=== PATIENT | male | born 1965 | race Caucasian/White ===

== ENCOUNTER 2018-12-03 06:56 | Inpatient (IN) ==
[2018-12-03] MEDS ORDERED: ASPIRIN ONE (07:02)
[2018-12-03] MEDS ORDERED: ASPIRIN PO ONE (07:07)
[2018-12-03] MEDS ORDERED: CATAPRES PO ONE (07:57)
[2018-12-03] MEDS ORDERED: NITROGLYCERIN TOP ONE ×2 (08:00)
[2018-12-03] MEDS ORDERED: NITROGLYCERIN SL ONE ×2 (08:00)
[2018-12-03 08:08] LABS: BASO# 0.03 X1000 (0.0-0.2); BASO% 0.2 % (0.0-0.8); EOS# 0.18 X1000 (0.0-0.7); EOS% 1.3 % (0.0-10.0); HEMATOCRIT 28.7 % (42.0-52.0); HEMOGLOBIN 9.6 g/dL (14.0-18.0); IMM GRAN# 0.06 X1000 (0.0-0.04); IMM GRAN% 0.4 % (0.0-0.5); LYMPH# 1.53 X1000 (1.2-3.4); LYMPH% 11.1 % (20.5-51.1); MCH 30.5 PG (27-31); MCHC 33.4 g/dL (33-37); MCV 91.1 FL (81-99); MONO# 1.38 X1000 (0.11-0.59); MPV 10.4 FL (7.4-10.4); NEUT# 10.58 X1000 (1.4-6.5); PLT 282 X1000 (130-400); RBC 3.15 XMIL (4.7-6.1); RDW 15.5 % (11.5-14.5); WBC 13.76 X1000 (4.8-10.8)
[2018-12-03 08:15] LABS: AGAP 20; ALKALINE PHOSPHATASE 100 U/L (32-122); BUN 61 mg/dL (8-22); CALCIUM 8.1 mg/dL (8.8-10.2); CHLORIDE 103 mmol/L (98-107); COSMO 294; CREATININE 9.3 mg/dL (0.7-1.2); ESTIMATED GFR 6; GLUCOSE 116 mg/dL (70-104); GOT 10 U/L (10-34); GPT < 5 U/L (10-44); POTASSIUM 5.2 mmol/L (3.5-5.1); SODIUM 138 mmol/L (136-145); TCO2 15 mmol/L (25-35); TOTAL PROTEIN 6.9 g/dL (6.3-8.3)
[2018-12-03] MEDS ORDERED: MORPHINE IV ONE (08:15)
[2018-12-03] MEDS ORDERED: ZOFRAN IV ONE (08:15)
--- NOTE | 2018-12-03 08:22 | PROVIDER DOCUMENTATION ---
HPI-General Adult - General Chief Complaint: Chest Pain Stated Complaint: SOB / CP Time Seen by Provider: 12/03/18 07:58 Source: patient, family Allergies/Adverse Reactions: Patient Allergies Allergy/AdvReac Type Severity Reaction Status Date / Time watermelon Allergy ITCHING Verified 08/13/18 13:40 Home Medications: Home Medication List Medication Instructions Recorded Confirmed Last Taken Type Metformin [Glucophage] 500 mg PO DAILY 06/03/13 12/03/18 11/09/13 History Gabapentin [Neurontin] 600 mg PO TID 09/05/13 12/03/18 11/09/13 History Gemfibrozil [Lopid] 600 mg PO BID 09/05/13 12/03/18 11/09/13 History Insulin Humulin 70/30 [Humulin 35 unit SUBQ BID 09/05/13 12/03/18 11/09/13 History 70/30] Lisinopril/Hydrochlorothiazide 1 each PO BID 09/05/13 12/03/18 11/09/13 History [Lisinopril-Hctz 20-12.5 mg Tab] Multivitamin/Iron/Folic Acid 1 each PO DAILY #30 tablet 09/07/13 12/03/18 11/09/13 Rx [Multi-Day Plus Iron Tablet] Pentoxifylline E.r. [Trental] 400 mg PO TID #60 tablet 09/07/13 12/03/18 11/09/13 Rx Aspirin 325 mg PO DAILY 11/10/13 12/03/18 11/09/13 History Clonidine [Catapres] 0.1 mg PO DAILY #30 tablet 08/10/14 12/03/18 Unknown Rx Metoprolol Tartrate 1 tab PO BID 09/08/18 12/03/18 Unknown History - History of Present Illness -Gen Adult Nature of Presenting Problems: 2ND ER VISIT THIS WEEK FOR 52 YO MALE . C/O CHEST PAINS, SOB, LOWER ABD PAINS, HEMATURIA WITH CLOTS, REUCRRENT VOMITING AND POOR RETENTION PO FLUIDS THIS WEEK.VERY LITTLE FOOD RETAINED. NOEW SCROTAL EDEMA. CHRONIC PEDAL EDEMA. NO KNOWLEDGE OF CHF HSITORY.CHRONICALLY ILL WITH COPD, SMOKING, DM, PERIP NEUROPATHY, HTN AND CHRONIC NARCOTIC TREATMENT WITH DR KUMARI. SEES DR HE, CARDIOLOGY. Review of Systems - Adult - REVIEW OF SYSTEMS - ADULT Constitutional: reports: no symptoms reported, fatique. denies: chills, fever Eyes: reports: no symptoms reported Ears, Nose, Mouth & Throat: reports: no symptoms reported Cardiovascular: reports: no symptoms reported Respiratory: reports: see HPI Gastrointestinal: reports: see HPI, nausea, vomiting. denies: hematemesis Genitourinary: reports: see HPI. denies: flank pain Musculoskeletal: reports: no symptoms reported Integumentary: reports: no symptoms reported Neurological: reports: no symptoms reported, numbness, paresthesia Psychiatric: reports: no symptoms reported Endocrine: reports: no symptoms reported Hematologic/Lymphatic: reports: no symptoms reported Allergic/Immunologic: reports: no symptoms reported All Other Systems: Reviewed and Negative Past History - Adult - PAST MEDICAL HISTORY-ADULT Review of Records: reports: Nursing Assessment Review, Medications Reviewed, Social history reviewed & non-contributory. Major Childhood Illnesses: reports: denies history Cardiovascular: reports: HTN, hyperlipidemia, PVD Respiratory: reports: denies history Gastrointestinal: reports: denies history Obstetrical/Gynecological: reports: denies history Genitourinary: reports: denies history Musculoskeletal: reports: denies history Neurological: reports: CVA, other (neuropathy) Psychiatric: reports: depression Endocrine/Immune: reports: Diabetes Other Conditions: reports: other (ulcers to feet) - PRIOR SURGERIES/PROCEDURES Surgical/Procedure History: reports: orthopedic (extremity), other (fem-bop) - IMMUNIZATION STATUS Childhood Immunizations: See Nurse Assessment Flu Vaccine: See Nurse Assessment - FAMILY HISTORY Family History: reviewed, not pertinent Physical Exam-General - PHYSICAL EXAM-ADULT Initial Vital Signs Reviewed: Yes (HTN) - CONSTITUTIONAL General Appearance: mild distress, other (ACHEY). negative: lethargic - EYES Eyes: PERRL/EOMI, pink conjunctivae - HEAD, EARS, NOSE, MOUTH & THROAT HENMT: normocephalic/atraumatic, moist mucous membranes - NECK Neck: full range of motion, supple - RESPIRATORY Respiratory: chest non-tender, lungs clear, normal breath sounds. negative: respiratory distress - CARDIOVASCULAR Cardiovascular: normal peripheral pulses, regular rate, rhythm, no JVD, no murmur. negative: no edema - GASTROINTESTINAL (ABDOMEN) Abdominal Exam: soft, tenderness (SUPRAPUBIC) - MUSCULOSKELETAL Extremity: swelling, other (FOOT ULCERS, CHRONIC EDEMA , CHRONIC STASIS DERMATITIS). 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 negative: facial droop, focal weakness, motor weakness - PSYCHIATRIC Psych/Mental Status: normal thought content, normal thought process, oriented x 3, disheveled, depressed affect Progress - PLAN OF CARE/RESULTS Progress/Plan/Lab Results: Vital Signs - 8 hr 12/03/18 06:58 Temperature 97.6 F Pulse Rate 82 Respiratory Rate 16 Blood Pressure 243/118 O2 Sat by Pulse Oximetry 99 Laboratory Results - last 24 hr 12/03/18 12/03/18 12/03/18 07:05 07:05 07:05 WBC 13.76 H RBC 3.15 L Hgb 9.6 L Hct 28.7 L MCV 91.1 MCH 30.5 MCHC 33.4 RDW Std Deviation 15.5 H Plt Count 282 MPV 10.4 Immature Gran % (Auto) 0.4 Neut % (Auto) 77.0 H Lymph % (Auto) 11.1 L Heard % (Auto) 10.0 H Eos % (Auto) 1.3 Baso % (Auto) 0.2 Immature Gran # (Auto) 0.06 H Neut # (Auto) 10.58 H Lymph # (Auto) 1.53 Heard # (Auto) 1.38 H Eos # (Auto) 0.18 Baso # (Auto) 0.03 Sodium 138 Potassium 5.2 H Chloride 103 Carbon Dioxide 15 L Anion Gap 20 BUN 61 H Creatinine 9.3 H Estimated GFR/1.73 m2 6 BUN/Creatinine Ratio 7 Glucose 116 H Calculated Osmolality 294 Calcium 8.1 L Total Bilirubin 0.20 AST 10 ALT < 5 L Alkaline Phosphatase 100 Troponin T 0.094 H Total Protein 6.9 Albumin 3.0 L Globulin 4.0 Albumin/Globulin Ratio 1.0 Plasma Lactate 12/03/18 07:05 WBC RBC Hgb Hct MCV MCH MCHC RDW Std Deviation Plt Count MPV Immature Gran % (Auto) Neut % (Auto) Lymph % (Auto) Heard % (Auto) Eos % (Auto) Baso % (Auto) Immature Gran # (Auto) Neut # (Auto) Lymph # (Auto) Heard # (Auto) Eos # (Auto) Baso # (Auto) Sodium Potassium Chloride Carbon Dioxide Anion Gap BUN Creatinine Estimated GFR/1.73 m2 BUN/Creatinine Ratio Glucose Calculated Osmolality Calcium Total Bilirubin AST ALT Alkaline Phosphatase Troponin T Total Protein Albumin Globulin Albumin/Globulin Ratio Plasma Lactate 1.4 Orders Category Date Time Status Hirsch Cath Insertion ORDERED Care 12/03/18 08:14 Active CHEST-PORTABLE [RAD] Stat Exams 12/03/18 07:47 Ordered BLOOD CULTURE [BLDCUL] Stat Lab 12/03/18 07:49 Ordered CBC WITH DIFF [HEME] Stat Lab 12/03/18 07:05 Completed CK PROFILE [SP CHEM] Stat Lab 12/03/18 07:05 Received COMPREHENSIVE METABOLIC PANEL [CHEM] Stat Lab 12/03/18 07:05 Completed D-DIMER [COAG] Stat Lab 12/03/18 07:05 Received LACTATE, PLASMA [CHEM] Stat Lab 12/03/18 07:05 Completed PRO B-NATRIURETIC PEPTIDE Stat Lab 12/03/18 08:13 Uncollected PROTIME WITH INR [COAG] Stat Lab 12/03/18 08:14 Uncollected PTT [COAG] Stat Lab 12/03/18 08:14 Uncollected TROPONIN T Stat Lab 12/03/18 07:[address] W/POSS RFLX CULT [URINALYSIS] Stat Lab 12/03/18 08:14 Uncollected URINE DRUG SCREEN PL Stat Lab 12/03/18 08:14 Uncollected Aspirin Med 12/03/18 07:02 Discontinued 325 mg .ROUTE .STK-MED ONE Aspirin Med 12/03/18 07:07 Discontinued 325 mg PO NOW ONE Clonidine [Catapres] Med 12/03/18 07:57 Discontinued 0.2 mg PO NOW ONE Morphine Med 12/03/18 08:15 Discontinued 4 mg IV NOW ONE Nitroglycerin Med 12/03/18 08:00 Discontinued 1 inch TOP NOW ONE Nitroglycerin Med 12/03/18 08:00 Discontinued 1 inch TOP NOW ONE Nitroglycerin Sl [Nitroglycerin] Med 12/03/18 08:00 Discontinued 0.4 mg SL NOW ONE Nitroglycerin Sl [Nitroglycerin] Med 12/03/18 08:00 Discontinued 0.4 mg SL NOW ONE Ondansetron [Zofran] Med 12/03/18 08:15 Discontinued 4 mg IV NOW ONE EKG [EKG] Stat Ther 12/03/18 07:03 Ordered Result Diagrams: 12/03/18 07:05 12/03/18 07:05 - EKG 1 Time of EKG reading by physician:: 08:55 EKG Read and Signed by:: Hernando Moreno EKG Interpretation (*Must complete 3 of following elements*): Abnormal Rate: 80 Rhythm: NORMAL SINUS QRS: normal ST Wave: non-specific ST changes - CONSULTS/PCP/HOSPITALIST Notification #1 *Consult/PCP/Hospitalist*: dr PRINCE Time Discussed: 10:27 Consult Disposition: Admit (WILL NEED TO GO TO [facility] /DIALYSIS/UROLOGY) Departure - Departure Date of Disposition Decision: 12/03/18 Time of Disposition Decision: 10:27 DIAGNOSIS: Acute renal failure (ARF), Obstructive uropathy, Ureteral calculi, Fluid overload, Elevated troponin Disposition: ADMITTED INPATIENT 09 Certified Medical Emergency: Emergent Condition: Fair - Critical Care Note This patient required my direct & personal management of CC.: Yes Total Time (mins): 35 Critical Care Statement: This patient required my direct personal management to treat or rule out processes, the absence of which, could potentiallly result in sudden, clinically significant life or limb threatening deterioration. Attestation - Physician/ MIRZA Attestation The physician spent face to face time with patient:: Yes Advanced Practice Provider documentation review:: Supervising physician onsite and consulted in the evaluation and care of this patient. The physician did have a face to face encounter with the patient.
[2018-12-03] MEDS ORDERED: LASIX IV ONE (08:24)
--- NOTE | 2018-12-03 08:29 | Diag Imaging Result Doc PS360 ---
EXAM: CHEST-PORTABLE 12/03/2018 HISTORY: chest pain TECHNIQUE: AP portable at 0832 COMMENT: There is no evidence of acute cardiac or pulmonary disease. Compared to 10/26/2017 the inspiration is less optimal but otherwise are has been no significant change considering differences in technique. IMPRESSION: No acute disease. Electronically signed by Waqar Jolly 12/03/2018 8:26 AM
--- NOTE | 2018-12-03 08:30 | EKG Report ---
Test Performed on : 12/03/2018 07:00:49 AM Test Reason : cp Blood Pressure : / mmHG Vent. Rate : 080 BPM Atrial Rate : 080 BPM P-R Int : 148 ms QRS Dur : 086 ms QT Int : 396 ms P-R-T Axes : 048 014 090 degrees QTc Int : 456 ms Normal sinus rhythm. Nonspecific T wave abnormality Abnormal ECG When compared with ECG of 26-OCT-2017 11:02, T wave inversion no longer evident in Inferior leads Unconfirmed Result
[2018-12-03 08:47] LABS: INR 1.08; PROTIME 14.6 Seconds (11.0-16.0)
[2018-12-03 08:52] LABS: PTT 36.2 Seconds (22.3-41.8)
--- NOTE | 2018-12-03 09:56 | Diag Imaging Result Doc PS360 ---
EXAM: CT ABDOMEN/PELVIS W/O CONTRAST 12/03/2018 HISTORY: HEMATURIA,ABD APIN TECHNIQUE: This exam was performed using automated exposure control, adjustment of mA or kV according to patient size, and/or use of iterative reconstruction technique. COMMENT: There is bibasilar atelectasis and bilateral pleural effusions. Compared to the previous study of 02/27/2013 this was not present previously. There is ascites which was not present previously. There is perinephric stranding bilaterally and bilateral hydronephrosis. This was not present previously. There is a large calculus in the upper pole of the left kidney measuring almost 19 mm in greatest dimension. Several tiny calculi are present in the lower pole. There is a stone in the ureteropelvic junction on the left measuring 3 mm in diameter. This was not present previously. There is no evidence of nephrolithiasis on the right. The right ureter is distended and there is a stone at the level of the sciatic notch measuring over 8 mm in diameter. This was not present previously. There is anasarca. There is a Hirsch catheter in the bladder. There is no evidence of bowel obstruction. There are no apparent gallstones. IMPRESSION: Distal right ureteral stone with hydronephrosis, left ureteropelvic junction stone with hydronephrosis and left nephrolithiasis. Anasarca, pleural effusions, and ascites. Electronically signed by Waqar Jolly 12/03/2018 9:54 AM
[2018-12-03] MEDS ORDERED: ZOFRAN IV PRN (11:09)
[2018-12-03] MEDS ORDERED: APRESOLINE IV PRN (11:16)
[2018-12-03] MEDS ORDERED: TAZIDIME 2 GM in NS 100 ML IV ONE (11:17)
[2018-12-03] MEDS ORDERED: SODIUM CHLORIDE 0.9% INJ ONE (11:21)
[2018-12-03] MEDS ORDERED: PROTONIX IV ONE (11:21)
[2018-12-03] MEDS ORDERED: AMIDATE ONE (13:16)
[2018-12-03] MEDS ORDERED: XYLOCAINE-MPF 2% ONE (13:17)
[2018-12-03] MEDS ORDERED: ZOFRAN ONE (15:02)
[2018-12-03] MEDS ORDERED: DECADRON ONE (15:02)
[2018-12-03] MEDS: MORPHINE ONE (15:58)
[2018-12-03 16:40] LABS: URINE SOURCE CATH
[2018-12-03 16:54] LABS: BILIRUBIN URINE NEGATIVE (NEGATIVE); BLOOD URINE LARGE (NEGATIVE); COLOR BROWN; GLUCOSE URINE NEGATIVE (NEGATIVE); KETONE URINE NEGATIVE (NEGATIVE); LEUKOCYTES URINE LARGE (NEGATIVE); NITRITE URINE NEGATIVE (NEGATIVE); PROTEIN URINE 200 mg/dL (NEGATIVE); SP GRAVITY URINE 1.003; TURBIDITY URINE TURBID (CLEAR); UR EPITHELIAL CELLS <10 /HPF (<10); URINE BACTERIA NEGATIVE /HPF; URINE RBC TNTC /HPF (<10); URINE WBC TNTC /HPF (<10); UROBILINOGEN URINE NORMAL (NORMAL)
[2018-12-03 16:55] LABS: URINE CASTS GRANULAR PRESENT; URINE CRYSTALS NONE SEEN; URINE SMALL ROUND CELLS TRANS PRESENT; URINE YEAST NONE SEEN
[2018-12-03] MEDS: HUMALOG SUBQ SCH ×2 (17:44→22:14)
[2018-12-03] MEDS: NS 1,000 ML IV SCH (17:51)
[2018-12-03] MEDS: APRESOLINE IV PRN (18:12)
[2018-12-03] MEDS ORDERED: ZOSYN 2.25 GM in NS 50 ML IV SCH (18:30)
[2018-12-03] MEDS: CATAPRES PO SCH (18:58)
[2018-12-03] MEDS: ZYVOX 600 MG/D5W 600 MG/300 ML IVPB IV SCH (18:59)
--- NOTE | 2018-12-03 21:04 | HISTORY AND PHYSICAL ---
CHIEF COMPLAINT: Chest pain, shortness of breath, abdominal pain. HPI: This is a 52-year-old gentleman with a history of diabetes mellitus, peripheral artery disease, hypertension and chronic bilateral feet ulcers. He presents to the emergency room with his complaining of chest pain, shortness of breath, abdominal pain, as well as hematuria and vomiting. The patient states that he began to have some bilateral flank pain about 10 days ago. It waxed and waned. He did have episodes where he felt like he had stabbing pain but he said this lasted maybe a minute at a time. It seemed to get better until the last 24 hours. During this time he has developed chest pain which he states is his lower ribcage to bilateral upper abdominal quadrants as well as right-sided abdominal pain. He describes the pain as a crampy type pain. He said it seems to be build then will slowly decrease although it never resolves. He has had some vomiting. He did have some hematuria with clots although he states he has not voided since sometime yesterday. CT scan revealed a left 3 mm UPJ stone obstruction with hydro, an 8 mm distal right ureter renal stone obstruction as well as a 19 mm nonobstructing renal stone in the right kidney, bilateral perinephric stranding as well as bilateral hydronephrosis with bilateral renal stones with the largest being 19 mm in the left kidney. He does have bilateral obstructing stones having a left UPJ 3 mm stone and a right 8 mm right ureteral stone. Hirsch catheter was placed for no urine return in the emergency room. PAST MEDICAL HISTORY: Diabetes mellitus, COPD, hyperlipidemia, hypertension, peripheral artery disease, neuropathy, bilateral chronic ulcers to feet followed by Dr. Sylvester at the wound clinic. PAST SURGICAL HISTORY: Arthroscopy femoral-popliteal bypass, right 5th toe amputation. SOCIAL HISTORY: He smokes a pack a day. He denies alcohol or illicit drug use. He is lives with his . REVIEW OF SYSTEMS: Discussed with patient with pertinent positives stated in the HPI. He denied any syncope or dizziness, any shortness of breath, cough, chills, night sweats, any recent weight loss or weight gain, any vomiting, diarrhea, constipation, black or bloody vomitus or stools. PHYSICAL EXAMINATION: GENERAL: This is a 52-year-old gentleman who is lying flat on the stretcher in the emergency room in no distress. VITAL SIGNS: Blood pressure is 227/101 with a heart rate of 70, respirations are 15, temperature is 97.6 oral with room air saturations 96-98%. HEENT: Head is normocephalic, atraumatic. Mucous membranes are dry. NECK: Supple with trachea midline. He has no JVD. CARDIOVASCULAR: Regular rate and rhythm. S1 and S2 appreciated. No murmur. Calves are nontender bilateral to palpation. PULMONARY: Breath sounds are clear. No increased work of breathing noted. Chest rises and fall symmetric respiration. Chest wall is nontender to palpation. GASTROINTESTINAL: Abdomen soft, nontender, nondistended. Bowel sounds in all 4 quadrants. GENITOURINARY: He has suprapubic tenderness. He has no CVAT. EXTREMITIES: He has chronic lower extremity edema. He does have chronic stasis dermatitis, he has bilateral foot ulcers. NEUROLOGIC: He is alert, oriented x3. SKIN: Warm and dry. LABS: WBC is 13.7 with hemoglobin 9.6, hematocrit 28.7, platelets of 282,000. Sodium 138, potassium 5.2, BUN is 61, creatinine 9.3 with a glucose of 116. Troponin is 0.094 with a proBNP of greater than 35,000. CT scan of the abdomen and pelvis reveals bilateral renal stones with the largest being 18 mm in the left. This is nonobstructing, a left 3 mm UPJ stone with an 8 mm right ureteral stone, bilateral hydronephrosis. Chest x-ray reveals no acute disease. ASSESSMENT AND PLAN: 1. Bilateral obstructing ureteral stones with hydronephrosis. We have spoken with Dr. Russell and urology. He has been consulted. 2. Acute renal failure. This is very likely secondary to obstruction as he does have bilateral stones. Hirsch has been placed for no urine output. Treatment as stated above and we have spoken with Dr. Alexandra Hernadez's nurse practitioner and they will follow. 3. Leukocytosis. Give Fortaz 2 g 4. Diabetes mellitus. He will be placed on pattern blood glucose with sliding scale insulin. 5. History of peripheral artery disease. We will identify his home medications and continue. 6. History of peripheral neuropathy. Will continue home medications. 7. Chronic bilateral foot ulcer ulcers. He does see Dr. Mateusz Sylvester through the [facility]. Will place a consult for the [facility]. 8. Bilateral femoral stenosis aware. He is status post bilateral femoral- popliteal. 9. Elevated troponin. This is very likely secondary to his acute kidney injury. Will continue to trend his troponins. 10. The patient will remain NPO until evaluated by Dr. Russell. Repeat a CBC, CMP, mag and phos in the morning. 11. Hypertension. Will hold oral medications at present, will use hydralazine 10 mg IV q.6 hours p.r.n. systolic blood pressure greater than 190. 12. For nausea will use Zofran and will continue with IV hydration. Further treatments pending hospital course. Dictated by KAYLEE Bond for Fermín Graf MD cc: KAYLEE Bond MD MTDD
[2018-12-03] MEDS ORDERED: INSULIN PEN NEEDLES ONE (22:20)
[2018-12-03] MEDS: HUMULIN 70/30 SUBQ SCH (22:33)
[2018-12-03] MEDS: LOPRESSOR PO SCH (22:33)
[2018-12-03] MEDS: PERIDEX MT SCH (22:33)
[2018-12-04] MEDS: NORCO-7.5 PO PRN ×2 (00:58→09:08)
[2018-12-04] MEDS: MORPHINE ONE (01:31)
--- NOTE | 2018-12-04 02:36 | HISTORY AND PHYSICAL ---
ADDENDUM: Patient seen and examined by myself in the ER with nurse practitioner. Unfortunately, Mr. Olsen appears to have a renal stone with obstruction. Therefore, we will transfer him to [facility] for Urology to assist in his care. We will place him on antibiotics, pain control, fluids. Further orders as needed. Please see full dictation. cc: Fermín Graf MD
[2018-12-04] MEDS: ZOSYN 2.25 GM in NS 50 ML IV SCH ×3 (03:50→20:52)
[2018-12-04 05:37] LABS: URINE SOURCE CATH
[2018-12-04 05:48] LABS: BILIRUBIN URINE NEGATIVE (NEGATIVE); BLOOD URINE LARGE (NEGATIVE); COLOR RED; GLUCOSE URINE NEGATIVE (NEGATIVE); KETONE URINE NEGATIVE (NEGATIVE); LEUKOCYTES URINE SMALL (NEGATIVE); NITRITE URINE NEGATIVE (NEGATIVE); PROTEIN URINE 200 mg/dL (NEGATIVE); SP GRAVITY URINE 1.007; TURBIDITY URINE TURBID (CLEAR); UR EPITHELIAL CELLS <10 /HPF (<10); URINE BACTERIA NEGATIVE /HPF; URINE RBC <10 /HPF (<10); URINE WBC <10 /HPF (<10); UROBILINOGEN URINE NORMAL (NORMAL)
[2018-12-04 06:04] LABS: UR AMPHETAMINES QUAL NONE DETECTED (NONE DETECT); UR BARBITUATES QUAL NONE DETECTED (NONE DETECT); UR BENZODIAZEPIN QUAL NONE DETECTED (NONE DETECT); UR CANNABINOIDS QUAL PRESUMPTIVE POSITIVE (NONE DETECT); UR COCAINE QUAL NONE DETECTED (NONE DETECT); UR METHADONE QUAL NONE DETECTED (NONE DETECT); UR OPIATES QUAL PRESUMPTIVE POSITIVE (NONE DETECT); UR OXYCODONE QUAL NONE DETECTED (NONE DETECT); UR PCP QUAL NONE DETECTED (NONE DETECT)
[2018-12-04] MEDS: NS 1,000 ML IV SCH ×3 (06:10→16:04)
[2018-12-04] MEDS: ZYVOX 600 MG/D5W 600 MG/300 ML IVPB IV SCH ×2 (06:10→17:45)
[2018-12-04 06:23] LABS: HEMATOCRIT 27.3 % (42.0-52.0); HEMOGLOBIN 8.7 g/dL (14.0-18.0); IMM GRAN# 0.04 X1000 (0.0-0.04); IMM GRAN% 0.5 % (0.0-0.5); LYMPH# 0.85 X1000 (1.2-3.4); LYMPH% 11.4 % (20.5-51.1); MCH 29.2 PG (27-31); MCHC 31.9 g/dL (33-37); MCV 91.6 FL (81-99); MONO# 0.42 X1000 (0.11-0.59); MONO% 5.7 % (1.7-9.3); MPV 10.5 FL (7.4-10.4); NEUT# 6.12 X1000 (1.4-6.5); NEUT% 82.4 % (42.2-75.2); PLT 282 X1000 (130-400); RBC 2.98 XMIL (4.7-6.1); RDW 15.4 % (11.5-14.5); WBC 7.43 X1000 (4.8-10.8)
[2018-12-04 06:48] LABS: MAGNESIUM 2.3 mg/dL (1.5-2.7); PHOSPHORUS 8.2 mg/dL (2.7-4.5)
[2018-12-04] MEDS: HUMALOG SUBQ SCH ×2 (06:51→13:54)
[2018-12-04 07:03] LABS: AGAP 17; ALB/GLOB RATIO 0.7; ALBUMIN 2.5 g/dL (3.5-5.0); ALKALINE PHOSPHATASE 81 U/L (32-122); BUN 60 mg/dL (8-22); CALCIUM 8.1 mg/dL (8.8-10.2); CHLORIDE 107 mmol/L (98-107); COSMO 295; CREATININE 8.7 mg/dL (0.7-1.2); ESTIMATED GFR 6; GLUCOSE 46 mg/dL (70-104); GOT 6 U/L (10-34); GPT < 5 U/L (10-44); POTASSIUM 5.5 mmol/L (3.5-5.1); SODIUM 141 mmol/L (136-145); TCO2 17 mmol/L (25-35); TOTAL BILIRUBIN 0.16 mg/dL (0.20-1.00); TOTAL PROTEIN 6.3 g/dL (6.3-8.3)
[2018-12-04] MEDS ORDERED: LEVSIN PO PRN (07:41)
--- NOTE | 2018-12-04 08:05 | CONSULTATION ---
DATE OF CONSULTATION: 12/03/2018 SUBJECTIVE: 1. Acute kidney injury. 2. Abdominal pain. 3. Bilateral obstructing ureteral stones. HISTORY OF PRESENT ILLNESS: Mr. Olsen is a 52-year-old with diabetes, peripheral artery disease, coronary artery disease, hypertension, hyperlipidemia, osteoarthritis, peripheral neuropathy, who presents for evaluation regarding left abdominal pain and decreased urinary output. The patient states for the past week he has been having abdominal pain and felt like he has not been able to urinate as efficiently as he used to. The patient states he has low volumes and strains to urinate. He has developed worsening left abdominal pain as well as occasional hematuria. The patient has been sick to the stomach and not been able to tolerate much p.o. intake, and feels like he has become dehydrated. The patient presented to [facility] today and CT scan was performed, which showed bilateral obstructing stones with a 9 mm stone present in the right distal ureter, and a smaller 3 mm stone present near the left ureteropelvic junction as well as a larger stone within the upper pole of the left kidney itself. The patient was referred to [facility] for surgical intervention. Patient states he had a stone in his twenties, but none since then. He states that he has history of anasarca and lower extremity edema. There has been new onset of scrotal swelling, he denies pain. PAST MEDICAL HISTORY: 1. Hypertension. 2. Hyperlipidemia. 3. Peripheral vascular disease. 4. Type 2 diabetes. 5. Depression. 6. History of CVA x2. 7. Peripheral neuropathy. 8. Peripheral arterial disease status post grafting. 9. Foot ulcerations managed by Dr. Sylvester. PAST SURGICAL HISTORY: 1. Removal of right 2nd phalanges. 2. Left femoropopliteal bypass on the left. 3. Arthroscopy of the knee ALLERGIES: Watermelon. MEDICATIONS: 1. Aspirin 325 mg daily. 2. Clonidine 0.1 mg p.o. daily. 3. Gabapentin 600 mg p.o. t.i.d. 4. Gemfibrozil 600 mg b.i.d. 5. Insulin 70/30, 35 units subcu b.i.d. 6. Lisinopril-hydrochlorothiazide 20-12.5 mg. 7. Metformin 500 mg p.o. daily. 8. Metoprolol 1 tablet b.i.d. 9. Multivitamin. 10. Trental 400 mg p.o. t.i.d. FAMILY HISTORY: Denies family history of malignancies. REVIEW OF SYSTEMS: Twelve-point review of systems reviewed. All pertinent positives and negatives in HPI. The patient also complains of chest pain and shortness of breath, as well as lower extremity edema and scrotal edema. PHYSICAL EXAMINATION: Vital Signs: Temperature 97.6 degrees, heart rate 62, blood pressure 197/88, oxygen saturation 98% on room air. General: The patient looks older than stated age. Appears chronically ill, alert and able answer questions. Oriented to person, place, time, and situation, but slightly lethargic. HEENT: Normocephalic, atraumatic. Pupils equal, round, reactive to light. Poor dentition. Respiratory: Good respiratory effort without audible wheezing or rales. Cardiovascular: No evidence of tachycardia or murmur. Abdomen: Soft, nondistended. Tenderness to palpation of the left abdomen. No abdominal distention or rebound tenderness. Genitourinary: No suprapubic tenderness. Urethral catheter in place with minimal drainage. Phallus normal. Evidence of scrotal edema with bilateral palpable testicles that are nontender to palpation. No obvious masses. Rectal: Digital rectal exam deferred until operating room. Extremities: The patient has 2+ edema present to above the thigh on the right side. No evidence of left-sided edema. Multiple ulcerations and poor foot hygiene bilaterally. Neurologic: Lethargic, but alert and oriented. Answers all questions appropriately. Skin: Multiple ulcerations of the feet. No obvious skin lesions or rashes. LABORATORY DATA: White blood cell count 13.8, hemoglobin 9.6, hematocrit 28.7, platelets 282,000. D-dimer 4.99. Sodium 138, potassium 5.2, chloride 103, bicarb 15, BUN 61, creatinine 9.3. Glucose 116. Troponin 0.094. Pro-B natriuretic peptide greater than 35,000. Albumin 3.0. IMAGING: CT of the pelvis, noncontrast, reviewed. Shows evidence of obstructing stones with a 3 mm stone present at the left ureteropelvic junction as well as a larger stone within the left kidney measuring approximately 1.9 cm in size and quite dense. The patient also has obstruction of the right kidney with approximate 8.5 mm stone in the distal right ureter leading to bilateral hydronephrosis. The patient has anasarca as well as bilateral fluid effusions. ASSESSMENT AND PLAN: Mr. Olsen is a 52-year-old with peripheral artery disease, type 2 diabetes, hypertension, hyperlipidemia, peripheral neuropathy, history of prior cerebrovascular accident, and nephrolithiasis, who presents in consultation regarding bilateral obstructing ureteral stones with acute kidney injury, with a creatinine elevated at 9.3. The patient had a Hirsch catheter that was present within the bladder and has not had much drainage. I think the patient is completely obstructed by his bilateral stones, likely related to acute kidney injury from anuria. The patient had an elevated BNP as well as troponin's, likely related to the acute kidney injury and fluid overload status. I recommended cystoscopy, bilateral ureteral stent placements, and likely bilateral retrograde pyelograms. I told him I would not remove the stones today, but would try to optimize his drainage. I told him that he is likely at risk for chronic kidney disease related to the obstructing stones, and may have difficulty coming off the ventilator afterwards due to his chronic obstructive pulmonary disease, as well as his other comorbidities. The patient has bilateral pleural effusions, anasarca, ascites, and multiple bilateral urolithiasis. The patient is chronically sick with his multiple comorbidities. I explained to him that he is at high risk for surgical intervention, but he will not improve without placement of stents and optimization of his kidney function. The patient and his expressed understanding. I will plan to take to the operating room later today. cc: Yosef Russell MD MTDPoppy
--- NOTE | 2018-12-04 09:07 | OPERATIVE NOTE ---
PROCEDURE DATE: 12/03/2018 PREOPERATIVE DIAGNOSES: 1. Acute kidney injury. 2. Anuria. 3. Bilateral obstructing ureteral stones. POSTOPERATIVE DIAGNOSES: 1. Acute kidney injury. 2. Anuria. 3. Bilateral obstructing ureteral stones. PROCEDURES PERFORMED: 1. Cystoscopy. 2. Bilateral retrograde pyelograms. 3. Bilateral ureteral stent placement. SURGEON: Yosef Russell MD. SHORT ORDER COOK: None. COMPLICATIONS: None. BLOOD LOSS: Zero. DRAINS: 1. A left ureteral stent 6 x 26 cm. 2. A right 6 x 24 cm stent. SPECIMENS: Urine for culture. OPERATIVE FINDINGS: The patient had a normal urethra. No evidence of stricture disease or papillary lesions. On entry into the bladder, the patient had a small prostate with no evidence of hypertrophy or obstruction. Once inside the bladder, the entirety of the bladder was inspected. Both ureteral orifices visualized, were quite narrow, with no obvious efflux from either side. Entirety of the bladder was inspected without any mucosal abnormalities, diverticulum, cellules, or papillary lesions, at which point, contrast dye was injected into the left ureteral orifice, which outlined a normal distal ureter with a filling defect in the proximal ureter, likely related to stone. I was able to get the contrast into the kidney itself, which outlined a normal collecting system with evidence of blunted calyx and hydronephrosis. Then the patient underwent uneventful left stent placement. Large amount of sediment returned from the right kidney. Attention was then placed to the right side. Calcification was seen in the distal right ureter. I attempted to inject contrast past this and was able to get contrast around it, which showed the filling defect and then outlined the collecting system itself which was severely hydronephrotic. I was able to place a wire past the stone and had return of a large amount of stagnant urine. The stent was then inserted with good curl in the collecting system, endoscopically visualized in the bladder. The patient's bladder was cycled multiple times to remove all the debris from his urine. The patient's bladder was left full and a 16-Polish Hirsch catheter was inserted. INDICATION FOR PROCEDURE: Mr. Olsen is a 52-year-old with diabetes, peripheral artery disease, coronary artery disease, prior CVA, who presents in consultation regarding azotemia with a BUN of 61 and a creatinine of 9.3. Presented to the ED due to weakness, lethargy, abdominal pain, and nausea/vomiting. CT scan shows bilateral obstructing stones with associated hydronephrosis. Patient is anuric since presenting the ED. In talking with the patient, I recommended cystoscopy and bilateral ureteral stent placement. Risks, benefits, and alternatives to the surgical procedure were discussed with the patient and his . The patient elected to proceed. DESCRIPTION OF PROCEDURE: After informed consent was obtained, the patient was brought to the operating room and placed on the operating table in the supine position. He received preoperative antibiotics and then underwent LMA placement. He was then positioned in the dorsal lithotomy position, was prepped and draped in the usual sterile fashion. A preoperative time-out was performed with all parties in agreement including anesthesia, surgical, and nursing staff. Following this, a 21-Polish cystourethroscope was introduced with no evidence of urethral stricture disease or papillary lesions. Following this, the posterior urethra was encountered. The prostate was small with no evidence of obstruction. Once inside the bladder, the entirety of the bladder was inspected and appeared to be empty of urine. Both ureteral orifices were visualized with no efflux or peristalsis. No papillary lesions, diverticulum, cellules, or bladder stones were seen within the bladder itself. [employer] fluoroscopy, showed calcification seen in the distal right ureter measuring 9 mm and a large stone present in the upper pole of the left kidney. Following this, our attention was placed to the left ureteral orifice. I placed open ended catheter through the scope and the left UO was engaged. Injecting Omnipaque, I outlined the ureter, which showed filling defect in the proximal ureter. The contrast went into the kidney itself and showed hydronephrosis with blunted calyx. A wire was placed thorugh the open ended and seen to go into the collecting system. The open ended catheter was removed and 6x26cm stent was passed with ease into the collecting system with coil present in the upper pole of the kidney on fluoroscopy and endoscopically seen in the bladder. A large amount of sediment returned from the left collecting system after placement of the stent. This was cycled out the bladder. Then attention was placed to the right side. Open-ended catheter was inserted and Omnipaque injected. A filling defect was seen in the distal ureter that was previously seen and contrast was able to get around this area and up into the collecting system itself with outlining of the collecting system. There was significant hydronephrosis and, ultimately, I was able to get a wire past the stone up into the collecting system itself. The open-ended catheter was removed and a 6 x 24 cm stent was then passed through the scope, endoscopically visualized to coil in the bladder and fluoroscopically visualized to coil within the kidney itself. Good drainage was seen through and around the stent. There was a large amount of stagnant urine in the bladder which was irrigated out multiple times. The patient's bladder was then left full and a 16-Polish Hirsch catheter was inserted through the urethra with return of clear irrigant. This was inflated with 10 mL of sterile water and placed to gravity drainage. The patient was awoken and was taken to recovery in stable condition. Will be transferred back to the floor for further monitoring. cc: Yosef Russell MD MTDD
[2018-12-04] MEDS: CENTRUM TABLET PO SCH (09:08)
[2018-12-04] MEDS: FLOMAX PO SCH (09:09)
[2018-12-04] MEDS: LOPRESSOR PO SCH ×2 (09:09→20:51)
[2018-12-04] MEDS: PERIDEX MT SCH ×2 (09:09→20:51)
[2018-12-04] MEDS: HUMULIN 70/30 SUBQ SCH (09:12)
[2018-12-04] MEDS: CATAPRES PO SCH (09:18)
--- NOTE | 2018-12-04 09:58 | PROGRESS NOTE ---
DATE: 12/04/2018 SUBJECTIVE: Postop day 1 from cystoscopy, bilateral retrograde pyelograms, and bilateral ureteral stent placement. The patient tolerated the procedure well and is much more awake and alert today. Answers all questions appropriately and is jovial on appearance. The patient made a good amount of urinary output overnight, approximately 2 L. He states he has minimal flank or abdominal pain. He is having some pain within his lower pelvis and states that he had some spasms in his bladder. Catheter has been draining mostly thin, reddish urinary output. OBJECTIVE: Vitals: Stable. Temperature 98.4 degrees, heart rate 77, blood pressure 141/62, oxygen saturation 97% on room air. General: No acute distress. Resting comfortably in bed, alert, oriented x3. Respiratory: Good respiratory effort without audible wheezing or rales. Abdomen: Soft, nontender, nondistended. No palpable masses or hepatosplenomegaly. : No suprapubic tenderness. No CVA tenderness. Urethral catheter in place draining reddish urinary output. No evidence of any clots. Urine is thin and drains rapidly. Scrotum is less edematous today. Penis is normal with urethral catheter in place. Extremities: Right lower extremity edema, has decreased relatively significantly. Continues to have some drainage from his right phalanges of his foot. LABORATORIES: White blood cell count 7.4, hemoglobin 8.7, hematocrit 27.3, platelets 282,000. Sodium 141, potassium 5.5, chloride 107, bicarb 17, BUN 60, creatinine 8.7, glucose 46, calcium 8.1, phosphorus 8.2, albumin 2.5. ASSESSMENT AND PLAN: Mr. Olsen is a 52-year-old with type 2 diabetes, COPD, hyperlipidemia, hypertension, peripheral artery disease, neuropathy, bilateral ulcerations of the feet, who presents in consultation regarding bilateral ureteral obstruction with anuria. The patient was taken to the operating room yesterday for cystoscopy, bilateral retrograde pyelograms, and bilateral stent placement. The patient tolerated the procedure well and has had approximately 2 L of urinary output since then. Overall, he seems to be clinically improving. We will increase his fluids today to try to promote urinary output and keep him from becoming dehydrated. Creatinine has only mildly improved. His creatinine today is a 8.7 from 9.3 yesterday. The patient is making a large amount of urine with over 2 L of output. His urine does have some blood tinge to it, but is draining well and is thin with no obvious clots. I think this is likely related to his aspirin as well as the significance of his acute kidney injury. We will continue with fluids to try to help with washing this out. We will plan to repeat a BMP at 2 o'clock today. The patient does have an elevated phosphorus level, likely needs a Nephrology consult regarding management. His potassium is slightly elevated at 5.5 as well. The patient denies any pain. I would plan to start bladder spasm medication and Flomax to assist in discomfort from the stents as he does have some complaints of bladder spasms this morning. We will continue to monitor. Please call with questions or concerns. cc: Yosef Russell MD MTDD
[2018-12-04] MEDS: CELEXA PO SCH (11:37)
[2018-12-04] MEDS ORDERED: TYLENOL PO PRN (12:04)
[2018-12-04] MEDS: NEURONTIN PO SCH (13:42)
[2018-12-04] MEDS: DILAUDID IV PRN (13:49)
[2018-12-04] MEDS: ZOFRAN IV PRN (14:56)
[2018-12-04 15:23] LABS: CREATININE 7.8 mg/dL (0.7-1.2); POTASSIUM 5.2 mmol/L (3.5-5.1)
--- NOTE | 2018-12-04 15:35 | PROGRESS NOTE ---
DATE: 12/04/2018 INTERVAL HISTORY: Mr. Olsen underwent cystoscopy, bilateral retrograde pyelogram, bilateral ureteral stent placement on December 03 which he tolerated well. SUBJECTIVE: He is very irritated. Does not answer questions appropriately. He does not want to engage in any conversation, and he is very an in his responses. He was not complying with physical examination completely, though. I explained to him and more so to his about his clinical condition and plan and answered all of her questions. OBJECTIVE: Vital Signs: Temperature is 97.7 degrees, pulse 63, respiratory rate 16, blood pressure 180/75 saturating 100% on room air. General: He is irritated, not in any acute distress. HEENT: Oral cavity is moist. Lungs: Air entry bilaterally equal. No wheeze, rhonchi, crackles. Cardiovascular: S1, S2 normal. No murmur or gallop. Abdomen: Soft. Mildly tender in left lower quadrant. Genitourinary: He has urine catheter in place which is draining bloody urine. Extremities: He has bilateral lower extremity edema and chronic venous stasis dermatitis-related changes. Pulses are difficult to be palpated. However, his extremities are warm to touch. He does have chronic wound in first intertriginous area between the great toe and 2nd toe on the right foot. Left foot has old calluses. LABORATORY DATA: Labs suggestive of resolution of leukocytosis, normocytic anemia, normal platelet count, hyperkalemia, elevated BUN and creatinine, hyperphosphatemia. He has positive urine toxicology for opiates and cannabinoids. MICROBIOLOGY: Wound culture from the right big toe, no growth to date. IMAGING: No new imaging. ASSESSMENT AND PLAN: 1. Bilateral obstructing ureteral stone leading to bilateral hydronephrosis status post bilateral ureteric stent on December 03. Continue to monitor kidney function. Continue Hirsch catheter. Urology on board. 2. Acute renal failure, likely post obstructive kidney failure. Continue intravenous fluid resuscitation. Follow up with daily BMP. Follow up with repeat potassium level. I will consider adding calcium acetate considering his hypocalcemia and hyperphosphatemia if he is eating. 3. Suspected bilateral acute pyelonephritis because of nephrolithiasis. Follow up final blood culture and urine culture results. Continue intravenous Zosyn and linezolid and change antibiotics according to final culture and sensitivity data. 4. Chronic right foot wound related to severe peripheral artery disease. Continue IV linezolid. Follow up final wound culture results. I will have wound nurse evaluate the wound. 5. IDDM with current Hypoglycemia: I will stop long acting insulin until his PO intake improves. Continue sliding scale insulin. 5. Essential hypertension and depression. I will continue home clonidine, metoprolol, and as- needed hydralazine and home citalopram. 6. Chronic pain and peripheral neuropathy. I will start him on as-needed hydromorphone, and we will adjust the dose of gabapentin for his poor kidney function at the moment. 7. Disposition. The patient remains inside the hospital as we monitor his urine output as well as kidney function. He currently has post obstructive renal failure. We will have to wait and see how his renal function improves. Plan of care discussed with the patient's at bedside. All of their questions have been answered satisfactorily. cc: Tony Pike MD MTDD
--- NOTE | 2018-12-04 17:28 | NEPHROLOGY CONSULTATION ---
DATE: 12/04/2018 REASON FOR ADMISSION: Bilateral hydronephrosis secondary to obstructing nephrolithiasis. REASON FOR CONSULTATION: Acute kidney injury. CONSULTING PHYSICIAN: Dr. Pike. HISTORY OF PRESENT ILLNESS: 52-year-old gentleman presented to the emergency room secondary to bilateral flank pain that had waxed and waned. He said that this had been going on for maybe 2 weeks. He had some hematuria but had significantly decreased output over the last 24 hours prior to admission. In the ER CT revealed obstructive ureteral stones bilaterally. He was admitted and transferred over to [facility] where he underwent a cystostomy, bilateral retrograde pyelograms and bilateral ureteral stent placement by Dr. Russell. Patient's urine output has picked up overnight. His initial creatinine prior to surgery was greater than 9, today he is 8.7. PAST MEDICAL HISTORY: Diabetes, COPD, hyperlipidemia, hypertension, peripheral artery disease, neuropathy, chronic ulcers bilateral feet followed by Dr. Sylvester at the wound clinic. SURGICAL HISTORY: Femoral-popliteal bypass, right 5th toe amputation, arthroscopy. ALLERGIES: Watermelon. HOME MEDICATIONS: Metformin, Humulin, lisinopril hydrochlorothiazide, gemfibrozil, gabapentin, multivitamin, Trental, aspirin, Catapres, metoprolol, Celexa. FAMILY HISTORY: Noncontributory. SOCIAL HISTORY: Continues to smoke, denies ETOH or illicit drug use. He is his is at the bedside. REVIEW OF SYSTEMS: Hematuria, abdominal pain. EXAM: Vital Signs: Temperature 97.7 degrees, pulse 63, respiratory 16, blood pressure 185/75, intake 2.5 L, output 1.7 L. General: This is a middle-aged gentleman sitting up in bed he is awake and alert. He is in no acute distress. He is cooperative with exam. HEENT: Normocephalic, atraumatic. Conjunctivae slightly pale, oral mucosa moist. Neck: Supple without JVD. Cardiovascular: Regular rate and rhythm without murmur. Pulmonary: He is clear bilaterally. He has no increased work of breathing. Abdomen: Soft with positive bowel sounds. : He has a Hirsch catheter. There is dark cranberry colored urine noted. The patient does state he feels some fullness to the bladder area. Extremities: Lower extremity edema with chronic stasis dermatitis. Bilateral ulcers noted feet. Is moving extremities. Integument: Skin warm and dry. Neuro: Grossly nonfocal otherwise. LAB DATA: WBC of 7.4, hemoglobin 8.7, sodium 141, potassium 5.5, CO2 17, creatinine 8.7 (9.3), baseline creatinine 1 in 2015. ASSESSMENT AND PLAN: 1. Acute kidney injury secondary to bilateral obstructing ureteral stones with hydronephrosis. The patient has underwent appropriate surgical intervention has had improvement renal function overnight. In discussion with the patient sounds like this has been going on for about 2 weeks. We should see some continued improvement in renal function. Right now he does not have any indications for intervention such as dialysis. Continue to follow. Will need to follow his intake and output closely in case he begins to have significant postobstructive diuresis. He has had almost 2 L out since surgery last night around 9 o'clock. 2. Leukocytosis, antibiotics are appropriately dosed, make no changes currently. 3. Electrolytes, acid-base balance, these are acceptable. He has some slight acidosis and that is actually improved from admission. His potassium is high normal will monitor that. He does have some urologic bleeding. Dictated by KAYLEE Munguia for Zachary Morris MD cc: Zachary Morris MD
[2018-12-04] MEDS: PHOSLO PO SCH (17:45)
[2018-12-04] MEDS: APRESOLINE IV PRN (20:55)
[2018-12-05] MEDS: NS 1,000 ML IV SCH (01:25)
[2018-12-05] MEDS: HUMALOG SUBQ SCH ×5 (01:25→21:28)
[2018-12-05] MEDS: DILAUDID IV PRN (01:52)
[2018-12-05] MEDS: ZOSYN 2.25 GM in NS 50 ML IV SCH ×2 (03:52→11:56)
[2018-12-05] MEDS: ZYVOX 600 MG/D5W 600 MG/300 ML IVPB IV SCH (05:45)
[2018-12-05 06:43] LABS: HEMATOCRIT 29.1 % (42.0-52.0); HEMOGLOBIN 9.2 g/dL (14.0-18.0); MCH 29.9 PG (27-31); MCHC 31.6 g/dL (33-37); MCV 94.5 FL (81-99); MPV 10.3 FL (7.4-10.4); RBC 3.08 XMIL (4.7-6.1); RDW 15.9 % (11.5-14.5); WBC 10.89 X1000 (4.8-10.8)
[2018-12-05 07:05] LABS: CALCIUM 7.8 mg/dL (8.8-10.2); CREATININE 7.3 mg/dL (0.7-1.2); POTASSIUM 4.5 mmol/L (3.5-5.1)
[2018-12-05 07:06] LABS: ALBUMIN 2.4 g/dL (3.5-5.0); PHOSPHORUS 7.9 mg/dL (2.7-4.5)
--- NOTE | 2018-12-05 07:57 | PROGRESS NOTE ---
DATE: 12/05/2018 SUBJECTIVE: Postoperative day 2 from cystoscopy, bilateral retrograde pyelograms, and bilateral ureteral stent placement. The patient did well overnight. He denies significant abdominal pain. States he is hurting slightly in his bladder, but this is stable to slightly improved. He continues to have good urinary output with 1800 mL recorded yesterday. The patient is having clearing of his urine, still pink to light red with no clots present. The patient has been tolerating p.o. intake and had a bowel movement yesterday. OBJECTIVE: Vital Signs: Temperature 98.1 degrees, heart rate 59, blood pressure 145/59, oxygen saturation 96% on room air. General: Resting comfortably. Alert and oriented x3. Respiratory: Good respiratory effort without audible wheezing or rales. Abdomen: Soft, nontender, nondistended. No palpable masses. Genitourinary: No suprapubic tenderness. No CVA tenderness. Urethral catheter in place draining light pink urine. No evidence of any clots. Scrotal edema improving. No palpable testicular masses. Extremities: Improvement in lower extremity edema. LABORATORIES: White blood cell count 10.9, hemoglobin 9.2, hematocrit 29.1, platelets 249,000. Sodium 142, potassium 4.5, chloride 110, bicarbonate 17, BUN 64, creatinine 7.3, glucose 61 ASSESSMENT AND PLAN: Mr. Olsen is a 52-year-old with type 2 diabetes, chronic obstructive pulmonary disease, hyperlipidemia, hypertension, peripheral artery disease, neuropathy, ulcerations of bilateral feet, who presented initially to the emergency room with decreased oral intake and abdominal pain, and was found to have bilateral ureteral obstructions with nephrolithiasis and was anuric. The patient was taken to the operating room on Wednesday for cystoscopy and bilateral ureteral stent placement. The patient has been doing well. He has approximately 1800 mL of urinary output over the past 24 hours. His catheter is draining light pink urine. No evidence of any clot. His renal function continues to improve. Creatinine is 7.3 today from 7.8 yesterday at 2 p.m., down from 9.3 on presentation. The patient seems to be having more oral intake. He is having some suprapubic tenderness, but this seems to have improved with addition of bladder spasm medications yesterday. I appreciate the recommendations of nephrology. We will continue to monitor. From a urologic standpoint, we keep indwelling catheter in now, continue to monitor electrolytes. Please call with questions or concerns. cc: Yosef Russell MD [facility]
[2018-12-05] MEDS: PHOSLO PO SCH ×3 (09:00→17:40)
[2018-12-05] MEDS: CELEXA PO SCH (09:00)
[2018-12-05] MEDS: PERIDEX MT SCH ×2 (09:00→21:46)
[2018-12-05] MEDS: FLOMAX PO SCH (09:00)
[2018-12-05] MEDS: CENTRUM TABLET PO SCH (09:00)
[2018-12-05] MEDS: CATAPRES PO SCH ×3 (09:00→17:44)
[2018-12-05] MEDS: LOPRESSOR PO SCH ×2 (09:00→21:46)
[2018-12-05] MEDS: NEURONTIN PO SCH (09:00)
--- NOTE | 2018-12-05 09:01 | Diag Imaging Result Doc PS360 ---
EXAM: RETROGRADES 2 OR 3 FILMS HISTORY: bilateral retrogrades; bilateral stent placement TECHNIQUE: 19 films submitted COMPARISON: None. FINDINGS: Early films have retrograde filling of the left ureter. No obstruction to retrograde flow although there are multiple filling defects in the proximal left ureter. A wire was placed within the left ureter with a ureteral stent placed. There has been retrograde filling of the right ureter. Large filling defect in the mid to distal right ureter. A wire and catheter were then placed. IMPRESSION: Bilateral ureteral stents placed with a stone in the mid to distal right ureter and multiple filling defects in the proximal left ureter Electronically signed by Chris Allen 12/05/2018 8:59 AM
[2018-12-05] MEDS: LR 1,000 ML IV SCH ×2 (10:34→17:40)
--- NOTE | 2018-12-05 12:28 | PROGRESS NOTE ---
DATE: 12/05/2018 INTERVAL HISTORY: No acute events overnight. SUBJECTIVE: The patient denies any new complaints. He states he has been eating a little better today than he has been before. His is at bedside. The patient does not appear interested in clinical encounter. However, he is not as agitated as he was yesterday. OBJECTIVE: Vitals: Currently, temperature 98.1 degrees, pulse 59, respiratory rate 20, blood pressure 145/59, saturating 96% on room air. General: He does not appear in any acute distress. Mouth: Oral cavity is moist. Lungs: Air entry bilaterally equal. No wheeze, rhonchi, crackles. Cardiac: S1, S2 normal. No murmur, rub or gallop. Abdomen: Soft, tender in left lower quadrant and right lower quadrant. However, it is diminished as compared to yesterday. He has urine catheter with pink looking urine drainage. Extremities: He has bilateral lower extremity edema and chronic venous stasis dermatitis changes. Pulses are difficult to palpate, however, extremities are warm to touch. He does have chronic wound in his intertriginous area between the great toe and 2nd toe on the right foot. Left foot has old calluses. LABORATORIES: Suggestive of normocytic anemia. He does have hyperchloremia and low bicarbonate, elevated BUN and creatinine, and his hypoglycemia appears to be better as compared to yesterday. I encouraged him to eat. No new microbiological data. No new imaging. ASSESSMENT AND PLAN: 1. Bilateral obstructing ureteral stone leading to bilateral hydronephrosis. Status post bilateral ureteric stent on December 03. Continue Hirsch catheterization and close input and output monitoring. Continue him on hyoscyamine and tamsulosin as per urologist's recommendation. 2. Suspected acute bilateral pyelonephritis. His urine culture has not shown any growth to date. However, I would consider changing his antibiotics from Zosyn to ceftriaxone. Blood culture final culture has been negative. 3. Acute renal failure, likely postobstructive postrenal failure with low bicarbonate, elevated BUN and creatinine, hypocalcemia and hyperphosphatemia. Change intravenous fluids to intravenous lactated Ringer's. Continue Hirsch catheter for close input and output monitoring, and calcium acetate. Nephrology on board as well. 4. Chronic right foot wound related to severe peripheral artery disease. Continue wound care, whom I have consulted. The wound culture has not shown any growth to date. Appreciate wound dressing recommendation from Wound Care. I am holding his aspirin considering hematuria which he was taking for peripheral artery disease versus prior history of stroke. 5. History of insulin-dependent diabetes mellitus with current hypoglycemia. Continue to hold long-acting insulin and continue sliding scale insulin. I encouraged him to take p.o. adequately. His poor p.o. intake is contributing to hypoglycemia. 6. Others. Increase clonidine for essential hypertension and continue metoprolol; continue home citalopram for depression; continue hydromorphone and gabapentin for chronic pain and current abdominal pain. 7. Disposition. The patient remains inside the hospital as I monitor his kidney function. Plan of care discussed with him. All of his questions have been answered. is also at bedside. Her questions have also been addressed satisfactorily. cc: Tony Pike MD
[2018-12-05] MEDS: ZOFRAN IV PRN (12:41)
[2018-12-05] MEDS: ROCEPHIN 1 GM in NS 50 ML IV SCH (13:25)
--- NOTE | 2018-12-05 16:34 | NEPHROLOGY PROGRESS NOTE ---
DATE: 12/05/2018 SUBJECTIVE: He states he is feeling better. He states his lower extremity swelling is chronic. No shortness of breath. OBJECTIVE: Vital Signs: Blood pressure 166/61, heart rate 54, respirations 17, afebrile. General: Acute distress. Skin: Warm and dry. Neck: Neck veins are not visible. Heart: Regular. No gallops. Lungs: Equal. No crackles or wheezes. Abdomen: Soft, nontender. Bowel sounds are present. Extremities: Have trace edema. No clubbing or cyanosis. IMPRESSION: Acute kidney injury secondary to urologic obstruction with stones. His urine remains brown to bloody and turbid. Creatinine is improving slowly. It is 7.3 today with initial creatinine 9.3. Good urine output at 1.8 L daily and he is in positive fluid balance. Modest metabolic acidosis is secondary to his acute kidney injury. Continue current care. cc: Zachary Morris MD
[2018-12-06] MEDS: LR 1,000 ML IV SCH ×3 (01:15→18:28)
[2018-12-06 06:04] LABS: HEMATOCRIT 26.7 % (42.0-52.0); HEMOGLOBIN 8.5 g/dL (14.0-18.0); MCH 30.1 PG (27-31); MCHC 31.8 g/dL (33-37); MCV 94.7 FL (81-99); MPV 10.7 FL (7.4-10.4); RBC 2.82 XMIL (4.7-6.1); RDW 15.7 % (11.5-14.5); WBC 9.86 X1000 (4.8-10.8)
[2018-12-06] MEDS: HUMALOG SUBQ SCH ×4 (06:44→21:07)
[2018-12-06 06:55] LABS: CALCIUM 7.3 mg/dL (8.8-10.2); CREATININE 6.1 mg/dL (0.7-1.2); PHOSPHORUS 7.4 mg/dL (2.7-4.5); POTASSIUM 4.7 mmol/L (3.5-5.1)
[2018-12-06] MEDS: CENTRUM TABLET PO SCH (08:51)
[2018-12-06] MEDS: CATAPRES PO SCH ×3 (08:51→17:29)
[2018-12-06] MEDS: NEURONTIN PO SCH (08:51)
[2018-12-06] MEDS: PHOSLO PO SCH ×3 (08:51→17:28)
[2018-12-06] MEDS: LOPRESSOR PO SCH ×2 (08:51→22:30)
[2018-12-06] MEDS: FLOMAX PO SCH (08:51)
[2018-12-06] MEDS: CELEXA PO SCH (08:51)
[2018-12-06] MEDS: PERIDEX MT SCH ×2 (08:52→21:23)
--- NOTE | 2018-12-06 10:17 | PROGRESS NOTE ---
DATE: 12/06/2018 SUBJECTIVE: No acute events overnight. The patient continues to have reddish urinary output without any clots. His catheter is draining well with thin reddish urine. The patient has minimal p.o. intake, as he says that food does not taste good to him. The patient's catheter drained 1400 yesterday. He denies any nausea, vomiting. OBJECTIVE: He remains afebrile. Vital signs: Temperature 97.5 degrees, heart rate 53, oxygen saturation 100% on room air. Blood pressure 140/57. General: No acute distress. Respiratory: Good respiratory effort without audible wheezing or rales. Abdomen: Abdomen soft, nontender, nondistended. : CVA tenderness. Mild left-sided suprapubic tenderness. Urethral catheter in place draining thinnish pink urine. No evidence of any clots in the tubing or bag. Neuro: The patient is alert and oriented. LABORATORY DATA: White blood cell count 9.8, hemoglobin 8.5, hematocrit 26.7, platelets 221,000. Sodium 137, potassium 4.7, chloride 107, bicarb 18, BUN 60, creatinine 6.1, glucose 96, calcium 7.4. ASSESSMENT AND PLAN: Mr. Olsen is a 52-year-old with type 2 diabetes, chronic obstructive pulmonary disease, hyperlipidemia, hypertension, peripheral artery disease, neuropathy with ulceration of bilateral feet, who presented to the emergency room on Wednesday with decreased oral intake, abdominal pain, and he was found to have bilateral ureteral obstructions with urolithiasis and was anuric. The patient has taken the operating room on Wednesday for cystoscopy, bilateral retrograde pyelograms, and bilateral stent placement. The patient has had stable urinary output over the past 24 hours. His creatinine continues to improve at 6.1 today from 7.3 yesterday. The patient continues to have minimal p.o. intake and is having some suprapubic tenderness. The patient states that he has been getting medications for his bladder spasms, which is similar to the symptoms that the patient is describing. We will continue with the Flomax and Levsin at this time to help with his symptoms. I appreciate the recommendations of Nephrology. We will continue to monitor from a urologic standpoint. Continue with indwelling catheter and monitor improvement in renal function. I think that his bleeding is likely coming from the kidneys themselves as his bladder showed no evidence of malignancy. The patient really only has left-sided pain. My concern is the patient likely had long-term obstruction of the right kidney and had acute onset of obstruction of the left kidney. We will continue to monitor please call with questions or concerns. cc: Yosef Russell MD MTDD
[2018-12-06] MEDS: DILAUDID IV PRN ×2 (11:15→21:24)
[2018-12-06] MEDS: ROCEPHIN 1 GM in NS 50 ML IV SCH (12:38)
--- NOTE | 2018-12-06 13:59 | NEPHROLOGY PROGRESS NOTE ---
DATE: 12/06/2018 SUBJECTIVE: He is about the same today. Decreased appetite. No vomiting. No shortness of breath. OBJECTIVE: Vital Signs: Blood pressure 140/57, heart rate 53, respirations 16, afebrile. General: No acute distress. Skin: Warm and dry. Neck: Neck veins are not visible. Heart: Regular. Lungs: Equal. No crackles or wheezes. Abdomen: Soft, nontender. Bowel sounds present. Extremities: With 1+ edema. No clubbing or cyanosis. IMPRESSION: 1. Acute kidney injury. Presumed. Secondary to obstructive nephrolithiasis. Creatinine 6.1 today. Continue IV fluids. 2. Hyperphosphatemia and hypocalcemia. No changes today. 3. Metabolic acidosis. Should improve as his renal function improves. cc: Zachary Morris MD
--- NOTE | 2018-12-06 15:51 | PROGRESS NOTE ---
DATE: 12/06/2018 INTERVAL HISTORY: No acute events overnight. His kidney function continues to trend down. He states that gabapentin makes him feel really bad, and he was not taking gabapentin at home. We discussed about stopping gabapentin. His appetite is getting better. Currently, his urine catheter still has bloody output. VITALS: Temperature 97.6 degrees, pulse 51, respiratory rate 20, blood pressure 145/62, which is better controlled from before, saturating 100% on room air. PHYSICAL EXAMINATION: General: He does not appear in any acute distress. Oral cavity is moist. No pallor, cyanosis, clubbing or icterus. Lungs: Equal. No wheezing, rhonchi or crackles. Heart: S1, S2 normal. No murmur, rub, or gallop. Abdomen: Soft. Tender in left lower quadrant and right lower quadrant which is better from before. He states some suprapubic tenderness as well. He has urine catheter draining bloody urine. It has recently been emptied. Extremities: He has a mild bilateral lower extremity edema and chronic venous stasis dermatitis changes. Pulses are difficult to palpate, but it appears warm to touch and there is no change. He also had a chronic wound in his right 1st and 2nd toe intertriginous area. Left foot had old healed diabetic foot calluses. Input and output suggests his urine output yesterday was 1.4 L. LABORATORY: Labs suggestive of no leukocytosis, normocytic anemia, and normal platelet count. Low bicarbonate. However, it is in acceptable range, improving BUN and creatinine. Microbiology urine culture has not shown any growth for 48 hours now. No new imaging. ASSESSMENT AND PLAN: 1. Bilateral obstructing ureteral stone leading to bilateral hydronephrosis status post bilateral ureteric stent on 12/03. Continue Hirsch catheterization for close input and output monitoring and ongoing hematuria, which is likely related to nephrolithiasis. Continue hyoscyamine and attempted tamsulosin as per urologist's recommendation. Suspected acute bilateral pyelonephritis based on CT imaging. His urine culture has not shown any growth to date, and I would consider discontinuing ceftriaxone after discussing with urologist. Blood culture has no growth to date. 2. Acute renal failure, likely postobstructive post renal failure with low bicarbonate, elevated BUN and creatinine, hyperphosphatemia and hypocalcemia. I will continue intravenous fluid lactated Ringer's, and a calcium acetate. Phosphate has been trending down. 3. Chronic right foot wound related to severe peripheral artery disease. Wound nurse has been consulted. It is stable. I am holding his aspirin considering hematuria, which he was taking for history of CVA. His hypoglycemia is currently resolved, and his blood sugars are acceptable with improving p.o. intake. I will continue sliding scale insulin; continue current dose of clonidine and metoprolol for essential hypertension; citalopram for depression; hydromorphone for chronic pain and current abdominal pain. Gabapentin has been discontinued. DISPOSITION: I will continue to monitor patient in the surgical unit. Plan of care discussed with him and his at bedside. All of their questions have been answered. I am waiting for kidney function to improve to an acceptable level and his hematuria to resolve at which point I will consider discharging him. cc: Tony Pike MD
[2018-12-07] MEDS: LR 1,000 ML IV SCH (01:45)
[2018-12-07] MEDS: DILAUDID IV PRN (06:07)
[2018-12-07 06:11] LABS: HEMATOCRIT 26.6 % (42.0-52.0); HEMOGLOBIN 8.5 g/dL (14.0-18.0); MCH 29.6 PG (27-31); MCV 92.7 FL (81-99); MPV 10.6 FL (7.4-10.4); RBC 2.87 XMIL (4.7-6.1); RDW 15.7 % (11.5-14.5); WBC 8.29 X1000 (4.8-10.8)
[2018-12-07] MEDS: HUMALOG SUBQ SCH ×3 (06:32→16:02)
[2018-12-07 06:48] LABS: ALBUMIN 2.1 g/dL (3.5-5.0); CALCIUM 7.6 mg/dL (8.8-10.2); CREATININE 5.3 mg/dL (0.7-1.2); PHOSPHORUS 6.6 mg/dL (2.7-4.5); POTASSIUM 4.5 mmol/L (3.5-5.1)
--- NOTE | 2018-12-07 08:07 | PROGRESS NOTE ---
DATE: 12/07/2018 SUBJECTIVE: No acute events overnight. The patient's catheter with good urinary output that appears to be clearing light pink to clear this morning. 1400 mL recorded yesterday. The patient had a bowel movement and rested comfortably overnight. Denies significant pain. Remains afebrile with stable vital signs. OBJECTIVE: Vital Signs: Temperature 97.4 degrees, heart rate 57, blood pressure 160/61, and oxygen pressure 98% on room air. General: No acute distress resting comfortably in bed. Alert and oriented x3. Respiratory: Good respiratory effort without audible wheezing or rales. Abdomen: Soft, nontender, nondistended. No palpable hepatosplenomegaly. : No suprapubic tenderness. No CVA tenderness. Hirsch catheter in place draining clear yellow urine. Improvement in scrotal edema. Extremities: The patient has lower extremity edema, which is slightly improved on exam today, but fluctuates day to day. LABORATORY: White blood cell count 8.3, hemoglobin 8.5, hematocrit 26.6, and platelets 209,000. Sodium 138, potassium 4.5, chloride 108, bicarb 19, BUN 57, creatinine 5.3, and glucose 106. ASSESSMENT AND PLAN: Mr. Olsen is a 52-year-old with type 2 diabetes, chronic obstructive pulmonary disease, hyperlipidemia, hypertension, peripheral artery disease, neuropathy with ulceration of bilateral feet, who presented to the emergency room on Wednesday with decreased p.o. intake with anuria. CT scan showed bilateral ureteral obstructions with urolithiasis. The patient was taken to the operating room on Wednesday for cystoscopy and bilateral ureteral stent placement. The patient has had stable urinary output with 1450cc recorded yesterday. His urine is clear yellow this morning. Creatinine continues to improve, but slowly. Creatinine is 5.3 from 6.1. His urine is clear yellow this morning. Some reddish staining in the tube. The patient denies significant pain. Clinically, he seems to be improving. All of his electrolytes are within normal limits. We will continue to monitor. Please call with questions or concerns. cc: Yosef Russell MD [facility]
[2018-12-07] MEDS: CATAPRES PO SCH ×3 (08:10→16:24)
[2018-12-07] MEDS: LOPRESSOR PO SCH ×2 (08:10→21:19)
[2018-12-07] MEDS: PERIDEX MT SCH ×2 (08:10→21:19)
[2018-12-07] MEDS: CELEXA PO SCH (08:10)
[2018-12-07] MEDS: PHOSLO PO SCH ×3 (08:10→16:24)
[2018-12-07] MEDS: FLOMAX PO SCH (08:10)
[2018-12-07] MEDS: CENTRUM TABLET PO SCH (08:10)
--- NOTE | 2018-12-07 11:33 | NEPHROLOGY PROGRESS NOTE ---
DATE: 12/07/2018 SUBJECTIVE: He states he is feeling somewhat better overall. Urine is less bloody. OBJECTIVE: Blood pressure 160/61, heart rate 57, respirations 15, afebrile. General: No acute distress. Skin is warm and dry. Conjunctivae are pink. Neck veins are not distended. Cardiovascular: Heart is regular. Lungs were equal. No crackles. Abdomen: Soft, nontender. Bowel sounds are present. Extremities: There is 1+ edema. No clubbing or cyanosis. IMPRESSION: Acute kidney injury secondary to nephrologic obstruction. Creatinine continues to improve but still markedly abnormal. I will stop his fluids as he is modestly volume overloaded. No intervention otherwise. cc: Zachary Morris MD
[2018-12-07] MEDS: DILAUDID PO PRN (13:34)
--- NOTE | 2018-12-07 18:10 | PROGRESS NOTE ---
DATE: 12/07/2018 INTERVAL HISTORY: No acute event overnight. His urine is clearing up. However, in the bag I could still see pinkish urine. He says he has not had a bowel movement. They are unsure about kidney stone removal plan and I discussed with them that he should address that with the urologist. OBJECTIVE: Vital Signs: Temperature 98.1 degrees, pulse 61, respiratory rate 14, blood pressure 187/88, saturating 100% on room air. General: Does not appear in acute distress. HEENT: Oral cavity is moist. No pallor, cyanosis, clubbing, or icterus. Lungs: Air entry bilaterally equal. No wheeze, rhonchi, or crackles. Cardiovascular: S1, S2 normal. No murmurs, rubs, or gallops. Abdomen: Soft. Generalized tenderness especially in left lower quadrant, suprapubic region and to some extent right lower quadrant. : He has a urine catheter which is draining pinkish urine. It has been recently emptied. Extremities: Mild bilateral lower extremity edema with chronic venous stasis dermatitis changes. Pulses are difficult to palpate, but it appears warm to touch. On my previous examination he had a chronic wound in his right 1st and 2nd toe intertriginous area, which is currently dressed. Left foot had old, healed diabetic foot calluses. Input and output suggest he had 1.4 L of urine yesterday. LABS: Suggestive of no leukocytosis, normocytic anemia, normal platelet count, hyperchloremia, low bicarbonate, improving BUN and creatinine. His calcium is low; however, it is improving. His phosphorus is also decreasing. MICROBIOLOGY: Urine culture did not have any growth to date. IMAGING: No new imaging. ASSESSMENT AND PLAN: 1. Bilateral obstructing ureteral stone leading to bilateral hydronephrosis status post bilateral ureteric stent on December 03. Continue Hirsch catheter for close input and output monitoring and for ongoing hematuria which is improving and it is likely related to his nephrolithiasis. Continue hyoscyamine and tamsulosin as per urologist's recommendation. He did have suspected acute bilateral pyelonephritis based on CT imaging, but his urine culture did not have any growth and so his IV ceftriaxone has been stopped on December 06, 2018. Blood culture did not have any growth to date. I will appreciate Urology's recommendation about future stone removal as it was family's concern. 2. Acute kidney injury, likely postobstructive renal failure with improving BUN and creatinine. His intravenous fluids have been stopped. Nephrology on board. Continue calcium acetate for hyperphosphatemia. 3. Chronic right foot wound related to severe peripheral artery disease. Wound nurse has been consulted. Wound culture did not have any growth to date. 4. Others. I am holding his aspirin that he was taking for secondary prophylaxis of CVA considering ongoing hematuria. I am continuing sliding scale insulin for his insulin- dependent diabetes mellitus. I will continue current dose of clonidine and metoprolol for essential hypertension and might up titrate clonidine dose if his blood pressure remains on the higher side. Continue citalopram for depression. Continue hydromorphone for chronic pain as well as current abdominal pain considering his kidney function. 5. Disposition. If his hematuria resolves and no other urologic interventions are planned and if his creatinine continues to show declining trend with adequate urine output, then the patient would be an appropriate candidate for discharge home in next 24 to 48 hours. I will appreciate Nephrology's and Urology's recommendation. Plan of care was discussed with the patient and his at bedside. All of their questions have been answered. I am giving him MiraLAX for constipation as well. cc: Tony Pike MD
[2018-12-07] MEDS: MIRALAX PO SCH (21:19)
[2018-12-08] MEDS: HUMALOG SUBQ SCH ×5 (01:31→22:25)
[2018-12-08] MEDS: MIRALAX PO SCH ×6 (01:32→22:37)
[2018-12-08] MEDS: DILAUDID IV PRN (02:39)
[2018-12-08 05:42] LABS: HEMOGLOBIN 7.3 g/dL (14.0-18.0); MCH 30.2 PG (27-31); MCHC 31.7 g/dL (33-37); MPV 10.7 FL (7.4-10.4); RBC 2.42 XMIL (4.7-6.1); RDW 15.7 % (11.5-14.5); WBC 7.25 X1000 (4.8-10.8)
[2018-12-08 06:06] LABS: CALCIUM 7.2 mg/dL (8.8-10.2); CREATININE 4.4 mg/dL (0.7-1.2); PHOSPHORUS 5.3 mg/dL (2.7-4.5); POTASSIUM 4.4 mmol/L (3.5-5.1)
--- NOTE | 2018-12-08 08:38 | PROGRESS NOTE ---
DATE: 12/08/2018 SUBJECTIVE: No acute events overnight. The patient's catheter continues to drain well with over 2 L of urinary output that appears to be thin, clear to light pink. The patient continues to complain of a small amount of suprapubic tenderness and the sensation of bladder spasms. He states his scrotum became more swollen yesterday but it is slightly better this morning. OBJECTIVE: Vital Signs: Temperature 98.6, heart rate 68, blood pressure 135/59, oxygen saturation 96% on room air. General: No acute distress. Resting comfortably in bed. Alert and oriented x3. Respiratory: Good respiratory effort without audible wheezing or rales. Abdomen: Soft, nontender, nondistended. No palpable masses or hepatosplenomegaly. : No suprapubic tenderness. No suprapubic distention. Urethral catheter in place with StatLock draining thin yellow to light pink urine. No evidence of any clots. Scrotal edema present which is maybe slightly worse than yesterday. No tenderness to palpation. No palpable masses, erythema, or crepitus. Labs: White blood cell count 7.25, hemoglobin 7.9, hematocrit 23.0, platelets 187,000. Sodium 136, potassium 4.4, chloride 105, bicarb 21, BUN 51, creatinine 4.4, glucose 79, phosphorus 5.3. ASSESSMENT AND PLAN: Mr. Olsen is a 52-year-old with type 2 diabetes, chronic obstructive pulmonary disease, hyperlipidemia, hypertension, peripheral artery disease, neuropathy with ulceration of bilateral feet, who presented to the emergency room on Wednesday with decreased oral intake, anuria, and CT scan evidence of bilateral ureteral obstructions with urolithiasis. The patient was taken to the operating room for cystoscopy and bilateral ureteral stent placement. The patient has had improving renal function. Creatinine today is 4.4 from 5.3 yesterday. Urine output through the catheter is thin and draining well. Creatinine continues to improve; however, slowly. The patient is having some lower pubic pain, likely related to the stent discomfort, and bladder spasms. Currently on anticholinergics and Flomax. The catheter is draining well. The patient had some scrotal and suprapubic edema, likely due to positioning in the bed. The patient has a long history of lower extremity edema on the right side and this appears to be somewhat stable. It is likely that the high amount of intravenously has led to peripheral edema and scrotal edema. I encouraged him to support his scrotum to try to decrease scrotal edema. I also encouraged him to be ambulatory. However, he states that he is not supposed to be ambulatory with his foot ulcerations. I encouraged him to be up to the chair as much as possible to help with mobilization of this fluid. We will continue to monitor. Please call with questions or concerns. cc: Yosef Russell MD [facility]TDD
--- NOTE | 2018-12-08 09:34 | NEPHROLOGY PROGRESS NOTE ---
DATE: 12/08/2018 SUBJECTIVE: Patient resting in bed. Does not appear in any distress. OBJECTIVE: Vital Signs: Temperature 98.6 degrees, pulse 68, respiratory rate 15, blood pressure 135/59. Intake 600 mL, output 2 L. General: This is a middle-aged gentleman, resting in bed with eyes closed. He is in no acute distress. HEENT: Normocephalic, atraumatic. His oral mucosa appears dry. Neck: Supple. There is no JVD. Cardiovascular: Regular rate and rhythm. Pulmonary: He is clear bilaterally with equal excursion. Abdomen: Soft with positive bowel sounds. : He has a Hirsch catheter with continued bloody urine. Extremities: There is 1+ edema. No clubbing, cyanosis. He has a gauze dressing to the right lower extremity. LABORATORY DATA: Hemoglobin 7.3. CO2 of 21, creatinine 4.4 (5.3). ASSESSMENT AND PLAN: Acute kidney injury secondary to nephrologic obstruction. His creatinine continues to improve daily. He is about 1.5 liters negative noted on his documented intakes and outputs overnight. Will continue current treatment plan. Check labs in the morning. Dictated by KAYLEE Munguia for Zachary Morris MD Face to face encounter, data reviewed, discussed with César Castellano on 12/08/18. I agree with the above assessment and plan of care. cc: Zachary Morris MD [facility]
[2018-12-08 10:05] LABS: CALCIUM 7.4 mg/dL (8.8-10.2); PHOSPHORUS 5.9 mg/dL (2.7-4.5)
[2018-12-08 10:06] LABS: IRON SATURATION 23 %; TIBC 122 ug/dL; TOTAL IRON 28 ug/dL (53-167); UNBOUND IRON 94 ug/dL (112-346)
[2018-12-08] MEDS ORDERED: ALBUMIN 25% IV ONE (10:24)
[2018-12-08] MEDS ORDERED: GLYCERIN ADULT PR ONE (10:25)
--- NOTE | 2018-12-08 10:45 | PROGRESS NOTE ---
DATE: 12/08/2018 SUBJECTIVE: This morning, Mr. Olsen refers to be doing fairly okay. Denies any new complaints. He did refer that his abdomen was slightly hurting. OBJECTIVE: Vital Signs: Blood pressure is 197/69, pulse of 59, respirations 14, temperature is 97.9 degrees. General: Mr. Olsen is a 52-year-old male. He is in bed. He is not in any distress. He looks undernourished. HEENT: Mucosa is slightly pale. Anicteric. Acyanotic. Neck: Supple. Chest: Air entry is bilaterally reduced. There are some crepitations in posterior lung lloyd. Cardiovascular: Regular rate and rhythm. No murmurs, no rubs, no gallops. GI: Abdomen is soft, minimally distended. There is some tenderness to palpation on the lower abdomen, especially to the left side. Bowel sounds are present and hypoactive. Extremities: The right lower extremity is in a sterile dressing. Left lower extremity has about 2+ pedal edema. BATTERY BUILDER: The patient is awake, alert. Musculoskeletal: There is edema in both lower extremities, as well as the lateral aspect of the abdominal wall. The patient's scrotum is also remarkably edematous. LABORATORY DATA: WBC 7.25, hemoglobin is 7.3, platelet count of 187,000. Chemistry is also reviewed. Creatinine is down to 4.4. The patient is still acidotic with bicarb of 21. Albumin is 2.0. The patient's albumin was 3.0 yesterday. ASSESSMENT: 1. Bilateral nephrolithiasis with bilateral hydronephrosis. The patient is status post bilateral ureteral stent placement, and Hirsch catheter is in place. 2. Renal failure. This appears to be acute on chronic. I think the acute component was due to obstructive uropathy that has been overcome by the urological intervention. The patient's creatinine continues to improve. Nephrology is on board. I think there is a chronicity to this. Nephrology is on board, and will follow up with further recommendations from them. 3. Fluid overload. The patient is currently about 4225 positive balance. He was on IV fluids, which have been discontinued. He is clinically edematous. He is making adequate urine output, and we are going to continue to follow. 4. Normocytic anemia. We are going to check his iron studies. I think part of it is because of the hematuria. Antiplatelets have been discontinued. 5. Hyperphosphatemia. This also is getting better on PhosLo. We are going to check the PTH as well. I think this is all related to probably the chronicity of the renal disease. 6. Hypoalbuminemia. The patient's albumin is low. I think this is contributing partly to the edematous state. We will give the patient 50 grams of albumin today, and continue to monitor his fluid status. The reason why the patient is hypoalbuminemic is currently unclear. It would appear that this is multifactorial, including nutritional deficiencies. However, a nephrotic syndrome cannot be entirely ruled out because of the patient's longstanding diabetic state. At some point, I think it would be reasonable to do a 24-hour urine to determine if the patient has nephrotic syndrome. 7. Uncontrolled hypertension. Will continue titrating his hypertensive medications. 8. Lower abdominal discomfort, presumably due to constipation. We are going to do a KUB, and address it with bowel regimen. cc: Mike Chou MD
[2018-12-08 11:04] LABS: FERRITIN 301 ng/mL (30-400)
--- NOTE | 2018-12-08 11:25 | Diag Imaging Result Doc PS360 ---
KUB ABDOMEN - 12/08/2018 INDICATION: SBO COMPARISON: CT from 12/03/2018 FINDINGS: There are bilateral nephroureteral stents in good position. No bowel obstruction or free air. IMPRESSION: No definite bowel obstruction. Electronically signed by Tho Tran 12/08/2018 11:23 AM
[2018-12-08] MEDS: PERIDEX MT SCH ×2 (11:46→22:24)
[2018-12-08] MEDS: CENTRUM TABLET PO SCH (11:46)
[2018-12-08] MEDS: LOPRESSOR PO SCH ×2 (11:47→22:24)
[2018-12-08] MEDS: FLOMAX PO SCH (11:47)
[2018-12-08] MEDS: CELEXA PO SCH (11:47)
[2018-12-08] MEDS: CATAPRES PO SCH ×3 (11:47→18:33)
[2018-12-08] MEDS: PHOSLO PO SCH ×3 (11:47→18:33)
[2018-12-08] MEDS: DILAUDID PO PRN ×2 (11:59→22:28)
[2018-12-08] MEDS: ZOFRAN IV PRN (22:30)
[2018-12-08] MEDS: APRESOLINE IV PRN (22:36)
[2018-12-09] MEDS: DILAUDID PO PRN ×4 (05:46→22:33)
[2018-12-09 06:24] LABS: HEMATOCRIT 23.2 % (42.0-52.0); HEMOGLOBIN 7.3 g/dL (14.0-18.0); MCH 29.8 PG (27-31); MCHC 31.5 g/dL (33-37); MCV 94.7 FL (81-99); MPV 10.8 FL (7.4-10.4); RBC 2.45 XMIL (4.7-6.1); RDW 15.7 % (11.5-14.5); WBC 7.17 X1000 (4.8-10.8)
[2018-12-09 06:56] LABS: AGAP 13; ALBUMIN 2.7 g/dL (3.5-5.0); BUN 47 mg/dL (8-22); CALCIUM 8.2 mg/dL (8.8-10.2); CHLORIDE 109 mmol/L (98-107); CHOLESTEROL 97 mg/dL (0-200); COSMO 295; CREATININE 3.7 mg/dL (0.7-1.2); ESTIMATED GFR 17; GLUCOSE 88 mg/dL (70-104); HDL 20 mg/dL (35-55); LDL 47 mg/dL; PHOSPHORUS 4.6 mg/dL (2.7-4.5); POTASSIUM 4.3 mmol/L (3.5-5.1); SODIUM 142 mmol/L (136-145); TCO2 20 mmol/L (25-35); TRIGLYCERIDES 148 mg/dL (39-160); VLDL 30 mg/dL
[2018-12-09] MEDS: HUMALOG SUBQ SCH ×4 (08:00→20:58)
[2018-12-09] MEDS ORDERED: COZAAR PO ONE (08:41)
[2018-12-09] MEDS ORDERED: TRANDATE PO ONE (08:43)
[2018-12-09] MEDS ORDERED: COZAAR PO SCH (09:00)
--- NOTE | 2018-12-09 09:05 | PROGRESS NOTE ---
DATE: 12/09/2018 SUBJECTIVE: Postop from cystoscopy and bilateral ureteral stent placement for obstruction of bilateral ureteral stones. The patient's urinary output continues to remain stable with over 2300 recorded yesterday. The patient remains afebrile. The patient's pain seems to be better controlled. All vital signs are stable and tolerating p.o. intake. OBJECTIVE: Temperature 98.2, heart rate 58, blood pressure 171/69, and oxygen saturation 96% on room air. General: No acute distress. Resting comfortably in bed. Alert and oriented x3. Respiratory: Good respiratory effort without audible wheezing or rales. Abdomen: Soft, nontender, and nondistended. No palpable masses or hepatosplenomegaly. : No suprapubic tenderness. No CVA tenderness. Urethral catheter in place draining clear yellow urine. Slight improvement in scrotal edema. LABORATORY: White blood cell count 7.2, hemoglobin 7.3, hematocrit 23.2, and platelets 174,000. Sodium 142, potassium 4.3, chloride 109, bicarb 20, BUN 47, creatinine 3.7, and calcium 8.2. ASSESSMENT AND PLAN: Mr. Olsen is a 52-year-old with type 2 diabetes, chronic obstructive pulmonary disease, hyperlipidemia, hypertension, peripheral artery disease, neuropathy with ulceration of bilateral feet, who presented to the emergency room with decreased oral intake, anuria, and CT scan findings of bilateral ureteral obstruction with urolithiasis. The patient was taken to the operating room and had cystoscopy with bilateral retrograde pyelograms, and bilateral stent placement. His renal function continues to improve 3.7 today from 4.4 yesterday and 9.3 on presentation. The patient's urine output was 2300 yesterday. The patient had a KUB which showed stents in good position. The patient still has a small amount of stent discomfort, which seems to be responding to anticholinergic and Flomax. We will continue with catheter until his renal function improves. The patient's urine is clear yellow today. No evidence of clots. I would encourage him to be ambulatory. Scrotal edema is improving, encouraged him to have scrotal elevation while in the bed. We will continue to follow. Please call with questions or concerns. cc: MD DONNA Walker
[2018-12-09] MEDS ORDERED: ALBUMIN 25% IV ONE (09:49)
[2018-12-09] MEDS: PERIDEX MT SCH ×2 (09:50→22:00)
[2018-12-09] MEDS: MIRALAX PO SCH ×3 (09:51→22:00)
[2018-12-09] MEDS: PHOSLO PO SCH ×3 (09:53→17:26)
[2018-12-09] MEDS: CENTRUM TABLET PO SCH (09:53)
[2018-12-09] MEDS: CATAPRES PO SCH ×3 (09:53→17:26)
[2018-12-09] MEDS: FLOMAX PO SCH (09:53)
[2018-12-09] MEDS: CELEXA PO SCH (09:53)
[2018-12-09] MEDS: TRANDATE PO SCH ×2 (10:09→22:00)
[2018-12-09] MEDS: FOLIC ACID PO SCH (10:12)
[2018-12-09] MEDS: APRESOLINE PO SCH ×3 (10:12→22:00)
[2018-12-09] MEDS: VITAMIN D PO SCH (10:12)
--- NOTE | 2018-12-09 10:19 | PROGRESS NOTE ---
DATE: 12/09/2018 SUBJECTIVE: This morning Mr. Olsen refers to be doing a lot better. He still has some mild abdominal discomfort. He said he had a massive bowel movement yesterday. OBJECTIVE: Vital Signs: Blood pressure 193/66, pulse of 57, respirations 14, and temperature is 97.7 degrees. Patient was saturating 98% on room air. General: Mr. Olsen is 52-year-old gentleman. He was in bed. He did not seem to be in any distress. HEENT: Mucosa is pink and moist. Anicteric. Acyanotic. Neck: Supple. Respiratory: There is good air entry bilateral. A few crackles in the posterior lung lloyd. Cardiovascular: Regular rate and rhythm. No murmurs, no rubs, no gallops. Abdomen: Soft. Minimal tenderness in the lower abdomen. Bowel sounds were present. Extremities: Right lower extremity is in a sterile dressing. There is about 2+ pedal edema. There are changes in the lower extremities consistent with chronic peripheral vascular. ENVIRONMENTAL COMPLIANCE ENGINEER: Patient is awake and alert. : Hirsch catheter is in place, and there is scrotal swelling. LABORATORY DATA: WBC 7.17, hemoglobin 7.3, and platelet count of 174,000. Chemistry is also reviewed. Creatinine is down to 3.7. BUN is down to 47 from 51 yesterday. CURRENT MEDICATIONS: All have been reviewed. ASSESSMENT: 1. Bilateral nephrolithiasis associated with bilateral hydronephrosis. Patient is status post bilateral ureteral stent placement. Hirsch catheter is in place. Urology is on board. 2. Acute kidney injury. The patient's creatinine continues to be improving. We think this is due to obstructive uropathy. However, underlying CKD cannot be totally ruled out. 3. Fluid overload. The patient is obviously positive in fluid balance. He clinically also has edema in both lower extremities and around the lateral aspect of the abdominal wall as well as scrotal edema. IV fluids have been discontinued. We will give the patient albumin to help with fluid mobilization. 4. Hypoalbuminemia slightly improving with infusion. 5. Uncontrolled hypertension. We have uptitrated the patient's hypertensive medication. We will continue to follow. 6. Lower abdominal pain presumably the combination of constipation and the ureteral stents. KUB yesterday did show stent in good position. The patient also has had a bowel movement. He seems to be feeling a lot better. 7. Peripheral vascular disease noted. In general, I think Mr. Olsen seems to be doing fairly okay. We will continue with the current management. His antihypertensive medication has been uptitrated. We are going to encourage him to start working with physical therapy and get more mobilization. The patient is being seen by Urology and Nephrology. cc: Mike Chou MD MTDD
--- NOTE | 2018-12-09 16:09 | NEPHROLOGY PROGRESS NOTE ---
DATE: 12/09/2018 SUBJECTIVE: Patient complaining of some abdominal pain. He states he was just given some medication for it. OBJECTIVE: Vital Signs: Temperature 97.7 degrees, pulse 67, respiratory rate 14, blood pressure 193/66. Intake 400 mL, output 2.3 L. General: Middle-aged gentleman resting in bed. He appears in no acute distress. HEENT: Normocephalic, atraumatic. JENSEN. Neck: Supple. No JVD. Cardiovascular: Regular rate and rhythm. Pulmonary: Clear bilaterally. Abdomen: Soft, positive bowel sounds. Mild tenderness lower quadrant. : Hirsch catheter. Extremities: No clubbing, cyanosis. He has 2+ pedal edema and vascular changes noted. Integumentary: Skin is warm and dry. LABORATORY DATA: WBC of 7.1, hemoglobin 7.3, creatinine is 3.7 (4.4). ASSESSMENT AND PLAN: 1. Acute kidney injury secondary to urologic obstruction. Renal function continues to improve daily. Continue current treatment plan. Continue to follow labs. 2. Fluid overload. Patient still with edema although urine output indicates negative balance. Dictated by KAYLEE Munguia for Zachary Morris MD Face to face encounter, data reviewed, discussed with César Castellano on 12/09/18. I agree with the above assessment and plan of care. cc: Zachary Morris MD [facility]
[2018-12-10] MEDS: APRESOLINE PO SCH ×3 (05:29→21:52)
[2018-12-10] MEDS: DILAUDID PO PRN ×4 (05:32→21:50)
[2018-12-10 06:16] LABS: ALBUMIN 2.9 g/dL (3.5-5.0); CALCIUM 8.1 mg/dL (8.8-10.2); CREATININE 3.2 mg/dL (0.7-1.2); PHOSPHORUS 4.1 mg/dL (2.7-4.5); POTASSIUM 4.1 mmol/L (3.5-5.1)
[2018-12-10] MEDS: HUMALOG SUBQ SCH ×4 (06:48→21:16)
[2018-12-10] MEDS: MIRALAX PO SCH ×3 (11:07→21:52)
[2018-12-10] MEDS: PERIDEX MT SCH ×2 (11:07→21:51)
[2018-12-10] MEDS: FOLIC ACID PO SCH (11:08)
[2018-12-10] MEDS: TRANDATE PO SCH ×2 (11:08→21:53)
[2018-12-10] MEDS: CENTRUM TABLET PO SCH (11:08)
[2018-12-10] MEDS: CATAPRES PO SCH ×3 (11:08→16:56)
[2018-12-10] MEDS: FLOMAX PO SCH (11:08)
[2018-12-10] MEDS: PHOSLO PO SCH ×3 (11:08→16:56)
[2018-12-10] MEDS: VITAMIN D PO SCH (11:08)
[2018-12-10] MEDS: CELEXA PO SCH (11:08)
[2018-12-10] MEDS: ALBUMIN 25% IV SCH (13:22)
--- NOTE | 2018-12-10 13:34 | PROGRESS NOTE ---
DATE: 12/10/2018 SUBJECTIVE: This morning, Mr. Olsen referred to be feeling fairly okay. Denies any new complaints. OBJECTIVE: Vital signs: Blood pressure is 177/63, pulse of 63, respirations 16, temperature is 98.7. The patient is saturating 100% on room air. General: Mr. Olsen is a 52-year-old gentleman. He is in bed, no distress. Mucosa is pink and moist. Anicteric and acyanotic. Neck is supple. Chest: Good air entry bilaterally. A few crackles posteriorly. Cardiovascular: Regular rate and rhythm. GI: Abdomen is soft, nontender. Bowel sounds present. There is no hepatosplenomegaly. There is a Hirsch catheter in place and scrotal edema. Extremities: About 2+ pedal edema. The right lower extremity has a sterile dressing over the foot. There are chronic changes of peripheral vascular disease. COACH MECHANIC: The patient is awake, alert and oriented. DIAGNOSTIC DATA: The creatinine is down to 3.2. The patient's I's and O's show urine output was 1300. The patient is currently positive balance of 1775. ASSESSMENT: 1. Bilateral nephrolithiasis associated with bilateral hydronephrosis. The patient is status post bilateral ureteral stent placement. Hirsch catheter is in place. Urine continues to be slightly bloody. Urology is onboard. 2. Acute kidney injury. Creatinine continues to be trending down. 3. Obstructive uropathy. This has been overcome by urological intervention and Hirsch catheter placement. 4. Fluid overload. The patient continues to be positive in fluid balance, but he is making adequate urine output. 5. Hypoalbuminemia. We will continue with albumin infusion. 6. Uncontrolled hypertension. We will make changes to his blood pressure medications. 7. Low abdominal pain, presumably a combination of constipation and ureteral stents. Improved. 8. History of peripheral vascular disease, noted. 9. Vitamin D and folate deficiency. We will continue to replace this. PLAN: In general, I think Mr. Olsen seems to be doing a lot better. He continues to make adequate urine output. Creatinine is trending down, and the general edematous state is also improving. We are going to continue with the albumin infusion for a total of 5 days. We are going to continue to follow up with recommendations from both Urology and Nephrology. cc: Mike Chou MD
[2018-12-10] MEDS: ZOFRAN IV PRN (21:50)
[2018-12-10] MEDS: APRESOLINE IV PRN (22:02)
[2018-12-11] MEDS: DILAUDID PO PRN ×4 (04:00→22:29)
[2018-12-11] MEDS: APRESOLINE PO SCH ×3 (05:45→20:28)
[2018-12-11] MEDS: HUMALOG SUBQ SCH ×4 (06:44→22:15)
[2018-12-11 06:46] LABS: BASO# 0.05 X1000 (0.0-0.2); BASO% 0.7 % (0.0-0.8); EOS% 2.8 % (0.0-10.0); HEMATOCRIT 22.4 % (42.0-52.0); HEMOGLOBIN 7.1 g/dL (14.0-18.0); IMM GRAN# 0.02 X1000 (0.0-0.04); IMM GRAN% 0.3 % (0.0-0.5); LYMPH# 1.29 X1000 (1.2-3.4); MCH 29.7 PG (27-31); MCHC 31.7 g/dL (33-37); MCV 93.7 FL (81-99); MONO# 0.72 X1000 (0.11-0.59); MPV 11.1 FL (7.4-10.4); NEUT% 68.2 % (42.2-75.2); PLT 160 X1000 (130-400); RBC 2.39 XMIL (4.7-6.1); RDW 15.4 % (11.5-14.5); WBC 7.18 X1000 (4.8-10.8)
[2018-12-11 07:00] LABS: ALBUMIN 3.1 g/dL (3.5-5.0); CALCIUM 8.5 mg/dL (8.8-10.2); CREATININE 2.8 mg/dL (0.7-1.2); PHOSPHORUS 3.4 mg/dL (2.7-4.5); POTASSIUM 4.4 mmol/L (3.5-5.1)
[2018-12-11] MEDS: CELEXA PO SCH (10:08)
[2018-12-11] MEDS: PHOSLO PO SCH ×3 (10:08→17:18)
[2018-12-11] MEDS: FLOMAX PO SCH (10:08)
[2018-12-11] MEDS: PERIDEX MT SCH ×2 (10:08→20:28)
[2018-12-11] MEDS: CENTRUM TABLET PO SCH (10:08)
[2018-12-11] MEDS: ALBUMIN 25% IV SCH (10:08)
[2018-12-11] MEDS: CATAPRES PO SCH ×3 (10:09→17:18)
[2018-12-11] MEDS: VITAMIN D PO SCH (10:09)
[2018-12-11] MEDS: TRANDATE PO SCH ×2 (10:09→20:28)
[2018-12-11] MEDS: MIRALAX PO SCH ×3 (10:09→20:28)
[2018-12-11] MEDS: FOLIC ACID PO SCH (10:09)
[2018-12-11] MEDS ORDERED: NS 1,000 ML IV SCH (12:00)
--- NOTE | 2018-12-11 12:33 | PROGRESS NOTE ---
DATE: 12/11/2018 SUBJECTIVE: This morning Mr. Olsen refers to be feeling a lot better. He is still stronger. He was evaluated by PT yesterday and was able to participate with physical therapy. OBJECTIVE: Vital signs: Blood pressure is 173/73, pulse of 64, respiration is 14, temperature is 98.4 degrees, the patient is saturating 98% on room air. On general exam, Mr. Olsen is a 52-year- old male. He is in bed. No distress. Mucosa is pink and moist. Anicteric. Acyanotic. Neck is supple. Chest: Good air entry bilaterally. A few crackles posteriorly. Cardiovascular: Regular rate and rhythm. No murmurs, no rubs, no gallops. Gastrointestinal: Abdomen is soft, minimally distended, but no hepatosplenomegaly. There is a Hirsch catheter in place, and scrotum is also minimally swollen. Extremities: About 2+ pedal edema. The right lower extremity has a sterile dressing over the foot. Both lower extremities do have chronic changes of peripheral vascular disease. Central Nervous System: Patient is awake, alert, and oriented. LABORATORY DATA: Has been reviewed. Hemoglobin is down to 7.1. Rest of CBC is normal. Chemistry is also reviewed. BUN is down to 38, creatinine is also down to 2.8. THE PATIENT'S INTAKES AND OUTPUTS: Urine output was 1950. [place] [address] during the hospital course. WEIGHT: Current weight is 189. PATIENT MEDICATIONS: Have all been reviewed. No changes at this point. ASSESSMENT: 1. Bilateral nephrolithiasis associated with hydronephrosis. The patient is status post bilateral ureteral stent placement. Hirsch catheter is still in place. The patient is making adequate urine, which is still slightly bloody. Urology is on board. We will be pending further recommendations from them in terms of the Hirsch catheter management. 2. Acute kidney injury. Creatinine continues to be trending down. 3. Obstructive uropathy. This has been overcome by the urological intervention. 4. Fluid overload. The patient is making adequate urine output. He is getting albumin as well. 5. Hypoalbuminemia, improving with infusion. 6. Uncontrolled hypertension. This also is getting better. 7. Lower abdominal pain, presumed secondary to ureteral stents and constipation, improving. 8. History of peripheral vascular disease. Noted. 9. Vitamin D and folate deficiencies. The patient is on supplements. 10. Normocytic anemia with normal iron studies. Hemoglobin continues to decline. Patient has lost more than 2 g during the hospital course. We are going to give him a unit of PRBC transfusion to help with his hemodynamics and hopefully that also helps with the fluid management. PLAN: In general, I think Mr. Olsen seems to be gradually getting better. Creatinine is trending down. Hirsch catheter is still in place with pending further recommendations from Urology. I suspect that the next for 24 to 48 hours, we will potentially be able to discharge Mr. Olsen. cc: Mike Chou MD
[2018-12-11] MEDS: APRESOLINE IV PRN ×2 (13:26→20:35)
[2018-12-12] MEDS: APRESOLINE IV PRN ×2 (05:19→14:55)
[2018-12-12] MEDS: APRESOLINE PO SCH ×3 (05:19→22:17)
[2018-12-12] MEDS: DILAUDID PO PRN ×4 (05:35→22:15)
[2018-12-12 06:20] LABS: ALBUMIN 3.5 g/dL (3.5-5.0); CALCIUM 8.9 mg/dL (8.8-10.2); CREATININE 2.6 mg/dL (0.7-1.2); PHOSPHORUS 3.3 mg/dL (2.7-4.5); POTASSIUM 4.5 mmol/L (3.5-5.1)
[2018-12-12] MEDS: HUMALOG SUBQ SCH ×4 (06:40→22:14)
[2018-12-12 06:59] LABS: HEMATOCRIT 26.3 % (42.0-52.0); HEMOGLOBIN 8.5 g/dL (14.0-18.0); MCH 29.9 PG (27-31); MCHC 32.3 g/dL (33-37); MCV 92.6 FL (81-99); MPV 11.3 FL (7.4-10.4); RBC 2.84 XMIL (4.7-6.1); RDW 15.7 % (11.5-14.5); WBC 7.92 X1000 (4.8-10.8)
[2018-12-12] MEDS: MIRALAX PO SCH ×3 (08:26→22:15)
[2018-12-12] MEDS: ALBUMIN 25% IV SCH (09:18)
[2018-12-12] MEDS: TRANDATE PO SCH ×2 (09:19→22:16)
[2018-12-12] MEDS: VITAMIN D PO SCH (09:19)
[2018-12-12] MEDS: PHOSLO PO SCH ×3 (09:20→17:24)
[2018-12-12] MEDS: PERIDEX MT SCH ×2 (09:20→22:16)
[2018-12-12] MEDS: CELEXA PO SCH (09:20)
[2018-12-12] MEDS: FOLIC ACID PO SCH (09:20)
[2018-12-12] MEDS: FLOMAX PO SCH (09:20)
[2018-12-12] MEDS: CATAPRES PO SCH ×3 (09:20→17:24)
[2018-12-12] MEDS: CENTRUM TABLET PO SCH (09:20)
--- NOTE | 2018-12-12 14:34 | NEPHROLOGY PROGRESS NOTE ---
DATE: 12/12/2018 SUBJECTIVE: Patient is resting in bed. No complaints this morning. OBJECTIVE: Vital Signs: Temperature 98 degrees, pulse 65, respiratory rate 20, blood pressure 172/69. Intake 2.3 L. Output 2.5 L. Physical Examination: General: Middle-aged gentleman resting in bed. No acute distress. HEENT: Normocephalic and atraumatic. His conjunctivae are pale. His oral mucosa is moist. Neck: Supple without JVD. Cardiovascular: Regular rate and rhythm. Pulmonary: He is clear bilaterally with equal excursion. Abdomen: Soft with positive bowel sounds. : He has a Hirsch catheter. His urine remains slightly dark. Extremities: Trace edema. No clubbing, cyanosis, vascular changes. Integumentary: Skin is warm and dry otherwise. Lab Data: Sodium 144, potassium 4.5, creatinine 2.6 (2.8, 3.2, 3.7). ASSESSMENT AND PLAN: 1. Acute kidney injury secondary to nephrologic obstruction. His renal function has continued to improve modestly every day. We will make no changes to current treatment plan. Follow labs. 2. Fluid volume. He still has a little bit of edema. He has been fairly equal with intake and output over the last several days. Continue the albumin to assist with fluid mobility without increasing diuretic. 3. Normocytic anemia. Normal iron studies. He has had a transfusion. From a renal perspective, once he is cleared for discharge from primary and neurology standpoint, he can be discharged and follow up with us as an outpatient 2 to 3 weeks after discharge with labs in the interim. Dictated by KAYLEE Munguia for Zachary Morris MD Face to face encounter, data reviewed, discussed with César Castellano on 12/12/18. I agree with the above assessment and plan of care. cc: Zachary Morris MD [facility]
[2018-12-12] MEDS ORDERED: NS 1,000 ML IV SCH (14:43)
--- NOTE | 2018-12-12 15:01 | PROGRESS NOTE ---
DATE: 12/12/2018 SUBJECTIVE: Patient has no major complaints. He is very weak, not sure what his underlying mechanism of weakness is here but he says he has he is not eating very well although not throwing up. OBJECTIVE: Blood pressure is 193/75, heart rate 64, respiratory 14, temperature afebrile 97% on room air.Cardiovascular: Regular rate and rhythm. Pulmonary: Bilateral breath sounds clear to auscultation. GI: Soft, nontender, nondistended. Bowel sounds are positive. PROBLEM LIST: 1. Bilateral ureterolithiasis and hydronephrosis. He is status post stent. Urology is following. 2. Acute renal failure that is resolving. He is not quite better. His urine is still quite dark but that may be related to stent placement but we will continue to follow. 3. Hypoalbuminemia. We will continue to monitor. 4. Protein calorie malnutrition. We will continue supportive therapy. 5. Disposition. We need to work on trying to get him up and about. I do not really feel like he ambulating quite as much as I would like him to be at this level. We will check some plain films too as far as his appetite issues. 6. Folate deficiency. Will continue to monitor. DISPOSITION: Home hopefully soon although to get a little bit better sense of giving him some strength improvement, PT is working with him or at least they have been consulted and they saw him a couple days ago, he walked about 6 feet but probably very limited rehab options for him but will continue to follow. Dr. Chou resume care tomorrow. cc: Valerio Esquivel MD [facility]
--- NOTE | 2018-12-12 16:10 | Diag Imaging Result Doc PS360 ---
EXAM: ABDOMEN FLAT/UPRIGHT HISTORY: pain TECHNIQUE: Flat and upright, three views COMPARISON: 12/08/2018 FINDINGS: There are bilateral ureteral stents similar to the prior exam. There are multiple air distended loops of bowel in the left abdomen measuring up to 6 cm. There is air within the colon and rectum. Small air-fluid levels on the upright film. There are multiple pelvic phleboliths. Prominent atherosclerosis. IMPRESSION: There is likely at least a partial bowel obstruction even though there is air within the colon. Electronically signed by Chris Allen 12/12/2018 4:08 PM
[2018-12-13] MEDS: APRESOLINE IV PRN (01:04)
[2018-12-13] MEDS: APRESOLINE PO SCH ×3 (04:39→21:32)
[2018-12-13] MEDS: DILAUDID PO PRN (04:43)
[2018-12-13] MEDS: ZOFRAN IV PRN ×3 (06:02→20:55)
[2018-12-13 06:21] LABS: BASO# 0.03 X1000 (0.0-0.2); BASO% 0.4 % (0.0-0.8); EOS# 0.12 X1000 (0.0-0.7); EOS% 1.5 % (0.0-10.0); HEMATOCRIT 24.3 % (42.0-52.0); HEMOGLOBIN 7.7 g/dL (14.0-18.0); IMM GRAN# 0.02 X1000 (0.0-0.04); IMM GRAN% 0.2 % (0.0-0.5); LYMPH# 1.09 X1000 (1.2-3.4); LYMPH% 13.3 % (20.5-51.1); MCH 29.6 PG (27-31); MCHC 31.7 g/dL (33-37); MCV 93.5 FL (81-99); MONO# 0.91 X1000 (0.11-0.59); MONO% 11.1 % (1.7-9.3); MPV 11.7 FL (7.4-10.4); NEUT# 6.01 X1000 (1.4-6.5); NEUT% 73.5 % (42.2-75.2); PLT 118 X1000 (130-400); RDW 15.8 % (11.5-14.5); WBC 8.18 X1000 (4.8-10.8)
[2018-12-13] MEDS: HUMALOG SUBQ SCH ×2 (06:44→21:32)
[2018-12-13 06:59] LABS: ALBUMIN 3.4 g/dL (3.5-5.0); CREATININE 2.3 mg/dL (0.7-1.2); PHOSPHORUS 3.2 mg/dL (2.7-4.5); POTASSIUM 4.4 mmol/L (3.5-5.1)
[2018-12-13 07:01] LABS: ALB/GLOB RATIO 1.3; ALBUMIN 3.4 g/dL (3.5-5.0); ALKALINE PHOSPHATASE 63 U/L (32-122); AMYLASE 11 U/L (20-200); DIRECT BILIRUBIN < 0.10 mg/dL (0.00-0.20); GOT 8 U/L (10-34); GPT < 5 U/L (10-44); LIPASE 12 U/L (13-60); TOTAL BILIRUBIN 0.38 mg/dL (0.20-1.00); TOTAL PROTEIN 6.1 g/dL (6.3-8.3)
--- NOTE | 2018-12-13 08:12 | PROGRESS NOTE ---
DATE: 12/13/2018 SUBJECTIVE: No acute events overnight. The patient remains afebrile. Has good urinary output through his urethral catheter, is clear yellow, 1320 cc was recorded. He continues to have some pain in the lower quadrant mainly on the left side. He denies any nausea or vomiting. The patient had an x-ray yesterday which showed colonic distention and likely partial small- bowel obstruction. The patient is passing a large amount of gas and states he is having bowel movements per his report. OBJECTIVE: Vital Signs: Temperature 97.6, heart rate 69, blood pressure 180/70, oxygen saturation 95% on room air. General: No acute distress. Resting comfortably in bed. Alert and oriented x3. Abdomen: Soft, nontender. Mild distention, without any palpable hepatosplenomegaly. Small amount of resonance. No point tenderness. : Persistent scrotal edema which is nontender to palpation and feels like fluid. Urethral catheter in place draining clear yellow urine. No CVA tenderness. Lower Extremities: Minimal right lower extremity edema. LABS: White blood count 8.2, hemoglobin 7.7, hematocrit 24.3, platelets 118,000. Sodium 143, potassium 4.4, chloride 109, bicarb 22, BUN 32, creatinine 2.3, glucose 110. ASSESSMENT/PLAN: Mr. Olsen is a 51-year-old with type 2 diabetes, chronic obstructive pulmonary disease, hyperlipidemia, hypertension, peripheral artery disease, neuropathy with ulceration of bilateral feet who presented to the emergency room with decreased p.o. intake and anuria and CT scan findings of bilateral ureteral obstruction due to urolithiasis. The patient underwent cystoscopy and bilateral ureteral stent placements and has had slowly improving creatinine. Creatinine today is 2.3 from 2.6 yesterday. The patient describes having some stent discomfort. The patient's abdomen is slightly more distended today. The patient describes having passage of flatus as well as multiple bowel movements. X-ray yesterday showed concern for possible partial small-bowel obstruction. We will continue to follow from urologic standpoint. Would likely keep his catheter in for a little bit longer. Would tentatively plan to maybe remove it tomorrow. The patient's renal function is approaching his baseline. His normal is somewhere between 1.7 and 1.9. The patient continues to have some scrotal edema. This is likely positional due to him not ambulating and sitting in the bed with his scrotum below his torso and legs. Encouraged support his scrotum and to ambulate as much as possible. We will continue to follow. Please call with questions or concerns. cc: Yosef Russell MD MTDD
[2018-12-13] MEDS: PHOSLO PO SCH ×3 (11:53→21:33)
[2018-12-13] MEDS: CATAPRES PO SCH ×3 (11:54→21:33)
[2018-12-13] MEDS: CELEXA PO SCH ×2 (11:54→21:35)
[2018-12-13] MEDS: FOLIC ACID PO SCH ×2 (11:54→21:36)
[2018-12-13] MEDS: CENTRUM TABLET PO SCH ×2 (11:54→21:35)
[2018-12-13] MEDS: FLOMAX PO SCH ×2 (11:54→21:36)
[2018-12-13] MEDS: TRANDATE PO SCH ×3 (11:54→21:36)
[2018-12-13] MEDS: PERIDEX MT SCH ×2 (11:54→20:57)
[2018-12-13] MEDS: VITAMIN D PO SCH ×2 (11:54→21:36)
[2018-12-13] MEDS: MIRALAX PO SCH ×2 (11:55→20:57)
[2018-12-13] MEDS: LASIX IV SCH ×2 (11:55→20:56)
--- NOTE | 2018-12-13 14:11 | NEPHROLOGY PROGRESS NOTE ---
DATE: 12/13/2018 Date Seen: 12/13/2018 Time Seen: 0710. SUBJECTIVE: Mr. Olsen is resting quietly in bed. Head of the bed is slightly elevated. He has no complaints. OBJECTIVE: His most recent vital signs: His last temperature 97.6, pressure 180/70, heart rate 69 respirations 16. He is on room air. Last recorded saturation 95%. He has had 837 in, 1320 out to Hirsch catheter, phelps colored. LABS: Sodium 143, potassium 4.4,chloride 109, CO2 22, BUN 32, creatinine 2.3, glucose 110. His anion gap is 22, calcium 8,phosphorus 3.2, albumin 3.4. White count 8.18, hemoglobin 7.7, hematocrit 24.3, with a platelet count of 118,000. PHYSICAL EXAMINATION: General: This is a 52-year-old white male currently resting quietly. He appears chronically ill though no acute distress. Skin: Warm and dry. HEENT: Normocephalic, atraumatic. Conjunctiva is pale he has PERRL. Mucous membranes are moist. Neck: Supple. Trachea midline. Positive JVD 68 cm. Cardiovascular: Regular rate and rhythm. He has an S4. Lungs: Clear to auscultation bilaterally. Equal excursion on room air. Abdomen: Soft, nontender, positive bowel sounds. Genitourinary: Not inspected. Hirsch catheter has adequate amounts, blood-tinged, this remains slightly dark. Extremities: 3+ lower extremity edema. No clubbing or cyanosis. Integumentary: Skin is warm and dry. ASSESSMENT AND PLAN: 1. Acute kidney injury secondary to nephrologic obstruction. The patient's renal function continues to improve. Creatinine is down to 2.3. He has adequate urine output documented. No indications for further intervention. 2. Fluid volume overload. Patient has 3+ edema today. We will stop his intravenous fluids. We will give him Lasix 100 mg b.i.d. and continue to monitor his electrolytes. 3. Electrolytes and acid-base balance these are acceptable. 4. Anemia. This is low but stable. Hemoglobin of 7.7. We will defer to the primary care team for need of transfusion. 5. Urinary obstruction. This continues to be followed by Dr. Russell. I would like to thank you for allowing us to follow with this patient. Dictated by KAYLEE Wilkinson for Zachary Morris MD Face to face encounter, data reviewed, discussed with Madeline Mims on 12/13/18. I agree with the above assessment and plan of care. cc: KAYLEE Wilkinson MD [facility]
--- NOTE | 2018-12-13 14:13 | PROGRESS NOTE ---
DATE: 12/13/2018 SUBJECTIVE: This morning Mr. Olsen refers to be having some abdominal discomfort. He also did say that he has not been eating well for a very long time; however, per documentation, it appears that he had 100% of his meals on the , he had 75% on the , he had 25% on the , he also had 75% on the . I have personally been taking care of Mr. Olsen for the past 3 or 4 days except yesterday, and he had not reported to me that he is not eating at all. He said he has been having some bowel movement. Per documentation, there is 1 bowel movement yesterday. He appears to have a regular bowel movement at least 1 documented every single day. He denies any nauseation or vomiting today. OBJECTIVE: His current vitals: Blood pressure is 158/69, pulse is 70, respiration is 14m, temperature 98.1 degrees. In general exam, Mr. Olsen is a 52-year-old gentleman. He is in bed. He does not seem to be in any distress. Mucosa is pink and moist. Anicteric. Acyanotic. Neck is supple. Chest: Good air entry bilaterally. A few crackles in the posterior lung lloyd. Cardiovascular: Regular rate and rhythm. Abdomen: Soft, distended, minimally tender in the lower abdomen. There is a Hirsch catheter in place. Scrotum is also swollen. The patient has about 3+ pedal edema, especially in the upper regions of the lower extremities. There is also edema on the lateral aspect of the abdominal wall. The right lower extremity has a sterile dressing over the foot. Central Nervous System: Patient is awake, alert, and oriented. DIAGNOSTIC STUDIES: WBC is 8.18, hemoglobin is 7.7, platelet count of 118,000. Chemistry is also reviewed. Creatinine is 2.3. ASSESSMENT: 1. Obstructive uropathy with bilateral nephrolithiases associated with hydronephrosis. Patient is status post bilateral ureteral stent placement. Hirsch catheter is also in place. Urology is on board. 2. Acute on chronic renal failure. Creatinine continues to be trending down. 3. Fluid overload. The patient is getting high doses of Lasix today by Nephrology. 4. Hypoalbuminemia, improved. 5. Hypertension, controlled. 6. Vitamin D and folate deficiencies. We will continue with the supplements. 7. History of peripheral vascular disease. 8. Normocytic anemia. Patient is status post 1 PRBC transfusion. Hemoglobin and hematocrit are slightly improved. We are going to continue observing this. 9. Poor appetite, per patient. A KUB yesterday did show at least partial small bowel obstruction. We are going to do a CT scan of the abdomen with oral contrast to rule out any ongoing obstruction or any other explanation for the patient's current GI symptoms. If that is unremarkable, we will get Gastroenterology to evaluate the patient. I reviewed the urology evaluation today. It appears there is a plan for catheter removal tomorrow. We will follow up with further recommendation from them as well as from Nephrology. cc: Mike Chou MD
--- NOTE | 2018-12-13 15:29 | Diag Imaging Result Doc PS360 ---
CT ABD/PELVIS W/ORAL CONT ONLY - 12/13/2018 INDICATION: SBO per KUB/ abdomen pain COMPARISON: 12/03/2018 FINDINGS: There are [id number] bilateral pleural effusions that have increased from prior. Anemia is present. There is bibasilar atelectasis. Otherwise no infiltrates in the lung bases. Stable large stone at the upper pole of the left kidney. There are new bilateral nephroureteral stents in good position. There is a Hirsch catheter in the urinary bladder. The urinary bladder is collapsed with severe wall thickening similar to prior. No significant hydronephrosis. Renal sizes are normal. There is significant constipation throughout the colon. No rectal stool impaction. Prostate is normal. There is some mild nonspecific dilation of small bowel but no obstruction. Stable trace ascites. Stable severe body wall edema. IMPRESSION: 1. Significant constipation. 2. Minimal dilation of small bowel but no features suspicious for obstruction. 3. Worsening body wall edema. Worsening bilateral pleural effusions. 4. Bilateral nephroureteral stents in good position. No hydronephrosis. Stable severe bladder abnormality and left renal stone. This exam was performed using automated exposure control, adjustment of mA or kV according to patient size, and/or use of iterative reconstruction technique Electronically signed by Tho Tran 12/13/2018 3:26 PM
[2018-12-13] MEDS ORDERED: BENTYL IM PRN (18:31)
[2018-12-14] MEDS: HUMALOG SUBQ SCH ×5 (05:40→21:23)
[2018-12-14] MEDS: APRESOLINE PO SCH ×4 (06:03→20:06)
[2018-12-14] MEDS: MOVANTIK PO SCH (06:04)
[2018-12-14 06:59] LABS: ALBUMIN 3.2 g/dL (3.5-5.0); CALCIUM 8.2 mg/dL (8.8-10.2); CREATININE 2.5 mg/dL (0.7-1.2); PHOSPHORUS 3.8 mg/dL (2.7-4.5); POTASSIUM 4.2 mmol/L (3.5-5.1)
--- NOTE | 2018-12-14 07:17 | PROGRESS NOTE ---
DATE: 12/14/2018 SUBJECTIVE: No acute events overnight. The patient's catheter is draining well with over 2.2 L of output. The patient denies any nausea or vomiting. The patient had a CT scan yesterday, which showed stents in good position and draining effectively. No evidence of hydronephrosis or distended bladder. The patient has been up out of the bed twice yesterday. Vital signs stable. OBJECTIVE: Vital Signs: Temperature 98 degrees, heart rate 69, blood pressure 172/70, oxygen saturation 96% on room air. General: No acute distress. Resting comfortably in bed. Alert and oriented x3. Respiratory: Good respiratory effort, without audible wheezing or rales. Abdomen: Soft, nontender, improvement in abdominal distention. No palpable masses or hepatosplenomegaly. : No suprapubic tenderness. No CVA tenderness. Stable to slight improved scrotal swelling. Urethral catheter in place, draining clear-yellow urine. ASSESSMENT AND PLAN: Mr. Olsen is a 52-year-old with type 2 diabetes, chronic obstructive pulmonary disease, hyperlipidemia, hypertension, peripheral artery disease, and neuropathy with ulceration of his bilateral feet, who presented to the emergency room with decreased oral intake, anuria, and CT scan findings of bilateral ureteral obstruction due to urolithiasis. The patient underwent cystoscopy and bilateral stent placement, and has had improving renal function. Creatinine yesterday was 2.3. Awaiting results from today. The patient describes having some bladder spasm symptoms with urine leaking around the catheter. The catheter seems to be draining well with clear-yellow urine. No evidence of any clots. Will plan to remove his catheter today. The patient had a CT scan yesterday, which showed stent in good position with no evidence of hydronephrosis. Stones were visualized both in the right ureter as well as in the left kidney. Will continue to monitor. It seems like his scrotal edema has improved. I encouraged him to be ambulatory today as I think this is positional due to being in the bed. I also encouraged him to support his scrotum to help with edema. Will continue to follow. Please call with questions or concerns. cc: Yosef Russell MD MTDD
[2018-12-14] MEDS: LASIX IV SCH ×2 (08:00→19:52)
[2018-12-14] MEDS: PERIDEX MT SCH ×3 (08:01→20:07)
[2018-12-14] MEDS: CENTRUM TABLET PO SCH (08:01)
[2018-12-14] MEDS: CATAPRES PO SCH ×4 (08:01→20:07)
[2018-12-14] MEDS: TRANDATE PO SCH ×3 (08:01→20:07)
[2018-12-14] MEDS: CELEXA PO SCH (08:01)
[2018-12-14] MEDS: FLOMAX PO SCH (08:01)
[2018-12-14] MEDS: PHOSLO PO SCH (08:01)
[2018-12-14] MEDS: VITAMIN D PO SCH (08:01)
[2018-12-14] MEDS: MIRALAX PO SCH ×2 (08:01→20:07)
[2018-12-14] MEDS: FOLIC ACID PO SCH (08:02)
[2018-12-14] MEDS ORDERED: OFIRMEV 1000 MG/ISOTONIC SOLN 1,000 MG/100 ML BOTTLE IV PRN (10:35)
[2018-12-14] MEDS ORDERED: SODIUM CHLORIDE 0.9% INJ PRN (10:38)
[2018-12-14] MEDS ORDERED: PHENERGAN IV PRN (10:38)
[2018-12-14 11:30] LABS: HEMOGLOBIN A1C 4.8 % (4.8-6.0)
--- NOTE | 2018-12-14 15:20 | PROGRESS NOTE ---
DATE: 12/14/2018 SUBJECTIVE: This morning, Mr. Olsen refers to be doing fairly okay. He said his appetite is not the greatest but most importantly, any time he drinks or eats anything, he is just not swallowing it. He feels nauseated and then has to vomit it out. He, however, failed to describe exactly what makes him throw up. He said he does not have any problems swallowing. He said it does not hurt swallowing either. He just occasionally feels nauseated and then throws up. Mr. Olsen said he recently had an EGD and colonoscopy, and he was told that everything was fine. OBJECTIVE: Current Vital Signs: Blood pressure is 164/59, pulse is 65, respirations are 16, temperature is 98.3 degrees. General Examination: Mr. Olsen is a 52-year-old, gentleman. He is in bed. He was not in any cardiopulmonary distress. HEENT: Mucosa is pink and moist. Anicteric. Acyanotic. Neck: Supple. No JVD. Chest: Air entry is bilaterally reduced. There are crackles in the posterior lung lloyd. Cardiovascular: Regular rate and rhythm. No murmurs, no rubs, no gallops. GI: Abdomen is soft. Bowel sounds are present but hypoactive. : Hirsch catheter is still in place. Scrotum is swollen. There is also edema on the lateral aspect of the abdominal wall. Extremities: About 3+ pedal edema. There are also chronic changes in the lower extremities, consistent with peripheral vascular disease. Right lower extremity is in a sterile dressing. LOW HEEL BUILDER: The patient is awake and alert. Laboratory Data: Chemistry is reviewed. Creatinine is 2.5. Is and Os: The urine output was 2400. He is currently negative balance of 2492 during the hospital course. ASSESSMENT: 1. Obstructive uropathy secondary to bilateral nephrolithiasis with hydronephrosis. Patient is status post bilateral ureteral stent placement and Hirsch catheter in place. Urology is on board. 2. Acute on chronic renal failure. Nephrology is on board. Creatinine is down to about 2.3. This morning, it went slightly up to 2.5. It looks like this is the new normal for him. We will continue to avoid any nephrotoxins. 3. Anasarca. Patient is on diuretic therapy by nephrology. 4. Hypoalbuminemia, improved with infusion. 5. Vitamin D and folate deficiency. Patient is on replacement. 6. History of peripheral vascular disease. 7. Normocytic anemia. Patient is status post one unit of packed red blood cell transfusion. Hemoglobin is up to 7.7. We will repeat this tomorrow and follow it up accordingly. 8. Severe constipation and nauseation. The patient is on chronic narcotic therapy at home. We think the nauseation is also secondary to the massive constipation and we think this is also due to chronic opioid use. We will avoid any opioid in him for now. We will use other alternatives for pain control. The patient has been started on Movantik. He seems to be getting regular bowel movements here in the hospital. We are going to continue with the bowel regimen. Hopefully, with the amitriptyline and the gabapentin, that should also help some. He is getting as needed Phenergan. There is a concern that he might have diabetic enteropathy. 9. Severe peripheral vascular disease. The patient is on gabapentin. However, he continues to be remarkably symptomatic so we are going to add amitriptyline to his medications. 10. Fluid overload. At some point, I think the patient will need to be ruled out for nephrotic syndrome. His albumin has been low in the past. We are not 100% sure if it is because of a synthetic issue or it is because he has been losing it through the kidneys. Being diabetic for that long, I suspect he does have some nephrosis. cc: Mike Chou MD
[2018-12-14] MEDS: TRENTAL PO SCH ×3 (15:43→20:08)
--- NOTE | 2018-12-14 15:48 | NEPHROLOGY PROGRESS NOTE ---
DATE: 12/14/2018 TIME SEEN: 07:15. SUBJECTIVE: Mr. Olsen is resting quietly in bed. Head of the bed is slightly elevated. He has no complaints. States that he is feeling slightly better today. Nausea has improved. OBJECTIVE: Vital Signs: His most recent vital signs. Last temperature 98, blood pressure 172/70, heart rate 69, respirations 14. He is on room air. Last recorded saturation 96%. He has had zero recorded in with 2400 out to Hirsch catheter. General: This is a 52-year-old white male resting quietly in bed. Head of the bed is slightly elevated. Skin: Warm and dry. HEENT: Normocephalic, atraumatic. Conjunctivae are pale pink. He has JENSEN. Mucous membranes are dry. Neck: Supple. Trachea midline. No evidence of JVD. Cardiovascular: Regular rate and rhythm. He is without murmur or gallop. Lungs: Clear to auscultation bilaterally equal excursion on room air. Abdomen: Soft, nontender. Positive bowel sounds. Genitourinary: Not inspected. Hirsch catheter is in place. Urine output has been improving more clear today. Extremities: Have remainder of 1 to 2+ lower extremity edema. Neurological: He is alert and oriented x3. Integumentary: Skin is warm and dry. LABORATORY DATA: Sodium 142, potassium 4.2, chloride 106, CO2 of 23, BUN 31, creatinine 2.5, glucose 115. Anion gap of 13, calcium 8.2, phosphorus 3.8, albumin 3.2. The patient's previous hemoglobin is 7.7 on the 28th. ASSESSMENT AND PLAN: 1. Acute kidney injury secondary to urologic obstruction. The patient's BUN and creatinine have continued to slowly improve. Creatinine remains stable at 2.3 to 2.5 in the last 24 hours. We will continue to monitor, adequate urine out. 2. Electrolytes and acid-base balance. These are stable. 3. Anemia. This remains low. We will defer to the primary care team for further intervention with a transfusion. 4. Obstructive uropathy. This is followed by Dr. Russell. I would like to thank you for allowing us to follow with this patient. Dictated by KAYLEE Wilkinson for Zachary Morris MD Face to face encounter, data reviewed, discussed with Madeline Mims on 12/14/18. I agree with the above assessment and plan of care. cc: KAYLEE Wilkinson MD MTDD
[2018-12-14] MEDS: ELAVIL PO SCH ×2 (19:51→20:07)
[2018-12-14] MEDS: NEURONTIN PO SCH ×2 (19:52→20:07)
[2018-12-14] MEDS ORDERED: D50W SYRINGE IV ONE (21:10)
[2018-12-14] MEDS: ZOFRAN IV PRN (21:48)
[2018-12-14] MEDS ORDERED: D5W 1,000 ML IV SCH (23:45)
[2018-12-15] MEDS: APRESOLINE PO SCH ×3 (04:41→20:26)
[2018-12-15] MEDS: PROTONIX PO SCH ×2 (05:49→06:59)
[2018-12-15] MEDS: MOVANTIK PO SCH ×2 (05:49→07:00)
--- NOTE | 2018-12-15 06:32 | Diag Imaging Result Doc PS360 ---
KUB ABDOMEN - 12/15/2018 INDICATION: severe constipation COMPARISON: 12/12/2018 FINDINGS: There are bilateral ureteral stents in good position. There is a nonobstructive bowel gas pattern. No free air or abnormal calcifications. No constipation. IMPRESSION: No acute disease. Electronically signed by Tho Tran 12/15/2018 6:30 AM
[2018-12-15 06:33] LABS: HEMATOCRIT 24.2 % (42.0-52.0); HEMOGLOBIN 7.7 g/dL (14.0-18.0); MCH 30.7 PG (27-31); MCHC 31.8 g/dL (33-37); MCV 96.4 FL (81-99); RBC 2.51 XMIL (4.7-6.1); RDW 15.5 % (11.5-14.5); WBC 17.83 X1000 (4.8-10.8)
[2018-12-15 06:41] LABS: ALBUMIN 3.1 g/dL (3.5-5.0); CALCIUM 8.1 mg/dL (8.8-10.2); CREATININE 2.6 mg/dL (0.7-1.2); PHOSPHORUS 3.1 mg/dL (2.7-4.5); POTASSIUM 3.7 mmol/L (3.5-5.1)
[2018-12-15] MEDS: HUMALOG SUBQ SCH ×4 (06:59→20:28)
[2018-12-15] MEDS: LASIX IV SCH ×2 (07:59→20:27)
[2018-12-15] MEDS: TRANDATE PO SCH ×2 (07:59→20:26)
[2018-12-15] MEDS: FOLIC ACID PO SCH (07:59)
[2018-12-15] MEDS: CELEXA PO SCH (07:59)
[2018-12-15] MEDS: TRENTAL PO SCH ×3 (07:59→20:26)
[2018-12-15] MEDS: CATAPRES PO SCH ×3 (07:59→20:26)
[2018-12-15] MEDS: NEURONTIN PO SCH ×2 (07:59→20:26)
[2018-12-15] MEDS: CENTRUM TABLET PO SCH (07:59)
[2018-12-15] MEDS: FLOMAX PO SCH (07:59)
[2018-12-15] MEDS: VITAMIN D PO SCH (07:59)
[2018-12-15] MEDS: PERIDEX MT SCH ×2 (08:00→20:26)
[2018-12-15] MEDS: MIRALAX PO SCH ×2 (08:00→20:43)
--- NOTE | 2018-12-15 08:52 | PROGRESS NOTE ---
DATE: 12/15/2018 SUBJECTIVE: The patient's Hirsch catheter was removed yesterday and the patient has been able to void spontaneously multiple times. He states he voids 150 to 200 mL at a time. He denies any pain or dysuria. He says his initial urination was light pink but have been clear since then. He states that his pelvic pain remains stable. He states his scrotal swelling has also improved. The patient had been up to the chair multiple times yesterday. OBJECTIVE: Vital Signs: Temperature 98.2, heart rate 65, blood pressure 131/52, oxygen saturation 96% on room air. General: No acute distress. Resting comfortably in bed. Alert and oriented x3. Respiratory: Good respiratory effort without audible wheezing or rales. Abdomen: Soft, nontender, nondistended. No palpable masses or hepatosplenomegaly. Abdominal distention has essentially resolved. : No suprapubic tenderness. The patient's scrotal edema has also improved slightly. The patient has not been elevating his scrotum. Normal phallus with meatus in orthotopic position. Labs: White blood cell count 17.8, hemoglobin 7.7, hematocrit 24.2, platelets 147,000. Sodium 139, potassium 3.7, chloride 104, bicarb 26, BUN 31, creatinine 2.6, glucose 100. ASSESSMENT/PLAN: Mr. Olsen is a 52-year-old with type 2 diabetes, chronic obstructive pulmonary disease, hyperlipidemia, hypertension, peripheral artery disease, and neuropathy with ulceration of his bilateral feet, who presented to the emergency room with decreased oral intake, anuria, and CT scan findings of bilateral ureteral obstruction due to urolithiasis. The patient had placement of bilateral ureteral stents and his renal function decreased down to 2.3 yesterday. It is 2.6 today. The patient does have a slightly elevated white blood cell count, uncertain of the etiology of this. The patient's blood and urine cultures from admission were negative for any infection. The patient has been voiding well without issue. He states he has been having small voids. We will plan to obtain a postvoid residual today to ensure adequate emptying. The patient continues to have some scrotal edema, which I think is positional. No obvious masses or tenderness to palpation are felt. There is a small amount of suprapubic edema as well. I think this is all related to his position in the bed. I encouraged him to continue with scrotal support and ambulate as tolerated. We will tentatively plan for him to have a right ureteroscopy and laser lithotripsy of stone on the right, and possible left extracorporeal shockwave lithotripsy next . I discussed this with the patient this morning. The patient can be discharged from a urologic standpoint and followed up in the outpatient setting. We will continue to monitor. Please call with questions or concerns. cc: Yosef Russell MD MTDD
--- NOTE | 2018-12-15 14:21 | PROGRESS NOTE ---
DATE: 12/15/2018 SUBJECTIVE: This morning, Mr. Olsen refers to be feeling pretty much the same. Per the nursing staff, they had to call in a CAT call on him last night because of low blood glucose. This morning, the nurses are concerned that he seems a little bit more drowsy. He did receive 4 units of Humalog insulin at 1827. OBJECTIVE: General Examination: Mr. Olsen is a 52-year-old, male. He is in bed. He is not in any distress. HEENT: Mucosa is pink and moist. Anicteric. Acyanotic. Neck: Supple. No JVD. Respiratory System: Air entry is bilaterally reduced. There are crackles posteriorly. Cardiovascular: Regular rate and rhythm. No murmurs, no rubs, no gallops. GI: Abdomen is soft. Bowel sounds present. Hirsch catheter has been removed. Scrotum still swollen. There is also some edema on the lateral aspect of the abdominal wall. Extremities: About 3+ pedal edema with chronic changes in the lower extremities consistent of peripheral vascular disease. The right lower extremity is still in a sterile dressing. Laboratory Data: Has been reviewed. Creatinine is 2.6. Cortisol level is 11.3. WBC went up to 12.83. ASSESSMENT: 1. Obstructive uropathy. Patient is status post bilateral ureteral stent placement. A recent CT scan did show a large stone at the upper pole of the left kidney. This has also been evaluated today by urology and there is a plan for an outpatient procedure to remove that. 2. Acute on chronic renal failure. Creatinine continues to be borderline high. It is up to 2.6 today. Nephrology is on board. 3. Anasarca. Patient is on diuretic therapy. 4. Vitamin D and folate deficiency. The patient is on replacement. 5. History of peripheral vascular disease, noted. 6. Hypoalbuminemia. This improved with infusion. 7. Normocytic anemia. The patient has been transfused 1 unit of packed red blood cells. Hemoglobin and hematocrit are fairly the same. 8. Severe constipation associated with nauseation. We think this is secondary to narcotic use. We have withheld all narcotics. 9. Peripheral neuropathy. The patient has been started on medications. 10. Hypoglycemia. I think this is a combination of poor oral intake and the fact that the patient also got insulin. He was started on D5 yesterday. I have discontinued that and started him on Clinimix with lipid infusion. I have also consulted gastroenterology for oral intolerance and I have also consulted the dietitian. cc: Mike Chou MD
[2018-12-15] MEDS: ICAR-C PO SCH ×2 (14:32→20:43)
[2018-12-15] MEDS: MEGACE LIQUID PO SCH ×2 (14:32→20:43)
[2018-12-15] MEDS: CLINIMIX E 4.25%-5% SOLUTION 1,000 ML IV SCH (15:28)
[2018-12-15] MEDS: LIPOSYN 20% 250 ML IV SCH (15:28)
[2018-12-15 17:02] LABS: URINE SOURCE CLEAN CATCH
[2018-12-15 17:06] LABS: BILIRUBIN URINE NEGATIVE (NEGATIVE); BLOOD URINE MODERATE (NEGATIVE); COLOR YELLOW; GLUCOSE URINE NEGATIVE (NEGATIVE); KETONE URINE NEGATIVE (NEGATIVE); LEUKOCYTES URINE SMALL (NEGATIVE); NITRITE URINE NEGATIVE (NEGATIVE); PROTEIN URINE 100 mg/dL (NEGATIVE); TURBIDITY URINE HAZY (CLEAR); UROBILINOGEN URINE NORMAL (NORMAL)
[2018-12-15 17:08] LABS: UR EPITHELIAL CELLS <10 /HPF (<10); URINE BACTERIA NEGATIVE /HPF; URINE RBC TNTC /HPF (<10); URINE WBC 20-40 /HPF (<10)
--- NOTE | 2018-12-15 18:30 | GASTROENTEROLOGY CONSULTATION ---
DATE: 12/15/2018 REQUESTING PHYSICIAN: Mike Chou MD PRIMARY CARE PHYSICIAN: Rodrigo Allen MD REASON FOR CONSULTATION: Dysphagia, decreased p.o. intake. HISTORY OF PRESENT ILLNESS: Mr. Olsen is 52-year-old male who was admitted on 12/03/2018 for chest pain, shortness of breath and abdominal pain. At that time he had imaging done which showed evidence of a left 3 mm UPJ stone obstruction with hydronephrosis and an 8 mm distal right ureterorenal stone obstruction, as well as 19 mm nonobstructing renal stone in the right kidney, bilateral perinephric stranding as well as bilateral hydronephrosis with bilateral renal stones, the largest being 19 mm in the left kidney. He was also noted to have hematuria with clots. He was seen by the Urology team. He had bilateral ureteral stent placement. During the course of the hospitalization the patient complained of trouble with eating. He had EGD and colonoscopy done last year in 2018 at [facility], according to him. He did not recall having esophageal dilation at that time. He does not recall the results of the procedure. We will try to obtain the records from [facility]. The patient complains of intermittent trouble with eating foods. Sometimes he has no problem with swallowing and sometimes he cannot even keep a bite down. He is a smoker, he smokes 1 pack a day. He has history of COPD. He also has a history of peripheral arterial disease and takes aspirin at home. He denies any nausea, vomiting, vomiting blood or passing blood in the stools. He has history of chronic pain. He is on chronic narcotics and has been constipated. This constipation has improved with bowel regimen per the primary care team. Gastroenterology is consulted for further management of dysphagia and poor oral intake. PAST MEDICAL HISTORY: Diabetes mellitus, COPD, hyperlipidemia, hypertension, peripheral arterial disease, neuropathy, bilateral chronic ulcers on the feet. PAST SURGICAL HISTORY: Arthroscopy, femoral-popliteal bypass, right 5th toe amputation, cystoscopy and bilateral ureteral stent placement. SOCIAL HISTORY: He smokes a pack a day. He has been a smoker for many decades. He denies alcohol or illicit drug abuse. He is and lives with his . REVIEW OF SYSTEMS: He denies any fevers, rigors or chills. He does have history of COPD and shortness of breath on exertion. He denies any nausea, vomiting, vomiting blood or passing blood in the stools. He does complain of constipation which is improved. He does complain of chronic pain, for which he uses narcotics. MEDICATIONS: His medications in the hospital include amitriptyline, Remeron, Tylenol, chlorhexidine, vitamin D, Celexa, amino acid 50 mL/h, clonidine, Bentyl, folic acid, Lasix, Neurontin, hydralazine, Levsin, Humalog, labetalol and fat emulsion, megestrol, multivitamin once daily and Movantik 12.5 mg p.o. ACB, Zofran, Protonix once daily, Trental 400 mg p.o. t.i.d., MiraLAX 17 g p.o. b.i.d., Phenergan 12.5 mg IV q.4 hours, tamsulosin, dextrose 50% syringe 100 mL once. DIET: He is on renal diet. PHYSICAL EXAMINATION: Temperature of 98.2 degrees, pulse rate of 65, respiratory rate 13, blood pressure 131/54, saturating 97% on room air. Body weight of 184 pounds 5 ounces. BMI 25 kg/m2. The patient is thinly built, lying in bed in no acute distress.HEENT: Pale conjunctivae. No icterus. Pupils equal, reactive to light. Neck is supple. Abdomen is soft, nontender, nondistended. No guarding. Extremities: He has surgical dressings on the right and left foot. Neurologic: He is alert, awake and oriented. LABORATORY DATA: Hemoglobin and hematocrit are 7.7 and 24.2, white count of 17.83, platelet count of 147,000. Sodium 139, potassium 3.7, chloride 104, bicarbonate 20, anion gap 9, BUN of 31, creatinine 2.6, glucose of 100, calcium is 8.1, phosphorus 3.1, albumin of 3.1. Blood cultures were drawn today, which are currently pending. Prior to that, last blood cultures on 12/03/2018 were negative. Right big toe culture also showed no growth. Urine culture showed no growth. DIAGNOSTIC DATA: Last imaging on 12/05/2018 of abdomen and pelvis showed significant constipation and minimal dilation of small bowel, but no features suspicious for obstruction; worsening body wall edema; worsening bilateral pleural effusion; bilateral nephroureteral stent in good position; no hydronephrosis; stable, severe bladder abnormality and left renal stone. IMPRESSION AND PLAN: 1. Dysphagia and poor oral intake. We need to evaluate this further with an esophagogastroduodenoscopy. We discussed the procedure of esophagogastroduodenoscopy with the patient along with the risks, benefits, indications and alternatives. We will schedule the patient for esophagogastroduodenoscopy tomorrow by Dr. Mueller. The risks, benefits, indications and alternatives were discussed, and the patient acknowledged and agreed to proceed as above. 2. Obstructive uropathy secondary to bilateral nephrolithiasis with hydronephrosis. The patient is status post bilateral ureteral stent placement. Hirsch catheter in place. Urology is following. 3. [id number] renal failure. Nephrology is on board. 4. Anasarca. He is on diuretic therapy by Neurology. 5. Poor oral intake and hypoalbuminemia, vitamin D deficiency and folate deficiency. This is being replaced per the primary care team. 6. History of peripheral arterial disease. Aware. 7. Anemia. Continue to watch for now, transfuse as needed. 8. Severe constipation, likely secondary to narcotics. He is on Movantik and MiraLAX, and he is moving his bowels now. 9. Gastrointestinal prophylaxis with proton pump inhibitors. 10. I will start him on iron-C b.i.d. and multivitamin once a day for anemia. The above plan was discussed with the patient and all questions were answered. Please call us with any further questions. cc: MD Rodrigo Gloria MD
[2018-12-15] MEDS: ELAVIL PO SCH (20:26)
[2018-12-15] MEDS: REMERON PO SCH (20:43)
[2018-12-16] MEDS: APRESOLINE PO SCH ×3 (04:44→20:41)
[2018-12-16] MEDS: MOVANTIK PO SCH ×2 (05:52→07:44)
[2018-12-16] MEDS: PROTONIX PO SCH ×3 (05:53→20:41)
[2018-12-16 06:55] LABS: CALCIUM 8.1 mg/dL (8.8-10.2); CREATININE 2.8 mg/dL (0.7-1.2); PHOSPHORUS 3.4 mg/dL (2.7-4.5); POTASSIUM 3.4 mmol/L (3.5-5.1)
[2018-12-16] MEDS ORDERED: ROBINUL ONE (07:01)
[2018-12-16] MEDS ORDERED: XYLOCAINE-MPF 2% ONE (07:01)
[2018-12-16] MEDS ORDERED: DIPRIVAN 1% ONE (07:02)
[2018-12-16] MEDS ORDERED: FENTANYL ONE (07:04)
[2018-12-16] MEDS ORDERED: ZOFRAN ONE (07:10)
[2018-12-16] MEDS: HUMALOG SUBQ SCH ×4 (07:44→21:33)
[2018-12-16] MEDS ORDERED: LABETALOL (DOSE) ONE (08:08)
[2018-12-16 09:06] LABS: BASO# 0.05 X1000 (0.0-0.2); BASO% 0.6 % (0.0-0.8); EOS# 0.22 X1000 (0.0-0.7); EOS% 2.6 % (0.0-10.0); HEMATOCRIT 23.5 % (42.0-52.0); HEMOGLOBIN 7.7 g/dL (14.0-18.0); IMM GRAN# 0.03 X1000 (0.0-0.04); IMM GRAN% 0.4 % (0.0-0.5); LYMPH# 1.51 X1000 (1.2-3.4); LYMPH% 18.2 % (20.5-51.1); MCH 30.8 PG (27-31); MCHC 32.8 g/dL (33-37); MONO# 0.51 X1000 (0.11-0.59); MONO% 6.1 % (1.7-9.3); NEUT# 5.99 X1000 (1.4-6.5); NEUT% 72.1 % (42.2-75.2); PLT 136 X1000 (130-400); RDW 15.1 % (11.5-14.5); WBC 8.31 X1000 (4.8-10.8)
[2018-12-16] MEDS: PERIDEX MT SCH ×2 (10:32→20:41)
[2018-12-16] MEDS: LASIX IV SCH ×2 (10:32→20:42)
[2018-12-16] MEDS: MEGACE LIQUID PO SCH ×2 (10:32→20:40)
[2018-12-16] MEDS: CENTRUM TABLET PO SCH (10:32)
[2018-12-16] MEDS: VITAMIN D PO SCH (10:32)
[2018-12-16] MEDS: NEURONTIN PO SCH ×2 (10:32→20:41)
[2018-12-16] MEDS: FLOMAX PO SCH (10:32)
[2018-12-16] MEDS: TRENTAL PO SCH ×3 (10:33→20:41)
[2018-12-16] MEDS: CELEXA PO SCH (10:33)
[2018-12-16] MEDS: ICAR-C PO SCH ×2 (10:33→20:41)
[2018-12-16] MEDS: CATAPRES PO SCH ×3 (10:33→21:35)
[2018-12-16] MEDS: FOLIC ACID PO SCH (10:33)
[2018-12-16] MEDS: TRANDATE PO SCH ×2 (10:33→20:41)
[2018-12-16] MEDS: CLINIMIX E 4.25%-5% SOLUTION 1,000 ML IV SCH (10:34)
[2018-12-16] MEDS: MIRALAX PO SCH ×2 (10:35→20:49)
[2018-12-16 11:03] LABS: HYPOCHROM 1+; LYMPHS 24 % (21-51); MONO 4 % (1-9); SEGS 72 % (42-75)
--- NOTE | 2018-12-16 15:22 | OPERATIVE NOTE ---
PROCEDURE DATE: 12/16/2018 PROCEDURE: Upper GI endoscopy. PROVIDER: Efrem Mueller MD INDICATIONS: Question dysphagia and anemia. The patient reports having a distaste for food. He denies trouble having food go down, and says that the food just does not taste right. MEDICATIONS: Monitored anesthesia care. DESCRIPTION OF PROCEDURE: Prior to the procedure, a history and physical was performed. The patient's medication and allergies were reviewed. The patient's tolerance of previous anesthesia was also reviewed. The risks and benefits of the procedure and sedation options and risks were discussed with the patient. All questions were answered, and informed consent was obtained. After reviewing the risks and benefits, the patient was deemed in satisfactory condition to undergo the procedure. The endoscope was passed under direct visualization. Throughout the procedure, the patient's blood pressure, pulse and oxygen saturations were monitored continuously. The endoscope was introduced through the mouth and advanced to the second part of the duodenum. The upper GI endoscopy was accomplished without difficulty. The patient tolerated the procedure well. COMPLICATIONS: No immediate complications. ESTIMATED BLOOD LOSS: Minimal. FINDINGS: The esophagus was normal. The Z-line was regular at 38 cm from the incisors. Biopsies were obtained from the midesophagus to rule out eosinophilic esophagitis. The stomach revealed a small amount of retained fluid. There was mild gastritis in the antrum. Random gastric biopsies were obtained to rule out H. pylori. Retroflexion in the stomach was unremarkable. There was a 7 mm clean base ulcer in the anterior duodenal bulb that was clean base. No active bleeding. Mild duodenitis was also seen in the duodenal bulb. The second portion of the duodenum was normal. IMPRESSION: Normal esophagus biopsied. Mild gastritis, biopsied to rule out H. pylori. The duodenal ulcer and mild duodenal bulb duodenitis. RECOMMENDATIONS: Await pathology results. Start pantoprazole 40 mg p.o. b.i.d. Avoid NSAIDs. Resume diabetic diet with dysphagia precautions. Follow up in GI clinic in 2 to 4 weeks upon discharge. We will sign off. Please call with any questions or concerns. The patient will need to be on PPI for at least 3 months.
--- NOTE | 2018-12-16 17:00 | NEPHROLOGY PROGRESS NOTE ---
DATE: 12/16/2018 SUBJECTIVE: He is lying in bed. He does not have any new complaints today. No pain, no shortness of breath. OBJECTIVE: Vital Signs: Blood pressure 194/71, heart rate 68, respirations 20, afebrile. General: No acute distress. Skin: Warm and dry. HEENT: Conjunctivae are pink. Neck: Neck veins are not visible. Heart: Regular. Lungs: Equal. No crackles. Abdomen: Soft, nontender. Extremities: Have no edema, clubbing, or cyanosis. IMPRESSION: Obstructive uropathy. His creatinine is roughly stable in the mid 2s. Electrolytes and acid-base are acceptable. Volume status is acceptable. We will follow him as an outpatient. cc: Zachary Morris MD
[2018-12-16] MEDS: LIPOSYN 20% 250 ML IV SCH (17:09)
--- NOTE | 2018-12-16 19:11 | PROGRESS NOTE ---
DATE: 12/16/2018 SUBJECTIVE: Today Mr. Olsen refers to be doing fairly okay. He just came out of the EGD. He said he took some bites of his meals. It is documented this afternoon that he had 75% of his meals. OBJECTIVE: Vital signs: Blood pressure is 171/69, pulse of 67, respirations 20, temperature 98.4 degrees. General Exam: Mr. Olsen is a 52-year-old male. He is in bed in no distress. HEENT: Mucosa is pink. Anicteric and acyanotic. Neck: Supple. Chest: Air entry is bilaterally reduced. There are a few crackles posteriorly. Cardiovascular: Regular rate and rhythm. Gastrointestinal: Abdomen is soft. Bowel sounds present. Scrotum is still swollen. There is some edema in the lateral aspect of the abdominal wall. Extremities: About 2+ pedal edema. The right lower extremity is still in sterile dressing. LABORATORY DATA: Has been reviewed. WBC down to 8.31, hemoglobin is 7.7. Chemistry is also reviewed. Creatinine is up to 2.8. Urine culture showed no growth. ASSESSMENT: 1. Obstructive uropathy secondary to nephrolithiasis. Patient is status post bilateral ureteral stent placement. 2. Acute on chronic renal failure. Nephrology is on board. 3. Anasarca. The patient is on diuretic therapy. 4. Vitamin D and folate deficiency. The patient is on replacement. 5. History of peripheral vascular disease. We will continue with management. 6. Hypoalbuminemia with poor nutritional status. The patient is on Clinimix with lipid infusion and also having other supplements. 7. Normocytic anemia. The patient is status post 1 PRBC transfusion. 8. Severe constipation associated with nauseation, improved. We think this is related to narcotic use. 9. Peripheral neuropathy. 10. Chronic narcotic use due to chronic pain syndrome. 11. Duodenal ulcer, mild duodenitis and gastritis all found on esophagogastroduodenoscopy. The patient is currently on proton pump inhibitor. 12. Large left kidney stone. There is a plan for urological intervention next Wednesday. Per the urology note, it appears they will do this as an outpatient if the patient is discharged by then So in general, Mr. Olsen is doing a lot better. It is documented he has taken 75% of his diet today. We are going to follow up. We will continue with his current management throughout the weekend, get physical therapy to work more with him, hope that he is able to advance and take more enteral feedings and hopefully get him discharged on Wednesday. cc: Mike Chou MD MTDD
[2018-12-16] MEDS: REMERON PO SCH (20:41)
[2018-12-16] MEDS: ELAVIL PO SCH (20:41)
[2018-12-17] MEDS: APRESOLINE PO SCH ×3 (04:57→22:45)
[2018-12-17] MEDS: CLINIMIX E 4.25%-5% SOLUTION 1,000 ML IV SCH ×2 (04:58→18:53)
[2018-12-17] MEDS: HUMALOG SUBQ SCH ×4 (06:45→23:30)
[2018-12-17] MEDS: MOVANTIK PO SCH (06:45)
[2018-12-17 06:51] LABS: ALBUMIN 3.2 g/dL (3.5-5.0); CALCIUM 8.6 mg/dL (8.8-10.2); CREATININE 2.7 mg/dL (0.7-1.2); PHOSPHORUS 3.4 mg/dL (2.7-4.5); POTASSIUM 3.7 mmol/L (3.5-5.1)
[2018-12-17] MEDS: MIRALAX PO SCH ×2 (09:09→22:50)
[2018-12-17] MEDS: LASIX IV SCH ×2 (09:10→22:45)
[2018-12-17] MEDS: PROTONIX PO SCH ×2 (09:10→22:46)
[2018-12-17] MEDS: NEURONTIN PO SCH ×2 (09:10→22:45)
[2018-12-17] MEDS: CATAPRES PO SCH ×3 (09:10→18:48)
[2018-12-17] MEDS: FLOMAX PO SCH (09:10)
[2018-12-17] MEDS: TRANDATE PO SCH ×2 (09:10→22:50)
[2018-12-17] MEDS: TRENTAL PO SCH ×3 (09:10→18:48)
[2018-12-17] MEDS: FOLIC ACID PO SCH (09:11)
[2018-12-17] MEDS: CELEXA PO SCH (09:11)
[2018-12-17] MEDS: ICAR-C PO SCH ×2 (09:11→22:45)
[2018-12-17] MEDS: CENTRUM TABLET PO SCH (09:11)
[2018-12-17] MEDS: VITAMIN D PO SCH (09:14)
[2018-12-17] MEDS: PERIDEX MT SCH ×2 (09:14→22:47)
[2018-12-17] MEDS: MEGACE LIQUID PO SCH ×2 (09:14→22:46)
[2018-12-17] MEDS: LIPOSYN 20% 250 ML IV SCH (18:53)
--- NOTE | 2018-12-17 19:26 | PROGRESS NOTE ---
DATE: 12/17/2018 Today Mr. Olsen refers to be doing fairly okay, denies any new complaints. He said he has been eating a little better, is documented that he had 75% of his breakfast today and about 50% of his lunch. OBJECTIVE: Vitals: Blood pressure is 158/70, pulse of 68, respiration is 16, temperature is 97.8 degrees, patient was saturating 99% on room air. General: Mr. Olsen 52-year-old gentleman he is in bed no distress. Mucosa is pink and moist. Anicteric, acyanotic. Neck: Supple. Respiratory: Air entry is bilateral reduced. A few crackles posterior. Cardiovascular: Regular rate and rhythm. No murmurs, no rubs, no gallops. Abdomen: Soft, minimally distended but bowel sounds present. Scrotum is minimally swollen. There is also some edema on the lateral aspect of the abdominal wall. Extremities: About 1 to 2+ pedal edema. The right lower extremity still has sterile dressing. LABORATORY DATA: Chemistry reviewed. BUN is 37 and creatinine is down to 2.7 from 2.8 yesterday, glucose level is acceptable. Blood cultures and urine cultures have all been negative. There is also documentation that patient had a brown stool yesterday, no documentation for bowel movement today. ASSESSMENT: 1. Obstructive uropathy secondary to nephrolithiasis. Patient is status post bilateral ureteral stent placement. Urology is on board. There is also a large left kidney stone that they plan to intervene next . 2. Acute on chronic renal failure, creatinine seems to be at baseline. Nephrology is on board. 3. Anasarca. Patient is on diuretic therapy. 4. Vitamin D and folate deficiency. Will continue replacement. 5. Severe constipation associated with nauseation presumed to be secondary to narcotic use, this has improved with withholding narcotic use. The patient is also on Movantik. 6. Peripheral neuropathy, will continue with gabapentin. 7. Chronic narcotic use due to chronic pain syndrome. 8. Duodenal ulcer, mild gastritis and duodenitis on EGD. Patient is on PPI. 9. Poor dentition. Needs dental evaluation outpatient So gradually looks like Mr. Olsen appetite seems to be getting better. We are going to continue with the current plan. His edema state is also improving so I think we will be able to discharge him on Wednesday and let him follow up with Urology for outpatient treatment. Patient is also making adequate urine output. cc: Mike Chou MD MTDPoppy
[2018-12-17] MEDS: ELAVIL PO SCH (22:46)
[2018-12-17] MEDS: REMERON PO SCH (22:46)
[2018-12-18] MEDS: CLINIMIX E 4.25%-5% SOLUTION 1,000 ML IV SCH (00:35)
[2018-12-18] MEDS: MOVANTIK PO SCH (06:05)
[2018-12-18] MEDS: APRESOLINE PO SCH ×3 (06:05→21:59)
[2018-12-18] MEDS: HUMALOG SUBQ SCH ×4 (06:33→21:58)
[2018-12-18 06:53] LABS: ALBUMIN 3.1 g/dL (3.5-5.0); CALCIUM 8.5 mg/dL (8.8-10.2); CREATININE 2.6 mg/dL (0.7-1.2); PHOSPHORUS 2.5 mg/dL (2.7-4.5); POTASSIUM 3.5 mmol/L (3.5-5.1)
[2018-12-18] MEDS: MIRALAX PO SCH ×2 (09:03→22:00)
[2018-12-18] MEDS: LASIX IV SCH ×2 (09:03→21:59)
[2018-12-18] MEDS: TRENTAL PO SCH ×3 (09:04→17:21)
[2018-12-18] MEDS: FOLIC ACID PO SCH (09:04)
[2018-12-18] MEDS: ICAR-C PO SCH ×2 (09:04→21:59)
[2018-12-18] MEDS: FLOMAX PO SCH (09:04)
[2018-12-18] MEDS: PROTONIX PO SCH ×2 (09:04→21:59)
[2018-12-18] MEDS: CATAPRES PO SCH ×3 (09:04→17:21)
[2018-12-18] MEDS: MEGACE LIQUID PO SCH ×2 (09:04→22:00)
[2018-12-18] MEDS: CELEXA PO SCH (09:04)
[2018-12-18] MEDS: PERIDEX MT SCH ×2 (09:04→21:59)
[2018-12-18] MEDS: CENTRUM TABLET PO SCH (09:04)
[2018-12-18] MEDS: NEURONTIN PO SCH ×2 (09:04→21:59)
[2018-12-18] MEDS: TRANDATE PO SCH ×2 (09:04→21:59)
[2018-12-18] MEDS: VITAMIN D PO SCH (09:04)
--- NOTE | 2018-12-18 11:07 | PROGRESS NOTE ---
DATE: 12/18/2018 SUBJECTIVE: This morning, Mr. Olsen was sitting up in a chair, was eating his breakfast. He is referred to be doing a lot better. OBJECTIVELY: Vital Signs: Blood pressure is 163/63, pulse of 69, respiration is 18, temperature 98.5 degrees. General: Mr. Olsen is a 52-year-old gentleman. He was sitting up in the chair eating breakfast, was not in any distress. HEENT: Mucosa is pink and moist. Anicteric. Acyanotic. Neck: Supple. Chest: Good air entry bilaterally. Few crackles posteriorly. Cardiovascular: Regular rate and rhythm. Abdomen: Soft, minimally distended. Scrotum still minimally swollen. Extremities: About 1+ pedal edema. The right lower extremity is still in sterile dressing. LABORATORY DATA: BUN is 46, creatinine is 2.6, which is slightly lower than yesterday. Vitamin D is less than is 5. The patient's glucose was 252. I's and O's, urine output was 1200 overnight. ASSESSMENT: 1. Obstructive uropathy secondary to nephrolithiasis. Patient is status post bilateral ureteral stent placement by Urology. There is also a large left kidney stone that the patient is planned for intervention on . This will be done as an outpatient procedure. 2. Acute on chronic renal failure. Creatinine seems to be at baseline. Nephrology is on board. 3. Anasarca. This is gradually improving. Patient is on diuretic therapy. 4. Vitamin D and folate deficiencies. We will continue replacement. 5. Severe constipation secondary to chronic narcotic use, improved. 6. Peripheral neuropathy. Patient is on gabapentin. 7. Chronic pain syndrome. 8. Duodenal ulcer, mild gastritis and duodenitis on EGD. Patient is on proton pump inhibitor. 9. Extreme poor dentition. We think this is some of the reason why patient has issue with his diet. He has been advised to follow up with dental care outpatient basis since we do not have an inpatient dental care. 10. Disposition. Will plan to discharge Mr. Olsen tomorrow. cc: Mike Chou MD
--- NOTE | 2018-12-18 16:32 | Diag Imaging Result Doc PS360 ---
FOOT 2 VIEWS LEFT - 12/18/2018 INDICATION: trauma to left 4th toe TECHNIQUE: COMPARISON: 06/04/2013 FINDINGS: There has been resection of the distal shaft of the fifth metatarsal. The fifth toe remains in the same position. No acute fracture or dislocation. There is heavy degeneration of the mid tarsal joints and the ankle. IMPRESSION: Surgical resection of the distal shaft of the fifth metatarsal. No acute injury. Electronically signed by Tho Tran 12/18/2018 4:29 PM
[2018-12-18] MEDS: HUMULIN 70/30 SUBQ SCH (17:22)
[2018-12-18] MEDS: ELAVIL PO SCH (21:59)
[2018-12-18] MEDS: REMERON PO SCH (21:59)
[2018-12-19] MEDS: APRESOLINE PO SCH (04:18)
[2018-12-19] MEDS: MOVANTIK PO SCH (06:04)
[2018-12-19] MEDS: HUMULIN 70/30 SUBQ SCH (06:04)
[2018-12-19] MEDS: HUMALOG SUBQ SCH (06:09)
[2018-12-19 06:44] LABS: ALBUMIN 3.1 g/dL (3.5-5.0); CREATININE 2.7 mg/dL (0.7-1.2); PHOSPHORUS 2.6 mg/dL (2.7-4.5)
[2018-12-19 07:34] VITALS: BP 158/56
[2018-12-19] MEDS: NEURONTIN PO SCH (10:21)
[2018-12-19] MEDS: PROTONIX PO SCH (10:21)
[2018-12-19] MEDS: ICAR-C PO SCH (10:21)
[2018-12-19] MEDS: LASIX IV SCH (10:21)
[2018-12-19] MEDS: CENTRUM TABLET PO SCH (10:21)
[2018-12-19] MEDS: FLOMAX PO SCH (10:21)
[2018-12-19] MEDS: FOLIC ACID PO SCH (10:21)
[2018-12-19] MEDS: MEGACE LIQUID PO SCH (10:21)
[2018-12-19] MEDS: TRANDATE PO SCH (10:21)
[2018-12-19] MEDS: MIRALAX PO SCH (10:21)
[2018-12-19] MEDS: TRENTAL PO SCH (10:21)
[2018-12-19] MEDS: VITAMIN D PO SCH (10:21)
[2018-12-19] MEDS: CATAPRES PO SCH (10:21)
[2018-12-19] MEDS: CELEXA PO SCH (10:21)
[2018-12-19] MEDS: PERIDEX MT SCH (10:22)
--- NOTE | 2018-12-19 17:01 | PROGRESS NOTE ---
DATE: 12/19/2018 SUBJECTIVE: No acute events overnight. The patient has been voiding without issue. He denies any dysuria, hematuria, urgency, or frequency. States that his abdominal pain is improved. The patient's vital signs have all been stable. OBJECTIVE: Vital signs: Temperature 97.8 degrees, heart rate 75, blood pressure 158/56, oxygen saturation 98% on room air. General: No acute distress. Resting comfortably in bed. Alert and oriented x3. Respiratory: Good respiratory effort without audible wheezing or rales. Abdomen: Soft, nontender, nondistended. No palpable masses or hepatosplenomegaly. Genitourinary: No suprapubic tenderness. No CVA tenderness. Improved scrotal edema. LABORATORY DATA: Sodium 141, potassium 4.0, chloride 104, bicarbonate 25, BUN 55, creatinine 2.7, glucose 344, calcium 8.0. ASSESSMENT AND PLAN: Mr. Olsen is a 52-year-old with type 2 diabetes, COPD, hyperlipidemia, hypertension, peripheral artery disease, neuropathy with ulcerations bilateral feet, who presented to the emergency room with decreased p.o. intake and anuria and CT scan findings bilateral ureteral obstruction with urolithiasis. The patient had bilateral ureteral stent placement and has been doing well. He continues to void with large volumes daily. Creatinine is relatively stable at 2.7 from 2.6 yesterday. He denies any fevers, chills, nausea, vomiting. I am planning to perform a right ureteroscopy, laser lithotripsy and stone basket extraction and then left extracorporeal shockwave lithotripsy this . We will continue to monitor him while inpatient. Please call with questions or concerns. cc: Yosef Russell MD [facility]
--- NOTE | 2018-12-20 01:30 | DISCHARGE SUMMARY ---
ADMISSION DATE: 12/03/2018 DISCHARGE DATE: 12/19/2018 CONSULTATIONS: 1. Dr. Yosef Russell with Urology. 2. Dr. Zachary Morris with Nephrology. 3. Dr. Pool with gastroenterology. PERTINENT PROCEDURES: 1. Abdomen and pelvis CT, distal right urethral stone with hydronephrosis, left ureteropelvic junction stone with hydronephrosis and left nephrolithiasis, and anasarca of pleural effusion and ascites. 2. Cystoscopy with bilateral retrograde pyelogram and bilateral ureteral stent placement performed by Dr. Russell. 3. Abdominal x-ray, no definite bowel obstruction. 4. Abdomen and pelvis CT, significant constipation, minimal dilatation of the small bowel, but no fissure suspicious for obstruction, worsening body wall edema, worsening bilateral effusions, bilateral nephroureteral stents in good position. No hydronephrosis. Stable severe bladder abnormality and left renal stone. 5. Abdominal x-ray, no acute disease. 6. Upper GI endoscopy performed by Dr. Fowler, normal esophagus, mild gastritis, mild duodenal ulcer and mild duodenal bulb duodenitis. 7. Left foot x-ray, surgical resection of the distal shaft of 5th metatarsal, no acute injury. DISCHARGE DIAGNOSES: 1. Obstructive uropathy secondary to nephrolithiasis. The patient is status post bilateral ureteral stent placements by Urology, and there is also a large left kidney stone that the patient is planned for intervention next , this will be done as an outpatient procedure. 2. Acute on chronic renal failure. Creatinine is back at baseline. Nephrology has been following. 3. Anasarca, gradually improved. The patient is on diuretic therapy. 4. Vitamin D and folate deficiencies. Continue with supplementation. 5. Severe constipation secondary to chronic narcotic use, improved. 6. Peripheral neuropathy. Continue gabapentin. 7. Chronic pain syndrome. Aware. 8. Duodenal ulcer, mild gastritis and duodenitis on esophagogastroduodenoscopy. Plan is to continue on proton pump inhibitor. 9. Extreme poor dentition. He has been advised to follow up with dental care as an outpatient as we do not have any inpatient dental care. I believe this is the reason for his poor appetite. HOSPITAL COURSE: Briefly, Mr. Olsen is a 52-year-old gentleman who was admitted back on 12/03/2018 for abdominal pain. He had imaging that showed evidence of a 3-mm UPJ stone obstruction with hydronephrosis, an 8-mm distal right ureter renal stone obstruction, as well as a nonobstructing renal stone in the right kidney, bilateral hydronephrosis with bilateral renal stones. He was also noted to have hematuria with clots. He was seen by the Urology Team and had bilateral ureteral stent placement. He was treated with IV antibiotics, seen by Nephrology for his creatinine, his creatinine is now stable. His electrolytes and acid base are acceptable, as well as his volume status and he will continue to follow up with Dr. Morris as an outpatient for. Over the course of his hospital stay he was having issues with the eating. He did have an EGD and colonoscopy that was performed in 2018 as an outpatient basis, and he still complained of intermittent troubles with eating food. He was also having issues with constipation secondary to chronic narcotic use. He was able to undergo an upper GI with Dr. Mueller that showed mild gastritis as well as duodenal ulcer and mild duodenal bulb duodenitis. He will continue on PPI and avoid NSAIDs, and to resume a diabetic diet with dysphagia precautions. They do feel like some of his eating issues are secondary to his poor dentition. He has been advised to follow up as an outpatient with a regular dentist as we have no dental available as an inpatient. Over the course of his hospital stay he is stabilized and will be discharged back home to follow up with Urology as an outpatient for his large left kidney stone. VITAL SIGNS: At time of discharge, temperature is 97.8 degrees, heart rate 75, respirations 16, blood pressure 158/56, O2 saturation is 98% on room air. DISCHARGE DIET: Diabetic with Nepro shakes. DISCHARGE MEDICATIONS: 1. Elavil 10 mg p.o. at bedtime. 2. Apresoline 100 mg p.o. q.8 hours. 3. Aspirin 325 mg p.o. daily. He will need to withhold this until after his renal surgery on . 4. Catapres 0.1 mg p.o. daily. 5. Celexa 40 mg p.o. daily. 6. Flomax 0.4 mg p.o. daily. 7. Humulin 70/30, 35 units subcutaneously b.i.d. 8. Icar C 1 each p.o. b.i.d. 9. Lasix 40 mg p.o. daily. 10. Levsin 0.125 mg p.o. t.i.d. p.r.n. 11. Lopid 600 mg p.o. b.i.d. 12. MiraLAX 17 g p.o. b.i.d. 13. Movantik 12.5 mg p.o. ACB. 14. Multi day plus iron tablet 1 each p.o. daily. 15. Neurontin 100 mg p.o. b.i.d. 16. [place] 10/325 one each p.o. t.i.d. 17. Protonix 40 mg p.o. b.i.d. 18. Labetalol 200 mg p.o. b.i.d. 19. Trental 400 mg p.o. t.i.d. 20. Vitamin D 5000 units p.o. daily. FOLLOW-UP: Mr. Olsen is being discharged back home with his spouse. He is encouraged to follow up with a regular dentist secondary to his poor dentition. He will also follow up with Dr. Morris on an outpatient basis and follow up with Urology for removal of his large left renal stone on an outpatient basis. He is to take all medications as prescribed. He can return to the ED or call 911 for any worsening of symptoms. Dictated by KAYLEE Bustamante for Mike Chou MD cc: MD Yosef Clayton MD Reginald D. Gladish, MD Manish Arora, MD Raphael K. Quansah, MD MTDD
== END 2018-12-19 12:30 | disposition home health service (06) | DRG 659 ==
LOC: P.ED 06:56 → 4N 11:48 → SUATTDRO 11:48
PROVIDERS: ATTEND Internal Medicine
CPT/HCPCS: 36430; 51702; 71010; 71045; 73620; 74000; 74018; 74019; 74020; 74176; 74420; 80048; 80053; 80061; 80069; 80076; 80101; 80301; 80307; 80324; 80345; 80346; 80353; 80358; 80361; 80365; 81001; 82150; 82306; 82310; 82533; 82550; 82607; 82728; 82746; 82948; 83036; 83540; 83550; 83605; 83690; 83735; 83880; 83970; 83992; 84100; 84443; 84484; 85025; 85027; 85379; 85610; 85730; 86850; 86900; 86901; 86920; 87040; 87070; 87088; 88305; 88312; 88313; 93005; 94760; 94761; 94799; 96374; 96375; 97163; 99285; A9270; C9113; G0431; G0434; G0479; G0480; J0131; J0360; J0696; J0713; J1100; J1170; J1815; J1940; J2020; J2270; J2405; J2543; J3010; J7030; J7070; J7120; P9016; P9047; Q9966; Q9967; S0164; S0179; XXXXX

== ENCOUNTER 2018-12-20 11:09 | Observation (INO) ==
[2018-12-20] MEDS ORDERED: NS 1,000 ML IV ONE (11:31)
[2018-12-20 11:57] LABS: HEMATOCRIT 24.5 % (42.0-52.0); HEMOGLOBIN 7.9 g/dL (14.0-18.0); MCH 29.8 PG (27-31); MCHC 32.2 g/dL (33-37); MCV 92.5 FL (81-99); PLT 164 X1000 (130-400); RBC 2.65 XMIL (4.7-6.1); RDW 15.4 % (11.5-14.5); WBC 9.46 X1000 (4.8-10.8)
[2018-12-20 11:58] LABS: BASO# 0.13 X1000 (0.0-0.2); BASO% 1.4 % (0.0-0.8); EOS# 0.34 X1000 (0.0-0.7); EOS% 3.6 % (0.0-10.0); INR 1.11; LYMPH% 26.4 % (20.5-51.1); MONO% 8.5 % (1.7-9.3); MPV 11.8 FL (7.4-10.4); NEUT# 5.69 X1000 (1.4-6.5); NEUT% 60.1 % (42.2-75.2); PROTIME 15.2 Seconds (11.0-16.0)
[2018-12-20 11:59] LABS: PTT 27.3 Seconds (22.3-41.8)
[2018-12-20 12:16] LABS: ALB/GLOB RATIO 1.3; ALBUMIN 3.5 g/dL (3.5-5.0); CALCIUM 7.8 mg/dL (8.8-10.2); CREATININE 3.1 mg/dL (0.7-1.2); POTASSIUM 3.4 mmol/L (3.5-5.1); TOTAL BILIRUBIN 0.2 mg/dL (0.20-1.00); TOTAL PROTEIN 6.3 g/dL (6.3-8.3)
--- NOTE | 2018-12-20 13:11 | Diag Imaging Result Doc PS360 ---
EXAM: CHEST-1 VIEW HISTORY: SOB TECHNIQUE: Chest single view COMPARISON: 12/03/2018 FINDINGS: The lungs are well expanded. The heart is not enlarged. The vessels are not distended. There are no infiltrates. No effusion identified. IMPRESSION: Negative exam. Electronically signed by Chris Allen 12/20/2018 1:09 PM
--- NOTE | 2018-12-20 13:13 | Diag Imaging Result Doc PS360 ---
EXAM: SHOULDER-LEFT HISTORY: Fall TECHNIQUE: Shoulder three views including an axillary Y-view COMPARISON: None. FINDINGS: No fracture. No dislocation. No separation at the acromioclavicular joint. Mild arthritis. IMPRESSION: No acute bony injury. Electronically signed by Chris Allen 12/20/2018 1:11 PM
[2018-12-20] MEDS ORDERED: NITROGLYCERIN TOP ONE (13:30)
[2018-12-20] MEDS: ASPIRIN PO ONE ×2 (13:30→14:10)
[2018-12-20] MEDS ORDERED: MORPHINE IV ONE (13:39)
--- NOTE | 2018-12-20 13:42 | PROVIDER DOCUMENTATION ---
This chart was entered by Shayy Arias Scribe, acting as scribe for Leo Saravia MD. HPI-General Adult - General Chief Complaint: Low Blood Sugar Stated Complaint: LOW BLOOD GLUCOSE Time Seen by Provider: 12/20/18 11:26 Source: patient Allergies/Adverse Reactions: Patient Allergies Allergy/AdvReac Type Severity Reaction Status Date / Time No Known Allergies Allergy Verified 12/12/18 08:01 Home Medications: Home Medication List Medication Instructions Recorded Confirmed Last Taken Type Amitriptyline [Elavil] 10 mg PO QHS #30 tab 12/19/18 Unknown Rx Aspirin 325 mg PO DAILY #0 12/19/18 12/03/18 11/09/13 Rx Cholecalciferol (Vit D3) [Vitamin 5,000 unit PO DAILY #120 cap 12/19/18 Unknown Rx D] Citalopram [Celexa] 40 mg PO DAILY #120 tab 12/19/18 Unknown Rx Clonidine [Catapres] 0.1 mg PO DAILY #30 tab 12/19/18 Unknown Rx Furosemide [Lasix] 40 mg PO DAILY #30 tab 12/19/18 Unknown Rx Gabapentin [Neurontin] 100 mg PO BID #120 cap 12/19/18 Unknown Rx Gemfibrozil [Lopid] 600 mg PO BID #120 tab 12/19/18 Unknown Rx Hydralazine [Apresoline] 100 mg PO Q8H #240 tab 12/19/18 Unknown Rx Hydrocodone/Acetaminophen [[place] 1 ea PO TID #20 tab 12/19/18 Unknown Rx 10-325 Tablet] Hyoscyamine [Levsin] 0.125 mg PO TID PRN PRN #30 tab 12/19/18 Unknown Rx Insulin Humulin 70/30 [Humulin 35 unit SUBQ BID #1 insuln.pen 12/19/18 Unknown Rx 70/30] Iron Carbonyl/Ascorbic Acid 1 ea PO BID #120 tab 12/19/18 Unknown Rx [Icar-C] Labetalol [Trandate] 200 mg PO BID #120 tab 12/19/18 Unknown Rx Multivitamin/Iron/Folic Acid 1 ea PO DAILY #30 tab 12/19/18 Unknown Rx [Multi-Day Plus Iron Tablet] Naloxegol Oxalate [Movantik] 12.5 mg PO ACB #30 tab 12/19/18 Unknown Rx Pantoprazole [Protonix] 40 mg PO BID #120 tab 12/19/18 Unknown Rx Pentoxifylline E.r. [Trental] 400 mg PO TID #240 tab 12/19/18 Unknown Rx Polyethylene Glycol 3350 [Miralax] 17 gm PO BID #12 powder, packet 12/19/18 Unknown Rx Tamsulosin [Flomax] 0.4 mg PO DAILY #120 cap 12/19/18 Unknown Rx - History of Present Illness -Gen Adult Nature of Presenting Problems: Patient is a 52 year old male who presents to the ED via EMS with low blood sugar. EMS states patient's FSBS was 36 on their arrival. 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 Patient states taking insulin this morning around 0900 after eating a breakfast sandwich from [employer]. Patient denies pain. states patient was discharged yesterday from hospital. Location of Pain/Injury: reports: none Pain Radiation: reports: no radiation Quality of Pain: reports: none Severity: reports: mild Onset/Duration: reports: just prior to arrival Timing: reports: improving Context/Activities at Onset: reports: light activity Associated Symptoms: reports: denies symptoms Similar Symptoms Previously?: No Recently seen or treated by another doctor?: Yes - Diabetes Related Context Context: reports: low blood sugar (36) Review of Systems - Adult - REVIEW OF SYSTEMS - ADULT Constitutional: reports: no symptoms reported. denies: chills, fever, fatique Eyes: reports: no symptoms reported Ears, Nose, Mouth & Throat: reports: no symptoms reported Cardiovascular: reports: no symptoms reported. denies: chest pain, heart murmur, irregular heart rate Respiratory: reports: no symptoms reported. denies: cough, shortness of breath, wheezing Gastrointestinal: reports: no symptoms reported. denies: abdominal pain, diarrhea, nausea, vomiting Genitourinary: reports: no symptoms reported Musculoskeletal: reports: no symptoms reported Integumentary: reports: no symptoms reported Neurological: reports: no symptoms reported Psychiatric: reports: no symptoms reported Endocrine: reports: no symptoms reported Hematologic/Lymphatic: reports: no symptoms reported Allergic/Immunologic: reports: no symptoms reported All Other Systems: Reviewed and Negative Past History - Adult - PAST MEDICAL HISTORY-ADULT Review of Records: reports: Nursing Assessment Review, Medications Reviewed, Social history reviewed & non-contributory. Major Childhood Illnesses: reports: denies history Cardiovascular: reports: HTN, hyperlipidemia, PVD Respiratory: reports: COPD Gastrointestinal: reports: GERD Obstetrical/Gynecological: reports: denies history Genitourinary: reports: denies history Musculoskeletal: reports: denies history Neurological: reports: CVA, TIA, other (neuropathy) Psychiatric: reports: depression Endocrine/Immune: reports: Diabetes Other Conditions: reports: other (ulcers to feet) - PRIOR SURGERIES/PROCEDURES Surgical/Procedure History: reports: orthopedic (extremity), other (fem-bop) - IMMUNIZATION STATUS Childhood Immunizations: See Nurse Assessment Flu Vaccine: See Nurse Assessment - FAMILY HISTORY Family History: reviewed, not pertinent - SOCIAL HISTORY Smoking: cigarettes, less than 1 pack/day Provider spent 3-5 mins advising pt. on dangers of tobacco.: Discussed manners to quit use, and f/u contacts for add'l counseling. Substance Use: denies Living Situation: family Physical Exam-General - PHYSICAL EXAM-ADULT Initial Vital Signs Reviewed: Yes - CONSTITUTIONAL General Appearance: alert, no apparent distress, slow to respond - EYES Eyes: PERRL/EOMI. negative: scleral icterus, sunken eyes - HEAD, EARS, NOSE, MOUTH & THROAT HENMT: normocephalic/atraumatic, other (dry mucous membranes). negative: angioedema, hearing deficit - RESPIRATORY Respiratory: chest non-tender, lungs clear, normal breath sounds. negative: crackles, rhonchi, stridor - CARDIOVASCULAR Cardiovascular: normal peripheral pulses, regular rate, rhythm. negative: tachycardia, systolic murmur - GASTROINTESTINAL (ABDOMEN) Abdominal Exam: normal bowel sounds, non tender, soft. negative: guarding, rebound - MUSCULOSKELETAL Extremity: non-tender, normal inspection. negative: deformity, erythema - SKIN Integumentary: normal color, normal turgor, warm/dry. negative: diaphoresis, ecchymosis, erythema, jaundice - NEUROLOGIC Neurologic: grossly normal. negative: aphasia, facial droop - PSYCHIATRIC Psych/Mental Status: oriented x 3, other (slow to respond). negative: anxious Progress - PLAN OF CARE/RESULTS Progress/Plan/Lab Results: Vital Signs - 8 hr 12/20/18 11:15 Temperature 97.7 F Pulse Rate 75 Respiratory Rate 18 Blood Pressure 147/70 O2 Sat by Pulse Oximetry 99 Orders Category Date Time Status Cardiac Monitoring DIRECTED Care 12/20/18 11:32 Active Oxygen Therapy- ED Nursing DIRECTED Care 12/20/18 11:32 Active Saline Loc NOW Care 12/20/18 11:32 Active Diabetic Diet Diet 12/20/18 11:32 Active CBC WITH ELECTRONIC DIFF [HEME] Stat Lab 12/20/18 11:32 Uncollected CK PROFILE [SP CHEM] Stat Lab 12/20/18 11:32 Uncollected COMPREHENSIVE METABOLIC PANEL [CHEM] Stat Lab 12/20/18 11:32 Uncollected PRO B-NATRIURETIC PEPTIDE Stat Lab 12/20/18 11:32 Uncollected PROTIME WITH INR [COAG] Stat Lab 12/20/18 11:32 Uncollected PTT [COAG] Stat Lab 12/20/18 11:32 Uncollected TROPONIN T Stat Lab 12/20/18 11:32 Uncollected UA NIMS W/REFLEX CULT [URINALYSIS] Stat Lab 12/20/18 11:33 Uncollected 0.9% Sodium Chloride Inj [Ns] 1,000 ml Med 12/20/18 11:31 Active IV 100 mls/hr CP/SOB/Palp >45 yrs of Age Stat Oth 12/20/18 11:32 Ordered EKG [EKG] Stat Ther 12/20/18 11:32 Ordered Result Diagrams: 12/20/18 11:20 12/20/18 11:20 - EKG 1 Time of EKG reading by physician:: 11:22 EKG Read and Signed by:: Leo Saravia EKG Interpretation (*Must complete 3 of following elements*): Abnormal Rate: 73 Rhythm: normal sinus rhythm Ernul: normal MT Interval: normal Comments: ST & T wave abnormality, consider anterolateral ischemia - XRAY 1 XRAY Study: Chest Impression: See EMR Report (Signed EXAM: CHEST-1 VIEW HISTORY: SOB TECHNIQUE: Chest single view COMPARISON: 12/03/2018 FINDINGS: The lungs are well expanded. The heart is not enlarged. The vessels are not distended. There are no infiltrates. No effusion identified. IMPRESSION: Negative exam. Electronically signed by Chris Allen 12/20/2018 1:09 PM 12/20/18 1308 Interpreting Physician: Chris Allen MD Dictated Date/Time: 12/20/18 8385 cc: Leo Saravia MD; Rodrigo Allen MD) 2 XRAY: Left XRAY Study: Shoulder Impression: See EMR Report (Signed EXAM: SHOULDER-LEFT HISTORY: Fall TECHNIQUE: Shoulder three views including an axillary Y-view COMPARISON: None. FINDINGS: No fracture. No dislocation. No separation at the acromioclavicular joint. Mild arthritis. IMPRESSION: No acute bony injury. Electronically signed by Chris Allen 12/20/2018 1:11 PM 12/20/18 1311 Interpreting Physician: Chris Allen MD Dictated Date/Time: 12/20/18 1310 cc: Leo Saravia MD; Rodrigo Allen MD) - CONSULTS/PCP/HOSPITALIST Notification #1 *Consult/PCP/Hospitalist*: KAYLEE Funes for Hospitalist Time Discussed: 13:24 Reason/Comments: Dr. Saravia consulted with Shantel about patient. Consult Disposition: Will see in ED, Admit Departure - Departure Date of Disposition Decision: 12/20/18 Time of Disposition Decision: 13:24 DIAGNOSIS: Hypoglycemia, Elevated troponin Disposition: ADMITTED INPATIENT 09 Certified Medical Emergency: Emergent Condition: Fair Referrals and Follow-Ups: Rodrigo Allen MD [Primary Care Provider] - - Critical Care Note This patient required my direct & personal management of CC.: No Attestation - Physician/ MIRZA Attestation The physician spent face to face time with patient:: Yes Advanced Practice Provider documentation review:: Supervising physician onsite and consulted in the evaluation and care of this patient. The physician did have a face to face encounter with the patient. This chart was documented by the indicated scribe, (Shayy Arias Scribe) and accurately reflects the services I performed and decisions made by me, Leo Saravia MD, as attested by the provider's signature.
--- NOTE | 2018-12-20 13:52 | EKG Report ---
Test Performed on : 12/20/2018 11:22:16 AM Test Reason : SOB Blood Pressure : / mmHG Vent. Rate : 073 BPM Atrial Rate : 073 BPM P-R Int : 158 ms QRS Dur : 092 ms QT Int : 406 ms P-R-T Axes : 059 006 138 degrees QTc Int : 447 ms Normal sinus rhythm. ST & T wave abnormality, consider anterolateral ischemia Abnormal ECG When compared with ECG of 03-DEC-2018 07:00, (Unconfirmed) Non-specific change in ST segment in Anterior leads T wave inversion now evident in Anterolateral leads Unconfirmed Result
[2018-12-20] MEDS ORDERED: D50W SYRINGE IV ONE (14:12)
[2018-12-20] MEDS: D10W 1,000 ML IV SCH ×2 (15:07→22:23)
--- NOTE | 2018-12-20 16:17 | HISTORY AND PHYSICAL ---
PRIMARY CARE PHYSICIAN: Rodrigo Allen MD CHIEF COMPLAINT: Hypoglycemia with altered mental status. HISTORY OF PRESENT ILLNESS: Mr. Olsen is a 52-year-old male who carries a past medical history of diabetes mellitus, COPD, hyperlipidemia, hypertension, peripheral artery disease, neuropathy, bilateral chronic ulcers to the feet [facility]. He was recently discharged from our service on 12/19/2018 after having a distal right ureteral stone with hydronephrosis, and left ureteropelvic junction stone with hydronephrosis and left nephrolithiasis as well as an eschar and pleural effusion and ascites. He had a cystoscopic with bilateral retrograde pyelogram, and bilateral urethral stent placement by Dr. Russell. He was treated for acute on chronic renal failure as well as vitamin D and folate deficiencies and severe constipation. He was found to have a duodenal ulcer with a mild gastritis and duodenitis on EGD. He does have extreme poor dentition. He has been advised to follow up with dental care as an outpatient. Per 's report, while he was in the hospital the last time he was a CAT call because he became extremely lethargic, and had issues with low blood sugar. There were adjustments made to his medications. Per and the patient at bedside, he went home. He was feeling good. He had taken his morning medicines. He had taken his insulin and the eaten breakfast from [employer]. The states that she was going to lie down to take a nap, and he was getting onto [employer] to order some [id number] medicines through a program that has been set up through his insurance, and she says she heard a loud ruckus after about 30 minutes, and prior to this they had checked his blood sugar and he was at 100 even after receiving insulin and eating. When she went to go check to see what the noise was, he was found on the floor. He was somewhat responsive, however, she states that his speech was, you could not understand his spoken word. He was not really make any sense. She called 911. His blood sugar when the ambulance got there was 36. After receiving treatment, his blood sugar came up to 90, and then back down to 54. They rechecked his blood sugar again, and it was at 97. He is once again down to 40. We have started him on D10 drip with q.1 hour blood sugars, and he will be admitted to [facility]. He denies any chest pain, fever or chills associated with fever. He just admits to being cold from being in the ER. No nausea, vomiting, or diarrhea. No chest pain or shortness of breath. No dizziness. Workup in the ED revealed a potassium of 3.4, a BUN of 65, and creatinine of 3.1. Previous glucoses as mentioned. Elevated troponin 0.171 and a proBNP of 23,228. He does have bilateral lower extremity pitting edema, which is normal for him secondary to his peripheral vascular disease and chronic diabetic wounds to bilateral feet. We will admit him to [facility] and continue the D10. PAST MEDICAL HISTORY: 1. Diabetes mellitus. 2. Peripheral neuropathy. 3. Chronic pain. 4. COPD. 5. Hyperlipidemia. 6. Hypertension. 7. Bilateral chronic diabetic foot ulcers followed by Dr[facility] Mateusz Syl[facility]. 8. Vitamin D and folate deficiencies. 9. Chronic pain. 10. Duodenal ulcer with mild gastritis and duodenitis on EGD. 11. Extreme poor dentition. PAST SURGICAL HISTORY: 1. Arthroscopy with femoral-popliteal bypass, right 5th toe amputations. 2. Cystoscopy performed on this most recent admission with retrograde pyelogram. SOCIAL HISTORY: He smokes a pack a day. He lives with his . No alcohol or illicit drug use. REVIEW OF SYSTEMS: A 12 point review of systems completely negative except for those mentioned in HPI. PHYSICAL EXAMINATION: VITAL SIGNS: Temperature 97.7 degrees, heart rate 75, respirations 18, blood pressure 147/70, and O2 is 99% on room air. GENERAL: Mr. Olsen is a 52-year-old male who is sitting up on the stretcher. He is somewhat lethargic, but answers questions appropriately in no acute distress. HEENT: Atraumatic, normocephalic. PERRL. NECK: Supple. Trachea midline. CARDIOVASCULAR: S1, S2 appreciated. No murmurs, gallops, or rubs noted. He does have bilateral lower extremity pitting edema. PULMONARY: Bilateral breath sounds clear constellation throughout all lung llyod. GI: Soft, nontender, and nondistended. Positive bowel sounds in 4 quadrants. SKIN: Patient does have right and left foot ulcers that are currently wrapped that are chronic. NEUROLOGIC: The patient is somewhat lethargic, however, he does wake up. He does answer questions appropriately. He does follow commands. DIAGNOSTIC DATA: Chest x-ray with negative exam. Left shoulder x-ray with no acute bony injury. LABORATORY DATA: White count 9, hemoglobin and hematocrit 7.9 and 24. This is up from his discharge of 7.8 and 23, and platelet count is 164,000. Sodium 141, potassium 3.4, BUN 65, creatinine 3.1, blood glucoses range anywhere from 97 down to 40. Troponin 0.171. ProBNP is 23,228. ASSESSMENT AND PLAN: 1. Symptomatic hypoglycemia. The patient's blood sugar after treatment will go up, and then he will drop back down. We will place him in [facility] on a D10 drip. We will check his blood sugars q.1 hours for 4, q.2 hours for 4, and then q.4 hours for the remainder. We will make adjustments needed as necessary. We did place him on a hypoglycemia protocol. 2. Type 2 diabetes now in the setting of hypoglycemia. There were adjustments made to his home medications on his discharge yesterday. The patient did have issues with hypoglycemia during his last admission. Again, medication adjustments were made. Per the , they feel like they were taking all medications as prescribed. 3. Mild hypokalemia. We will continue to monitor. 4. Acute kidney injury on chronic kidney disease. We will continue with IV hydration and recheck in the morning. The patient is slightly up from his discharge yesterday of 2.7, and is slightly up from his baseline. 5. Elevated troponin's, possibly in the setting of acute kidney injury. We will continue to trend. He does not complain of any chest pain. 6. Elevated proBNP, which appears to be chronically elevated. He does have bilateral lower extremity edema chronically secondary to his diabetic neuropathy and peripheral vascular disease. 7. Bilateral lower extremity diabetic foot ulcers. We will consult Wound Care. 8. Chronic obstructive pulmonary disease without exacerbation. 9. Recent discharge for obstructive uropathy secondary to nephrolithiasis, status post bilateral ureteral stent placement by Urology. There is a large kidney stone that the patient does have a plan for intervention this . This was supposed to be done as an outpatient. If the patient remains, we will need to consult Urology. 10. Vitamin D and folate deficiency. Need to continue with supplementation. 11. Severe constipation secondary to narcotic use. We will need to continue him on a bowel regimen that did improve on his last discharge. 12. Chronic pain syndrome. 13. Duodenal ulcer with mild gastritis and duodenitis on his most recent EGD. We will continue with PPI. Medications have been reconciled. 14. History of poor dentition. We will continue on a diabetic diet as well as aspiration precautions secondary to issues with dysphagia. 15. Hold aspirin secondary to patient possibly having surgery on with Dr. Russell. 16. Further recommendations to follow physician evaluation, laboratory and diagnostic data. Dictated by KAYLEE Bustamante for Tony Pike MD cc: Tony Pike MD I agree with most components of history, physical, assessment and plan. A separate addendum has been dictated. [facility]
[2018-12-20] MEDS ORDERED: TYLENOL PO PRN (16:47)
[2018-12-20] MEDS ORDERED: ZOFRAN IV PRN (16:47)
[2018-12-20] MEDS ORDERED: LEVSIN PO PRN (17:09)
[2018-12-20] MEDS: POTASSIUM CHLORIDE 20 MEQ/SWI 20 MEQ/100 ML IVPB IV SCH ×2 (18:10→21:54)
--- NOTE | 2018-12-20 18:21 | HISTORY AND PHYSICAL ---
ADDENDUM - HISTORY AND PHYSICAL: I agree with most components of history, physical, assessment and plan. In brief, Mr. Olsen is a 52-year-old man with past medical history of insulin-dependent diabetes mellitus, recent hospital admission for bilateral obstructing ureteral stone leading to bilateral hydronephrosis status post bilateral ureteric stent on 12/03/2018 with postobstructive acute renal failure who was discharged from hospitalist service on 12/19/2018. Came in after he had suspected syncope episode. On EMS arrival, he was found to have blood glucose of 36. He was given I assume some dextrose and was brought to the emergency room. In the emergency room he kept on having hypoglycemia episodes and so hospitalist team was consulted for further evaluation. At the time of my evaluation, patient is in [facility]. He states he is feeling a little weak; however, denies any chest pain or shortness of breath. He is feeling tremulous and he states that it's diabetic neuropathy. The patient's is at bedside and most of the history is given by the as the patient does not entirely remember the episode. He states that he was sitting in the bed and next thing he remembers is the paramedics came by and was trying to help him. However, at currently states that when she heard a third noise and she immediately went to see the patient. The patient was between his bed and couch and appeared confused. The patient did not lose consciousness. The patient mentions that he took his blood sugars right before breakfast and it was 100. He ate his entire breakfast and had injected 35 units off Novolin insulin. VITALS: Currently vitals: Temperature 97.4, pulse 71, respiratory rate 18, blood pressure 126/61, saturating 100% room air. PHYSICAL EXAMINATION: GENERAL: Does not appear in acute distress. HEENT: Oral cavity is dry. LUNGS: Air entry bilaterally equal. No wheeze, rhonchi, crackles. CARDIOVASCULAR: S1, S2 normal. No murmur or gallop. ABDOMEN: Soft, nondistended, nontender. Active bowel sounds. EXTREMITIES: He does have bilateral lower extremity edema. He has a right foot chronic appearing wound which is just dressed. He has just eaten his dinner. LABORATORY: The most recent blood sugar is 126 as per the report given to me by the nurse. Otherwise, he does not have leukocytosis, he has normocytic anemia, normal platelet count, normal coagulation. He appears to be having now what appears to be chronic kidney disease stage 4 which is close to his baseline. Microbiology: No data. IMAGING: He got his chest x-ray which did not have any new consolidation. Shoulder x-ray did not have any bony pathology. ASSESSMENT: 1. Symptomatic hypoglycemia and syncope due to insulin use. 2. Recent history of bilateral obstructing ureteral stone leading to bilateral hydronephrosis status post bilateral ureteric stent and left sided kidney nephrolithiasis with planned outpatient urology procedure. 3. Chronic kidney disease stage 4. 4. Insulin-dependent diabetes mellitus with peripheral neuropathy. 5. Recent diagnosis of duodenal ulcers. PLAN: His hypoglycemia episode is likely because of his insulin dosing. I am continuing him on the dextrose 10% and we will keep checking blood sugars every 1 hour. I will decrease the dextrose rate to 70 ml/hr if his sugars are consistently above 200 for a few hours and at that point I will switch the dextrose off and later on I will consider adding sliding scale insulin. I am resuming most of his home medication as tolerated. Plan of care discussed with the patient and his at bedside. All of their questions have been answered. cc: Tony Pike MD MTDD
[2018-12-20] MEDS: NORCO-10 PO PRN (19:20)
[2018-12-20] MEDS: ELAVIL PO SCH (20:48)
[2018-12-20] MEDS: MIRALAX PO SCH (20:49)
[2018-12-20] MEDS: PROTONIX PO SCH (20:49)
[2018-12-20] MEDS ORDERED: NEURONTIN PO SCH (21:00)
--- NOTE | 2018-12-20 21:52 | CONSULTATION ---
DATE OF CONSULTATION: 12/20/2018 CHIEF COMPLAINT: Bilateral urolithiasis status post ureteral stent. HISTORY OF PRESENT ILLNESS: Mr. Olsen is a 52-year-old with history of type 2 diabetes, COPD, hyperlipidemia, hypertension, peripheral artery disease, neuropathy, bilateral foot ulcerations and bilateral ureteral stones who presents in consult regarding recent bilateral ureteral stent placement. The patient presented on 12/03/2018 with bilateral ureteral stones, anuria, with fatigue and tiredness. A CT scan performed at that time showed bilateral ureteral stones. The patient had a creatinine that was elevated at 9. The patient was taken to the operating room for cystoscopy and bilateral ureteral stent placement. The patient slowly improved and his Hirsch catheter was removed. Creatinine stabilized at 2.6-2.8. He was subsequently discharged home yesterday on 12/19/2018. The patient re-presented to the emergency room this morning after he awoke and went for a walk with his and had a [place] biscuit. His blood sugar at that time was 100; however, he took his morning medications and was later found by his to have fallen at home. His blood sugar at that time on evaluation by EMS was 36. The patient was brought by ambulance to the emergency room. The patient has been started on dextrose, and his blood sugars have fluctuated up and down getting as low as 40 while in the emergency room. The patient currently is on a D10 drip and having q.1 hour blood sugar tests. The patient currently is being admitted to the CICU for observation. The patient denies any issues with urination. Denies hematuria, dysuria, urgency, frequency, or flank pain. Urology was consulted regarding upcoming surgical intervention. PAST MEDICAL HISTORY: 1. Type 2 diabetes. 2. COPD. 3. Hyperlipidemia. 4. Hypertension. 5. Peripheral neuropathy. 6. Peripheral artery disease. 7. Bilateral diabetic foot ulceration. 8. Bilateral ureteral stones. PAST SURGICAL HISTORY: 1. Removal of the right second phalange. 2. Left femoropopliteal bypass. 3. Arthroscopy of the knee. 4. Cystoscopy with bilateral ureteral stent placement. 5. EGD with biopsy. ALLERGIES: Watermelon. MEDICATIONS: 1. Elavil 10 mg p.o. 2. Vitamin D 5000 units. 3. Celexa 40 mg p.o. 4. Dextrose 10%. 5. Hydrocodone/acetaminophen 10/325. 6. Levsin 0.125 mg p.o. t.i.d. 7. Potassium chloride 20 mEq. 8. Zofran 4 mg IV q.4 hours p.r.n. 9. Protonix 40 mg p.o. b.i.d. 10. Pentoxifylline 400 mg p.o. t.i.d. 11. Flomax 0.4 mg daily. 12; Lasix SOCIAL HISTORY: Patient smokes a pack of cigarettes a day. Denies any alcohol or illicit drug use. FAMILY HISTORY: Denies family history of malignancy or nephrolithiasis. REVIEW OF SYSTEMS: Twelve-point review of systems performed with all pertinent positives and negatives in HPI. PHYSICAL EXAMINATION: Vital Signs: Temperature 97.4 degrees, heart rate 71, blood pressure 126/61, oxygen saturation 100% on room air. General: No acute distress. Resting comfortably in bed, alert and oriented x3. HEENT: Normocephalic, atraumatic. Pupils equal, round, reactive to light. Mucous membranes moist. Poor dentition. Neck: Trachea midline with no palpable masses. Respiratory: Good respiratory effort without audible wheezing or rales. Cardiovascular: S1, S2 heart sounds with normal rate and rhythm. Abdomen: Soft, nontender, nondistended. No palpable masses or hepatosplenomegaly. Genitourinary: No suprapubic tenderness. No CVA tenderness. A small amount of scrotal edema. Lower extremities: Right lower extremity foot is wrapped in a dressing. Minimal to moderate lower extremity edema bilaterally. Pitting edema present. Neurologic: Gross motor and sensory intact. LABORATORY DATA: White blood cell count 9.5, hemoglobin 7.9, hematocrit 24.5, platelets 164,000, sodium 141, potassium 3.4, chloride 103, bicarb 24, BUN 65, creatinine 3.1, glucose 76, troponin T 0.14, ProB natriuretic peptide 23,228. ASSESSMENT AND PLAN: Mr. Olsen is a 52-year-old with hypertension, hyperlipidemia, type 2 diabetes, peripheral artery disease, peripheral neuropathy, chronic foot ulceration, bilateral ureteral stones with recent stenting on 12/03/2018 who presents for consultation regarding readmission after discharge yesterday from the hospitalist service. The patient seems to be stable from a urologic standpoint. His creatinine is slightly elevated today at 3.1 from 2.7 yesterday. The patient has had multiple imaging studies, and the stents are in good position. The patient is currently scheduled to undergo cystoscopy with right ureteroscopy and laser lithotripsy and stone basket extraction as well as a left extracorporeal shockwave lithotripsy on 12/22/2018. We will continue to monitor his blood sugars. As long as he is cleared by hospitalist, would consider surgical intervention on . If patient needs more time, the patient is already stented and could wait. We will discuss with hospitalist tomorrow. Continue to monitor renal function. Encouraged him to remain hydrated, drinking fluids. The patient will need close monitoring with blood sugar control to ensure adequate optimization in preparation for surgery. Uncertain of the wide fluctuations of his blood sugars. They have been up and down significantly while an inpatient; however, he has had significant lows since discharge. Uncertain of the etiology of this. We will continue to allow optimization by the medical team. We will continue to monitor. Please call with questions or concerns. cc: Yosef Russell MD [facility]
[2018-12-21 02:35] LABS: URINE SOURCE CLEAN CATCH
[2018-12-21 03:03] LABS: BILIRUBIN URINE NEGATIVE (NEGATIVE); BLOOD URINE LARGE (NEGATIVE); COLOR ORANGE; GLUCOSE URINE TRACE mg/dL (NEGATIVE); KETONE URINE NEGATIVE (NEGATIVE); LEUKOCYTES URINE LARGE (NEGATIVE); NITRITE URINE NEGATIVE (NEGATIVE); PROTEIN URINE 300 mg/dL (NEGATIVE); SP GRAVITY URINE 1.012; TURBIDITY URINE HAZY (CLEAR); UR EPITHELIAL CELLS <10 /HPF (<10); URINE BACTERIA NEGATIVE /HPF; URINE RBC TNTC /HPF (<10); URINE WBC TNTC /HPF (<10); UROBILINOGEN URINE NORMAL (NORMAL)
[2018-12-21 03:21] LABS: URINE YEAST NONE SEEN
[2018-12-21 03:22] LABS: URINE CASTS NONE SEEN; URINE CRYSTALS NONE SEEN; URINE SMALL ROUND CELLS NONE SEEN
[2018-12-21] MEDS ORDERED: D10W 1,000 ML IV SCH (05:00)
[2018-12-21 06:26] LABS: BASO# 0.06 X1000 (0.0-0.2); BASO% 0.8 % (0.0-0.8); EOS# 0.39 X1000 (0.0-0.7); EOS% 5.1 % (0.0-10.0); HEMATOCRIT 22.8 % (42.0-52.0); HEMOGLOBIN 7.2 g/dL (14.0-18.0); LYMPH# 2.36 X1000 (1.2-3.4); LYMPH% 30.8 % (20.5-51.1); MCH 29.1 PG (27-31); MCHC 31.6 g/dL (33-37); MCV 92.3 FL (81-99); MONO# 0.67 X1000 (0.11-0.59); MONO% 8.7 % (1.7-9.3); NEUT# 4.19 X1000 (1.4-6.5); NEUT% 54.6 % (42.2-75.2); PLT 160 X1000 (130-400); RBC 2.47 XMIL (4.7-6.1); RDW 15.2 % (11.5-14.5); WBC 7.67 X1000 (4.8-10.8)
[2018-12-21 07:02] LABS: ALB/GLOB RATIO 1.2; ALBUMIN 3.2 g/dL (3.5-5.0); CALCIUM 7.7 mg/dL (8.8-10.2); CREATININE 2.8 mg/dL (0.7-1.2); MAGNESIUM 1.9 mg/dL (1.5-2.7); POTASSIUM 4.6 mmol/L (3.5-5.1); TOTAL BILIRUBIN 0.24 mg/dL (0.20-1.00); TOTAL PROTEIN 5.9 g/dL (6.3-8.3)
[2018-12-21] MEDS: PROTONIX PO SCH ×2 (08:15→22:52)
[2018-12-21] MEDS: APRESOLINE PO SCH ×3 (08:15→23:49)
[2018-12-21] MEDS: ICAR-C PO SCH (08:15)
[2018-12-21] MEDS: NORCO-10 PO PRN ×2 (08:15→23:13)
[2018-12-21] MEDS: FLOMAX PO SCH (08:15)
[2018-12-21] MEDS: MIRALAX PO SCH ×2 (08:16→22:53)
[2018-12-21] MEDS: CATAPRES PO SCH (08:16)
[2018-12-21] MEDS: VITAMIN D PO SCH (08:16)
[2018-12-21] MEDS: CELEXA PO SCH (08:16)
[2018-12-21] MEDS: LOPID PO SCH ×2 (08:22→22:52)
[2018-12-21] MEDS ORDERED: TRENTAL PO SCH (09:00)
[2018-12-21] MEDS: HUMULIN 70/30 SUBQ SCH ×2 (10:23→16:43)
[2018-12-21] MEDS ORDERED: INSULIN PEN NEEDLES ONE (10:27)
--- NOTE | 2018-12-21 11:17 | PROGRESS NOTE ---
DATE: 12/21/2018 SUBJECTIVE: No acute events overnight. The patient's blood sugars have been improved and remained relatively stable, remained in the mid to upper 200s. Denies any lightheadedness or confusion. He is tolerating a diet, and has eaten all of his breakfast this morning. The patient is voiding without issue. Denies any nausea or vomiting. OBJECTIVE: Vital Signs: Temperature 98.2, heart rate 80, blood pressure 158/71, oxygen saturation 100% on room air. General: No acute distress. Resting comfortably in bed. Alert and oriented x3. Respiratory: Good respiratory effort without audible wheezing or rales. Abdomen: Soft, nontender, nondistended. No palpable masses or hepatosplenomegaly. : A small amount of scrotal edema. Normal phallus. No suprapubic tenderness. No CVA tenderness. Lower Extremities: Bilateral lower extremity edema that is pitting up into the knee bilaterally, which is slightly worse than yesterday. LABORATORY DATA: White blood cell count 7.7, hemoglobin 7.2, hematocrit 22.8, platelets 160,000. Sodium 134, potassium 4.6, chloride 100, bicarb 23, BUN 66, creatinine 2.8, glucose 295. ASSESSMENT AND PLAN: Mr. Olsen is a 52-year-old with type 2 diabetes, chronic obstructive pulmonary disease, hyperlipidemia, hypertension, peripheral neuropathy, peripheral artery disease, bilateral diabetic foot ulcerations, bilateral ureteral stones, who recently underwent cystoscopy and bilateral stent placement on 12/03/18 due to anuria, with creatinine elevated up to 9. The patient's renal function slowly improved, but never improved back to his normal baseline. Creatinine most recently was 2.6 to 2.8. When he presented to the emergency room yesterday with hypoglycemia, he creatinine was 3.1. It is back down to 2.8 today. The patient has been voiding without issue. Denies any suprapubic or pelvic pain. The patient's blood sugars seem to be improved. Overall, I think the patient likely can go to the operating room tomorrow for right ureteroscopy, laser lithotripsy, stone basket extraction, right ureteral stent placement, and left extracorporeal shock wave lithotripsy. This was discussed with the patient, and will plan to proceed. All questions and concerns were addressed. Please call with any clinical questions. cc: Yosef Russell MD [facility]
--- NOTE | 2018-12-21 13:23 | PROGRESS NOTE ---
DATE: 12/21/2018 INTERVAL HISTORY: The patient's blood sugars were in acceptable range. In fact, he started becoming hyperglycemic on dextrose 10% drip, so overnight his dextrose 10% rate was decreased. SUBJECTIVE: He is feeling fine. Denies any complaints. He is feeling stronger today. We discussed about stopping dextrose drip, starting him on insulin and slowly increasing it as tolerated. VITALS: Temperature 97.8 degrees, pulse 85, respiratory rate 20, blood pressure 158/65. Saturating 100% on room air. PHYSICAL EXAMINATION: General: He does not appear in any acute distress. HEENT: Oral cavity is moist. Lungs: Air entry bilaterally equal. No wheeze, rhonchi, crackles. Cardiovascular: S1, S2 normal. No murmur or gallop. Abdomen: Soft, nondistended, nontender. Active bowel sounds. He has bilateral lower extremity edema and right foot chronic appearing wound which is just dressed. LABS: Today suggestive of no leukocytosis, normocytic anemia which is chronic, normal platelet count. Improving acute kidney injury on chronic kidney disease stage 4. His troponins had shown flat trend. His blood sugars have been in more than 200s range. ASSESSMENT AND PLAN: 1. Symptomatic hypoglycemia and syncope due to insulin use. I will resume his home insulin at a lower dose of 15 units b.i.d. with meals and keep a close eye over his blood sugars every 4 hours. My plan is to increase his nighttime insulin dose to 20 tonight if his blood sugar consistently remains on the higher side. He is status post dextrose 10% drip now. He tells me that on the day of presentation before breakfast in the morning time his blood sugar was 100, so he ate his breakfast and had injected 35 units of Humulin. 2. Acute kidney injury on chronic kidney disease now improved after intravenous fluid resuscitation and it is currently at baseline. 3. Recent history of bilateral obstructing ureteral stone leading to bilateral hydronephrosis status post bilateral ureteric stent and left-sided kidney nephrolithiasis. Urology has been consulted since the patient had outpatient planned procedure on . He would likely get cystoscopy with a right ureteroscopy and laser lithotripsy and stone basket extraction,left extracorporeal shockwave lithotripsy on 12/22/2018. If patient does not develop any hypoglycemia episodes and his blood sugars are acceptable during daytime, he could potentially proceed with that procedure while he is here inpatient. 4. Bilateral lower extremity diabetic foot ulcers, especially right lower extremity for which Wound Care has been consulted. 5. His other issues including COPD, anemia, PAD, BPH, chronic pain, constipation, and duodenal ulcer with duodenitis on recent EGD, HTN, HLD are stable. I am continuing amitriptyline, clonidine, gemfibrozil, hydralazine, [place], hyoscyamine, iron carbonyl, ascorbic acid, pantoprazole, pentoxifylline, MiraLAX and tamsulosin. 6. Disposition: The patient remains in [facility] as we closely monitor his blood sugars. Plan of care discussed with patient and his family at bedside. All of their questions have been answered. ADDENDUM: His blood sugars are stable. I would transfer him to medical floor. cc: Tony Pike MD [facility]
[2018-12-21] MEDS: TRENTAL PO SCH ×2 (16:43→22:53)
[2018-12-21] MEDS: ELAVIL PO SCH (22:52)
--- NOTE | 2018-12-22 07:02 | PROGRESS NOTE ---
DATE: 12/22/2018 SUBJECTIVE: No acute events overnight. Patient remains NPO in preparation for surgery today. Will undergo a right ureteroscopy, laser lithotripsy and stone basket extraction and left extracorporeal shockwave lithotripsy. The patient denies any pain this morning and is voiding without any complaints. OBJECTIVE: Vital Signs: Temperature 98.3 degrees, heart rate 80, blood pressure 138/58, oxygen saturation 99% on room air. General: No acute distress. Resting comfortably in bed. Alert and oriented x3. Abdomen: Soft, nontender, nondistended. : No suprapubic tenderness. No CVA tenderness. Small amount of scrotal edema. Lower Extremity: Bilateral edema which is stable to slightly improved today. The right foot is wrapped in a dressing. LABS: Blood sugars 112 and 152. ASSESSMENT AND PLAN: Mr. Olsen is a 52-year-old with type 2 diabetes, chronic obstructive pulmonary disease, hyperlipidemia, hypertension, peripheral neuropathy, peripheral artery disease, bilateral diabetic foot ulcerations, bilateral ureteral stone status post cystoscopy, bilateral ureteral stent placement on 12/03/2018. The patient overall is doing well. His blood sugars have been better controlled. The patient was made NPO in preparation for left ESWL and right ureteroscopy today. Risks, benefits, alternatives of the procedure were discussed with the patient and his this morning, the patient elected to proceed. cc: Yosef Russell MD [facility]
[2018-12-22] MEDS ORDERED: REGLAN ONE (07:31)
[2018-12-22] MEDS ORDERED: PEPCID ONE (07:33)
[2018-12-22] MEDS: HUMULIN 70/30 SUBQ SCH ×2 (07:52→16:02)
[2018-12-22] MEDS ORDERED: KEFZOL 2 GM/D5W 2 GM/50 ML IVPB ONE (08:03)
[2018-12-22] MEDS: APRESOLINE PO SCH ×2 (11:52→16:01)
[2018-12-22] MEDS: MIRALAX PO SCH (11:53)
[2018-12-22] MEDS: CELEXA PO SCH (11:54)
[2018-12-22] MEDS: PROTONIX PO SCH (11:55)
[2018-12-22] MEDS: VITAMIN D PO SCH (11:56)
[2018-12-22] MEDS: FLOMAX PO SCH (11:56)
[2018-12-22] MEDS: TRENTAL PO SCH ×3 (11:56→16:12)
[2018-12-22] MEDS: ICAR-C PO SCH (11:56)
[2018-12-22] MEDS: CATAPRES PO SCH (11:57)
[2018-12-22] MEDS: LOPID PO SCH (11:59)
[2018-12-22] MEDS: NORCO-7.5 PO PRN (13:32)
--- NOTE | 2018-12-22 15:16 | OPERATIVE NOTE ---
PROCEDURE DATE: 12/22/2018 PREOPERATIVE DIAGNOSES: 1. Right ureteral stone. 2. Left renal stone. 3. Left ureteral stone. POSTOPERATIVE DIAGNOSES: 1. Right ureteral stone. 2. Left renal stone. 3. Left ureteral stone. PROCEDURES PERFORMED: 1. Cystoscopy. 2. Right ureteroscopy with laser lithotripsy and stone basket extraction. 3. Right ureteral stent exchange. 4. Left extracorporeal shockwave lithotripsy. SURGEON: Yosef Russell M.D. CONTRACT POST OFFICE CLERK: None. ANESTHESIA: LMA. COMPLICATIONS: None. BLOOD LOSS: Minimal. DRAINS: A 6 x 26 right ureteral stent. SPECIMENS REMOVED: Right ureteral stone. OPERATIVE FINDINGS: The patient had a normal cystourethroscopy. No evidence of any stricture disease within the urethra itself. The bladder appeared to be normal with no evidence of any papillary lesions or diverticulum. The entirety of the bladder was inspected. Both ureteral orifices had stents extruding from them. Removed the right ureteral stent and passed wire through the stent, up into the collecting system. Performed right ureteroscopy, and was able to fracture the stone into small pieces, and these were removed with a Nitinol basket, and the ureteroscope was able to be advanced all the way to the ureteropelvic junction with no residual stone debris. The patient then underwent uneventful left extracorporeal shockwave lithotripsy with a total fluoroscopy time of 2 minute and 12 seconds, starting at energy 1 and increasing up to 7, with total shocks of 3000. Good stone distribution was seen following the procedure. INDICATION FOR PROCEDURE: Mr. Olsen is a 52-year-old who presented to the emergency room back on 12/03/2018 with anuria, abdominal pain, and was found on CT scan to have bilateral obstructing ureteral stones. The patient underwent cystoscopy, bilateral retrograde pyelograms, and bilateral ureteral stent placement. The patient's renal function slowly improved, and he was discharged home on Wednesday. However, he represented with some hypoglycemia on Wednesday. The patient was evaluated by the hospitalist and deemed appropriate for surgical intervention. The patient was scheduled to undergo cystoscopy with right ureteroscopy, laser lithotripsy, stone basket extraction, and left extracorporeal shockwave lithotripsy for treatment of stone. Risks, benefits, and alternatives of the surgical procedure were discussed with the patient, and the patient elected to proceed. DESCRIPTION OF PROCEDURE: After informed consent was obtained, the patient was brought to the operating room and placed on the operating table in the supine position. He received preoperative antibiotics, and underwent LMA placement. The patient was then placed in the dorsal lithotomy position, and was prepped and draped in the usual sterile fashion. A preop time-out was performed with all parties in agreement, including anesthesia, surgical, and nursing staff. Next, a 21- [place] cystourethroscope was inserted through the urethra and into the bladder. The entirety of the bladder was inspected. There were no diverticulum, cellules, bladder masses, erythema, or bladder stones. Both ureteral orifices were seen with stents extruding from them. Using the flexible grasper, the right stent was visualized, grasped, and pulled out to the meatus. A wire was then passed through the stent, up into the kidney itself. The stent was then removed, and a semirigid ureteroscope was able to be advanced up to the site of the stone. This was grasped to keep it in place, and then using a 365 micron fiber, the stone was then fragmented into several small pieces, and each of these were extracted and deposited in the bladder for later retrieval. Once all the stones were removed, there was a small amount of edema visualized at the location of the previously seen stone. The ureteroscope was able to be advanced all the way up into the ureteropelvic junction with no residual stone fragments or debris. The ureteroscope was slowly withdrawn, showing normal appearance with no significant injury. The ureteroscope was completely removed, and using a ZIPwire, it was back loaded through the scope, and a 6 x 26 cm ureteral stent was then passed easily into the collecting system itself. Good curl was seen within the kidney, and endoscopically visualized in the bladder. Good drainage was seen through and around the stent. The patient's bladder was cycled multiple times, and all stone fragments were removed and obtained for analysis. Following this, attention was placed to performing the left extracorporeal shockwave lithotripsy. The patient was repositioned, and fluoroscopy was obtained, which showed a 1.8 cm stone present in the upper pole of the left kidney. This was triangulated, and starting at energy of 1 and increasing up to 7, 3000 shocks were delivered. Periodic fluoroscopy was performed, which showed good stone distribution, stent coils in place near the location of the stone. The stone appeared to dissolve appropriately. A total fluoroscopy time of 2 minutes and 12 seconds was used. Following this, the patient was then awoken and was taken to recovery in stable condition, and will be transferred back to the floor. cc: Yosef Russell MD [facility]
--- NOTE | 2018-12-22 16:37 | PROGRESS NOTE ---
DATE: 12/22/2018 SUBJECTIVE: This patient came from the OR today. A cystoscopic exam with right ureteroscopy with laser lithotripsy and stone basket extraction, also right ureteral stent exchange, left extracorporeal shock wave lithotripsy have been done. He seems to be doing good. He does have some hematuria and some burning sensation when he urinates, but he is feeling better. OBJECTIVE: Vital Signs: Temperature 98 degrees, pulse 83, respiratory rate 18, blood pressure 157/65, oxygen saturation 99 on room air. HEENT: Head normocephalic, no trauma. PERRLA. Neck: Supple. No JVD. No masses. Central trachea. Chest: Clear to auscultation. Some crepitus at the bases. Abdomen: Soft. Some generalized tenderness to palpation. Positive bowel sounds. Extremities: Trace to 1+ edema. No clubbing. No cyanosis. Neurological: The patient is alert and oriented x3. No focal deficits. LABORATORY: Glucose 211. ASSESSMENT AND PLAN: 1. Symptomatic hypoglycemia with syncope, likely due to insulin use. We have been using a lower dose of insulin, and he seems to be more stable. I do believe I will try to correct the blood sugar in the next couple days, and then I will be able to discharge this patient home. He was n.p.o. today, and he just started eating this afternoon. He is feeling better. We will monitor. 2. Acute on chronic kidney disease, improved with intravenous fluids. I will reassess the kidney function tomorrow with BUN and creatinine. 3. History of bilateral obstructing ureteral stone leading to bilateral hydronephrosis status post bilateral ureteric stent and left-sided kidney nephrolithiasis. He went to the surgery today, and he is status post cystoscopic exam with right ureteroscopy with laser lithotripsy and stone basket extraction with right ureteral stent exchange and left extracorporeal shock wave lithotripsy. He still having some hematuria. He is feeling better, complaining of some burning sensation, but stable. 4. Bilateral lower extremity diabetic foot ulcers, especially right lower extremity. Wound Care has been consulted. 5. History of chronic obstructive pulmonary disease. Continue with the same management. Stable. No breathing problems at this moment. 6. Anemia. Aware. 7. Peripheral arterial disease. Aware. Continue with same management. 8. Constipation. Aware. 9. Duodenal ulcer with duodenitis on recent esophagogastroduodenoscopy. I will continue with Protonix twice a day. 10. Hypertension. I will review his medications. cc: Fabian Grider MD
[2018-12-22] MEDS: HUMULIN R SUBQ SCH (17:13)
[2018-12-23] MEDS: ELAVIL PO SCH ×2 (00:14→23:07)
[2018-12-23] MEDS: NORCO-7.5 PO PRN ×2 (00:14→13:07)
[2018-12-23] MEDS: LOPID PO SCH ×3 (00:14→23:07)
[2018-12-23] MEDS: PROTONIX PO SCH ×3 (00:15→23:09)
[2018-12-23] MEDS: MIRALAX PO SCH ×3 (00:16→23:11)
[2018-12-23] MEDS: HUMULIN R SUBQ SCH ×5 (00:16→23:10)
[2018-12-23] MEDS: APRESOLINE PO SCH ×3 (00:28→17:54)
[2018-12-23] MEDS: TRANDATE PO SCH ×3 (00:28→23:07)
[2018-12-23] MEDS: MOVANTIK PO SCH (07:20)
--- NOTE | 2018-12-23 07:49 | PROGRESS NOTE ---
DATE: 12/23/2018 SUBJECTIVE: Postoperative day 1 from right ureteroscopy, laser lithotripsy, stone basket extraction, and right ureteral stent exchange and left extracorporeal shockwave lithotripsy. The patient overall is doing well. He states he has minimal pain, describes a little bit of tenderness over his left lower quadrant, which he states is minimal. He denies any flank pain. He has had some blood in his urine. The patient has a bedside urinal, which shows mostly thin reddish urine. The patient denies any clot passage or dysuria. OBJECTIVE: Vital signs: Temperature 98.6, heart rate 70, blood pressure 108/45, oxygen saturation 98% on room air. General: No acute distress, up in bed resting comfortably, alert and oriented x3. Respiratory: Good respiratory effort without audible wheezing or rales. Abdomen: Soft, nontender, nondistended, no palpable masses. Genitourinary: No suprapubic tenderness. No CVA tenderness. Lower extremities: Bilateral lower extremity edema appears to be stable. LABS: Labs show creatinine of 2.7, Hct 19.9. ASSESSMENT AND PLAN: Mr. Olsen is a 52-year-old with type 2 diabetes, chronic obstructive pulmonary disease, hyperlipidemia, hypertension, peripheral neuropathy, peripheral arterial disease, diabetic foot ulcerations, and bilateral ureteral stones status post cystoscopy with right ureteroscopy, laser lithotripsy, stone basket extraction, and right ureteral stent exchange with left extracorporeal shockwave lithotripsy for renal stone. Overall, the patient has been doing well. The patient tolerated the procedure well yesterday. He is having a little bit of blood in his urine, which appears to be appropriate postoperatively. He denies any nausea or vomiting. His pain is well-controlled. Will follow up his morning labs and discuss with hospitalist, but likely will need blood transfusion for low hematocrit. Would continue with antibiotics in the postoperative setting. Will continue to monitor. From a urologic standpoint, can likely go home. The patient continues to have issues with blood sugar and it is being optimize by Hospitalist service. Please call with questions or concerns. cc: Yosef Russell MD [facility]
[2018-12-23] MEDS: HUMULIN 70/30 SUBQ SCH (07:58)
[2018-12-23 08:25] LABS: HEMOGLOBIN A1C 5.8 % (4.8-6.0)
[2018-12-23 08:26] LABS: BASO% 1.1 % (0.0-0.8); EOS% 3.3 % (0.0-10.0); HEMATOCRIT 19.9 % (42.0-52.0); HEMOGLOBIN 6.2 g/dL (14.0-18.0); LYMPH# 1.54 X1000 (1.2-3.4); LYMPH% 28.4 % (20.5-51.1); MCH 29.1 PG (27-31); MCHC 31.2 g/dL (33-37); MCV 93.4 FL (81-99); MONO# 0.48 X1000 (0.11-0.59); MONO% 8.8 % (1.7-9.3); MPV 11.5 FL (7.4-10.4); NEUT# 3.17 X1000 (1.4-6.5); NEUT% 58.4 % (42.2-75.2); PLT 150 X1000 (130-400); RBC 2.13 XMIL (4.7-6.1); RDW 15.4 % (11.5-14.5); WBC 5.43 X1000 (4.8-10.8)
[2018-12-23 08:27] LABS: BASO# 0.06 X1000 (0.0-0.2); EOS# 0.18 X1000 (0.0-0.7)
[2018-12-23 08:36] LABS: CALCIUM 8.2 mg/dL (8.8-10.2); CREATININE 2.7 mg/dL (0.7-1.2); POTASSIUM 5.4 mmol/L (3.5-5.1)
[2018-12-23] MEDS: VITAMIN D PO SCH (09:09)
[2018-12-23] MEDS: CATAPRES PO SCH (09:09)
[2018-12-23] MEDS: ICAR-C PO SCH (09:09)
[2018-12-23] MEDS: CELEXA PO SCH (09:10)
[2018-12-23] MEDS: FLOMAX PO SCH (09:10)
[2018-12-23] MEDS: TRENTAL PO SCH ×3 (09:11→17:54)
[2018-12-23] MEDS: KEFLEX PO SCH ×3 (09:17→23:25)
[2018-12-23] MEDS: 1/2 NS 1,000 ML IV SCH ×2 (12:45→23:31)
--- NOTE | 2018-12-23 14:58 | PROGRESS NOTE ---
DATE: 12/23/2018 SUBJECTIVE: The patient states that he is feeling better, he is still having hematuria, Urology Department following this patient. Hemoglobin dropped to 6.2, I will give him 1 unit of blood, blood sugar is better controlled. I will monitor this patient overnight today and tomorrow hopefully I will send him home. OBJECTIVE: Vital Signs: Temperature 98.5 degrees, pulse 75, respiratory rate 18, blood pressure 135/62, oxygen saturation 100% on room air. HEENT: Head normocephalic, no trauma. PERRLA. Neck: Supple. No JVD. No masses. Central trachea. Chest: Clear to auscultation, some crepitus at the bases. Abdomen: Soft. Generalized tenderness to palpation. Positive bowel sounds. Extremities: Trace to 1+ lower extremity edema. No clubbing. No cyanosis. Neurological: The patient is alert and oriented x3. No focal deficits. LABORATORY: WBC 5.4, hemoglobin 6.2, hematocrit 19.9, platelets 150,000. Sodium 137, potassium 5.4, chloride 105, bicarbonate 22, BUN 74, creatinine 2.7, glucose 115, calcium 8.2. ASSESSMENT AND PLAN: 1. Symptomatic hypoglycemia with syncope, likely due to insulin use, we have been adjusting his medications. We will continue to monitor. Hopefully tomorrow we can send this patient home if everything is okay. 2. Acute on chronic kidney disease, improved with IV fluids. Continue with same management. This is likely his baseline. 3. History of bilateral obstructing ureteral stone leading to bilateral hydronephrosis status post bilateral ureteric stent and left-sided kidney nephrolithiasis, he went for surgery yesterday, he is status post cystoscopic exam with right ureteroscopy with laser lithotripsy and stone basket extraction with right ureteral stent exchange and left extracorporeal shock wave lithotripsy, he is still having hematuria, but he is feeling better compared with some burning sensation but stable. 4. Bilateral lower extremity diabetic foot ulcers, especially right lower extremity. Wound care on board, seems to be okay. 5. History of COPD, continue with the same management. Stable. No breathing problems at this moment. 6. Anemia, his hemoglobin dropped to 6.2. I will give him a unit of blood today. 7. Peripheral arterial disease, aware. Continue with same management. 8. Constipation. Continue with same treatment. 9. Duodenal ulcer with duodenitis on recent EGD. We will continue with Protonix twice a day. 10. Hypertension, stable. cc: Fabian Grider MD
[2018-12-23] MEDS ORDERED: HUMULIN 70/30 SUBQ SCH (16:00)
[2018-12-23] MEDS ORDERED: NS 500 ML IV SCH (16:45)
[2018-12-24] MEDS: APRESOLINE PO SCH ×2 (00:15→09:45)
[2018-12-24] MEDS: HUMULIN R SUBQ SCH ×2 (06:57→11:46)
[2018-12-24] MEDS: MOVANTIK PO SCH (06:58)
[2018-12-24] MEDS: KEFLEX PO SCH ×2 (06:58→11:46)
[2018-12-24] MEDS ORDERED: HUMULIN 70/30 SUBQ SCH (07:00)
[2018-12-24] MEDS: 1/2 NS 1,000 ML IV SCH (07:08)
[2018-12-24 07:38] VITALS: BP 161/67
[2018-12-24 09:25] LABS: BASO# 0.05 X1000 (0.0-0.2); BASO% 0.7 % (0.0-0.8); EOS# 0.22 X1000 (0.0-0.7); EOS% 2.9 % (0.0-10.0); HEMATOCRIT 23.3 % (42.0-52.0); HEMOGLOBIN 7.5 g/dL (14.0-18.0); LYMPH# 1.49 X1000 (1.2-3.4); LYMPH% 19.7 % (20.5-51.1); MCH 29.3 PG (27-31); MCHC 32.2 g/dL (33-37); MONO# 0.69 X1000 (0.11-0.59); MONO% 9.1 % (1.7-9.3); MPV 11.3 FL (7.4-10.4); NEUT% 67.6 % (42.2-75.2); PLT 168 X1000 (130-400); RBC 2.56 XMIL (4.7-6.1); WBC 7.55 X1000 (4.8-10.8)
[2018-12-24 09:33] LABS: CALCIUM 8.6 mg/dL (8.8-10.2); CREATININE 2.6 mg/dL (0.7-1.2); MAGNESIUM 2.2 mg/dL (1.5-2.7)
[2018-12-24] MEDS: FLOMAX PO SCH (09:45)
[2018-12-24] MEDS: CELEXA PO SCH (09:45)
[2018-12-24] MEDS: TRANDATE PO SCH (09:45)
[2018-12-24] MEDS: VITAMIN D PO SCH (09:45)
[2018-12-24] MEDS: PROTONIX PO SCH (09:45)
[2018-12-24] MEDS: TRENTAL PO SCH (09:46)
[2018-12-24] MEDS: ICAR-C PO SCH (09:46)
[2018-12-24] MEDS: LOPID PO SCH (09:46)
[2018-12-24] MEDS: CATAPRES PO SCH (09:46)
[2018-12-24] MEDS: MIRALAX PO SCH (09:49)
--- NOTE | 2018-12-24 10:06 | PROGRESS NOTE ---
DATE: 12/24/2018 SUBJECTIVE: No acute events overnight. The patient received a blood transfusion yesterday due to low hemoglobin and hematocrit. The patient has responded this morning with a hematocrit of 23.3. The patient had good urinary output. His urine continues to have some blood in it, but it seems to be clearing. Denies any abdominal, pelvic, or flank pain. The patient says he is voiding without issue and ambulating with the ability to tolerate a diet. OBJECTIVE: Vital signs: Temperature 98.5 degrees, heart rate 72, blood pressure 161/67, oxygen 97% on room air. General: No acute distress. Resting comfortably in bed. Alert and oriented x3. Respiratory: Good respiratory effort without audible wheezing or rales. Abdomen: Soft, nontender, nondistended. Genitourinary: No suprapubic tenderness. No CVA tenderness. No obvious bruising of the flank or suprapubic region. Musculoskeletal: The patient has bilateral lower extremity edema with a small draining weeping area on the left lower extremity. Overall edema appears to be stable. LABORATORY DATA: White blood cell count 7.5, hemoglobin 7.5, hematocrit 23.3, platelets 168,000. Sodium 138, potassium 5.0, chloride 104, bicarb 20, BUN 76, creatinine 2.6, glucose 110, calcium 8.6. ASSESSMENT AND PLAN: Mr. Olsen is a 52-year-old with type 2 diabetes, chronic obstructive pulmonary disease, hyperlipidemia, hypertension, peripheral neuropathy, peripheral artery disease, diabetic foot ulcerations and bilateral ureteral stones status post cystoscopy with right ureteroscopy, laser lithotripsy, stone basket extraction, right ureteral stent exchange and left extracorporeal shockwave lithotripsy. Clinically, patient seems to be doing well. He received a blood transfusion yesterday and responded appropriately. His urine is clearing. It is light red with no evidence of clots. He denies any significant pain this morning. Tolerating a diet, ambulating without issue. Encouraged him to continue to get up and out of bed. We will continue with pain control prn. Continue optimization by Hospitalist. The patient is cleared from a urologic standpoint and can follow up in Urology office next week for stent removal. We will continue to follow. Please call with questions or concerns. cc: MD DONNA Walker
--- NOTE | 2018-12-24 21:05 | DISCHARGE SUMMARY ---
ADMISSION DATE: 12/20/2018 DISCHARGE DATE: 12/24/2018 DISCHARGE DIAGNOSES: 1. Symptomatic hypoglycemia with syncope, likely due to insulin use. 2. Sqehk-[id number] kidney disease. Back to his baseline. 3. History of bilateral obstructing ureteral stones leading to bilateral hydronephrosis, status post bilateral ureteric stent, and left-sided kidney nephrolithiasis. Status post cystoscopic exam with right ureteroscopy with laser lithotripsy and stone basket extraction, with right ureteral stent exchange and left extracorporeal shockwave lithotripsy. 4. Bilateral lower extremity diabetic foot ulcers, especially right lower extremity. 5. History of chronic obstructive pulmonary disease, not in exacerbation. 6. Anemia. 7. Peripheral arterial disease. 8. Constipation. 9. History of duodenal ulcer with duodenitis on recent esophagogastroduodenoscopy. 10. Hypertension. 11. Peripheral neuropathy. 12. Chronic pain syndrome. 13. Poor dentition. 14. Type 2 diabetes, on insulin. PROCEDURES: 1. Chest x-ray dated 12/20/2018 impression: Negative exam. 2. Shoulder x-ray dated 12/20/2018 impression: No acute bony injury. 3. Cystoscopic exam with right ureteroscopy with laser lithotripsy and stone basket extraction, right ureteral stent exchange and left extracorporeal shockwave lithotripsy due to right ureteral stone, left renal stone and left ureteral stone, dated 12/22/2018. HISTORY OF PRESENT ILLNESS: A 52-year-old male with a past medical history of diabetes, COPD, hyperlipidemia, hypertension, peripheral arterial disease, neuropathy and chronic ulcers to the feet, [facility]. Recently discharged from our service on 12/19/2018, and admitted on 12/20/2018. When he was discharged, he had a distal right ureteral stone with hydronephrosis, left ureteropelvic junction stone with hydronephrosis and left nephrolithiasis, as well as anasarca, pleural effusion and ascites. He had a cystoscopic exam with bilateral retrograde pyelograms and bilateral urethral stent placement by Dr. Russell. He was treated for [id number] renal failure as well as vitamin D and folate deficiency and severe constipation. EGD showed duodenal ulcer, mild gastritis and duodenitis. He does have extremely poor dentition and he was advised to follow up with dental care as an outpatient. Per 's report at the moment of admission, while he was in the hospital the last time he was at some point extremely lethargic due to low blood sugar. There were adjustments made on his medication, but as per the when he went home he was feeling good. He was taking his morning medicine. He had taken his insulin and then eaten breakfast, but apparently he had a syncopal episode so they brought this patient over here. Apparently prior to the syncope, they checked his blood sugar and it was at 100 even after receiving insulin and eating. This patient was found by the on the floor. He was somewhat responsive; however, he was having problem speaking. He was not really making any sense. She called 911. Blood sugar in the ambulance was apparently 36, and after receiving treatment it came up to 90, then back down to 54. Apparently it has been up and down a few times. HOSPITAL COURSE: He was started on a D10 drip and monitoring the blood sugar every hour. He was admitted to the [facility] unit. He denied chest pain, fever, chills, or any kind of problem like fever. No nausea, vomiting or diarrhea. No shortness of breath. Workup in the emergency department showed a potassium level of 3.4, BUN 65, creatinine 3.1. Mildly elevated troponin and proBNP. Bilateral lower extremity pitting edema which is chronic for him with his peripheral vascular disease and chronic diabetic wound to bilateral feet. Urology Department was consulted also, and after stabilizing the patient he went to the OR. His postoperative diagnoses were right ureteral stone, left ureteral stone and left renal stone. They performed a cystoscopic exam with right ureteroscopy with laser lithotripsy and stone basket extraction, right ureteral stent exchange and left extracorporeal shockwave lithotripsy. The patient tolerated well the procedure. We continued monitoring his blood sugar closely. At the beginning, when he was at home he was using 35 units of 70/30 twice a day, which I decreased to 15 in the morning and 10 in the afternoon. I monitored this for a couple of days. He did well. I discussed at length with the patient about monitoring his blood sugar and what to do in case of hypoglycemia and/or hyperglycemia. He seems to understand. He has been having some hematuria, and I transfused the patient because the hemoglobin dropped to 6.2 and responded really well to the transfusion. He is asymptomatic. He is tolerating p.o., ambulating. He does have some hematuria but it is more clear today. Urology Department evaluated this patient and they will monitor this patient as an outpatient. Likely he will need another procedure to remove the stent that has been placed. He will need to follow with Dr. Russell and call for appointment. Also we recommended to follow up with his primary care doctor in 1 week and monitor his blood sugar really closely. Continue going to the wound clinic to take care of the ulcers as well. PHYSICAL EXAMINATION: Vital signs: Temperature 98.5 degrees, pulse 72, respiratory rate 18, blood pressure 161/67, oxygen saturation 97% on room air. HEENT: Head normocephalic. No trauma. PERRLA. Neck is supple. No JVD. No masses. Central trachea. Chest clear to auscultation. No wheezing. No rales. Abdomen is soft, nontender, nondistended. No hepatosplenomegaly. Extremities: Trace to 1+ lower extremity edema. No clubbing. No cyanosis. They are covered with some dressings. Neurological examination: The patient is alert and oriented x3. No focal deficits. LABORATORY DATA: WBC 7.5, hemoglobin 7.5, hematocrit 23.3, platelets 168,000. Sodium 138, potassium 5, chloride 104, bicarbonate 20, BUN 76, creatinine 2.6, glucose 110, calcium 8.2, magnesium 2.2. DISCHARGE MEDICATIONS: Amitriptyline 10 mg p.o. at bedtime; aspirin 325 mg p.o. daily; Keflex 500 mg p.o. q.12 hours; vitamin D 5000 units p.o. daily; Celexa 40 mg p.o. daily; clonidine 0.1 mg p.o. daily; gemfibrozil 600 mg p.o. b.i.d.; hydralazine 100 mg p.o. q.8 hours; [place] 10 one tablet p.o. t.i.d. as needed for pain; Levsin 0.125 mg p.o. t.i.d. as needed; insulin 70/30, 15 units q.a.m. and 10 units q.p.m.; Icar-C 1 tablet p.o. b.i.d.; labetalol 200 mg p.o. b.i.d.; Multi-Day plus Iron tablet 1 tablet p.o. daily; Movantik 12.5 mg p.o. ACB; pantoprazole 40 mg p.o. b.i.d.; Trental 400 mg p.o. t.i.d.; MiraLAX 17 g p.o. b.i.d.; Flomax 0.4 mg p.o. daily. Time discharging this patient was 45 minutes. cc: Fabian Grider MD
== END 2018-12-24 11:54 | disposition home health service (06) ==
LOC: SUPCPDRO → ED 11:09 → EDIPHOLD 14:19 → INTOOBSV 14:19 → SUATTDRO 14:19 → 3S 16:30 → 4N 12-21 17:26
PROVIDERS: ATTEND Internal Medicine
PROC: UR.ESWL (2018-12-22 08:05)
CPT/HCPCS: 36430; 71010; 71045; 73030; 80048; 80053; 81001; 82360; 82550; 82948; 83036; 83735; 83880; 84484; 85025; 85610; 85730; 86850; 86900; 86901; 86920; 87088; 88300; 93005; 94760; 94761; 94799; 96365; 96366; 96375; 99285; A9270; J0690; J2270; J2765; J3480; J7030; J7040; P9016; S0028; XXXXX

== ENCOUNTER 2019-02-24 18:39 | Inpatient (IN) ==
[2019-02-24] MEDS ORDERED: SOLU-MEDROL IV ONE (18:48)
[2019-02-24] MEDS ORDERED: DUONEB (A & A) INH ONE (18:48)
[2019-02-24] MEDS ORDERED: ALBUTEROL NEB INH ONE (18:48)
[2019-02-24 18:55] LABS: ALLEN TEST YES; BE 2.6 mmoll (-3.0-3.0); BLOOD TYPE ARTERIAL; HCO3-(ACT) 26.9 mmoll (20.0-26.0); METHB 0.1 % (0.0-1.5); O2(CT) 10.3 mL/dL (15.0-23.0); PCO2(98.6) 41 mmHg (35-45); PO2(98.6) 172 mmHg (60-100); SAMPLE BLOOD; SAO2 97.1 % (95.0-100.0); THB 7.8 g/dL (11.5-17.4); pH(98.6) 7.43 (7.35-7.45)
[2019-02-24 18:56] LABS: MODALITY COOL AEROSOL
[2019-02-24 19:02] LABS: BASO# 0.07 X1000 (0.0-0.2); BASO% 0.9 % (0.0-0.8); EOS# 0.21 X1000 (0.0-0.7); EOS% 2.7 % (0.0-10.0); HEMOGLOBIN 8.4 g/dL (14.0-18.0); LYMPH# 2.25 X1000 (1.2-3.4); MCH 29.8 PG (27-31); MCHC 32.3 g/dL (33-37); MCV 92.2 FL (81-99); MONO# 0.84 X1000 (0.11-0.59); MONO% 10.8 % (1.7-9.3); MPV 9.9 FL (7.4-10.4); NEUT# 4.39 X1000 (1.4-6.5); NEUT% 56.6 % (42.2-75.2); PLT 213 X1000 (130-400); RBC 2.82 XMIL (4.7-6.1); RDW 15.3 % (11.5-14.5); WBC 7.76 X1000 (4.8-10.8)
--- NOTE | 2019-02-24 19:10 | PROVIDER DOCUMENTATION ---
This chart was entered by Michelle Myers Scribe, acting as scribe for Gali Bryant CRNP. HPI-Respiratory General - General Stated Complaint: SEVERE SOB Time Seen by Provider: 02/24/19 18:46 Source: patient, family Allergies/Adverse Reactions: Patient Allergies Allergy/AdvReac Type Severity Reaction Status Date / Time No Known Allergies Allergy Verified 12/12/18 08:01 Home Medications: Home Medication List Medication Instructions Recorded Confirmed Last Taken Type Amitriptyline [Elavil] 10 mg PO QHS #30 tab 12/19/18 02/24/19 12/19/18 18:00 Rx Aspirin 325 mg PO DAILY #0 12/19/18 02/24/19 12/17/18 08:00 Rx Cholecalciferol (Vit D3) [Vitamin 5,000 unit PO DAILY #120 cap 12/19/18 02/24/19 12/19/18 09:00 Rx D] Citalopram [Celexa] 40 mg PO DAILY #120 tab 12/19/18 02/24/19 12/19/18 18:00 Rx Clonidine [Catapres] 0.1 mg PO DAILY #30 tab 12/19/18 02/24/19 12/19/18 10:30 Rx Hydralazine [Apresoline] 100 mg PO Q8H #240 tab 12/19/18 02/24/19 12/19/18 04:00 Rx Labetalol [Trandate] 200 mg PO BID #120 tab 12/19/18 02/24/19 Unknown Rx Multivitamin/Iron/Folic Acid 1 ea PO DAILY #30 tab 12/19/18 02/24/19 Unknown Rx [Multi-Day Plus Iron Tablet] Naloxegol Oxalate [Movantik] 12.5 mg PO ACB #30 tab 12/19/18 02/24/19 Unknown Rx Pantoprazole [Protonix] 40 mg PO BID #120 tab 12/19/18 02/24/19 Unknown Rx Pentoxifylline E.r. [Trental] 400 mg PO TID #240 tab 12/19/18 02/24/19 Unknown Rx Polyethylene Glycol 3350 [Miralax] 17 gm PO BID #12 powder, packet 12/19/18 02/24/19 12/19/18 10:30 Rx Tamsulosin [Flomax] 0.4 mg PO DAILY #120 cap 12/19/18 02/24/19 12/19/18 10:30 Rx Hydrocodone/Acetaminophen [[place] 1 ea PO TID PRN #20 tab 12/24/18 02/24/19 Unknown Rx 10-325 Tablet] Insulin Humulin 70/30 [Humulin 10 unit SUBQ QPM #1 insuln.pen 12/24/18 02/24/19 Unknown Rx 70/30] Insulin Humulin 70/30 [Humulin 15 unit SUBQ QAM #1 insuln.pen 12/24/18 02/24/19 Unknown Rx 70/30] Furosemide [Lasix] 40 mg PO DAILY 02/24/19 02/24/19 Unknown History Polyethylene Glycol 3350 [Miralax] 17 gm PO BID PRN 02/25/19 02/25/19 Unknown History - History of Present Illness-Resp Nature of Presenting Problem: 53 yowm presents w/ to er w/cc sob, diaphoresis, and fluid retention. pt sts pt became sob last wednesday but has worsened since wednesday. pt became extremely sob prior to walking into er. pt has had fluid retention in abd 7-8 days that has steadily become worse. pt was seen in er in december for ckd. pt homehealth for bilat LE ulcers. bandaging in place. pt denies cp, fever and nvd. pt has hx of neuropathy, copd, dm and ckd. pt sts pt smokes 3-6 cigarettes a week. Quality of Pain: reports: tightness Severity in ED: reports: moderate Onset/Duration: reports: just prior to arrival, last week, other (7-8 abd fluid retention) Timing: reports: still present, getting worse Exposure: reports: unknown cause Cough Quality/Degree: reports: no cough Episode Frequency: chronic episodes Modifying Factors: improves with: exertion Associated Symptoms: reports: hurts to breathe, shortness of breath, short of breath, wheezing. denies: chest pain/soreness, cough, dizziness, fever/chills, hyperventilating, lightheadedness, muscle/bodyaches Similar Symptoms Previously?: Yes Recently seen or treated by another doctor?: Yes Review of Systems - Adult - REVIEW OF SYSTEMS - ADULT Constitutional: reports: no symptoms reported. denies: chills, fever, fatique Eyes: reports: no symptoms reported Ears, Nose, Mouth & Throat: reports: no symptoms reported Cardiovascular: reports: no symptoms reported. denies: chest pain, orthopnea, palpitations Respiratory: reports: see HPI, dyspnea on exertion, shortness of breath, wheezing. denies: cough, excessive sputum production, pleurisy Gastrointestinal: reports: no symptoms reported. denies: abdominal pain, diarrhea, nausea, vomiting Genitourinary: reports: no symptoms reported Musculoskeletal: reports: no symptoms reported Integumentary: reports: no symptoms reported Neurological: reports: no symptoms reported. denies: dizziness/vertigo, headache/migraines, numbness, paresthesia, slurred speech Psychiatric: reports: no symptoms reported Endocrine: reports: no symptoms reported Hematologic/Lymphatic: reports: no symptoms reported Allergic/Immunologic: reports: no symptoms reported All Other Systems: Reviewed and Negative Past History - Adult - PAST MEDICAL HISTORY-ADULT Review of Records: reports: Old Records Reviewed, Nursing Assessment Review, Medications Reviewed, Social history reviewed & non-contributory. Major Childhood Illnesses: reports: denies history Cardiovascular: reports: HTN, hyperlipidemia, PVD Respiratory: reports: COPD Gastrointestinal: reports: GERD Obstetrical/Gynecological: reports: denies history Genitourinary: reports: denies history Musculoskeletal: reports: denies history Neurological: reports: CVA, TIA, other (neuropathy) Psychiatric: reports: depression Endocrine/Immune: reports: Diabetes Other Conditions: reports: other (ulcers to feet) - PRIOR SURGERIES/PROCEDURES Surgical/Procedure History: reports: orthopedic (extremity), other (fem-bop) - IMMUNIZATION STATUS Childhood Immunizations: See Nurse Assessment Flu Vaccine: See Nurse Assessment - FAMILY HISTORY Family History: reviewed, not pertinent - SOCIAL HISTORY Smoking: cigarettes, less than 1 pack/day Provider spent 3-5 mins advising pt. on dangers of tobacco.: Discussed manners to quit use, and f/u contacts for add'l counseling. Substance Use: none/never Physical Exam-General - PHYSICAL EXAM-ADULT Initial Vital Signs Reviewed: Yes - CONSTITUTIONAL General Appearance: alert, mild distress. negative: lethargic, slow to respond, obtunded - EYES Eyes: PERRL/EOMI, pink conjunctivae - HEAD, EARS, NOSE, MOUTH & THROAT HENMT: normocephalic/atraumatic, moist mucous membranes, normal ENT inspection - NECK Neck: non-tender, full range of motion, supple, normal inspection - RESPIRATORY Respiratory: chest non-tender, no pleuratic chest pain, respiratory distress, decreased breath sounds, accessory muscle use, rhonchi (all lung lloyd), wheezing (all lung lloyd), increased rate - CARDIOVASCULAR Cardiovascular: normal peripheral pulses, regular rate, rhythm - GASTROINTESTINAL (ABDOMEN) Abdominal Exam: normal bowel sounds, non tender, distended, other (pitting edema abd +1). negative: rigid, rebound, tenderness - LYMPHATIC Lymphatic: no adenopathy - MUSCULOSKELETAL Back Exam: normal inspection, no CVA tenderness, no vertebral tenderness Extremity: normal range of motion, non-tender, other (bilat LE dm ulcers, bandaging in place) Peripheral Pulses: radial (R): 2+, radial (L): 2+ - SKIN Integumentary: normal color, normal turgor, diaphoresis - NEUROLOGIC Neurologic: grossly normal, no motor/sensory deficits - PSYCHIATRIC Psych/Mental Status: normal mood/affect, normal thought content, normal thought process, oriented x 3 - HEART Score HEART Score: History: Moderately Suspicious HEART Score: ECG: Normal HEART Score: Age: 45-65 Years HEART Score: Risk Factors for Atherosclerotic Disease: > or = 3 Risk Factors or History of Atherosclerotic Disease HEART Score: Troponin: 1-3x Normal Limit Total HEART Score:: 5 Progress - PLAN OF CARE/RESULTS Progress/Plan/Lab Results: Vital Signs - 8 hr 02/24/19 18:53 02/24/19 20:06 02/24/19 21:52 Temperature 99.2 F Pulse Rate 77 105 H Respiratory Rate 34 H 25 H Blood Pressure 169/76 O2 Sat by Pulse Oximetry 94 L 97 Laboratory Results - last 24 hr 02/24/19 02/24/19 02/24/19 18:43 18:43 18:43 WBC 7.76 RBC 2.82 L Hgb 8.4 L Hct 26.0 L MCV 92.2 MCH 29.8 MCHC 32.3 L RDW Std Deviation 15.3 H Plt Count 213 MPV 9.9 Immature Gran % (Auto) 0.0 Neut % (Auto) 56.6 Lymph % (Auto) 29.0 [place] % (Auto) 10.8 H Eos % (Auto) 2.7 Baso % (Auto) 0.9 H Immature Gran # (Auto) 0.00 Neut # (Auto) 4.39 Lymph # (Auto) 2.25 [place] # (Auto) 0.84 H Eos # (Auto) 0.21 Baso # (Auto) 0.07 D-Dimer, Quantitative 2.54 H Specimen Type Sample Site pH pCO2 pO2 HCO3 Base Excess Oxyhemoglobin ABG O2 Sat (Calculated) ABG O2 Saturation ABG Carboxyhemoglobin ABG Methemoglobin Wilfredo Test A-a O2 Difference Total Hemoglobin Lactate Liter Flow Blood Gas Modality FiO2 % Sodium 145 Potassium 4.3 Chloride 107 Carbon Dioxide 25 Anion Gap 13 BUN 29 H Creatinine 2.4 H Estimated GFR/1.73 m2 28 BUN/Creatinine Ratio 12 Glucose 148 H POC Glucose Calculated Osmolality 297 Calcium 8.2 L Magnesium 1.8 Total Bilirubin 0.26 AST 13 ALT 9 L Alkaline Phosphatase 158 H Troponin T Amr-E-Mpomedptlia Pept Total Protein 5.9 L Albumin 2.7 L Globulin 3.2 Albumin/Globulin Ratio 0.8 Plasma Lactate 02/24/19 02/24/19 02/24/19 18:43 18:43 18:43 WBC RBC Hgb Hct MCV MCH MCHC RDW Std Deviation Plt Count MPV Immature Gran % (Auto) Neut % (Auto) Lymph % (Auto) [place] % (Auto) Eos % (Auto) Baso % (Auto) Immature Gran # (Auto) Neut # (Auto) Lymph # (Auto) [place] # (Auto) Eos # (Auto) Baso # (Auto) D-Dimer, Quantitative Specimen Type Sample Site pH pCO2 pO2 HCO3 Base Excess Oxyhemoglobin ABG O2 Sat (Calculated) ABG O2 Saturation ABG Carboxyhemoglobin ABG Methemoglobin Wilfredo Test A-a O2 Difference Total Hemoglobin Lactate Liter Flow Blood Gas Modality FiO2 % Sodium Potassium Chloride Carbon Dioxide Anion Gap BUN Creatinine Estimated GFR/1.73 m2 BUN/Creatinine Ratio Glucose POC Glucose Calculated Osmolality Calcium Magnesium Total Bilirubin AST ALT Alkaline Phosphatase Troponin T 0.154 H Kdy-J-Gmhnnsdfbwg Pept 89962 H Total Protein Albumin Globulin Albumin/Globulin Ratio Plasma Lactate 2.1 02/24/19 02/24/19 18:47 18:56 WBC RBC Hgb Hct MCV MCH MCHC RDW Std Deviation Plt Count MPV Immature Gran % (Auto) Neut % (Auto) Lymph % (Auto) [place] % (Auto) Eos % (Auto) Baso % (Auto) Immature Gran # (Auto) Neut # (Auto) Lymph # (Auto) [place] # (Auto) Eos # (Auto) Baso # (Auto) D-Dimer, Quantitative Specimen Type ARTERIAL Sample Site R RADIAL pH 7.43 pCO2 41 pO2 172 H HCO3 26.9 H Base Excess 2.6 Oxyhemoglobin 90.0 L ABG O2 Sat (Calculated) 10.3 L ABG O2 Saturation 97.1 ABG Carboxyhemoglobin 7.10 H* ABG Methemoglobin 0.1 Wilfredo Test YES A-a O2 Difference 133.0 Total Hemoglobin 7.8 L Lactate 1.80 Liter Flow 10.0 Blood Gas Modality COOL AEROSOL FiO2 % 50.0 Sodium Potassium Chloride Carbon Dioxide Anion Gap BUN Creatinine Estimated GFR/1.73 m2 BUN/Creatinine Ratio Glucose POC Glucose 142 H Calculated Osmolality Calcium Magnesium Total Bilirubin AST ALT Alkaline Phosphatase Troponin T Sxm-J-Heqybisvmie Pept Total Protein Albumin Globulin Albumin/Globulin Ratio Plasma Lactate Orders Category Date Time Status Admit - [facility] Routine AdmDCTranf 02/24/19 23:55 Active Activity - Up with Assistance ORDERED Care 02/24/19 23:55 Active FSBS/Accucheck Result AC + HS Care 02/24/19 23:55 Active Intake and Output-Strict ORDERED Care 02/24/19 23:55 Active Nursing- MD Consult Request 0800 Care 02/24/19 23:55 Active Vital Signs Order Q 4-HR ASSESS Care 02/24/19 23:55 Completed Z-Document. for Tele Applied ORDERED Care 02/24/19 23:55 Completed Physician/Provider Consults Routine Cons 02/24/19 23:55 Ordered NPO Diet 02/24/19 23:56 Active CHEST-1 VIEW [RAD] Stat Exams 02/24/19 18:42 Completed LUNG SCAN / VQ [NM] Routine Exams 02/24/19 23:55 Ordered ABG [RESP] Routine Lab 02/24/19 18:47 Completed BLOOD CULTURE [BLDCUL] Stat Lab 02/24/19 18:43 Ordered BNP [PRO B-NATRIURETIC PEPTIDE] Stat Lab 02/24/19 18:43 Completed CBC WITH DIFF [HEME] Stat Lab 02/24/19 18:43 Completed COMPREHENSIVE METABOLIC PANEL [CHEM] Stat Lab 02/24/19 18:43 Completed D-DIMER [COAG] Stat Lab 02/24/19 18:43 Completed LACTATE, PLASMA [CHEM] Stat Lab 02/24/19 18:43 Completed MAGNESIUM [CHEM] Stat Lab 02/24/19 18:43 Completed TROPONIN T Q8HR Lab 02/25/19 05:00 Ordered TROPONIN T Q8HR Lab 02/25/19 13:00 Ordered TROPONIN T Q8HR Lab 02/25/19 21:00 Ordered TROPONIN T Stat Lab 02/24/19 18:43 Completed TSH Routine Lab 02/25/19 06:00 Ordered Albuterol 2.5MG/Ipratrop 0.5MG [Duoneb (A & A)] Med 02/24/19 18:48 Di scontinued 3 ml INH NOW ONE Albuterol 2.5MG/Ipratrop 0.5MG [Duoneb (A & A)] Med 02/24/19 23:55 Active 3 ml INH Q4H PRN PRN Albuterol [Albuterol Neb] Med 02/24/19 18:48 Discontinued 10 mg INH NOW ONE Enoxaparin 1 mg/kg [Lovenox 1 mg/kg] Med 02/24/19 19:45 Discontinued 1 each SUBQ NOW ONE Enoxaparin [Lovenox] Med 02/24/19 20:00 Discontinued 80 mg SUBQ ONCE ONE Furosemide [Lasix] Med 02/24/19 20:31 Discontinued 40 mg IV NOW ONE Furosemide [Lasix] Med 02/24/19 23:55 Active 40 mg IV Q12H Heparin Med 02/24/19 23:55 Active 5,000 unit SUBQ Q12H Insulin Human Regular [Humulin R] Med 02/25/19 07:00 Active See Protocol SUBQ 0700,1100,1600,2100 Methylprednisolone Sod Succ [Solu-Medrol] Med 02/24/19 18:48 Discontinued 125 mg IV STAT ONE Nitroglycerin Med 02/24/19 23:55 Discontinued 0.5 inch TOP NOW ONE Ondansetron [Zofran] Med 02/24/19 23:55 Active 4 mg IV Q4H PRN PRN Aerosol Treatments Routine Oth 02/24/19 18:48 Completed Aerosol Treatments Routine Oth 02/24/19 18:49 Completed Aerosol Treatments Routine Oth 02/24/19 23:55 Active Aerosol Treatments Stat Oth 02/24/19 18:48 Completed Aerosol Treatments Stat Oth 02/24/19 18:49 Completed Aerosol Treatments Stat Oth 02/24/19 23:55 Active BIPAP Stat Oth 02/24/19 21:17 Active BIPAP Stat Oth 02/24/19 23:55 Active Telemetry [OM.EQ] Routine Oth 02/24/19 23:55 Active EKG [EKG] Stat Ther 02/24/19 18:42 Draft Echo Spec/Color Doppler Routine Ther 02/24/19 23:55 Ordered Transfer/Admit Order [TRANSFER] Routine Transfer 02/24/19 21:49 Completed discussed plan of care with patient and . they understand and agree with plan of care and deny any questions at this time. patient reports one kidney is 25% functioning and one kidney is 35% functioning. 1944- discussed plan of care with Dr. Gurrola- he suggests lovenox, admit, VQ scan. called hospitalist, waiting for them to return call. 1999- called for hospitalist again. waiting to hear back. Result Diagrams: 02/24/19 18:43 02/24/19 18:43 - EKG 1 Time of EKG reading by physician:: 18:43 EKG Read and Signed by:: Louie Gurrola EKG Interpretation (*Must complete 3 of following elements*): Abnormal Rate: 81 Rhythm: Accelerated junctional rhythm associated w/occ PVCs [place]: normal QRS: normal ST Wave: normal, non-specific ST changes (nonspecific T wave abnormality) - XRAY 1 XRAY Study: Chest Impression: See EMR Report (Signed EXAM: CHEST-1 VIEW 02/24/2019 HISTORY: SOB TECHNIQUE: AP portable at 1856 COMMENT: There are bilateral pleural effusions. There is pulmonary edema. There is cardiomegaly. This is worse than on 12/20/2018. IMPRESSION: Pulmonary edema pleural effusions and cardiomegaly. Electronically signed by Waqar Jolly 02/24/2019 7:15 PM 02/24/191914 Interpreting Physician: Waqar Jolly MD Dictated Date/Time: 02/24/191913 cc: Leo Saravia MD; None,PCP) - CONSULTS/PCP/HOSPITALIST Notification #1 *Consult/PCP/Hospitalist*: Dr. Orantes Time Discussed: 20:30 Reason/Comments: admit for COPD exacerbation Consult Disposition: Will see in ED, Admit Departure - Departure Date of Disposition Decision: 02/24/19 Time of Disposition Decision: 20:30 DIAGNOSIS: COPD with acute exacerbation Disposition: ADMITTED INPATIENT 09 Certified Medical Emergency: Emergent Condition: Fair - Critical Care Note This patient required my direct & personal management of CC.: No Attestation - Physician/ MIRZA Attestation Patient care was provided by Advanced Practice Provider:: Yes Advanced Practice Provider:: Gali Bryant Advanced Practice Provider documentation review:: The Mid-level provider documentation, treatment plan and medical decision making was reviewed by the physician who agrees with all treatment and medical decision making by the MLP. The physician spent face to face time with patient:: No Advanced Practice Provider documentation review:: Supervising physician onsite and consulted in the evaluation and care of this patient. The physician did not have a face to face encounter with the patient. This chart was documented by the indicated scribe, (Michelle Myers Scribe) and accurately reflects the services I performed and decisions made by me, Gali Bryant CRNP, as attested by the provider's signature.
--- NOTE | 2019-02-24 19:17 | Diag Imaging Result Doc PS360 ---
EXAM: CHEST-1 VIEW 02/24/2019 HISTORY: SOB TECHNIQUE: AP portable at 1856 COMMENT: There are bilateral pleural effusions. There is pulmonary edema. There is cardiomegaly. This is worse than on 12/20/2018. IMPRESSION: Pulmonary edema pleural effusions and cardiomegaly. Electronically signed by Waqar Jolly 02/24/2019 7:15 PM
[2019-02-24 19:20] LABS: ALB/GLOB RATIO 0.8; ALBUMIN 2.7 g/dL (3.5-5.0); CALCIUM 8.2 mg/dL (8.8-10.2); CREATININE 2.4 mg/dL (0.7-1.2); MAGNESIUM 1.8 mg/dL (1.5-2.7); POTASSIUM 4.3 mmol/L (3.5-5.1); TOTAL BILIRUBIN 0.26 mg/dL (0.20-1.00); TOTAL PROTEIN 5.9 g/dL (6.3-8.3)
--- NOTE | 2019-02-24 19:39 | EKG Report ---
Test Performed on : 02/24/2019 6:43:43 PM Test Reason : CP, SOB Blood Pressure : / mmHG Vent. Rate : 081 BPM Atrial Rate : 083 BPM P-R Int : 000 ms QRS Dur : 096 ms QT Int : 394 ms P-R-T Axes : 000 011 -78 degrees QTc Int : 457 ms Accelerated Junctional rhythm. with occasional premature ventricular complexes. Nonspecific T wave abnormality Abnormal ECG When compared with ECG of 20-DEC-2018 11:22, Junctional rhythm. has replaced Sinus rhythm. Non-specific change in ST segment in Anterior leads Nonspecific T wave abnormality, worse in Inferior leads T wave inversion no longer evident in Anterolateral leads Unconfirmed Result
[2019-02-24] MEDS ORDERED: LOVENOX 1 MG/KG SUBQ ONE (19:45)
[2019-02-24] MEDS ORDERED: LOVENOX SUBQ ONE (20:00)
[2019-02-24] MEDS ORDERED: LASIX IV ONE (20:31)
[2019-02-24] MEDS ORDERED: ZOFRAN IV PRN (23:55)
[2019-02-24] MEDS ORDERED: NITROGLYCERIN TOP ONE (23:55)
[2019-02-24] MEDS ORDERED: LASIX IV SCH (23:55)
--- NOTE | 2019-02-25 00:18 | HISTORY AND PHYSICAL ---
PRIMARY CARE PHYSICIAN: Dr. Allen. CHIEF COMPLAINT: Shortness of breath x1 week. HISTORY OF PRESENTING ILLNESS: A 53-year-old male with a history of COPD, diabetes mellitus type 2, hypertension, hyperlipidemia, chronic kidney disease, who presented to the emergency department with 1-week history of progressive worsening shortness of breath. The patient states that he was having difficulty breathing and even with minimal exertion he was short of breath. He was evaluated in the emergency department. He is found to be in heart failure. He was given IV diuresis with Lasix. He had some improvement. However, due to his presenting symptoms he will require admission for further management. At the time of my examination, he denied any headache, fever, chills, chest pain, hemoptysis, melena, but complained of shortness of breath. PAST MEDICAL HISTORY: Includes COPD, diabetes mellitus type 2, hypertension, hyperlipidemia, chronic kidney disease and kidney stone. PAST SURGICAL HISTORY: Lithotripsy, left knee surgery, left arterial bypass in left lower extremity. ALLERGIES: No known drug allergies. CURRENT MEDICATIONS: Include amitriptyline 10 mg p.o. at bedtime, aspirin 325 mg p.o. daily, Celexa 40 mg p.o. daily, clonidine 0.1 mg p.o. daily, gemfibrozil 600 mg p.o. b.i.d., hydralazine 100 mg p.o. q.8 hours, [place] 10/325 one p.o. t.i.d., insulin Humulin 70/30 of 10 units subcutaneous b.i.d., labetalol 200 mg p.o. b.i.d., Movantik 12.5 mg daily, pantoprazole 40 mg p.o. daily, Flomax 0.4 mg p.o. daily. SOCIAL HISTORY: Former smoker. He states he quit 3 days ago. Denies any history of alcohol or illicit drug use. FAMILY HISTORY: No history of coronary artery disease. REVIEW OF SYSTEMS: Fourteen point review of system as listed in HPI, other systems negative. PHYSICAL EXAMINATION: GENERAL: Cooperative, friendly male. He is in some mild to moderate respiratory distress. VITAL SIGNS: Temperature 99.2 degrees, pulse 77, respiration 34, blood pressure 169/76. HEENT: Atraumatic, normocephalic. Extraocular movements intact. PERRLA. NECK: No masses. CHEST: Bibasilar rales. CARDIOVASCULAR: Regular rate and rhythm. ABDOMEN: Soft. Positive bowel sounds. EXTREMITIES: Trace edema. NEUROLOGIC: He is awake, alert, oriented x3. GENITOURINARY: No bladder distention. SKIN: Warm. LABORATORIES AND STUDIES: WBCs 7.76, hemoglobin 8.4, hematocrit 26.0, platelets 213,000. Sodium 145, potassium 4.3, chloride 107, CO2 of 25, BUN is 29, creatinine is 2.4, glucose 148. ProBNP is 27,408. Troponin 0.0154. ASSESSMENT: This is a 53-year-old male with a history of chronic obstructive pulmonary disease, diabetes mellitus type 2, hypertension, hyperlipidemia, who had presented to emergency department with 1-week history of progressive shortness of breath. He was evaluated in the emergency department. He is found to be in heart failure and subsequently he will require admission for further management. 1. Acute congestive heart failure exacerbation, unspecified. 2. Elevated troponin. 3. Also elevated D-dimer. 4. Chronic obstructive pulmonary disease. 5. Diabetes mellitus type 2. 6. Hypertension. 7. Chronic kidney disease. PLAN: 1. We will admit patient to [facility]. 2. We will continue patient on BiPAP and nitroglycerin and continue with gentle diuresis. 3. We will consult Cardiology. Echocardiogram., Continue on BIPAP. 4. We will trend his troponins and also get V/Q scan to r/o PTE. 5. Continue with DuoNebs. 6. Monitor blood glucose and put patient on sliding scale insulin regimen. 7. Monitor blood pressure. Resume antihypertensive agents. 8. We will monitor his renal function. 9. Continue patient on DVT prophylaxis with heparin. 10. We will continue to follow, reassess and make further recommendation based on patient's clinical course. cc: Gerald Orantes MD MTDD
[2019-02-25] MEDS: HEPARIN SUBQ SCH ×3 (00:20→21:27)
[2019-02-25] MEDS ORDERED: APRESOLINE PO SCH (01:00)
[2019-02-25] MEDS: NORCO-10 PO PRN ×2 (01:12→23:51)
[2019-02-25] MEDS: DUONEB (A & A) INH PRN ×6 (03:27→23:24)
[2019-02-25] MEDS: TRANDATE PO SCH ×2 (04:45→21:27)
[2019-02-25] MEDS: HUMULIN R SUBQ SCH ×4 (06:07→21:27)
[2019-02-25] MEDS ORDERED: ASPIRIN PO ONE (08:24)
[2019-02-25] MEDS ORDERED: TRANDATE PO SCH (09:00)
[2019-02-25] MEDS ORDERED: CELEXA PO SCH (09:00)
[2019-02-25] MEDS: CELEXA PO SCH (09:40)
[2019-02-25] MEDS: FLOMAX PO SCH (09:40)
[2019-02-25] MEDS: CATAPRES PO SCH (09:41)
[2019-02-25] MEDS: TRENTAL PO SCH ×3 (09:41→21:27)
[2019-02-25] MEDS: PROTONIX PO SCH ×2 (09:41→21:27)
[2019-02-25] MEDS ORDERED: LASIX IV SCH (11:02)
[2019-02-25] MEDS: LASIX IV SCH ×2 (12:24→23:43)
[2019-02-25] MEDS: SOLU-MEDROL IV SCH ×2 (12:24→23:43)
--- NOTE | 2019-02-25 14:27 | PROGRESS NOTE ---
DATE: 02/25/2019 HISTORY: Patient dyspnea at rest improved but still dyspnea on exertion. No chest pain. continued nonproductive cough. roughly stable limb swelling. no other complaints. no acute events overnight REVIEW OF SYSTEMS: 12 -point review of systems as interval history. LABS: Dimer 2.54, initial troponin 0.15, repeat 0.12, BNP 27,000, CRP 27.5, TSH 2.9, lactate 2.1. VITALS: T max 99.2, pulse 68, respirations 18, blood pressure 178/70, O2 saturation 90 % on 2 L nasal cannula . PHYSICAL EXAM: General: No acute distress . Vitals as above. HEENT: Normocephalic atraumatic. no cervical adenopathy. Cardiovascular: Regular rate and rhythm no murmurs . Pulmonary: Some bibasilar crackles otherwise largely clear to auscultation bilaterally. Good air entry but monitor respiratory wheezing. Abdomen: Soft, nontender, nondistended bowel sounds positive. Extremities: Peripheral pulses intact, no clubbing or cyanosis, signifcant venous stasis changes and 1+ pitting edema of both legs. also 1+ edema of bilateral lower arms. Neurologic: Cranial nerve grossly intact no focal deficit identified. Psychiatric: Normal mood and affect, awake alert, oriented x3. Skin: No new rashes, lesions. ASSESSMENT AND PLAN: 1. Dyspnea possible acute congestive heart failure, possible pulmonary thromboembolism . Exact etiology of patient's dyspnea not entirely clear. Overall picture with elevated BNP, edema on chest x-ray most consistent with congestive heart failure but also some concern for pulmonary embolism. Given therapeutic dose of Lovenox late last night. Obtain V/Q scan to eval for clots. Getting echocardiogram to evaluate heart function. Cardiology consulted and awaiting recommendations from them as well. Continue aspirin and monitor . Continue diuresis with Lasix. 2. Elevated troponin, non-ST segment elevation myocardial infarction versus demand ischemia/type 2 myocardial infarction . Patient with mildly elevated troponin initially, repeat appears to be trending down. Possible new onset congestive heart failure this could be either at this point. Will continue to trend and see what cardiology says. Continue aspirin as above. 3. Chronic obstructive pulmonary disease, good air entry but does have mild wheezing on exam. Will add steroids and nebulizers. 4. Diabetes on sliding scale, will continue and monitor and adjust doses as needed. 5. Peripheral arterial disease, continue aspirin and Trental. 6. Chronic kidney disease 4, creatinine essentially stable from previous. Continue to monitor . 7. Increase in heart size. Patient with what appears to be fairly significant cardiomegaly on x-ray. This appears to be a significant change from his previous x-ray a few months ago. Obtaining echocardiogram as above to see if this is true cardiomegaly or pericardial effusion. Vitals are stable so if this is an effusion he not show any clinical signs of tamponade. DONNA
--- NOTE | 2019-02-25 14:59 | Diag Imaging Result Doc PS360 ---
EXAM: LUNG SCAN / VQ 02/24/2019 HISTORY: dyspnea TECHNIQUE: Ventilation/perfusion lung scan, 40.7 mCi of technetium 99m DTPA aerosol and 5.4 mCi of technetium 99m MAA COMMENT: There is no evidence of ventilation/perfusion mismatch. No definite perfusion abnormalities are present. There are no more recent chest radiographs since the previous study of 02/24/2019 at 1856. At that time there were bilateral pleural effusions and apparent pulmonary edema and cardiomegaly. IMPRESSION: Low probability for pulmonary embolus. Electronically signed by Waqar Jolly 02/25/2019 2:56 PM
--- NOTE | 2019-02-25 16:29 | ECHO REPORT ---
ORDER DATE: 02/24/2019 INTERPRETING PHYSICIAN: Dr. Teofilo Mary. REQUESTING PHYSICIAN: CLINICAL INDICATIONS: A 53-year-old male with CHF and swelling. M-MODE MEASUREMENTS: Right ventricle: cm. Left ventricle end diastole: 5.6 cm. Left ventricle end systole: 2.3 cm. Posterior wall: 1.3 cm. Interventricular septum: 1.4 cm. Left atrium: 5.1 cm. Aortic root: 3.6 cm. SUMMARY OF 2-DIMENSIONAL IMAGIN. The left ventricular function is normal. Ejection fraction estimated at 59%. 2. The ventricular chamber appears to mildly enlarged. 3. There is mild degree of concentric left ventricular hypertrophy. 4. The left atrium is mild to moderately enlarged. 5. The aortic valve shows sclerosis of the cusp without stenosis. 6. A small pericardial effusion is present. I believe there is also pleural effusion. 7. The right ventricle is mildly enlarged. 8. The mitral valve shows mild degree of regurgitation. 9. Pulse wave Doppler of mitral inflow shows normal E/A ratio. 10.Tissue Doppler of septal and lateral mitral annulus averages 11 cm per second. 11.There is no diastolic dysfunction. 12.The tricuspid valve shows a mild degree of regurgitation. 13.The pulmonary pressure is estimated at 57-62 mmHg. 14.The pulmonic valve is grossly unremarkable. SUMMARY: In summary, the study shows: 1. Normal left ventricular systolic function with ejection fraction of 59% with mild degree of concentric LVH. 2. Small pericardial effusion. 3. Pulmonary pressure estimated at 57-62 mmHg. 4. No diastolic dysfunction. 5. Mild degree of mitral regurgitation. 6. There is sclerosis of the aortic valve without stenosis. Clinical correlation is recommended. cc: MD Gerald Youssef MD
--- NOTE | 2019-02-25 16:48 | CARDIOLOGY CONSULTATION ---
DATE: 02/25/2019 CONSULTATION REQUESTED BY: Hospitalist service. REASON FOR CONSULTATION: Congestive heart failure. CHIEF COMPLAINT: Swelling, shortness of breath. HISTORY: Mr. Olsen is an unfortunate 53-year-old male who presents at this time to the emergency room department with about a week of progressive swelling of lower extremities subsequently followed by increasing dyspnea. The patient said that after his last hospital discharge on December 24 following a number of urological interventions, the last one performed by Dr. Russell on December 22, including a cystoscopy, right ureteroscopy with laser lithotripsy and stone basket extraction with a right ureteral stent and left extracorporeal shock wave lithotripsy. The patient apparently was able to make good amounts of urine. He has been taking Lasix. Lately he has noticed that in spite of the fact that he is making a reasonable amount of urine he is developing more swelling and then shortness of breath. At the time of presentation, they did a chest x-ray on February 24 at about 7 p.m. that shows bilateral pleural effusions, pulmonary edema, cardiomegaly. A 12 lead electrocardiogram done at that time shows sinus rhythm with a lot of baseline artifact, low voltage. The patient denies having any pain. At the time of presentation, they had to check the troponins as usual. The 1st troponin was 0.154. The 2nd one this morning 0.123. A proBNP level was 27,000. Of note, when he presented to the hospital a few weeks ago on December 03. His proBNP was greater than 35,000. His creatinine at this time is 2.4. Back in December 03, the highest was 9.33 when he presented with an acute renal failure. At any rate, at this time the patient is sitting upright. He is not in any distress. He is just hungry and wants to have his breakfast. PAST HISTORY: Positive for hypertension for many years. He has hyperlipidemia also for a number of years. He has been seen by Dr. Walker at our office last time on 12/02/2017. At that time they discussed the results of the stress test that he was given on October 2017 that showed a low-grade reversible perfusion defect in the basal inferior wall and base of the left ventricle. There was significant diaphragmatic attenuation of his ejection fraction of 59% at that time. His echocardiogram at that time was normal with normal ejection fraction. A coronary calcium score that was done at that time yielded a value of 143 units, indicating moderate degree of atherosclerosis. They could not do a coronary CTA because of elevated creatinine. The patient has a history of diabetes mellitus type 2. His most recent hemoglobin A1c checked I believe on December 23 was 5.8% indicating that he is within normal range. He does have peripheral vascular disease with previous total occlusion of the right superficial femoral artery. He has had a femoral bypass in the past on the left side. 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 He has chronic ischemic ulcers in both lower extremities and currently he is under the care of the wound center where he goes periodically for management. His both legs are wrapped in dressing. participates in the cleaning of the dressings almost daily twice a day. PAST SURGICAL HISTORY: Also positive for arthroscopic knee surgery, foot surgery. SOCIAL HISTORY: He is , disabled. He has no children. He has been a smoker for many years. Currently, he is smoking about 3 to 4 cigarettes a day. REVIEW OF SYSTEMS: The patient presented 2-1/2 months ago with acute renal failure. At that time the reason for the renal failure appeared to be of obstructive stones and he was managed by the Nephrology and the Urology services and his condition stabilized. By the time he left the hospital the 1st time which would have been December 24 his creatinine was 2.6. His admissions basically were [id number] because he was admitted between December 03 through December 19 and then readmitted the following day, December 20 through December 24 because of hypoglycemia. His additional issue is that he has chronic anemia. His hemoglobin is 8.4. His iron is low. However, his saturation last time was checked was adequate. HOME MEDICATIONS: At this time include he is taking Elavil 10 mg at bedtime, aspirin 325 daily, vitamin D3 5000 units daily, Celexa 40 mg daily, clonidine 0.1 mg daily, furosemide 40 mg daily, hydralazine 100 mg every 8 hours, insulin 70/30 15 units in the morning and 10 units in the evening, Trandate 200 mg twice a day, multivitamin, iron, folic acid daily, Protonix 40 twice a day, Trental 400 three times a day, Flomax 0.4 mg daily. ALLERGIES: Reported to no medications. FAMILY HISTORY: He has no significant family history to speak of. PHYSICAL EXAMINATION: Blood pressure at this time is 169/65, temperature 97.8 degrees, pulse 63, respirations 16. Patient is awake, alert, appears to be chronically ill and malnourished. There is atrophy of the temples on both sides.HEENT: Unremarkable. Chest: There is evidence of chest wall edema up to the midportion of the chest. There is anasarca. Diminished breath sounds bilaterally. Heart: Sounds are regular rhythmic. I do not hear a gallop or murmur. Distant. Abdomen: Slightly distended. Abdominal wall edema. Extremities: Show diffuse edema. The legs are wrapped in dressing. Pulses are markedly diminished. Evidence of previous surgery. Neurologic: He is awake, alert, oriented, follows commands. Moves 4 extremities. LABORATORY: Blood work today sodium 145, potassium 4.3, BUN 29, creatinine 2.4, glucose 148, alkaline phosphatase 158. Hemoglobin 8.4, MCV is 92.2. IMPRESSION: 1. Patient who presents to the hospital with increasing swelling, anasarca, edema. This is probably not cardiac. I suspect this is due to significant renal dysfunction and possibly coincidental profound malnourishment or malnutrition. Possible fatty liver/cirrhosis of the liver. 2. History of an abnormal myocardial perfusion stress test with moderate coronary atherosclerosis and preserved ejection fraction October 2017. 3. History of severe peripheral vascular disease with chronic ulcers in both lower extremities, previous amputation. 4. Diabetes mellitus long-term with normal HbA1c last time checked. 5. Pleural effusions. 6. Advanced chronic kidney disease. 7. Nonspecific elevation of troponin levels. Doubt Non [place]. RECOMMENDATION: At this time, I will suggest to do a limited echocardiogram just to assess his ejection fraction. Otherwise, I definitely think that the Nephrology service needs to be consulted. I am going to request a 24 hour protein urine creatinine clearance, pre-albumin, uric acid, and further advice will be forthcoming. In the meantime, we need to give adequate doses of diuretics. The 40 mg every 12 hours is really inadequate for his degree of renal malfunction. His GFR is probably lower than what the computer is estimating, which is 28 mL/minute. We will go ahead and put him on 100 mg of Lasix twice a day and again, I think they need to consult the Nephrology service. cc: Teofilo Mary MD [facility]
[2019-02-25 18:26] LABS: URINE SOURCE CATH
[2019-02-25 18:29] LABS: BILIRUBIN URINE NEGATIVE (NEGATIVE); BLOOD URINE NEGATIVE (NEGATIVE); COLOR YELLOW; GLUCOSE URINE TRACE mg/dL (NEGATIVE); KETONE URINE NEGATIVE (NEGATIVE); LEUKOCYTES URINE NEGATIVE (NEGATIVE); NITRITE URINE NEGATIVE (NEGATIVE); PH URINE 5.5; PROTEIN URINE 200 mg/dL (NEGATIVE); TURBIDITY URINE HAZY (CLEAR); UR EPITHELIAL CELLS >10 /HPF (<10); URINE BACTERIA NEGATIVE /HPF; URINE RBC <10 /HPF (<10); URINE WBC <10 /HPF (<10); UROBILINOGEN URINE NORMAL (NORMAL)
[2019-02-25 18:37] LABS: URINE CASTS NONE SEEN; URINE CRYSTALS NONE SEEN; URINE SMALL ROUND CELLS TRANS PRESENT; URINE YEAST NONE SEEN
[2019-02-26] MEDS: DUONEB (A & A) INH PRN ×6 (03:43→23:04)
[2019-02-26] MEDS ORDERED: APRESOLINE IV ONE (04:00)
[2019-02-26 05:50] LABS: HEMATOCRIT 26.3 % (42.0-52.0); HEMOGLOBIN 8.4 g/dL (14.0-18.0); IMM GRAN# 0.02 X1000 (0.0-0.04); IMM GRAN% 0.2 % (0.0-0.5); LYMPH# 0.61 X1000 (1.2-3.4); LYMPH% 7.6 % (20.5-51.1); MCH 29.7 PG (27-31); MCHC 31.9 g/dL (33-37); MCV 92.9 FL (81-99); MONO# 0.21 X1000 (0.11-0.59); MONO% 2.6 % (1.7-9.3); MPV 10.5 FL (7.4-10.4); NEUT# 7.18 X1000 (1.4-6.5); NEUT% 89.6 % (42.2-75.2); PLT 231 X1000 (130-400); RBC 2.83 XMIL (4.7-6.1); RDW 15.4 % (11.5-14.5); WBC 8.02 X1000 (4.8-10.8)
[2019-02-26] MEDS: HEPARIN SUBQ SCH ×3 (06:03→20:32)
[2019-02-26] MEDS: HUMULIN R SUBQ SCH ×4 (06:03→20:33)
[2019-02-26 06:10] LABS: CHOLESTEROL 114 mg/dL (0-200); DIRECT LDL 52 mg/dL; HDL 45 mg/dL (35-55); IRON SATURATION 26 %; LDL 50 mg/dL; PREALBUMIN 12.7 mg/dL (20-40); TIBC 157 ug/dL; TOTAL IRON 41 ug/dL (53-167); TRIGLYCERIDES 97 mg/dL (39-160); UNBOUND IRON 116 ug/dL (112-346); VLDL 19 mg/dL
[2019-02-26 06:22] LABS: CALCIUM 8.3 mg/dL (8.8-10.2); CREATININE 2.5 mg/dL (0.7-1.2); POTASSIUM 4.8 mmol/L (3.5-5.1)
[2019-02-26 07:26] LABS: URIC ACID 9.3 mg/dL (3.4-7.0)
[2019-02-26] MEDS: ASPIRIN PO SCH (08:56)
[2019-02-26] MEDS: CATAPRES PO SCH ×3 (08:56→22:30)
[2019-02-26] MEDS: PROTONIX PO SCH ×2 (08:56→20:33)
[2019-02-26] MEDS: TRANDATE PO SCH ×2 (08:56→20:32)
[2019-02-26] MEDS: TRENTAL PO SCH ×3 (08:56→20:32)
[2019-02-26] MEDS: FLOMAX PO SCH (08:56)
[2019-02-26] MEDS: CELEXA PO SCH (08:56)
[2019-02-26] MEDS: APRESOLINE PO SCH ×2 (08:59→16:11)
--- NOTE | 2019-02-26 10:37 | CARDIOLOGY PROGRESS NOTE ---
DATE: 02/26/2019 CHIEF COMPLAINT: Swelling, dyspnea. SUBJECTIVE: Mr. Olsen feels somewhat better. The swelling is still present but is not as bad. Breathing is somewhat more comfortable. We have put him on higher doses of Lasix, which he is tolerating. He denies having any chest pain. His telemetry shows sinus rhythm. OBJECTIVE: Blood pressure is 201/82, temperature 97.4, pulse 72, respirations 18. He is awake, alert, oriented, in no distress. HEENT: Unremarkable. Chest: Diminished breath sounds. Heart: Sounds are regular and rhythmic. I do not hear gallop or murmur. His abdomen shows evidence of abdominal wall edema, anasarca. This goes to above the lower edge of the ribcage and involves the abdomen and also the lower extremities. He does have sores on the legs. The legs are wrapped up with dressing. Neurologic: He follows commands, moves all 4 extremities. IMPRESSION: 1. The patient presented with anasarca edema. The question was whether or not this is congestive heart failure. Echocardiogram done yesterday, which I have reviewed, shows normal left ventricular systolic function as well as normal diastolic function. There is a small pericardial effusion. 2. Chronic kidney disease with a recent episode of acute renal failure. 3. Bilateral kidney stones. 4. Question of malnutrition, liver dysfunction. 5. Coronary atherosclerosis, moderate. RECOMMENDATIONS: At this time, we are continuing with a 24-hour creatinine clearance and protein of the urine. I believe this patient really needs to be evaluated by the Nephrology Service. His edema is noncardiac. It would be also important to perhaps consult with Gastroenterology and see if there may be a liver or gastrointestinal component to the stu of his edema. Because of his significant hypertension, we will make some adjustments to optimize his blood pressure. Further advice will be forthcoming. cc: Teofilo Mary MD [facility]
[2019-02-26] MEDS: NORVASC PO SCH ×2 (11:26→20:33)
[2019-02-26] MEDS: LASIX 100 MG in NS 25 ML IV SCH (12:30)
[2019-02-26] MEDS: SOLU-MEDROL IV SCH (12:30)
--- NOTE | 2019-02-26 14:35 | CONSULTATION ---
DATE OF CONSULTATION: 02/26/2019 CHIEF COMPLAINT: Scrotal swelling. HISTORY OF PRESENT ILLNESS: Mr. Olsen is a 53-year-old with chronic obstructive pulmonary disease, type 2 diabetes, hypertension, hyperlipidemia, chronic kidney disease, nephrolithiasis, peripheral vascular disease, history of nephrolithiasis, depression, history of CVA x2, peripheral neuropathy, who presents in consultation regarding scrotal swelling. The patient is well known to urology as he was treated for kidney stones back in the middle part of November. The patient had obstructing bilateral ureteral stones and had acute on chronic kidney disease with creatinine elevated above 9. The patient was taken the operating room and underwent bilateral stent placement. His renal function slowly improved. The patient has subsequently undergone treatment for his kidney stones and was doing well. However, patient describes having increased work of breathing and shortness of breath for approximately 1 week. The patient was seen in the emergency room on Wednesday night and states that he has been having increased work of breathing and was found to be in heart failure exacerbation. The patient has been given IV diuresis with Lasix and clinically has been improving. Urology was consulted regarding scrotal swelling. The patient has a chronic history of scrotal and lower extremity swelling and states that he feels that it is worse than normal. The patient has been evaluated both inpatient as well as outpatient, and some degree of scrotal swelling has always been present. It is slightly worse today than other times, likely related to the significant anasarca and lower extremity edema from his heart failure, chronic kidney disease, protein deficiency and liver dysfunction. The patient denies any scrotal pain. The patient had a urethral catheter placed yesterday by nursing. It was difficult but was placed ultimately. The patient has been making good urinary output and is currently performing a 24 hour urine collection. The patient was not having any issues voiding at home prior to admission. PAST MEDICAL HISTORY: 1. Hypertension. 2. Hyperlipidemia. 3. Peripheral vascular disease. 4. Type 2 diabetes. 5. Depression. 6. History of CVA x2. 7. Peripheral neuropathy. 8. Peripheral arterial disease, status post bypass grafting. 9. Chronic foot ulcerations. 10. History of nephrolithiasis. 11. COPD. PAST SURGICAL HISTORY: 1. Removal of right second phalanges. 2. Left femoropopliteal bypass on the left. 3. Arthroscopy of the knee. 4. External shockwave and ureteroscopy for stone removal. HOME MEDICATIONS: 1. Elavil 10 mg p.o. daily. 2. Aspirin 325 mg p.o. daily. 3. Vitamin D 5000 international units p.o. daily. 4. Celexa 40 mg p.o. daily. 5. Clonidine 0.1 mg p.o. daily. 6. Lasix 40 mg p.o. daily. 7. Hydralazine 100 mg p.o. q.8 hours. 8. Goldonna 10/325 mg take 1 tablet t.i.d. 9. Insulin 730 with 15 units in the morning and 10 units at night. 10. Labetalol 200 mg p.o. b.i.d. 11. Multivitamin. 12. Naloxegol oxalate 12.5 mg p.o. 13. Protonix 40 mg p.o. b.i.d. 14. Pentoxifylline ER 400 mg p.o. t.i.d. 15. MiraLAX 17 g b.i.d. 16. Flomax 0.4 mg daily. ALLERGIES: No known drug allergies. SOCIAL HISTORY: Former smoker. Denies alcohol or illicit drug use. FAMILY HISTORY: Denies family history of malignancy. REVIEW OF SYSTEMS: A 12 point review of systems performed with all pertinent positives and negatives in the HPI. PHYSICAL EXAMINATION: Vital Signs: Temperature 97.8 degrees, heart rate 68, blood pressure 198/80, oxygen saturation is 99% on room air. General: No acute distress. Resting comfortably in bed. Alert and oriented x3. HEENT: Normocephalic, atraumatic. Pupils equal, round, reactive to light. The patient has poor dentition with moist mucous membranes. Respiratory: Good respiratory effort without audible wheezing or rales. Cardiovascular: Regular rate and rhythm. The patient has 3+ pitting edema to the lower extremity. Abdomen: Evidence of anasarca to above the areola bilaterally and significant edema of the lower abdomen. No palpable masses due to anasarca. : No suprapubic tenderness. No CVA tenderness. Significant suprapubic edema with large amount of scrotal swelling. Unable to palpate testicles due to scrotal edema. Scrotum is nontender to palpation. The patient's urethral catheter is in place, draining clear yellow urine with no evidence of clots. Musculoskeletal: Significant lower extremity edema. Neurologic: Gross motor and sensory intact. Skin: The patient has ulcerations of the lower extremities. These are wrapped with Kerlix at this time. LABORATORY DATA: White blood cell count 8.0, hemoglobin 8.4, hematocrit 26.3, platelets 231,000. Sodium 143, potassium 4.8, chloride 106, bicarb 25, BUN 38, creatinine 2.5, glucose 259. Iron 41. C-reactive protein 27.5. Xry-M-yagmhnuovjs peptide 27,400. Prealbumin 12.7. ASSESSMENT AND PLAN: Mr. Olsen is a 53-year-old with hypertension, hyperlipidemia, peripheral vascular disease, type 2 diabetes, depression, history of cerebrovascular accident x2, peripheral neuropathy, peripheral arterial disease, status post left lower extremity grafting, foot ulcerations, and nephrolithiasis who presents in consultation regarding scrotal edema. The patient has a long history of scrotal edema and has been seen outpatient regarding this. The patient was first seen back in November for kidney stones. At that time, he was anuric and had significant scrotal edema present. The patient continues to have evidence of scrotal edema at this time, maybe slightly worse. However, he has significant anasarca and lower extremity edema as well. The patient has significant congestive heart failure, protein malnutrition, as well as chronic kidney disease. The patient's renal function currently is at his baseline for the past several months. The patient had an echocardiogram yesterday that was read by Dr. Mary and was reported as relatively normal with a good ejection fraction. The patient continues to have hypertension with blood pressures in the 190s to 200s. The patient respiratory- aguilar feels like he is improving and denies increase work of breathing on my evaluation. I think patient will have persistent scrotal edema until his underlying medical conditions can be alleviated. I recommended support of his scrotum to try to decrease scrotal edema. However, patient has failed to perform this previously, and again reiterated the need to maybe place a towel underneath his scrotum to try to help and raise his scrotum to try to help with his edema. I would recommend continued optimization for his medical problems. Would keep indwelling catheter in to assist in monitoring I&Os during diuresis. We will continue to follow from a urologic standpoint. Please call with questions or concerns. cc: Yosef Russell MD [facility]
--- NOTE | 2019-02-26 14:41 | PROGRESS NOTE ---
DATE: 02/26/2019 INTERVAL HISTORY: The patient still has fairly significant dyspnea on exertion. Edema improving slowly. He had pretty significant urinary retention last night. Hirsch had to be placed. Suspect is this is due to his marked edema. No other acute events overnight. No new complaints. REVIEW OF SYSTEMS: 12 point review of systems negative except as per interval history. LABS: WBC 8, hemoglobin 8.4, hematocrit 26.3, platelets 231,000. Sodium 143, potassium 4.8, BUN 38, creatinine 2.5, glucose 259, troponin 0.11. VITALS: T-max 99, pulse 68, respirations 16, blood pressure 198/80, O2 saturation 99% on 2 liters by nasal cannula. PHYSICAL EXAMINATION: General: No acute distress. Vitals: As above. HEENT: Normocephalic, atraumatic. No cervical adenopathy. Cardiovascular: Regular rate and rhythm. No murmurs noted. Pulmonary: Bibasilar crackles, largely stable. Good air entry. Only minimal expiratory wheeze at this point. Abdomen: Nontender. Bowel sounds positive. Still with anasarca up to the ribs. Extremities: Peripheral pulses intact. No clubbing or cyanosis. Significant venous stasis changes of his lower extremities below the knee. He has got 1+ pitting edema up to at least his ribs. Edema of the arms is somewhat improved. : Still with signet, scrotal and penile edema. Neurologic: Cranial nerves grossly intact. No focal deficits identified. Psychiatric: Normal mood and affect. Awake, alert, oriented x3. Skin: No new rashes or lesions seen. ASSESSMENT AND PLAN: 1. Likely acute diastolic congestive heart failure, pulmonary hypertension. Patient's echo with normal ejection fraction , only minimal pericardial effusion. V/Q scan low probability for pulmonary thromboembolism. Likely diastolic heart failure and pulmonary hypertension. Pulmonary pressures were markedly elevated at 57 to 62. Responding to Lasix but slowly. Cardiology following and increase his Lasix today. Continue diuresis and monitor. 2. Elevated troponin. NSTEMI versus demand ischemia. Cardiology favoring demand ischemia and his kidney dysfunction as a cause. 3. Chronic obstructive pulmonary disease. Minimal wheezing. Pretty good air entry. Continue steroids and nebulizers. 4. Chronic kidney disease 4. Essentially stable monitor. 5. Peripheral arterial disease. Continue aspirin and Trental. 6. Diabetes reasonable control. Continue sliding scale and monitor. 7. Hypertension. Blood pressure pretty significantly elevated this morning. Added some hydralazine with only minimal effect. Cardiology adding some clonidine. We will see what that does and adjust further as needed.
[2019-02-26] MEDS ORDERED: ZAROXOLYN PO ONE (16:43)
--- NOTE | 2019-02-26 17:06 | Diag Imaging Result Doc PS360 ---
EXAM: CHEST-PORTABLE 02/26/2019 HISTORY: dyspnea TECHNIQUE: AP portable at 1659 COMMENT: There is cardiomegaly, pleural effusions and pulmonary edema. There is more pleural fluid on the left than on 02/24/2019 otherwise there has been no significant change. IMPRESSION: Cardiomegaly pulmonary edema and pleural effusions. Electronically signed by Waqar Jolly 02/26/2019 5:04 PM
[2019-02-26 17:09] LABS: ALLEN TEST YES; BE 4.4 mmoll (-3.0-3.0); BLOOD TYPE ARTERIAL; HCO3-(ACT) 28.4 mmoll (20.0-26.0); METHB 0.1 % (0.0-1.5); MODALITY CANNULA; O2(CT) 12.2 mL/dL (15.0-23.0); O2HB 96.8 % (95.0-99.0); PCO2(98.6) 39 mmHg (35-45); PO2(98.6) 113 mmHg (60-100); SAMPLE BLOOD; SAO2 96.9 % (95.0-100.0); THB 8.8 g/dL (11.5-17.4); pH(98.6) 7.47 (7.35-7.45)
[2019-02-26] MEDS ORDERED: MORPHINE IV ONE (17:33)
[2019-02-26 17:34] LABS: CREATININE 2.5 mg/dL (0.7-1.2)
[2019-02-26 17:40] LABS: UR CREATININE 35.1 mg/dL (14-26)
[2019-02-26] MEDS ORDERED: DUONEB (A & A) ONE (17:49)
[2019-02-26 17:58] LABS: UR PROTEIN 201.7 mg/dL
[2019-02-26] MEDS: NORCO-10 PO PRN (20:32)
--- NOTE | 2019-02-26 21:37 | Diag Imaging Result Doc PS360 ---
EXAM: US ABDOMEN-COMPLETE 02/26/2019 HISTORY: Abdominal pain/SOB TECHNIQUE: Abdominal ultrasound COMMENT: There is mild ascites. The visualized portions of the aorta and inferior vena cava are within normal limits. The liver is unremarkable. There is a right pleural effusion. There is some thickening of the gallbladder wall and small stones are seen layering dependently. There is no sonographic King sign. There is no evidence of biliary dilatation the common bile duct measuring 5 mm. There is an apparent 1.3 cm upper pole parapelvic cyst in the left kidney the spleen is not enlarged. There is a left pleural effusion. The pancreas is obscured. IMPRESSION: Cholelithiasis. Ascites and bilateral pleural effusions. Electronically signed by Waqar Jolly 02/26/2019 9:34 PM
[2019-02-27] MEDS: LASIX 100 MG in NS 25 ML IV SCH ×3 (00:08→23:28)
[2019-02-27] MEDS: APRESOLINE PO SCH ×3 (00:08→16:41)
[2019-02-27] MEDS: SOLU-MEDROL IV SCH ×3 (00:08→23:28)
[2019-02-27] MEDS: CATAPRES PO SCH ×3 (00:55→16:41)
[2019-02-27] MEDS: HEPARIN SUBQ SCH ×3 (05:44→21:15)
[2019-02-27] MEDS: HUMULIN R SUBQ SCH ×6 (05:44→21:15)
[2019-02-27 06:01] LABS: ALB/GLOB RATIO 0.7; ALBUMIN 2.7 g/dL (3.5-5.0); CALCIUM 8.3 mg/dL (8.8-10.2); CREATININE 2.4 mg/dL (0.7-1.2); POTASSIUM 4.7 mmol/L (3.5-5.1); TOTAL BILIRUBIN 0.24 mg/dL (0.20-1.00); TOTAL PROTEIN 6.4 g/dL (6.3-8.3)
[2019-02-27 06:29] LABS: HEMATOCRIT 25.8 % (42.0-52.0); HEMOGLOBIN 8.3 g/dL (14.0-18.0); IMM GRAN# 0.03 X1000 (0.0-0.04); IMM GRAN% 0.4 % (0.0-0.5); LYMPH# 0.43 X1000 (1.2-3.4); LYMPH% 5.6 % (20.5-51.1); MCHC 32.2 g/dL (33-37); MCV 93.1 FL (81-99); MONO# 0.19 X1000 (0.11-0.59); MONO% 2.5 % (1.7-9.3); MPV 10.7 FL (7.4-10.4); NEUT# 7.09 X1000 (1.4-6.5); NEUT% 91.5 % (42.2-75.2); PLT 222 X1000 (130-400); RBC 2.77 XMIL (4.7-6.1); RDW 15.1 % (11.5-14.5); WBC 7.74 X1000 (4.8-10.8)
[2019-02-27] MEDS: DUONEB (A & A) INH PRN ×4 (08:01→23:15)
--- NOTE | 2019-02-27 09:21 | CARDIOLOGY PROGRESS NOTE ---
DATE: 02/27/2019 CHIEF COMPLAINT: Swelling, shortness of breath. SUBJECTIVE: The patient still feels weak, swollen. We have completed the 24-hour urine collection which indicates the followin. Creatinine clearance is 22 mL per minute, indicating that he is stage 4 of chronic kidney disease. 2. He has nephrotic range proteinuria. The total 24-hour protein is 4.48 g. OBJECTIVE: Blood pressure is 177/74, pulse 66, respirations 16, temperature 97.4. The patient is awake, alert, in no distress. He still has significant anasarca edema. HEENT is unremarkable. Chest: Diminished breath sounds at bases. Heart sounds are regular and rhythmic. No gallop or murmur. Abdomen is firm, somewhat distended. There is ascites there. I cannot distinguish hepatomegaly. Extremities showed edema. His legs are wrapped in dressing. Neurologic: Follows commands, moves all 4 extremities. DIAGNOSTIC DATA: His BUN is 44, creatinine 2.4. Sodium is 139, potassium 4.7. Albumin is 2.7. His total cholesterol is 114, LDL is 50, HDL is 45. IMPRESSION: 1. The patient presented with anasarca edema and fluid overload. The initial impression was that this could be a case of congestive heart failure. Unfortunately, the evidence does not support that diagnosis. His echocardiogram shows normal left ventricular systolic function. There is no diastolic dysfunction by echocardiographic criteria. 2. Advanced renal insufficiency. The patient has a creatinine clearance of 22 mL per minute with nephrotic range proteinuria. This is consistent with diabetic nephropathy. 3. The patient probably has also fatty liver secondary to his metabolic dysfunction. 4. Pleural effusions, a result of the anasarca edema. 5. Previous moderate coronary atherosclerosis noted on CT scan of the heart. 6. Hypertension, suboptimally controlled. RECOMMENDATIONS: At this time, I think we really need to get this case handled by the [facility] consultant since the organ that is really failing is the kidney and not the heart. I will be around if any true cardiac abnormality develops. At this time, I think the opinion and management from the [facility] consultant is really liu to getting this patient better and discharged home in a timely manner. Thank you for asking us to participate in his evaluation. cc: Teofilo Mary MD
[2019-02-27] MEDS: ASPIRIN PO SCH (09:35)
[2019-02-27] MEDS: NORVASC PO SCH (09:35)
[2019-02-27] MEDS: TRENTAL PO SCH ×3 (09:35→21:16)
[2019-02-27] MEDS: PROTONIX PO SCH ×2 (09:36→21:16)
[2019-02-27] MEDS: CELEXA PO SCH (09:36)
[2019-02-27] MEDS: TRANDATE PO SCH ×2 (09:36→21:16)
[2019-02-27] MEDS: ALBUMIN 25% IV SCH (11:37)
--- NOTE | 2019-02-27 11:44 | NEPHROLOGY CONSULTATION ---
DATE: 02/27/2019 REASON FOR ADMISSION: Shortness of breath. REASON FOR CONSULTATION: CKD stage 4. CONSULTING PHYSICIAN: Dr. Bonds. HISTORY OF PRESENT ILLNESS: This is a 53-year-old gentleman known to our service since earlier this year when he had an elevated creatinine along with obstructive uropathy. The patient had a definitive procedure for that. His creatinine improved to around 2.5. It has been there since about November. The patient came to the emergency room on the day of admission secondary to shortness of breath for about a week. He was treated with IV Lasix. He was admitted for further workup and treatment. His creatinine while he has been in the hospital has really been unchanged. Initially, it was felt that he was having issues more with congestive heart failure but his workup has precluded that and leans more towards diabetic nephropathy. He completed a 24 hour urine today and had 4.4 g of protein and a GFR of 22%. The patient currently with complaints of lower extremity edema that extends up to the waist. He has been making adequate urine output since he has been in the hospital on IV Lasix. He states at home that he was measuring his fluid intake and output. About 2 or 3 days prior to coming in, he has a significant drop-off in urine output. Albumin today was noted to be at 2.7. The patient denies any nausea or vomiting. He is currently eating breakfast. PAST MEDICAL HISTORY: COPD, diabetes type 2, hypertension, hyperlipidemia, CKD with a baseline creatinine around 2.5, and obstructive uropathy. SURGICAL HISTORY: He has had a lithotripsy, left knee surgery, and he has had a left arterial bypass of the left lower extremity. ALLERGIES: None. HOME MEDICATIONS: Listed as amitriptyline, aspirin, Celexa, gemfibrozil, hydralazine, [place], Humulin, labetalol, Movantik, propranolol, and Flomax. FAMILY HISTORY: Coronary artery disease. SOCIAL HISTORY: Recent former smoker. No ETOH or illicit drug use. REVIEW OF SYSTEMS: Shortness of breath, lower extremity edema. PHYSICAL EXAMINATION: Vital Signs: Temperature 97.4 degrees, pulse 64, respiratory rate 18, blood pressure 177/74. Intake 720 mL. Output 2.3 L via Hirsch catheter. General: This is a chronically ill-appearing, middle-aged gentleman sitting up in bed. He is awake and alert. He does not appear in acute distress. HEENT: Normocephalic, atraumatic. JENSEN. Conjunctivae are pale. Oral mucosa is dry. Neck: Supple. He has positive JVD. Cardiovascular: Regular rate and rhythm. Pulmonary: He has no increased work of breathing. He is clear bilaterally. He is on 2 L nasal cannula. Abdomen: Soft with positive bowel sounds. He does have pitting up to the waist. : Hirsch catheter, clear yellow urine. Extremities: Again, with 2 to 3+ pitting pretibial thighs, hips, and again up to the waist. Integumentary: Skin is warm and dry. Neurologic: Grossly nonfocal. LAB DATA: WBC of 7.7, hemoglobin 8.3. Sodium 139, potassium 4.7, CO2 of 28, creatinine 2.4, albumin 2.7. Again, urine with a creatinine clearance of 22 mg per 24 hours and total protein was 4.4 g. The patient underwent imaging while he has been in the hospital. This showed ascites and bilateral pleural effusions but no obstructive uropathy. Chest x-ray showed cardiomegaly, pulmonary edema, and pleural effusion. ASSESSMENT AND PLAN: Chronic kidney disease stage 4 with exogenous fluid volume overload. He does have some modest improvement with his current Lasix dose and has been in negative territory over the course of the hospitalization with accumulative effect of -2 L. We will continue him on a strict fluid restriction and with his current dosing. Patient does have extremely low albumin and would likely benefit from a supplement. It is unclear at this particular point if the patient will require dialysis to manage his fluid volume. We will max out current medical treatment before planning for an intervention. Dictated by KAYLEE Munguia for Zachary Morris MD Face to face encounter, data reviewed, discussed with César Castellano on 02/27/19. I agree with the above assessment and plan of care. cc: Zachary Morris MD [facility]
[2019-02-27] MEDS ORDERED: ZAROXOLYN PO ONE (12:55)
--- NOTE | 2019-02-27 15:48 | PROGRESS NOTE ---
DATE: 02/27/2019 INTERVAL HISTORY: Yesterday afternoon the patient had increased work of breathing and increased respiratory distress. O2 saturations remained reasonable and ABG did not show any profound hypercapnic or increased hypoxia but patient did appear to be struggling. Nebulizer treatments were not effective. The patient appeared to have not had much luck with diuresis with the high dose of Lasix alone, so a small dose of metolazone was given and the patient was placed on BiPAP. He does seem to have had a significant diuresis with metolazone in addition to the Lasix overnight. He still has severe anasarca but reports some improvement in his dyspnea. He definitely appears more comfortable. Continued nonproductive cough. No other events overnight. REVIEW OF SYSTEMS: 12 point review of systems negative except as per interval history. LABS: WBC 7.7, hemoglobin 8.3, hematocrit 25.8, platelets 222,000. Sodium 139, potassium 4.7, BUN 44, creatinine 2.4, glucose 200 to 383. VITALS: Temperature maximum 98.0, pulse 60, respirations 21, blood pressure 172/74, O2 saturation 97% on 3 liters by nasal cannula. PHYSICAL EXAMINATION: General: No acute distress. Vitals: As above. HEENT: Normocephalic, atraumatic. No cervical adenopathy. Cardiovascular: Regular rate and rhythm. No murmurs noted. Pulmonary: Bibasilar crackles remain. Reasonable air entry superiorly. No wheezing at the time of my exam. No current increased work of breathing or accessory muscle use. Abdomen: Nontender. Bowel sounds positive. Still with pronounced anasarca. Extremities: Peripheral pulses intact. No clubbing or cyanosis. Significant venous stasis changes of his lower extremities below the knees, essentially unchanged. Slightly improved edema of the arms. : Still with significant scrotal edema. Neurologic: Cranial nerves grossly intact. No focal deficits identified. Psychiatric: Normal mood and affect. Awake, alert, oriented x3. Skin: No new rashes or lesions seen. ASSESSMENT AND PLAN: 1. Likely acute congestive heart failure with preserved ejection fraction, pulmonary hypertension. Patient's echo with normal ejection fraction , only minimal pericardial effusion. VQ scan low probability for pulmonary thromboembolism. Pulmonary pressures were markedly elevated at approximately 60. Little response to Lasix alone, but gave him a dose of metolazone yesterday and he does seem to have had brisk diuresis overnight. Go ahead and give him one more dose of metolazone today and see how far that gets us. Cardiology following. On Lasix drip. 2. Elevated troponin. Non ST elevation myocardial infarction versus demand ischemia. Cardiology favoring demand ischemia/type 2 myocardial infarction. 3. Chronic obstructive pulmonary disease. Minimal wheezing on admission but none currently. Continue steroids and nebulizers, again weaning steroids. 4. Chronic kidney disease, stage 4. Essentially stable. Monitor. 5. Peripheral arterial disease. Continue aspirin and [place]. 6. Diabetes, controlled, not ideal. Will add low dose Lantus and continue sliding scale. 7. Hypertension. Blood pressure still intermittently quite elevated. Clonidine recently added. Will see what that and the more aggressive diuresis does prior to making additional changes.
[2019-02-27] MEDS: LANTUS INSULIN SUBQ SCH (16:42)
--- NOTE | 2019-02-27 18:27 | PROGRESS NOTE ---
DATE: 02/27/2019 SUBJECTIVE: The patient states he had an acute episode of increased work of breathing yesterday and had to be placed on the BiPAP. Ultimately, he feels that his breathing is back to normal. He denies any cough or increased work of breathing today. The patient continues to have difficulty ambulation due to the swelling of his legs and his abdomen related to his anasarca. The patient had a 24-hour urine done yesterday, which showed a large amount of protein with over 4.5 g of urine seen as well as high amount of urine creatinine. The patient continues to have good urinary output. Overall is feeling better with decreased work of breathing. PHYSICAL EXAM: Vital signs: Temperature 98.8 degrees, heart rate 64, blood pressure 165/71, oxygen saturation 89% on room air. General: No acute distress. Resting comfortably in bed. Alert and oriented x3. Respiratory: No increased work of breathing. Small amount of wheezing at the bases. Abdomen: Soft, nontender. Continues to have evidence of anasarca to areola. : Persistent suprapubic edema as well as scrotal edema. However, this is slightly better today. urethral catheter in place with clear, yellow urinary output. MUSCULOSKELETAL: The patient continues to have lower extremity edema that is 3+ and pitting, lower extremities wrapped. LABS: White blood cell count 7.7, hemoglobin 8.3, hematocrit 25.8, platelets 222,000. Sodium 139, potassium 4.7, chloride 101, bicarb 28, BUN 44, creatinine 2.4, glucose 300, alkaline phosphatase 140, albumin 2.7. ASSESSMENT AND PLAN: Mr. Olsen is a 53-year-old with hypertension, hyperlipidemia, peripheral vascular disease, type 2 diabetes, depression, history of cerebrovascular accident x2, peripheral ulceration, and nephrolithiasis who presents consultation regarding scrotal edema. Patient's scrotal edema is related to systemic pathology with likely cardiac, nephrology and liver pathology. The patient had a 24-hour urine done yesterday which showed a large amount of protein. The patient had abdominal ultrasound which showed no evidence of hydronephrosis. I think patient's underlying issue is likely multifactorial. The patient continues to have edema today. The patient is being aggressively diuresed and is being followed by Nephrology and Cardiology regarding this issue. The patient was seen by Dr. Gladish today and they are trying to limit his intake of fluids as well as continue with Lasix diuresis. If patient continues to have issues with fluid overload status, may ultimately have to consider dialysis per Nephrology note. From a urologic standpoint, I think patient's scrotal edema is long standing and systemic in origin. Continue to recommend scrotal support to decrease swelling. We will keep indwelling catheter in now just to assist with fluid removal and diuresis. From urologic standpoint, I think edema is improving. We will continue to monitor. Please call with questions or concerns. cc: Yosef Russell MD [facility]
[2019-02-28] MEDS: APRESOLINE PO SCH ×4 (00:02→15:56)
[2019-02-28] MEDS: CATAPRES PO SCH ×3 (00:02→16:00)
[2019-02-28] MEDS: DUONEB (A & A) INH PRN ×4 (03:07→23:21)
[2019-02-28 05:54] LABS: HEMATOCRIT 27.4 % (42.0-52.0); HEMOGLOBIN 8.7 g/dL (14.0-18.0); IMM GRAN# 0.04 X1000 (0.0-0.04); IMM GRAN% 0.5 % (0.0-0.5); LYMPH# 0.56 X1000 (1.2-3.4); LYMPH% 7.6 % (20.5-51.1); MCH 29.3 PG (27-31); MCHC 31.8 g/dL (33-37); MCV 92.3 FL (81-99); MONO# 0.29 X1000 (0.11-0.59); MONO% 3.9 % (1.7-9.3); MPV 10.9 FL (7.4-10.4); NEUT# 6.46 X1000 (1.4-6.5); PLT 224 X1000 (130-400); RBC 2.97 XMIL (4.7-6.1); RDW 14.9 % (11.5-14.5); WBC 7.35 X1000 (4.8-10.8)
[2019-02-28] MEDS: HUMULIN R SUBQ SCH ×3 (06:08→15:55)
[2019-02-28] MEDS: HEPARIN SUBQ SCH ×3 (06:09→21:16)
[2019-02-28 06:12] LABS: ALBUMIN 3.1 g/dL (3.5-5.0); CALCIUM 8.8 mg/dL (8.8-10.2); CREATININE 2.1 mg/dL (0.7-1.2); POTASSIUM 4.8 mmol/L (3.5-5.1); TOTAL BILIRUBIN 0.23 mg/dL (0.20-1.00); TOTAL PROTEIN 6.2 g/dL (6.3-8.3)
[2019-02-28 06:27] LABS: LYMPHS 16 % (21-51); SEGS 84 % (42-75)
[2019-02-28] MEDS: ALBUMIN 25% IV SCH (08:22)
[2019-02-28] MEDS: LANTUS INSULIN SUBQ SCH (08:22)
[2019-02-28] MEDS: CELEXA PO SCH (08:22)
[2019-02-28] MEDS: NORVASC PO SCH (08:22)
[2019-02-28] MEDS: ASPIRIN PO SCH (08:22)
[2019-02-28] MEDS: TRANDATE PO SCH ×2 (08:23→21:16)
[2019-02-28] MEDS: TRENTAL PO SCH ×3 (08:23→21:16)
[2019-02-28] MEDS: PROTONIX PO SCH ×2 (08:23→21:16)
[2019-02-28] MEDS: ZAROXOLYN PO SCH (08:23)
--- NOTE | 2019-02-28 09:07 | NEPHROLOGY PROGRESS NOTE ---
DATE: 02/28/2019 SUBJECTIVE: Patient states that he is able to breathe slightly better with the changes we made to his regimen yesterday. OBJECTIVE: Vital Signs: Temperature 98.5 degrees, pulse 70, respiratory rate 18, blood pressure 179/64. Intake 495 mL, output 2 L. General: This is a middle-aged gentleman sitting up in bed. He does not appear in acute distress. HEENT: Normocephalic, atraumatic. JENSEN. Neck: Supple. Positive JVD. Cardiovascular: Regular rate and rhythm. Pulmonary: No increased work of breathing. He is clear bilaterally. Does remain on nasal cannula. Abdomen: Soft, positive bowel sounds with pitting noted. Slightly tender to palpation. : Hirsch catheter light clear yellow urine. Extremities: 3+ pitting, again, up to the waist. Integumentary: Skin is warm and dry otherwise. LAB DATA: WBC of 7.35, hemoglobin 8.7. Sodium 140, potassium 4.2, CO2 19, BUN 59 (44), creatinine 2.1 (2.4). Albumin 3.1. ASSESSMENT AND PLAN: Chronic kidney disease stage 4 with exogenous fluid volume overload. We have left his Lasix as currently dosed. We added metolazone and albumin yesterday. This did assist with some fluid mobility. Will increase his metolazone to 10 today. The patient does not have an absolute indication for dialysis at this time. We would maximize medication therapy before a discussion of interventional therapy. The patient is on a fluid restriction. Will continue this. Dictated by KAYLEE Munguia for Zachary Morris MD Face to face encounter, data reviewed, discussed with César Castellano on 02/28/19. I agree with the above assessment and plan of care. cc: Zachary Morris MD [facility]
--- NOTE | 2019-02-28 10:16 | PROGRESS NOTE ---
DATE: 02/28/2019 INTERVAL HISTORY: He was given a dose of metolazone, following which he did have better urine output. SUBJECTIVE: He is denying any new complaints. He is concerned and an in his responses today. He asked me if the providers communicate with each other regarding his care in a rather an and rude manner, and I explained to him about the way everyone involved in his care communicates with each other. I also updated him about his echocardiogram, ultrasound abdomen findings, as well as his general clinical condition. I asked him to have some help when he comes out of bed to avoid any falls. However, he states that he does not need anyone's help, and he would walk whenever he feels like, rather than asking for help. OBJECTIVE: Current vital Signs: Temperature 98.5 degrees, pulse 70, respiratory rate 18, blood pressure 180/60, saturating 97% on 3 L nasal cannula. Input and output suggest -1.5 L yesterday, - 1000 mL so far today. General: He appears to be not in any acute distress. HEENT: Oral cavity is moist. Lungs: Air entry bilaterally equal. No wheeze, rhonchi, crackles. Cardiovascular: S1, S2 normal. No murmur, rub, or gallop. Abdomen: Abdominal wall edema. Dullness to percussion in bilateral flanks. Active bowel sounds. Extremities: He has bilateral lower extremity edema extending up to thigh level. He does have erythema to bilateral lower extremities. He does have decreased sensation to bilateral lower extremities. There are wounds on bilateral feet, which appear to be noninfected and healing well. Neurologic: He is alert and oriented x3. LABORATORY DATA: Normocytic anemia, normal platelet count, chronic kidney disease stage 4, hyperglycemia. MICROBIOLOGY: Blood culture did not have any growth to date. IMAGING: No new imaging. ASSESSMENT AND PLAN: 1. Anasarca and acute hypoxic respiratory failure on presentation due to his chronic kidney disease stage 4. His echocardiogram had normal ejection fraction without any diastolic dysfunction, though it did have severe pulmonary hypertension. V/Q scan was negative for pulmonary embolism. Continue current dose of intravenous Lasix and oral metolazone. Nephrology on board, and continue intravenous albumin, though he says that he was constantly monitoring his input and output at home. I explained to him that it usually takes several weeks for this much edema to develop if he did not have this anasarca to begin with. 2. Elevated troponin showing flat trend without any regional wall motion abnormality on echocardiogram, likely in the setting of chronic kidney disease and demand ischemia. Cardiology does not plan any acute intervention at the moment. 3. Essential hypertension. Increase the dose of hydralazine. Continue amlodipine, home dose of clonidine and labetalol, and titrate the dose as necessary. 4. Insulin-dependent diabetes mellitus type 2. I will add mealtime insulin to his current Lantus and sliding scale regimen. At the time of discharge, will start him on his home regimen. 5. Others. Continue aspirin and pentoxifylline for peripheral arterial disease. His lower extremity ulcers are not infected. His chronic kidney disease stage 4 is stable. Decrease steroids for his chronic obstructive pulmonary disease, and wean down as tolerated. Continue home [place] for chronic pain. Citalopram for history of anxiety. 6. Disposition. On awake overnight monitor, patient in [facility]. Plan of care discussed with him. All of his questions have been answered. cc: Tony Pike MD
[2019-02-28] MEDS: LASIX 100 MG in NS 25 ML IV SCH (11:21)
[2019-02-28] MEDS: SOLU-MEDROL IV SCH (11:37)
[2019-02-28] MEDS: HUMALOG SUBQ SCH (21:16)
[2019-02-28] MEDS: HUMULIN 70/30 SUBQ SCH (21:17)
[2019-02-28] MEDS ORDERED: INSULIN PEN NEEDLES ONE (21:18)
[2019-03-01] MEDS: LASIX 100 MG in NS 25 ML IV SCH ×3 (00:18→23:44)
[2019-03-01] MEDS: SOLU-MEDROL IV SCH (00:18)
[2019-03-01] MEDS: APRESOLINE PO SCH ×3 (00:19→16:36)
[2019-03-01] MEDS: CATAPRES PO SCH ×3 (00:19→16:36)
[2019-03-01 05:53] LABS: HEMATOCRIT 26.7 % (42.0-52.0); HEMOGLOBIN 8.7 g/dL (14.0-18.0); IMM GRAN# 0.06 X1000 (0.0-0.04); IMM GRAN% 0.8 % (0.0-0.5); LYMPH# 0.57 X1000 (1.2-3.4); MCH 29.9 PG (27-31); MCHC 32.6 g/dL (33-37); MCV 91.8 FL (81-99); MONO# 0.34 X1000 (0.11-0.59); MONO% 4.8 % (1.7-9.3); MPV 10.6 FL (7.4-10.4); NEUT# 6.12 X1000 (1.4-6.5); NEUT% 86.4 % (42.2-75.2); PLT 206 X1000 (130-400); RBC 2.91 XMIL (4.7-6.1); RDW 14.7 % (11.5-14.5); WBC 7.09 X1000 (4.8-10.8)
[2019-03-01 05:57] LABS: ALBUMIN 3.3 g/dL (3.5-5.0); CALCIUM 8.8 mg/dL (8.8-10.2); CREATININE 2.6 mg/dL (0.7-1.2); POTASSIUM 4.2 mmol/L (3.5-5.1); TOTAL BILIRUBIN 0.29 mg/dL (0.20-1.00); TOTAL PROTEIN 6.5 g/dL (6.3-8.3)
[2019-03-01] MEDS: HEPARIN SUBQ SCH ×3 (06:06→22:31)
[2019-03-01] MEDS: HUMULIN 70/30 SUBQ SCH ×2 (06:06→23:51)
[2019-03-01] MEDS: HUMALOG SUBQ SCH ×4 (06:08→23:50)
[2019-03-01] MEDS: DUONEB (A & A) INH PRN ×4 (08:10→23:27)
[2019-03-01] MEDS: TRENTAL PO SCH ×3 (09:00→22:31)
[2019-03-01] MEDS: ZAROXOLYN PO SCH (09:00)
[2019-03-01] MEDS: NORVASC PO SCH (09:00)
[2019-03-01] MEDS: ASPIRIN PO SCH (09:00)
[2019-03-01] MEDS: CELEXA PO SCH (09:01)
[2019-03-01] MEDS: ALBUMIN 25% IV SCH (09:01)
[2019-03-01] MEDS: PROTONIX PO SCH ×2 (09:02→22:33)
[2019-03-01] MEDS: TRANDATE PO SCH ×2 (09:02→22:32)
[2019-03-01] MEDS ORDERED: LABETALOL IV PRN (11:38)
--- NOTE | 2019-03-01 11:59 | PROGRESS NOTE ---
DATE: 03/01/2019 INTERVAL HISTORY: His insulin regimen was changed. He continued to have hyperglycemia. His steroids have been stopped and physical therapy has been ordered. The patient's is at bedside. I discussed the plan of care with both of them and answered all of their questions. VITAL SIGNS: Temperature 97.7 degrees, pulse 67, respiratory rate 17, blood pressure 180/70, he is saturating 100% on 3 L nasal cannula. PHYSICAL EXAMINATION: General: He does not appear to be in acute distress. HEENT: Oral cavity is moist. Lungs: He has decreased lung sounds bilateral infrascapular region. No wheeze or rhonchi or crackles. Heart: S1, S2 normal. No murmur, rub, or gallop. Abdomen: He has massive abdominal wall edema and dullness to percussion, bilateral flank pain. Active bowel sounds. Extremities: He has bilateral lower extremity edema extending up to thigh level. He also has bilateral lower extremity erythema, decreased sensation, however, paresis affecting bilateral feet. There are wounds on bilateral feet which appear to be nonhealing and infected as per my yesterday's examination. Neurological: He is alert and oriented x3. Input and output suggests -3.9 L so far today. LABORATORY DATA: Suggestive of normocytic anemia, normal platelet count, chronic kidney disease stage 4, hyperglycemia. MICROBIOLOGY: Blood culture, no positive data. IMAGING: No new data. ASSESSMENT AND PLAN: 1. Anasarca and acute hypoxic respiratory failure due to chronic kidney disease stage 4 and likely dietary noncompliance. His echocardiogram had normal systolic and diastolic function with severe pulmonary hypertension. V/Q scan was negative for pulmonary embolism. Continue current dose of intravenous Lasix, oral metolazone, intravenous albumin, and follow-up of chest x-ray for acute pulmonary edema. 2. Essential hypertension. A contributor also could be intravenous steroid use which I will stop today considering hypertension, hyperglycemia, and no wheezing on examination. Continue home hydralazine, amlodipine, clonidine and labetalol to keep systolic blood pressure less than 170. 3. Insulin-dependent diabetes mellitus type 2 and currently steroid induced hyperglycemia. Continue his home insulin regimen with sliding scale insulin. Previously, he did have episodes of hypoglycemia requiring hospital admission. 4. Elevated troponins on presentation was likely in the setting of type 2 myocardial infarction as per Cardiology recommendation; continue aspirin and pentoxifylline for peripheral arterial disease; albuterol ipratropium nebulization for active tobacco abuse and history of chronic obstructive pulmonary disease; home [place] for chronic pain; citalopram for history of anxiety; Urology recommendation for scrotal edema and Hirsch catheter management. DISPOSITION: The patient continues to do well. My plan is to continue to monitor him inside the hospital and hopefully transfer him to routine medical floor. Plan of care discussed with him and his at bedside. All of their questions have been answered. cc: Tony Pike MD
--- NOTE | 2019-03-01 13:47 | NEPHROLOGY PROGRESS NOTE ---
DATE: 03/01/2019 SUBJECTIVE: The patient is sitting up in bed. He states he is able to eat a little better today. He feels like his swelling is going down. OBJECTIVE: Vital Signs: Temperature 98.3 degrees, pulse 64, respiratory rate 20, blood pressure 169/70. Intake 950 mL. Output 4.9 L via Hirsch catheter. Physical Examination: General: This is a middle-aged gentleman, sitting up in bed. He is awake and alert. He does not appear in distress. HEENT: Normocephalic, atraumatic. Conjunctivae are pale. Oral mucosa moist. Neck: Supple, with positive JVD. Cardiovascular: Regular rate and rhythm. There is no murmur or gallop appreciated. Pulmonary: He has no increased work of breathing. He is on 2 L nasal cannula. He has clear breath sounds bilaterally. Abdomen: Soft. He continues with pitting. This ends pretty much at the level of the umbilicus, improving. : Hirsch catheter, pale clear yellow urine. Extremities: Continues with 2 to 3+ pitting edema but legs are much softer to palpation. Again, the pitting extends about up to the umbilicus, with some improvement. Integumentary: Skin is warm and dry, pale. Lab Data: WBC of 7.0, hemoglobin 8.7. Sodium 139, potassium 4.2, CO2 of 29, creatinine 2.6, albumin 3.3. ASSESSMENT AND PLAN: Chronic kidney disease stage 4 with exogenous fluid volume overload. We increased his metolazone yesterday. He made almost 5 L of urine. We will continue his current medication therapy. He did have just a small increase in his creatinine but this is to be expected. We will continue to maximize medication therapy. Continue on fluid restriction with labs daily. Dictated by KAYLEE Munguia for Zacahry Morris MD Face to face encounter, data reviewed, discussed with César Castellano on 03/01/19. I agree with the above assessment and plan of care. cc: Zachary Morris MD [facility]
[2019-03-01] MEDS: NORCO-10 PO PRN (23:49)
[2019-03-02] MEDS ORDERED: HUMULIN R SUBQ SCH (01:41)
[2019-03-02] MEDS: HUMALOG SUBQ SCH ×5 (01:45→22:48)
[2019-03-02] MEDS: CATAPRES PO SCH ×3 (01:55→18:02)
[2019-03-02] MEDS: APRESOLINE PO SCH ×3 (01:55→19:35)
[2019-03-02] MEDS: MORPHINE IV PRN ×4 (02:02→21:34)
[2019-03-02] MEDS: DUONEB (A & A) INH PRN ×6 (03:25→22:36)
[2019-03-02] MEDS: HEPARIN SUBQ SCH ×3 (05:42→21:36)
[2019-03-02] MEDS ORDERED: INSULIN PEN NEEDLES ONE ×2 (05:54→07:56)
[2019-03-02 06:53] LABS: ALBUMIN 3.2 g/dL (3.5-5.0); CALCIUM 8.6 mg/dL (8.8-10.2); CREATININE 2.6 mg/dL (0.7-1.2); PHOSPHORUS 3.4 mg/dL (2.7-4.5); POTASSIUM 3.6 mmol/L (3.5-5.1)
[2019-03-02] MEDS: HUMULIN 70/30 SUBQ SCH ×2 (07:04→22:47)
[2019-03-02] MEDS: CELEXA PO SCH (09:51)
[2019-03-02] MEDS: NORVASC PO SCH (09:51)
[2019-03-02] MEDS: PROTONIX PO SCH ×2 (09:52→21:36)
[2019-03-02] MEDS: ZAROXOLYN PO SCH (09:52)
[2019-03-02] MEDS: TRENTAL PO SCH ×3 (09:52→21:36)
[2019-03-02] MEDS: TRANDATE PO SCH ×2 (09:52→21:36)
--- NOTE | 2019-03-02 10:53 | Diag Imaging Result Doc PS360 ---
EXAM: CHEST-2 VIEWS HISTORY: hypoxia TECHNIQUE: Chest two views COMPARISON: 02/26/2019 FINDINGS: Poor inspiratory effort. There are [id number] sized bilateral pleural effusions. Decrease in the pulmonary edema. There is basilar atelectasis and there could be underlying infiltrates. No cardiomegaly. IMPRESSION: Interval improvement with decreased pulmonary edema. Electronically signed by Chris Allen 03/02/2019 10:50 AM
[2019-03-02] MEDS: ALBUMIN 25% IV SCH ×2 (12:23)
[2019-03-02] MEDS: ASPIRIN PO SCH (12:24)
[2019-03-02] MEDS: LASIX 100 MG in NS 25 ML IV SCH (14:37)
--- NOTE | 2019-03-02 14:51 | NEPHROLOGY PROGRESS NOTE ---
DATE: 03/02/2019 SUBJECTIVE: The patient is sitting up in bed, states he has had continued improvement with his fluids. OBJECTIVE: Vital signs: Temperature 97.6, pulse 58, respiratory rate 18, blood pressure 157/64, intake 120 mL, output 2.3 L. General: This is a middle-aged gentleman sitting up in bed. He is awake and alert. He is in no acute distress. HEENT: Normocephalic, atraumatic. Conjunctivae pale. Oral mucosa membranes moist. Neck: Supple, with positive JVD in upright position. Cardiovascular: Regular rate and rhythm without murmur. Pulmonary: Clear bilaterally, remains O2 supplementation via nasal cannula. Abdomen: Soft with continued pitting. Some mild tenderness diffusely. : He is now voiding. Extremities: 2 to 3+ pitting edema with pitting that extends up through the hips to the umbilicus. Integumentary: Skin is pale, warm, and dry. LABORATORY DATA: Sodium 140, potassium 3.6, CO2 30, BUN 8, creatinine 2.6, albumin 3.2. ASSESSMENT AND PLAN: Chronic kidney disease stage 4 with exogenous fluid volume overload. His renal function has remained stable. Will go ahead and increase his furosemide. Continue with the higher doses of metolazone. Continue albumin 3 more treatments in an effort to mobilize fluids. Dictated by KAYLEE Munguia for Zachary Morris MD Face to face encounter, data reviewed, discussed with César Castellano on 03/02/19. I agree with the above assessment and plan of care. cc: Zachary Morris MD [facility]
--- NOTE | 2019-03-02 15:04 | PROGRESS NOTE ---
DATE: 03/02/2019 INTERVAL HISTORY: No acute events overnight. Patient was transferred from [facility] to routine medical floor. He did have a drop in his blood sugar in the morning time. It had dropped to 84. I advised the patient to eat something to avoid hypoglycemia. I also discussed with the nursing team about getting repeat blood sugars. We discussed about negative balance and increasing urine output. I answered all of his questions. VITALS: Currently, temperature 97.6 degrees, pulse 60, respirations 14, blood pressure 140/63, saturating 100% on 3 L nasal cannula. PHYSICAL EXAMINATION: General: Does not appear in any acute distress. Oral cavity is moist. Lungs: Air entry bilaterally equal. No wheeze, rhonchi, or crackles. Cardiovascular: S1, S2 normal. No murmur, rub, or gallop. Abdomen: Massive edema and dullness to percussion. He also has bilateral flank pain. He has active bowel sounds. Extremities: He has bilateral lower extremity edema extending up to thigh level. He also has bilateral lower extremity erythema and hyperesthesia affecting bilateral soles. Previously, he did have wounds on bilateral feet which appeared to be noninfected. He is alert and oriented x3. Input and output suggested -3.1 L yesterday. LABS: No CBC today. BMP suggestive of increasing BUN, stable creatinine. MICROBIOLOGY: No data. IMAGING: Chest x-ray performed today morning suggests interval improvement with decreased pulmonary edema. ASSESSMENT AND PLAN: 1. Anasarca and acute hypoxic respiratory failure due to acute pulmonary edema and volume overload in the setting of chronic kidney disease stage 4 with likely dietary noncompliance. His echocardiogram had normal systolic and diastolic function with pulmonary hypertension severe. V/Q scan was negative for pulmonary embolism. Continue current dose of intravenous Lasix or metolazone, intravenous albumin according to nephrology recommendation, with close input and output monitoring through Hirsch catheter. 2. Essential hypertension, now better on current dose of hydralazine, amlodipine, clonidine, and labetalol. 3. History of insulin-dependent diabetes mellitus with frequent hypoglycemia episodes. I will place holding parameters on his insulin. Continue sliding scale insulin. I advised him to eat frequent meals. With now discontinuation of steroids, his blood sugars will likely better controlled. 4. Elevated troponins on presentation in the setting of type 2 myocardial infarction. It is what was considered to be type 2 myocardial infarction by cardiology. Continue aspirin. 5. Others. Continue aspirin and pentoxifylline for peripheral artery disease; albuterol ipratropium nebulization for active tobacco abuse and history of chronic obstructive pulmonary disease; home [place] for chronic pain; citalopram for history of anxiety. Urology on board and had recommended putting towels underneath his scrotal edema. 6. Disposition. The patient remains inside the hospital for need for intravenous diuresis. Plan of care discussed with him. Physical therapy on board. cc: Tony Pike MD
[2019-03-03] MEDS: LASIX 100 MG in NS 25 ML IV SCH ×2 (00:06→14:30)
[2019-03-03] MEDS: APRESOLINE PO SCH ×3 (00:10→17:50)
[2019-03-03] MEDS: MORPHINE IV PRN ×5 (01:29→21:55)
[2019-03-03] MEDS: CATAPRES PO SCH ×4 (01:41→17:50)
[2019-03-03] MEDS: DUONEB (A & A) INH PRN ×5 (03:13→19:10)
[2019-03-03] MEDS: HEPARIN SUBQ SCH ×3 (05:20→21:26)
[2019-03-03] MEDS: HUMULIN 70/30 SUBQ SCH ×2 (06:57→21:27)
[2019-03-03] MEDS: HUMALOG SUBQ SCH ×4 (06:57→21:26)
[2019-03-03 07:02] LABS: EOS# 0.23 X1000 (0.0-0.7); EOS% 3.8 % (0.0-10.0); HEMATOCRIT 24.1 % (42.0-52.0); HEMOGLOBIN 7.6 g/dL (14.0-18.0); IMM GRAN# 0.03 X1000 (0.0-0.04); IMM GRAN% 0.5 % (0.0-0.5); LYMPH# 1.75 X1000 (1.2-3.4); LYMPH% 28.5 % (20.5-51.1); MCH 29.1 PG (27-31); MCHC 31.5 g/dL (33-37); MCV 92.3 FL (81-99); MONO# 0.45 X1000 (0.11-0.59); MONO% 7.3 % (1.7-9.3); NEUT# 3.67 X1000 (1.4-6.5); NEUT% 59.9 % (42.2-75.2); PLT 193 X1000 (130-400); RBC 2.61 XMIL (4.7-6.1); RDW 14.5 % (11.5-14.5); WBC 6.13 X1000 (4.8-10.8)
[2019-03-03 07:47] LABS: ALBUMIN 3.3 g/dL (3.5-5.0); CALCIUM 8.6 mg/dL (8.8-10.2); PHOSPHORUS 4.2 mg/dL (2.7-4.5)
[2019-03-03] MEDS: CELEXA PO SCH (09:24)
[2019-03-03] MEDS: ZAROXOLYN PO SCH (09:24)
[2019-03-03] MEDS: TRANDATE PO SCH ×2 (09:25→21:26)
[2019-03-03] MEDS: PROTONIX PO SCH ×2 (09:25→21:26)
[2019-03-03] MEDS: TRENTAL PO SCH ×3 (09:25→21:26)
[2019-03-03] MEDS: NORVASC PO SCH (09:25)
[2019-03-03] MEDS: ASPIRIN PO SCH (09:25)
[2019-03-03] MEDS: ALBUMIN 25% IV SCH (11:59)
--- NOTE | 2019-03-03 14:34 | NEPHROLOGY PROGRESS NOTE ---
DATE: 03/03/2019 SUBJECTIVE: He states his swelling and tightness are improved, but still present. Improved urine output by his assessment. OBJECTIVE: Vital Signs: Blood pressure 135/54, heart rate 56, respiration 18, afebrile. Intake and Output: Intake 200 mL. Output 3.7 L. General: No acute distress. Skin: Warm and dry. Ecchymoses are present. Heart: Regular. Lungs: Equal. No crackles. Abdomen: Soft, nontender. Bowel sounds are present. Extremities: 3 to 4+ edema extending up to the level of the sternum. This is not obviously different from earlier exam. IMPRESSION: 1. Acute kidney injury overlying chronic kidney disease. His creatinine has risen today to 3.0 above his baseline, given high-dose diuretics. We will continue care over the weekend, but if his labs continue to worsen, we may have to consider hemodialysis for management. 2. Electrolytes/acid base in target. 3. Anemia. It is below target with hemoglobin 7.6. May require transfusion. cc: Zachary Morris MD
--- NOTE | 2019-03-03 17:34 | PROGRESS NOTE ---
DATE: 03/03/2019 INTERVAL HISTORY: No acute events overnight. He was transferred to routine medical floor. He did not have any hypoglycemia episodes. Lowest blood sugar has been 85. He denies any chest pain or shortness of breath. We discussed about anasarca, poor kidney function, or possibly need for dialysis in the future. I answered his questions. OBJECTIVE: Vital signs: Temperature 98.1 degrees, pulse 61, respiratory rate 15, blood pressure 140/55, saturating 96% on room air. General: Not in any acute distress. HEENT: Oral cavity is moist. Respiratory: Air entry bilaterally equal with no wheeze, rhonchi, or crackles. Cardiovascular: S1, S2 normal. No murmur or gallop. Abdomen: Massive edema, dullness to percussion. He has bilateral flank pain. He has active bowel sounds. Extremities: He has bilateral lower extremity edema extending up to thigh level. He has a dressing over bilateral feet. Neurologic: He is alert and oriented x3. Input and output suggests -3.4 L yesterday. Since admission, he is -16 L. LABORATORY DATA: Suggestive of normocytic anemia, normal platelet count, acute kidney injury. MICROBIOLOGY: No data. IMAGING: Yesterday. Chest x-ray was performed for hypoxia which has suggested interval improvement with decrease in pulmonary edema. ASSESSMENT AND PLAN: 1. Anasarca and acute hypoxic respiratory failure due to acute pulmonary edema and volume overload due to chronic kidney disease stage 4 and likely dietary indiscretion. He has severe pulmonary hypertension as well. Otherwise, echocardiogram, V/Q scan where unremarkable. Continue intravenous Lasix, intravenous albumin and metolazone with close monitoring of input and output through Hirsch catheter. Nephrology on board. He may need ultrafiltration or dialysis in the future. 2. Acute kidney injury on chronic kidney disease stage 3 to stage 4. Monitor BMP, likely because of intravenous Lasix use. 3. Continue hydralazine, amlodipine clonidine, labetalol for essential hypertension; his home insulin sliding scale for his history of insulin-dependent diabetes mellitus. 4. Elevated troponin due to type 2 HI is currently stable. I will continue aspirin; aspirin and pentoxifylline for peripheral artery disease; albuterol ipratropium nebulization for chronic obstructive pulmonary disease; [place] for chronic pain; citalopram for anxiety. DISPOSITION: I will continue to monitor patient inside the hospital for need for intravenous diuresis. Plan of care discussed with him. His questions have been answered. cc: Tony Pike MD
[2019-03-04] MEDS: APRESOLINE PO SCH ×3 (02:03→16:18)
[2019-03-04] MEDS: LASIX 100 MG in NS 25 ML IV SCH ×2 (02:03→12:58)
[2019-03-04] MEDS: CATAPRES PO SCH ×3 (02:03→16:18)
[2019-03-04] MEDS: MORPHINE IV PRN ×5 (02:14→23:51)
[2019-03-04] MEDS: HEPARIN SUBQ SCH ×3 (03:59→20:30)
[2019-03-04] MEDS: HUMALOG SUBQ SCH ×4 (06:02→23:07)
[2019-03-04] MEDS: DUONEB (A & A) INH PRN ×4 (07:28→19:19)
[2019-03-04 07:36] LABS: ALBUMIN 3.5 g/dL (3.5-5.0); CALCIUM 8.2 mg/dL (8.8-10.2); CREATININE 2.9 mg/dL (0.7-1.2); PHOSPHORUS 4.4 mg/dL (2.7-4.5)
[2019-03-04] MEDS: PROTONIX PO SCH ×2 (08:55→20:34)
[2019-03-04] MEDS: HUMULIN 70/30 SUBQ SCH ×2 (08:55→20:29)
[2019-03-04] MEDS: ASPIRIN PO SCH (08:55)
[2019-03-04] MEDS: ZAROXOLYN PO SCH (08:55)
[2019-03-04] MEDS: TRENTAL PO SCH ×3 (08:55→20:33)
[2019-03-04] MEDS: CELEXA PO SCH (08:55)
[2019-03-04] MEDS: NORVASC PO SCH (08:55)
[2019-03-04] MEDS: TRANDATE PO SCH ×2 (08:55→20:34)
[2019-03-04] MEDS: ALBUMIN 25% IV SCH (11:53)
[2019-03-04] MEDS: MIRALAX PO SCH (11:53)
--- NOTE | 2019-03-04 12:24 | PROGRESS NOTE ---
DATE: 03/04/2019 INTERVAL HISTORY: No acute events. His kidney function remains as it was yesterday. He has been net negative. I discussed with them about continuing current plan of intravenous albumin, Lasix and management of his blood sugar and blood pressure. He wants me to allow him to go out off the floor to have some fresh air. I asked him that usually because of patients safety-related issues, we do not allow it, and he gets angry because of that. He also wants me to start him on some mouthwash because he has been feeling sore inside his mouth. VITALS: Temperature 98.8 degrees, pulse 60, respiratory rate 20 blood pressure 150/60, saturating 100% on room air. PHYSICAL EXAMINATION: General: Does not appear in any acute distress. Oral cavity: Moist. Lungs: Air entry bilaterally equal. No wheeze, rhonchi, or crackles. Cardiovascular: S1, S2 normal. No murmur, rub, or gallop. Abdomen: Abdomen has massive abdominal wall edema and ascites. He has a bilateral flank tenderness. I could not appreciate bowel sounds. Extremities: Bilateral lower extremity edema extending up to thigh level. Dressing over bilateral feet. Neurologic: He is alert and oriented x3. Input and output suggest -2 L so far today. I am not sure if his weight is charted properly or if it has not changed over the last few days. LABS: Suggestive of creatinine of 2.9. Blood sugar most recently is 162. MICROBIOLOGY: No data. IMAGING: Chest x-ray yesterday had interval improvement with decrease in pulmonary edema. ASSESSMENT AND PLAN: 1. Anasarca due to volume overload due to chronic kidney disease stage IV and dietary indiscretion, as well as severe pulmonary hypertension. Currently, though it is responding, he still has massive amount of extravascular fluid. Continue intravenous Lasix, intravenous albumin, and metolazone with close monitoring of input and output through Hirsch catheter. Nephrology on board. 2. Acute kidney injury on chronic kidney disease stage III to stage IV. Monitor basic metabolic panel. This is because of intravenous Lasix use. 3. Essential hypertension. Continue hydralazine, amlodipine, labetalol and clonidine, which are his home medications. 4. Insulin-dependent diabetes mellitus type 2. Continue home NPH and give additional sliding scale insulin as needed. 5. Acute hypoxic respiratory failure due to acute pulmonary edema due to volume overload; elevated troponins due to type 2 myocardial infarction have been resolved and stable. I will continue aspirin and pentoxifylline for peripheral artery disease; albuterol ipratropium nebulization for chronic obstructive pulmonary disease; [place] and intravenous morphine for chronic pain; citalopram for anxiety and MiraLAX to avoid constipation. DISPOSITION: The patient remains inside the hospital for massive ascites and lower extremity edema. Plan of care discussed with him and his at bedside. Their questions have been answered. cc: Tony Pike MD
--- NOTE | 2019-03-04 15:53 | NEPHROLOGY PROGRESS NOTE ---
DATE: 03/04/2019 SUBJECTIVE: He feels like is improving. His swelling is improved. No shortness of breath at rest. OBJECTIVE: Vital Signs: Blood pressure 125/53, heart rate 60, respirations 21. Afebrile. Intake 1.3 L. Output 3.5 L. PHYSICAL EXAMINATION: No acute distress. Chronically ill-appearing.Skin: Warm and dry. Neck: Neck veins are not appreciated. Heart: Regular. No gallops. Lungs: Equal, shallow, no crackles. Abdomen: Soft, nontender. Minimal pitting on the abdominal wall today. Extremities: Have 3+ edema but the skin is softer and there are wrinkles present on anterior thighs. IMPRESSION: Volume overload secondary to nephrotic syndrome/heart failure/chronic kidney disease. He is responding well to diuretics with no significant change in his kidney function. His EGFR is around 20 to 25 and so I expect that he will not need hemodialysis in the near term. Continue aggressive diuretic therapy and strict salt and water restriction. No changes over the weekend. cc: Zachary Morris MD
[2019-03-05] MEDS: APRESOLINE PO SCH ×3 (00:47→15:49)
[2019-03-05] MEDS: CATAPRES PO SCH ×3 (00:48→17:04)
[2019-03-05] MEDS: LASIX 100 MG in NS 25 ML IV SCH ×2 (00:52→14:25)
[2019-03-05] MEDS: MORPHINE IV PRN ×5 (05:15→22:28)
[2019-03-05] MEDS: HEPARIN SUBQ SCH ×3 (05:22→22:30)
[2019-03-05] MEDS: HUMALOG SUBQ SCH ×4 (06:44→22:33)
[2019-03-05] MEDS: HUMULIN 70/30 SUBQ SCH ×2 (06:45→22:33)
[2019-03-05 07:08] LABS: EOS# 0.24 X1000 (0.0-0.7); EOS% 3.9 % (0.0-10.0); HEMATOCRIT 24.3 % (42.0-52.0); HEMOGLOBIN 7.9 g/dL (14.0-18.0); LYMPH# 1.24 X1000 (1.2-3.4); LYMPH% 20.1 % (20.5-51.1); MCH 30.2 PG (27-31); MCHC 32.5 g/dL (33-37); MCV 92.7 FL (81-99); MONO# 0.71 X1000 (0.11-0.59); MONO% 11.5 % (1.7-9.3); MPV 11.4 FL (7.4-10.4); NEUT# 3.99 X1000 (1.4-6.5); NEUT% 64.5 % (42.2-75.2); PLT 158 X1000 (130-400); RBC 2.62 XMIL (4.7-6.1); RDW 14.7 % (11.5-14.5); WBC 6.18 X1000 (4.8-10.8)
[2019-03-05 07:26] LABS: ALBUMIN 3.8 g/dL (3.5-5.0); CALCIUM 9.3 mg/dL (8.8-10.2); CREATININE 2.6 mg/dL (0.7-1.2); POTASSIUM 4.8 mmol/L (3.5-5.1)
[2019-03-05] MEDS: DUONEB (A & A) INH PRN ×3 (07:27→23:03)
[2019-03-05] MEDS: PROTONIX PO SCH ×2 (09:37→22:29)
[2019-03-05] MEDS: CELEXA PO SCH (09:37)
[2019-03-05] MEDS: ASPIRIN PO SCH (09:37)
[2019-03-05] MEDS: TRENTAL PO SCH ×3 (09:37→22:29)
[2019-03-05] MEDS: TRANDATE PO SCH ×2 (09:37→22:29)
[2019-03-05] MEDS: NORVASC PO SCH (09:37)
[2019-03-05] MEDS: ZAROXOLYN PO SCH (09:37)
[2019-03-05] MEDS: MIRALAX PO SCH (09:39)
--- NOTE | 2019-03-05 13:34 | PROGRESS NOTE ---
DATE: 03/05/2019 INTERVAL HISTORY: I was informed by the nursing team that this patient has been very rude in his interaction with the nursing team. No other acute overnight events. SUBJECTIVE: The patient says that yesterday, he was able to go off the floor with the patient care nursing assistant. However, they are running short of the techs, and he is requesting to go off the floor with his . I told him that it is not medically advisable, and I prefer he only leave the floor when the patient care nursing assistant is available. He is unhappy to learn that. He also told me that Physical Therapy only walked him up to the door, and he was told that he has lower extremity wounds, which would impair his movement, and he wants to know if he could walk more distances. I discussed with the nursing team that it is okay for him to walk more distances, and we will call the [facility] and Dr. Sylvester tomorrow to make sure he did not have any restrictions on his activity for his lower extremity wound. OBJECTIVE: Current Vital Signs: Temperature 97.7 degrees, pulse 55, respiratory rate 20, blood pressure 140/58, he is saturating 95% on room air. General: He appears a little annoyed, but complies with all commands to allow proper examination. HEENT: Oral cavity is moist. Lungs: Air entry bilaterally equal. No wheeze, rhonchi, crackles. Cardiovascular: S1, S2 normal. No murmur, rub, or gallop. Abdomen: Obese. In fact, he has a lot of intraabdominal wall edema, as well as ascites, bilateral flank tenderness. Extremities: Bilateral lower extremity edema. Genitourinary: He has urine catheter. I discussed with him about catheter-associated urinary tract infection, and he suggested that he would like to keep the urine catheter, considering that without it, he has to pee more frequently, and he has a lot of abdominal distention. His input and output is -1.9 L so far today. IMAGING AND LABORATORY DATA: Labs are suggestive of normocytic anemia, normal platelet count. His BUN and creatinine have been fairly stable. No new microbiology or imaging data. ASSESSMENT AND PLAN: 1. Anasarca due to volume overload due to chronic kidney disease stage 4, nephrotic syndrome. He also likely had dietary indiscretion as well as severe pulmonary hypertension. Currently, he is responding well to intravenous Lasix and oral metolazone, which I will continue. Continue close monitoring with Hirsch catheter. He is status post intravenous albumin. 2. Chronic kidney disease stage 4, currently stable. 3. Essential hypertension. Continue current hydralazine, amlodipine, labetalol, and clonidine. 4. Insulin-dependent diabetes mellitus type 2 with frequent hyper and hypoglycemic episodes. His blood sugars have been reasonable. Continue home NPH and sliding scale insulin as tolerated. 5. His acute hypoxic respiratory failure due to acute pulmonary edema due to volume overload has resolved, and he is breathing well on room air; his elevated troponins due to type 2 myocardial infarction have been resolved and stable. I will continue aspirin and pentoxifylline for peripheral artery disease, and allow him to walk as tolerated, unless recommended against by [facility] tomorrow; continue albuterol/ipratropium nebulization for chronic obstructive pulmonary disease; [place] and intravenous morphine for chronic pain; citalopram for anxiety; and MiraLAX to avoid constipation. 6. Disposition. The patient remains inside the hospital for massive ascites and lower extremity edema. Plan of care discussed with him and his at bedside. Their questions have been answered. cc: Tony Pike MD
[2019-03-05] MEDS ORDERED: INSULIN PEN NEEDLES ONE (22:33)
[2019-03-06] MEDS: CATAPRES PO SCH ×3 (01:46→17:59)
[2019-03-06] MEDS: LASIX 100 MG in NS 25 ML IV SCH ×2 (01:46→14:23)
[2019-03-06] MEDS: MORPHINE IV PRN ×5 (01:46→18:38)
[2019-03-06] MEDS: APRESOLINE PO SCH ×3 (01:46→18:06)
[2019-03-06] MEDS: DUONEB (A & A) INH PRN ×5 (03:28→22:24)
[2019-03-06] MEDS: HEPARIN SUBQ SCH ×3 (06:08→21:30)
[2019-03-06] MEDS: HUMULIN 70/30 SUBQ SCH ×2 (06:09→21:30)
[2019-03-06] MEDS: HUMALOG SUBQ SCH ×4 (06:09→21:27)
[2019-03-06 07:24] LABS: ALBUMIN 3.8 g/dL (3.5-5.0); CALCIUM 8.9 mg/dL (8.8-10.2); CREATININE 2.9 mg/dL (0.7-1.2); PHOSPHORUS 5.4 mg/dL (2.7-4.5)
[2019-03-06] MEDS: CELEXA PO SCH (09:10)
[2019-03-06] MEDS: ASPIRIN PO SCH (09:10)
[2019-03-06] MEDS: ZAROXOLYN PO SCH (09:10)
[2019-03-06] MEDS: NORVASC PO SCH (09:10)
[2019-03-06] MEDS: PROTONIX PO SCH ×2 (09:10→21:26)
[2019-03-06] MEDS: MIRALAX PO SCH (09:10)
[2019-03-06] MEDS: TRENTAL PO SCH ×3 (09:11→21:26)
[2019-03-06] MEDS: TRANDATE PO SCH ×2 (09:12→21:26)
--- NOTE | 2019-03-06 09:54 | NEPHROLOGY PROGRESS NOTE ---
DATE: 03/06/2019 SUBJECTIVE: Mr. Olsen is resting quietly in bed. Head of the bed is slightly elevated. He denies any discomfort. States that he is having difficulty getting his trays and his food correctly. Continues with swelling. OBJECTIVE: Vital Signs: Temperature 98.1 degrees, blood pressure 137/81, heart rate 63, respirations 21. He is on room air. Last recorded saturation 99%. He has had 540 in, 3200 out to Hirsch catheter. Laboratory Data: Sodium is 140. His potassium is 5, chloride 92, CO2 34, BUN 102, creatinine is 2.9, glucose of 205. The patient has an anion gap of 14. His calcium is 8.9, phosphorus 5.4, albumin is 3.8. Previous hemoglobin 7.9. General: This is a 53-year-old white male resting quietly in bed. He appears chronically ill in no acute distress. Skin: Warm and dry. HEENT: Normocephalic, atraumatic. Conjunctiva is pale pink. He has JENSEN. Mucous membranes are dry. Neck: Supple. Trachea midline. No evidence of JVD in the upright position. Cardiovascular: Regular rate and rhythm without murmur. Lungs: Shallow. No crackles evident. Clear anteriorly. Abdomen: Soft, nontender. Genitourinary: Not inspected. Hirsch catheter is in place. Adequate amount out. Extremities: The patient continues with 2 to 3+ lower extremity edema all the way up into his mid hips and abdominal wall. He does state that he thinks he has lost 17 pounds since his admission starting with Lasix and metolazone. We will have nurses to start standing to weigh him. ASSESSMENT AND PLAN: 1. Acute kidney injury on chronic kidney disease stage IV. The patient has fluid volume overload. He continues to receive Lasix 100 mg q.12 hours followed with metolazone daily. He has been responding well to diuretics. His GFR remains stable between 20% and 25%. No indications for dialysis intervention at this time. 2. Fluid volume overload. We will request the nurses stand the patient for weight every day to determine fluid volume loss. We will plan to continue with Lasix and metolazone at this time. We will request a fluid restriction at the bedside and a salt restriction. 3. Electrolytes, acid-based balance. These are acceptable. 4. Anemia. This is low but stable. I would like to thank you for allowing us to follow with this patient. Dictated by KAYLEE Wilkinson for Zachary Morris MD Face to face encounter, data reviewed, discussed with Madeline Mims on 03/06/19. I agree with the above assessment and plan of care. cc: KAYLEE Wilkinson MD [facility]
--- NOTE | 2019-03-06 12:55 | PROGRESS NOTE ---
DATE: 03/06/2019 No acute interval overnight events. SUBJECTIVE: Mr. Olsen states that yesterday he wanted to go out downstairs in the lobby, but initially he was told that it was a shift change time. After the shift change, he was told that there are not enough nursing staffing coordinator staff to help him go downstairs and he is upset about it. He is again requesting if I could allow him to go downstairs. I informed him that concerning his health issues, blood glucose issues, and his overall health and functional status. I am worried about his safety, and I cannot allow him to go without the hospital personnel. He states that he does not want to see me anymore. VITAL SIGNS: Review of his vitals is temperature 97.3 degrees, pulse 58, respiratory rate 16, blood pressure 130/60 saturating 95% on 2 L nasal cannula. PHYSICAL EXAMINATION: I could not perform any physical examination. LABORATORY: He has persistently elevated BUN. His creatinine is stable at 2.9. He had lowest blood sugar of 102 yesterday night. Since then, it has been 200. ASSESSMENT AND PLAN: I could not do assessment. I am going to discuss with my team if another provider could take care of him as requested by him cc: Tony Pike MD
--- NOTE | 2019-03-06 13:53 | PROGRESS NOTE ---
DATE: 03/06/2019 SUBJECTIVE: Patient reports feeling fine. Denies any shortness of breath. Denies any fever or chills. As per nursing staff, he has been very rude towards our nursing team. No other issues noted. Actually he was upset with Dr. Pike, and he fired him. OBJECTIVE: Vital Signs: Temperature 97.3 degrees, heart rate 63, respiratory rate 15, blood pressure 134/63, O2 saturation 95% on 2 L nasal cannula. General Examination: This is a chronically ill-appearing 53-year-old male, lying in bed in no acute distress. HEENT: Head is normocephalic, atraumatic. Mucous membranes moist. Neck: No JVD noted. No carotid bruit. Cardiovascular: S1, S2 heard. No murmurs, gallops, or rubs. Regular rate and rhythm. Respiratory: Clear bilaterally to auscultation. No work of breathing or using accessory muscles. Abdomen: Obese. There is nontender to palpation. Bowel sounds present. No organomegaly. Actually there is some in the abdominal wall edema and some ascites noted. Extremities: Bilateral lower extremity edema. Peripheral pulses present, but faint. Genitourinary: Patient has a Hirsch catheter with clear urine. Neurological: Patient is alert and oriented x3. Moves 4 extremities. Intake and output: Indicate good urine output of 4 L in the last 24 hours, and so far since admission, 25.2 L of urine with negative balance of 3.4 L yesterday. DIAGNOSTIC STUDIES: Patient has no CBC. BMP reveals creatinine of 2.9 with GFR 23 and glucose of 205. ASSESSMENT AND PLAN: 1. Anasarca due to volume overload due to chronic kidney disease, stage 4, with nephrotic syndrome. Dr. Morris is following this patient. Actually they decide to Lasix 100 mg IV q.12 h., and also metolazone as well. The patient has severe pulmonary hypertension as well. At this point, we will continue following the lead from Nephrology. He also has received albumin as well. 2. Chronic kidney disease, stage 4. Creatinine is around 2.[address] Morris following this patient. 3. Essential hypertension. Patient is on clonidine, labetalol, amlodipine, and hydralazine. We will continue with same management. Blood pressure most of the time ranged between 130s and 140s at the most. 4. Acute hypoxic respiratory failure secondary to acute pulmonary edema secondary to volume overload resolved. DISPOSITION: At this point, we are following the lead from Nephrology. Regarding the issue that he had with the nursing staff, I went to talk to him with Britney Nicolas, who is the charge nurse for [facility] and I made it clear to this patient that he can not leave the floor without any nurse elevator service technician. Actually, I do not really feel comfortable with the patient leaving the unit either with the nurse tech. He reports he had 2 episodes of syncope before so my recommendation was to stay in the floor. I think this patient is not happy with that, but that is to keep him safe. Also, the patient is reluctant to use the telemetry. I have instructed our nurse Britney to just document that he is refusing to wear it. . At this point, we will continue monitoring this patient closely and following the lead from Nephrology. cc: Wicho Loving MD [email or web address]
[2019-03-07] MEDS: LASIX 100 MG in NS 25 ML IV SCH (00:16)
[2019-03-07] MEDS: APRESOLINE PO SCH ×3 (00:19→18:21)
[2019-03-07] MEDS: CATAPRES PO SCH ×3 (00:20→18:21)
[2019-03-07] MEDS: DUONEB (A & A) INH PRN ×6 (03:35→22:48)
[2019-03-07] MEDS: HEPARIN SUBQ SCH ×3 (06:25→20:49)
[2019-03-07] MEDS: HUMALOG SUBQ SCH ×4 (06:25→20:46)
[2019-03-07] MEDS: HUMULIN 70/30 SUBQ SCH ×2 (06:42→22:06)
[2019-03-07 07:06] LABS: BASO# 0.02 X1000 (0.0-0.2); BASO% 0.3 % (0.0-0.8); EOS% 3.1 % (0.0-10.0); HEMATOCRIT 23.8 % (42.0-52.0); HEMOGLOBIN 7.7 g/dL (14.0-18.0); LYMPH# 1.73 X1000 (1.2-3.4); LYMPH% 26.6 % (20.5-51.1); MCH 30.1 PG (27-31); MCHC 32.4 g/dL (33-37); MONO% 16.9 % (1.7-9.3); MPV 11.8 FL (7.4-10.4); NEUT# 3.46 X1000 (1.4-6.5); NEUT% 53.1 % (42.2-75.2); PLT 145 X1000 (130-400); RBC 2.56 XMIL (4.7-6.1); RDW 14.9 % (11.5-14.5); WBC 6.51 X1000 (4.8-10.8)
[2019-03-07] MEDS: MORPHINE IV PRN ×4 (07:06→22:37)
[2019-03-07 07:58] LABS: ALBUMIN 3.7 g/dL (3.5-5.0); CALCIUM 9.1 mg/dL (8.8-10.2); CREATININE 2.8 mg/dL (0.7-1.2); PHOSPHORUS 5.3 mg/dL (2.7-4.5); POTASSIUM 5.1 mmol/L (3.5-5.1)
[2019-03-07] MEDS: MIRALAX PO SCH (09:04)
[2019-03-07] MEDS: NORVASC PO SCH (09:04)
[2019-03-07] MEDS: TRENTAL PO SCH ×3 (09:04→20:52)
[2019-03-07] MEDS: PROTONIX PO SCH ×2 (09:04→20:53)
[2019-03-07] MEDS: ASPIRIN PO SCH (09:04)
[2019-03-07] MEDS: CELEXA PO SCH (09:05)
[2019-03-07] MEDS: TRANDATE PO SCH ×2 (09:05→20:52)
[2019-03-07] MEDS: ZAROXOLYN PO SCH (09:05)
--- NOTE | 2019-03-07 09:06 | NEPHROLOGY PROGRESS NOTE ---
DATE: 03/07/2019 TIME SEEN: 0655. SUBJECTIVE: Mr. Olsen is resting in bed, states that he is feeling slightly better. He denies any pain, no discomfort. States that he ate better yesterday without complaints. VITAL SIGNS: His most recent vital signs show temperature 97.4 degrees, blood pressure 158/56, heart rate 57, respirations 18. He is on room air and last recorded saturation 100%. He has had 505 in and he has had 3200 out. LABS: His sodium is 137, potassium 5.1, chloride is 89, CO2 37, BUN 104, creatinine 2.8 with a glucose of 176. He has an anion gap of 11, calcium is 9.1, phosphorus is 5.3, albumin of 3.7. He has a white count of 6.51, hemoglobin 7.7, hematocrit is 23.8, platelet count 145,000. PHYSICAL EXAMINATION: General: This is a 53-year-old white male resting quietly in bed, appears chronically ill, though no acute distress. Skin: Warm and dry. HEENT: Normocephalic, atraumatic. Conjunctiva is pale. He has JENSEN. Mucous membranes are dry. Neck: Supple. Trachea midline. Positive JVD today. Cardiovascular: He is regular rate and rhythm. He is without murmur. Lungs: Shallow. Clear to auscultation bilaterally. Equal excursion on room air. Abdomen: Soft, nontender. Positive bowel sounds. Genitourinary: Not inspected. Patient has been voiding adequate amount. Extremities: He continues with 3+ edema from the lower extremities up into the mid hip/abdominal wall region. Neurological: Alert and oriented x3. ASSESSMENT AND PLAN: 1. Acute kidney injury on chronic kidney disease stage 4. Patient's BUN has remained elevated, likely secondary to his diuretic affect, though his creatinine has remained stable close to his baseline. Adequate urine output is documented. The patient's weight actually appears to be up and compared with yesterday of 99.56 kg. We will continue with daily weights. No changes to his diuretics. 2. Fluid volume overload. We have discussed with the patient continuing to work on his fluid volume excess. He continues on Lasix 100 b.i.d. IV with metolazone 10 daily. We will continue to weigh him daily. He is on a fluid restriction at this time. We will continue to monitor. 3. Electrolytes, acid-base balance. These are acceptable. 4. Anemia. This remains low but stable. I would like to thank you for allowing us to follow with this patient. Dictated by KAYLEE Wilkinson for Zachary Morris MD Face to face encounter, data reviewed, discussed with Madeline Mims on 03/07/19. I agree with the above assessment and plan of care. cc: KAYLEE Wilkinson MD [facility]
--- NOTE | 2019-03-07 11:01 | PROGRESS NOTE ---
DATE: 03/07/2019 SUBJECTIVE: The patient reports feeling fine. He reports still abdominal distention. Denies any shortness of breath at rest. OBJECTIVE: Vital Signs: Temperature 97.7 degrees, heart rate 58, respiratory rate 18, blood pressure 146/56, O2 saturation 95% on 2 L nasal cannula. General Examination: This is a chronically ill-appearing, 53-year-old, male, lying in bed, in no acute distress. Cardiovascular Examination: S1 and S2 heard. No murmurs, gallops, or rubs. Regular rate and rhythm. Respiratory Examination: Clear bilaterally to auscultation. No work of breathing or using accessory muscles. Abdomen: Obese. There is no tenderness to palpation noted. Definitely is distended with ascites present and also abdominal wall present as well. Extremities: Bilateral lower extremity edema. Peripheral pulses present but faint. Genitourinary: The patient has a Hirsch catheter with clear urine and also, according to the patient, less testicular swelling. Neurological Examination: The patient is alert and oriented x3. Moves 4 extremities. Laboratory Data: White cell count 6.51, hemoglobin 7.7, hematocrit 23.8, platelets 145,000. BMP remarkable for creatinine of 2.8, glucose 176. ASSESSMENT/PLAN: 1. Anasarca due to volume overload due to chronic kidney disease stage 4 with nephrotic syndrome. Clinically, this patient is improving. He is on Lasix 100 mg intravenously every 12 hours and also metolazone 10 mg by mouth daily. Dr. Morris is following this patient. So far, he has removed 4.8 L of urine with a negative balance of 4.2, and so far since admission, 30 L of urine have been removed. At this point, we will continue with the same management. 2. Chronic kidney disease stage 4. Creatinine at baseline. We will continue to monitor. Dr. Morris is following this patient. 3. Essential hypertension. We will continue home medications. 4. Acute hypoxemic respiratory failure secondary to acute pulmonary edema secondary to volume overload. That condition is definitely better. He is requiring only 2 L of oxygen by nasal cannula. 5. Disposition. At this point, I think we will continue to monitor this patient closely and following the lead from nephrology. cc: Wicho Loving MD
[2019-03-08] MEDS: APRESOLINE PO SCH ×3 (02:15→16:31)
[2019-03-08] MEDS: CATAPRES PO SCH ×3 (02:15→16:31)
[2019-03-08] MEDS: DUONEB (A & A) INH PRN ×5 (03:25→23:29)
[2019-03-08] MEDS: MORPHINE IV PRN ×4 (06:04→20:04)
[2019-03-08] MEDS: HEPARIN SUBQ SCH ×3 (06:06→22:07)
[2019-03-08] MEDS: HUMULIN 70/30 SUBQ SCH ×2 (06:10→22:20)
[2019-03-08] MEDS: HUMALOG SUBQ SCH ×4 (06:10→22:08)
[2019-03-08 06:53] LABS: ALBUMIN 3.6 g/dL (3.5-5.0); CALCIUM 9.3 mg/dL (8.8-10.2); POTASSIUM 5.6 mmol/L (3.5-5.1)
--- NOTE | 2019-03-08 08:43 | NEPHROLOGY PROGRESS NOTE ---
DATE: 03/08/2019 SUBJECTIVE: Mr. Olsen is resting quietly in bed. States that he had troubles with his blood sugars yesterday evening. Last check was up into the 140s. Feeling a little bit better, though tired. OBJECTIVE: Vital Signs: Temperature 98.3 degrees, blood pressure 129/53, heart rate 79, respirations 18. He is on room air. Last recorded saturation 100%. He has had 960 in, 2650 out to Hirsch catheter. LABS: Sodium is 139, potassium 5.6, chloride 91, CO2 33, BUN 104, creatinine 3, glucose is 140. His anion gap is 15, calcium is 9.3, phosphorus 6, albumin 3.6. Previous hemoglobin 7.7. PHYSICAL EXAMINATION: General: This is a 53-year-old white male resting quietly in bed. He appears chronically ill, no acute distress. Skin: Warm and dry. HEENT: Normocephalic, atraumatic. Conjunctiva is pale pink. He has JENSEN. Mucous membranes are dry. Neck: Supple. Trachea midline. Trace evidence of JVD in the upright position. Cardiovascular: Regular rate and rhythm. He is without murmur or gallop. Lungs: Clear to auscultation bilaterally. Equal excursion on room air. Abdomen: Slightly distended. Positive bowel sounds, nontender. Genitourinary: Not inspected. Hirsch catheter is in place, large amounts of urine out. Extremities: Have 2 to 3+ lower extremity edema up into the mid hip abdominal wall region Neurologic: Alert and oriented x3. ASSESSMENT AND PLAN: 1. Acute kidney injury on chronic kidney disease stage 4. The patient's BUN and creatinine have held stable with a BUN of 104 and a creatinine of 3. We had held his diuretics yesterday secondary to his elevated CO2. He still had 2.5 L of urine out to his Hirsch catheter. We will DC his Hirsch catheter today. We will continue to hold his Lasix with possible resuming Lasix in the a.m. 2. Fluid volume overload. The patient continues to put 2.5 L out to his Hirsch catheter. Lasix was actually held yesterday due to his elevated CO2. This remains elevated at 303. We will continue to hold his Lasix today and continue to monitor his intake and output. He continues on daily weights. 3. Electrolytes and acid-base balance. Patient has a potassium of 5.6. We will give him 1 dose of Lokelma, re-evaluate labs in the a.m. 4. Anemia hemoglobin of 7.7. This has been low but stable. I would like to thank you for allowing us to follow with this patient. Dictated by KAYLEE Wilkinson for Zachary Morris MD Face to face encounter, data reviewed, discussed with aMdeline Mims on 03/08/19. I agree with the above assessment and plan of care. cc: KAYLEE Wilkinson MD [facility]
[2019-03-08] MEDS: NORVASC PO SCH (08:53)
[2019-03-08] MEDS: TRENTAL PO SCH ×3 (08:53→22:07)
[2019-03-08] MEDS: PROTONIX PO SCH ×2 (08:54→22:05)
[2019-03-08] MEDS: CELEXA PO SCH (08:54)
[2019-03-08] MEDS: MIRALAX PO SCH (08:54)
[2019-03-08] MEDS: ASPIRIN PO SCH (08:54)
[2019-03-08] MEDS ORDERED: LOKELMA POWDER PACKET PO SCH (09:00)
[2019-03-08] MEDS: TRANDATE PO SCH ×2 (10:57→22:12)
[2019-03-08] MEDS: NORCO-10 PO PRN ×2 (12:20→22:05)
--- NOTE | 2019-03-08 13:20 | PROGRESS NOTE ---
DATE: 03/08/2019 SUBJECTIVE: Patient reports patient feeling fine. Still some abdominal distention but no shortness of breath. OBJECTIVE: Vital Signs: Temperature 97.5 degrees, heart rate 51, respiratory rate 16, blood pressure 142/61, O2 saturation 100% on 2 L nasal cannula. General Examination: This is a chronically ill-appearing, 53-year-old male, lying in bed, in no acute distress. Cardiovascular: S1, S2 heard. No murmurs, gallops, or rubs. Regular rate and rhythm. Respiratory: Clear bilaterally to auscultation. The patient is not using any accessory muscles or having work of breathing. Abdomen: Soft. No tenderness to palpation noted. The abdomen is distended with ascites and also abdominal wall edema present as well. Extremities: Bilateral lower extremity edema. Peripheral pulses present but faint. Genitourinary: Patient has a Hirsch catheter with clear urine. Also less testicular swelling according to the patient. Neurological: Patient is alert and oriented x3. Moves 4 extremities. LABORATORY DATA: Reviewed. ASSESSMENT AND PLAN: 1. Anasarca due to volume overload due to chronic kidney disease stage 4 with nephrotic syndrome. Clinically, this patient is improving. Patient has been on Lasix 100 mg IV q.12 hours and also metolazone 10 mg p.o. daily. Because of this, CO2 started getting higher so Lasix has been stopped yesterday but he is still making good urine in the last 24 hours, he has made 2 L of urine, and so far since admission, 32.7 L of urine has been removed. I think at this point, we will continue to hold Lasix. Nephrology is following this patient. We will follow recommendations. 2. Chronic kidney disease stage 4. Creatinine at baseline. Dr. Morris is following this patient. 3. Essential hypertension. Blood pressure is under control. We will continue with the same management. 4. Acute hypoxemic respiratory failure secondary to acute pulmonary edema secondary to volume overload. That condition is getting better. We will continue to monitor. 5. Disposition. I think at this point, we will continue to monitor this patient closely and we are following leads from Nephrology. cc: Wicho Loving MD [facility]
[2019-03-09] MEDS: MORPHINE IV PRN ×4 (00:21→12:42)
[2019-03-09] MEDS: APRESOLINE PO SCH ×2 (00:27→08:23)
[2019-03-09] MEDS: CATAPRES PO SCH ×2 (01:08→08:23)
[2019-03-09] MEDS: HEPARIN SUBQ SCH ×2 (05:28→14:05)
[2019-03-09] MEDS: NORCO-10 PO PRN (05:42)
[2019-03-09] MEDS: HUMULIN 70/30 SUBQ SCH (06:23)
[2019-03-09] MEDS: HUMALOG SUBQ SCH ×2 (06:36→13:52)
[2019-03-09 07:16] LABS: ALBUMIN 3.9 g/dL (3.5-5.0); CALCIUM 8.5 mg/dL (8.8-10.2); PHOSPHORUS 5.5 mg/dL (2.7-4.5); POTASSIUM 5.6 mmol/L (3.5-5.1)
[2019-03-09 07:46] VITALS: BP 146/60
[2019-03-09] MEDS: DUONEB (A & A) INH PRN ×2 (08:02→11:02)
[2019-03-09] MEDS: PROTONIX PO SCH (08:22)
[2019-03-09] MEDS: TRENTAL PO SCH (08:22)
[2019-03-09] MEDS: TRANDATE PO SCH (08:23)
[2019-03-09] MEDS: CELEXA PO SCH (08:23)
[2019-03-09] MEDS: ASPIRIN PO SCH (08:23)
[2019-03-09] MEDS: NORVASC PO SCH (08:23)
[2019-03-09] MEDS: MIRALAX PO SCH (08:38)
--- NOTE | 2019-03-09 09:32 | NEPHROLOGY PROGRESS NOTE ---
DATE: 03/09/2019 TIME SEEN: 0650. SUBJECTIVE: Mr. Olsen is sitting up in a chair. He states that he is feeling just a little bit better today. Feels like his abdomen is less swollen. OBJECTIVE: Vital Signs: Temperature 97.9 degrees, blood pressure 131/57, heart rate 54, respirations 12. He is on 2 L nasal cannula. Last recorded saturation 95%. He has had 0 in and 1800 out to void. LABORATORY DATA: Sodium 142, potassium 5.6, chloride 94, CO2 35, BUN 102, creatinine 3, glucose is 149. His anion gap is 13, calcium 8.5, phosphorus 5.5, albumin is 3.9. Previous hemoglobin of 7.7. PHYSICAL EXAMINATION: General: This is a 53-year-old white male. He is resting quietly on the side of the chair. He appears chronically ill. No acute distress. Skin: Warm and dry. HEENT: Normocephalic, atraumatic. Conjunctivae pale pink. He is JENSEN. Mucous membranes are dry. Neck: Supple. Trachea midline. Unable to determine JVD. Cardiovascular: Regular rate and rhythm. No murmur or gallop appreciated. Lungs: Clear to auscultation bilaterally. Equal excursion on room air. Abdomen: Slightly distended, soft, nontender. Positive bowel sounds. Genitourinary: Not inspected. Patient has been voiding adequate amount. Extremities: Patient now has 2+ lower extremity edema. This is improved only up into his hip region. His abdominal wall is softer, nonpitting. Integumentary: Patient has dry skin, some peeling noted to bilateral lower extremities. Neurological: Alert and oriented x3. ASSESSMENT AND PLAN: 1. Acute kidney injury on chronic kidney disease stage 4. Patient's BUN and creatinine have been fairly stable in the last 72 hours. BUN in the 100, 102 today, with a creatinine of 3. Adequate urine output is documented. We will continue to monitor. 2. Fluid volume overload. Patient's fluid status has continued to improve. We will add Lasix p.o. 80 mg b.i.d. Hold his metolazone in preparation for possibly going home on this dosing. Continue to monitor his I/Os. 3. Electrolytes and acid-base balance. Patient's potassium is 5.6. We will add another dose of low count today. Anion gap is closing. 4. Anemia. Hemoglobin is low at 7.7, though this has remained stable. I would to thank you for allowing us to follow with this patient. Dictated by KAYLEE Wilkinson for Zachary Morris MD Face to face encounter, data reviewed, discussed with Madeline Mims on 03/09/19. I agree with the above assessment and plan of care. cc: KAYLEE Wilkinson MD [facility]
[2019-03-09] MEDS ORDERED: D50W SYRINGE IV PRN (10:57)
[2019-03-09] MEDS ORDERED: D50W SYRINGE IV ONE (11:00)
--- NOTE | 2019-03-09 12:00 | DISCHARGE SUMMARY ---
ADMISSION DATE: 02/24/2019 DISCHARGE DATE: 03/09/2019 CONSULTATIONS: 1. Dr. Mary with Cardiology. 2. Dr. Yosef Russell with Urology. 3. Dr. Morris with Nephrology. PERTINENT PROCEDURES: 1. Echocardiogram shows an EF of 59% with LVH. 2. V/Q scan low probability for PE. 3. Abdominal ultrasound: ascites and bilateral pleural effusions. ASSESSMENT AND PLAN: 1. Chronic kidney disease stage IV with fluid volume overload. His BUN and creatinine are currently stable. He has had adequate output. He diuresed well with Lasix and the addition to metolazone and albumin. Will be discharged home on 80 of Lasix oral twice daily and hold his metolazone. 2. Chronic anemia. He has remained stable, has not required any transfusions. Hemodynamically stable. 3. Hyperkalemia. Patient has been given Lokelma. 4. Anasarca secondary to volume overload and chronic kidney disease with nephrotic syndrome. Clinically improved. 5. Essential hypertension. Blood pressure is under control. 6. Acute hypoxemic respiratory failure secondary to acute pulmonary edema secondary to volume overload. Condition has improved with diuresis. HOSPITAL COURSE: Briefly, Mr. Olsen is a 53-year-old gentleman who has a known elevated creatinine and obstructive uropathy followed by Dr. Morris. COPD, diabetes mellitus type 2, hypertension, chronic kidney disease with a baseline of around 2.5. He came to the ED secondary to shortness of breath for over 1 week. He was treated with IV Lasix and admitted for further workup and evaluation. Prior to his hospital admission, his creatinine was essentially unchanged. Did have some abdominal anasarca. He was evaluated by Cardiology. They do believe this is all secondary to his renal issues. He was initiated on high-dose IV Lasix with the addition of metolazone, as well as IV albumin given his albumin was noted to be at 2.7. He has continued to diurese well throughout his hospital stay. His respiratory status has improved, and he will be discharged home on high-dose p.o. Lasix. Continue to follow Dr. Morris. VITAL SIGNS: At time of discharge, temperature is 97.7 degrees, heart rate 52, respiration 19, blood pressure 146/60, O2 is 99%. DISCHARGE DIET: Diabetic. DISCHARGE MEDICATIONS: 1. MiraLAX 17 g p.o. b.i.d. p.r.n. 2. Amitriptyline 10 mg p.o. at bedtime. 3. Apresoline 100 mg p.o. q. 8 hours. 4. Aspirin 325 mg p.o. daily. 5. Catapres 0.2 mg p.o. t.i.d. 6. Celexa 40 mg p.o. daily. 7. Flomax 0.4 mg p.o. daily. 8. Humulin 70/30, 50 units subcutaneous q.a.m. 9. Humulin 70/30, 10 units subcutaneous q.p.m. 10. Lasix 80 mg p.o. b.i.d. 11. Lokelma 10 mg p.o. daily for 7 doses. 12. Movantik 12.5 mg p.o. ECB. 13. Multivitamin plus iron 1 each p.o. daily. 14. [place] 10/325 one each p.o. t.i.d. p.r.n. 15. Norvasc 10 mg p.o. daily. 16. Protonix 40 mg p.o. b.i.d. 17. Labetalol 200 mg p.o. b.i.d. 18. Trental 400 mg p.o. t.i.d. 19. Vitamin D 5000 units p.o. daily. FOLLOWUP: Mr. Olsen is being discharged back home with [facility]. He will continue to follow up with Dr. Morris, as well as his primary care for provider, Dr. Allen. He is to take all medications as prescribed. He can return to the ED or call 911 for any worsening of symptoms. Dictated by KAYLEE Bustamante for Wicho Loving MD Addendum: Patient seen and examined by myself. Agree with KAYLEE note. It reflects my assessment and plan. Patient is being discharged in stable condition. Will be seen by Dr. Morris in the office in a week with a BMP. cc: MD Zachary Hutchinson MD [facility]
[2019-03-09] MEDS: LOKELMA POWDER PACKET PO SCH ×2 (12:13→14:05)
[2019-03-09] MEDS ORDERED: LASIX PO SCH (13:00)
== END 2019-03-09 15:30 | disposition home health service (06) | DRG 640 ==
LOC: ED 18:39 → SUATTDRO 22:17 → 3S 22:17 → 2N 03-01 12:15 → 3N 03-01 17:00
PROVIDERS: ATTEND Internal Medicine

== ENCOUNTER 2019-03-31 04:25 | Inpatient (IN) ==
[2019-03-31] MEDS ORDERED: DUONEB (A & A) INH ONE (04:31)
[2019-03-31] MEDS ORDERED: LASIX IV ONE ×3 (04:31→06:34)
--- NOTE | 2019-03-31 04:37 | PROVIDER DOCUMENTATION ---
HPI-Respiratory General - General Stated Complaint: FLUID/SOB Time Seen by Provider: 03/31/19 04:29 Source: patient, EMS Allergies/Adverse Reactions: Patient Allergies Allergy/AdvReac Type Severity Reaction Status Date / Time No Known Allergies Allergy Verified 03/31/19 04:36 Home Medications: Home Medication List Medication Instructions Recorded Confirmed Last Taken Type Amitriptyline [Elavil] 10 mg PO QHS #30 tab 12/19/18 03/31/19 12/19/18 18:00 Rx Cholecalciferol (Vit D3) [Vitamin 5,000 unit PO DAILY #120 cap 12/19/18 03/31/19 12/19/18 09:00 Rx D] Citalopram [Celexa] 40 mg PO DAILY #120 tab 12/19/18 03/31/19 12/19/18 18:00 Rx Hydralazine [Apresoline] 100 mg PO Q8H #240 tab 12/19/18 03/31/19 12/19/18 04:00 Rx Labetalol [Trandate] 200 mg PO BID #120 tab 12/19/18 03/31/19 Unknown Rx Multivitamin/Iron/Folic Acid 1 ea PO DAILY #30 tab 12/19/18 03/31/19 Unknown Rx [Multi-Day Plus Iron Tablet] Naloxegol Oxalate [Movantik] 12.5 mg PO ACB #30 tab 12/19/18 03/31/19 Unknown Rx Pantoprazole [Protonix] 40 mg PO BID #120 tab 12/19/18 03/31/19 Unknown Rx Pentoxifylline E.r. [Trental] 400 mg PO TID #240 tab 12/19/18 03/31/19 Unknown Rx Tamsulosin [Flomax] 0.4 mg PO DAILY #120 cap 12/19/18 03/31/19 12/19/18 10:30 Rx Hydrocodone/Acetaminophen [[place] 1 ea PO TID PRN #20 tab 12/24/18 03/31/19 Unknown Rx 10-325 Tablet] Insulin Humulin 70/30 [Humulin 10 unit SUBQ QPM #1 insuln.pen 12/24/18 03/31/19 Unknown Rx 70/30] Insulin Humulin 70/30 [Humulin 15 unit SUBQ QAM #1 insuln.pen 12/24/18 03/31/19 Unknown Rx 70/30] Polyethylene Glycol 3350 [Miralax] 17 gm PO BID PRN 02/25/19 03/31/19 Unknown History Aspirin 1 tab PO DAILY 03/31/19 03/31/19 Unknown History Clonidine [Catapres] 1 tab PO DAILY 03/31/19 03/31/19 Unknown History Furosemide 1 tab PO BID 03/31/19 03/31/19 Unknown History - History of Present Illness-Resp Nature of Presenting Problem: A 53 Y/O MALE PRESENTS WITH C/O SOB FOR PAST 2-3 HRS. WOKE UP FROM SLEEP WITH IT. DENIES ANY CP OR COUGH OR FEVER. STOMACH IS HURTING AND BLOATED. DENIES ANY NAUSEA OR VOMITING OR DIARRHEA. PER PT THE SYMPTOMS STARTED SUDDENLY AND HE WOKE FROM SLEEP WITH IT. PE RPT HE WAS FINE LAST NIGHT BEFORE GOING TO BED. Review of Systems - Adult - REVIEW OF SYSTEMS - ADULT Constitutional: denies: no symptoms reported Eyes: denies: no symptoms reported Ears, Nose, Mouth & Throat: denies: no symptoms reported Cardiovascular: reports: see HPI Respiratory: reports: see HPI Gastrointestinal: reports: see HPI Genitourinary: reports: see HPI Musculoskeletal: denies: no symptoms reported Integumentary: denies: no symptoms reported Neurological: denies: no symptoms reported Psychiatric: denies: no symptoms reported Endocrine: denies: no symptoms reported Hematologic/Lymphatic: denies: no symptoms reported Allergic/Immunologic: denies: no symptoms reported Past History - Adult - PAST MEDICAL HISTORY-ADULT Review of Records: reports: Old Records Reviewed, Nursing Assessment Review, Medications Reviewed, Social history reviewed & non-contributory. Major Childhood Illnesses: reports: denies history Cardiovascular: reports: HTN, hyperlipidemia, PVD Respiratory: reports: COPD Gastrointestinal: reports: GERD Obstetrical/Gynecological: reports: denies history Genitourinary: reports: denies history Musculoskeletal: reports: denies history Neurological: reports: CVA, TIA, other (neuropathy) Psychiatric: reports: depression Endocrine/Immune: reports: Diabetes Other Conditions: reports: other (ulcers to feet) - PRIOR SURGERIES/PROCEDURES Surgical/Procedure History: reports: orthopedic (extremity), other (fem-bop) - IMMUNIZATION STATUS Childhood Immunizations: See Nurse Assessment Flu Vaccine: See Nurse Assessment - FAMILY HISTORY Family History: reviewed, not pertinent Physical Exam-General - PHYSICAL EXAM-ADULT Initial Vital Signs Reviewed: Yes - CONSTITUTIONAL General Appearance: alert, severe distress, anxious - EYES Eyes: PERRL/EOMI - HEAD, EARS, NOSE, MOUTH & THROAT HENMT: normocephalic/atraumatic, normal ENT inspection, pharynx normal. negative: moist mucous membranes - NECK Neck: non-tender, supple - RESPIRATORY Respiratory: decreased breath sounds, accessory muscle use, crackles, wheezing, increased rate - CARDIOVASCULAR Cardiovascular: normal peripheral pulses, no JVD, tachycardia, systolic murmur - GASTROINTESTINAL (ABDOMEN) Abdominal Exam: distended, tenderness (GENERALIZED) - MUSCULOSKELETAL Back Exam: no CVA tenderness, no vertebral tenderness Extremity: pedal edema (3+) Peripheral Pulses: radial (R): 2+, radial (L): 2+ - SKIN Integumentary: normal color, other (BOTH FEET WITH IN DRESSING) - NEUROLOGIC Neurologic: grossly normal - PSYCHIATRIC Psych/Mental Status: normal mood/affect, normal thought content, normal thought process, oriented x 3 Progress - PLAN OF CARE/RESULTS Progress/Plan/Lab Results: Vital Signs - 8 hr 03/31/19 04:33 03/31/19 04:42 03/31/19 05:32 Temperature 97.5 F L Pulse Rate 70 76 66 Respiratory Rate 31 H 35 H 20 Blood Pressure 246/93 223/81 O2 Sat by Pulse Oximetry 100 100 100 03/31/19 05:47 03/31/19 06:02 03/31/19 06:17 Temperature Pulse Rate 65 64 65 Respiratory Rate 16 14 14 Blood Pressure 227/96 237/87 208/109 O2 Sat by Pulse Oximetry 100 100 100 Laboratory Results - last 24 hr 03/31/19 03/31/19 03/31/19 04:43 04:43 04:43 WBC 7.94 RBC 2.88 L Hgb 8.6 L Hct 26.1 L MCV 90.6 MCH 29.9 MCHC 33.0 RDW Std Deviation 15.8 H Plt Count 246 MPV 10.2 Immature Gran % (Auto) 0.0 Neut % (Auto) 68.5 Lymph % (Auto) 16.8 L [place] % (Auto) 11.5 H Eos % (Auto) 2.6 Baso % (Auto) 0.6 Immature Gran # (Auto) 0.00 Neut # (Auto) 5.44 Lymph # (Auto) 1.33 [place] # (Auto) 0.91 H Eos # (Auto) 0.21 Baso # (Auto) 0.05 D-Dimer, Quantitative 2.74 H Specimen Type Sample Site pH pCO2 pO2 HCO3 Base Excess Oxyhemoglobin ABG O2 Sat (Calculated) ABG O2 Saturation ABG Carboxyhemoglobin ABG Methemoglobin Wilfredo Test A-a O2 Difference Total Hemoglobin Lactate Blood Gas Modality Vent Mode FiO2 % Inspiratory BiPAP Expiratory BiPAP Sodium 140 Potassium 4.7 Chloride 104 Carbon Dioxide 22 L Anion Gap 14 BUN 46 H Creatinine 2.4 H Estimated GFR/1.73 m2 28 BUN/Creatinine Ratio 19 Glucose 179 H Calculated Osmolality 296 Calcium 8.8 Total Bilirubin 0.40 AST 16 ALT 14 Alkaline Phosphatase 246 H Creatine Kinase 155 Troponin T [id number]-Xpvhyaoosru Pept Total Protein 7.1 Albumin 3.7 Globulin 3.4 Albumin/Globulin Ratio 1.1 03/31/19 03/31/19 03/31/19 04:43 04:43 06:07 WBC RBC Hgb Hct MCV MCH MCHC RDW Std Deviation Plt Count MPV Immature Gran % (Auto) Neut % (Auto) Lymph % (Auto) [place] % (Auto) Eos % (Auto) Baso % (Auto) Immature Gran # (Auto) Neut # (Auto) Lymph # (Auto) [place] # (Auto) Eos # (Auto) Baso # (Auto) D-Dimer, Quantitative Specimen Type ARTERIAL Sample Site R RADIAL pH 7.40 pCO2 38 pO2 426 H HCO3 24.0 Base Excess -1.2 Oxyhemoglobin 96.3 ABG O2 Sat (Calculated) 12.2 L ABG O2 Saturation 96.3 ABG Carboxyhemoglobin 0.00 L ABG Methemoglobin 0.0 Wilfredo Test YES A-a O2 Difference 240.0 Total Hemoglobin 8.1 L Lactate 0.60 Blood Gas Modality BI PAP Vent Mode BIPAP FiO2 % 100.0 Inspiratory BiPAP 14.0 Expiratory BiPAP 8.0 Sodium Potassium Chloride Carbon Dioxide Anion Gap BUN Creatinine Estimated GFR/1.73 m2 BUN/Creatinine Ratio Glucose Calculated Osmolality Calcium Total Bilirubin AST ALT Alkaline Phosphatase Creatine Kinase Troponin T 0.200 H [id number] Pept > 27403 H Total Protein Albumin Globulin Albumin/Globulin Ratio Orders Category Date Time Status CHEST-1 VIEW [RAD] Stat Exams 03/31/19 04:[address] ABDOMEN/PELVIS W/O CONTRAST [CT] Stat Exams 03/31/19 04:32 Taken LUNG SCAN / VQ [NM] Stat Exams 03/31/19 07:50 Ordered ABG [RESP] Routine Lab 03/31/19 06:07 Completed CBC WITH ELECTRONIC DIFF [HEME] Stat Lab 03/31/19 04:43 Completed CK PROFILE [SP CHEM] Stat Lab 03/31/19 04:43 Completed COMPREHENSIVE METABOLIC PANEL [CHEM] Stat Lab 03/31/19 04:43 Completed D-DIMER [COAG] Stat Lab 03/31/19 04:43 Completed PRO B-NATRIURETIC PEPTIDE Stat Lab 03/31/19 04:43 Completed TROPONIN T Stat Lab 03/31/19 04:43 Completed Albuterol 2.5MG/Ipratrop 0.5MG [Duoneb (A & A)] Med 03/31/19 04:31 Discontinued 9 ml INH NOW ONE Furosemide [Lasix] Med 03/31/19 04:31 Discontinued 40 mg IV NOW ONE Furosemide [Lasix] Med 03/31/19 04:32 Discontinued 40 mg IV NOW ONE Furosemide [Lasix] Med 03/31/19 06:34 Discontinued 40 mg IV NOW ONE Aerosol Treatments Routine Oth 03/31/19 04:31 Completed Aerosol Treatments Stat Oth 03/31/19 04:31 Completed EKG [EKG] Stat Ther 03/31/19 04:28 Draft Result Diagrams: 03/31/19 04:43 03/31/19 04:43 - CONSULTS/PCP/HOSPITALIST Notification #1 *Consult/PCP/Hospitalist*: D/W ALEXX, WANTED VQ SCAN AND HUNG UP SAYING SHE IS GETTING A CALL Time Discussed: 07:44 - CHANGE OF SHIFT REPORT (ED Provider) 1 Report Given and Care Transferred to:: DR COYLE Time of Transfer: 07:45 Items Pending: Physician Consult/Arrival, Other (VQ SCAN) Departure - Departure Referrals and Follow-Ups: Rodrigo Allen MD [Primary Care Provider] - Attestation - Physician/ MIRZA Attestation Patient care was provided by Advanced Practice Provider:: No The physician spent face to face time with patient:: Yes Advanced Practice Provider documentation review:: Supervising physician onsite and consulted in the evaluation and care of this patient. The physician did have a face to face encounter with the patient.
--- NOTE | 2019-03-31 04:58 | EKG Report ---
Test Performed on : 03/31/2019 04:25:44 AM Test Reason : respiratory distress Blood Pressure : / mmHG Vent. Rate : 070 BPM Atrial Rate : 070 BPM P-R Int : 156 ms QRS Dur : 088 ms QT Int : 426 ms P-R-T Axes : 095 020 101 degrees QTc Int : 460 ms Normal sinus rhythm. Abnormal QRS-T angle, consider primary T wave abnormality Abnormal ECG When compared with ECG of 24-FEB-2019 18:43, (Unconfirmed) Sinus rhythm. has replaced Junctional rhythm. Nonspecific T wave abnormality no longer evident in Inferior leads Nonspecific T wave abnormality, improved in Lateral leads Unconfirmed Result
[2019-03-31 05:19] LABS: BASO# 0.05 X1000 (0.0-0.2); BASO% 0.6 % (0.0-0.8); EOS# 0.21 X1000 (0.0-0.7); EOS% 2.6 % (0.0-10.0); HEMATOCRIT 26.1 % (42.0-52.0); HEMOGLOBIN 8.6 g/dL (14.0-18.0); LYMPH# 1.33 X1000 (1.2-3.4); LYMPH% 16.8 % (20.5-51.1); MCH 29.9 PG (27-31); MCV 90.6 FL (81-99); MONO# 0.91 X1000 (0.11-0.59); MONO% 11.5 % (1.7-9.3); MPV 10.2 FL (7.4-10.4); NEUT# 5.44 X1000 (1.4-6.5); NEUT% 68.5 % (42.2-75.2); PLT 246 X1000 (130-400); RBC 2.88 XMIL (4.7-6.1); RDW 15.8 % (11.5-14.5); WBC 7.94 X1000 (4.8-10.8)
[2019-03-31 05:42] LABS: ALB/GLOB RATIO 1.1; ALBUMIN 3.7 g/dL (3.5-5.0); CALCIUM 8.8 mg/dL (8.8-10.2); CREATININE 2.4 mg/dL (0.7-1.2); POTASSIUM 4.7 mmol/L (3.5-5.1); TOTAL BILIRUBIN 0.4 mg/dL (0.20-1.00); TOTAL PROTEIN 7.1 g/dL (6.3-8.3)
[2019-03-31 06:17] LABS: ALLEN TEST YES; BE -1.2 mmoll (-3.0-3.0); BLOOD TYPE ARTERIAL; MODALITY BI PAP; O2(CT) 12.2 mL/dL (15.0-23.0); O2HB 96.3 % (95.0-99.0); PCO2(98.6) 38 mmHg (35-45); PO2(98.6) 426 mmHg (60-100); SAMPLE BLOOD; SAO2 96.3 % (95.0-100.0); THB 8.1 g/dL (11.5-17.4)
--- NOTE | 2019-03-31 06:59 | Diag Imaging Result Doc PS360 ---
EXAM: CHEST-1 VIEW 03/31/2019 HISTORY: SOB TECHNIQUE: AP portable at 0447 COMMENT: There are bilateral pleural effusions. There is interstitial pulmonary edema. This is slightly worse than on 03/02/2019. IMPRESSION: Pulmonary edema and pleural effusions. Electronically signed by Waqar Jolly 03/31/2019 6:57 AM
--- NOTE | 2019-03-31 08:02 | Diag Imaging Result Doc PS360 ---
EXAM: CT ABDOMEN/PELVIS W/O CONTRAST 03/31/2019 HISTORY: ABD PAIN TECHNIQUE: This exam was performed using automated exposure control, adjustment of mA or kV according to patient size, and/or use of iterative reconstruction technique. COMMENT: The current study is compared with the previous examination of 12/13/2018. There are bilateral pleural effusions which were also present on the previous study. There is emphysematous change and some subsegmental atelectatic change in the lingula and right middle lobe. There is compressive atelectasis in both lower lobes which was present previously. There is a pericardial effusion which appears slightly worse than on the previous examination now measuring over 8 mm in thickness anteriorly compared to slightly over 5 mm previously. There is ascites which was also present previously. The right kidney is without evidence of hydronephrosis. There appear to be some vascular calcifications or possibly stones in the upper pole calyx. There are multiple stones seen on the left side particularly in the lower pole calyx where they're are probably multiple stones, in aggregate measuring over 14 mm. There is left-sided hydronephrosis with a stone at the ureteropelvic junction measuring almost 8 mm in diameter. The stent which was present in the left ureter at the time the previous study is no longer present. The staghorn calculus which was present in the upper pole has evidently been fragmented and what was seen in the lower pole calyces may be fragments of that stone. There is some question of small stones layering dependently in the gallbladder. There is a moderately large amount of stool in the right colon and transverse colon. The small bowel is not distended. The appendix is not distended. The urinary bladder is not distended. There is marked anasarca. There are spondylotic changes seen in the lumbar spine and the visualized portions of the thoracic spine. There is no evidence of acute bony abnormality. IMPRESSION: 1. Anasarca, bilateral pleural effusions, ascites, and pericardial effusion as described above. 2. Left hydronephrosis and nephrolithiasis with stone at the ureteropelvic junction as described above. 3. Mild constipation. Electronically signed by Waqar Jolly 03/31/2019 7:59 AM
[2019-03-31] MEDS ORDERED: APRESOLINE IV ONE (08:42)
[2019-03-31] MEDS ORDERED: MIRALAX PO PRN (08:42)
[2019-03-31] MEDS ORDERED: ZOFRAN IV PRN (08:50)
[2019-03-31] MEDS ORDERED: DUONEB (A & A) INH PRN (08:50)
[2019-03-31] MEDS ORDERED: TYLENOL PO PRN (08:50)
--- NOTE | 2019-03-31 08:50 | EKG Report ---
Test Performed on : 03/31/2019 08:45:07 AM Test Reason : eval ekg Blood Pressure : / mmHG Vent. Rate : 076 BPM Atrial Rate : 076 BPM P-R Int : 172 ms QRS Dur : 090 ms QT Int : 428 ms P-R-T Axes : 074 040 073 degrees QTc Int : 481 ms Normal sinus rhythm. Prolonged QT Abnormal ECG When compared with ECG of 31-MAR-2019 04:25, (Unconfirmed) No significant change was found Confirmed by Fer MOSS, Isra Jean Baptiste ([id number]) on 04/01/2019 9:03:04 AM
[2019-03-31] MEDS: HUMULIN 70/30 SUBQ SCH ×2 (09:00→17:40)
[2019-03-31] MEDS: NORCO-10 PO PRN (09:44)
[2019-03-31] MEDS: CATAPRES PO SCH (09:45)
[2019-03-31] MEDS: FLOMAX PO SCH (09:45)
[2019-03-31] MEDS ORDERED: LOPRESSOR IV ONE (10:12)
[2019-03-31] MEDS: DILAUDID IV PRN ×4 (10:19→23:51)
[2019-03-31] MEDS: CENTRUM TABLET PO SCH (10:21)
[2019-03-31] MEDS: APRESOLINE PO SCH ×2 (10:21→17:40)
[2019-03-31] MEDS: CELEXA PO SCH (10:21)
[2019-03-31] MEDS: ASPIRIN PO SCH (10:21)
[2019-03-31] MEDS: TRENTAL PO SCH ×3 (10:22→20:33)
[2019-03-31] MEDS: PROTONIX PO SCH ×2 (10:22→20:33)
[2019-03-31] MEDS: TRANDATE PO SCH ×2 (10:22→20:35)
[2019-03-31] MEDS: VITAMIN D PO SCH (10:23)
[2019-03-31] MEDS ORDERED: XYLOCAINE-MPF 2% ONE (10:39)
[2019-03-31] MEDS ORDERED: DIPRIVAN 1% ONE (10:39)
[2019-03-31] MEDS ORDERED: QUELICIN (DOSE) ONE (11:14)
[2019-03-31] MEDS ORDERED: DECADRON ONE ×2 (11:16→11:20)
[2019-03-31] MEDS ORDERED: TORADOL ONE (11:16)
[2019-03-31] MEDS ORDERED: KEFZOL 2 GM/D5W 2 GM/50 ML IVPB ONE (11:17)
[2019-03-31] MEDS ORDERED: ROBINUL ONE (11:41)
[2019-03-31] MEDS: DUONEB (A & A) INH SCH ×4 (11:58→23:08)
--- NOTE | 2019-03-31 13:08 | Diag Imaging Result Doc PS360 ---
EXAM: RETROGRADES 2 OR 3 FILMS INDICATION: LT. STONE, LT. RETROGRADE, LT. STENT PLACEMENT TECHNIQUE: COMPARISON: 12/03/2018 FINDINGS: Nine spot fluoroscopic images were obtained, which were performed during retrograde left hilar ureterogram and left ureteral stent placement by Dr. Yosef Russell. There is a small filling defect in the proximal left ureter consistent with an obstructing stone that was also seen on a recent CT. On the final image, the newly placed left ureteral stent is identified in the expected position. IMPRESSION: As above. Please correlate with live fluoroscopic imaging. Electronically signed by Kyree Myers 03/31/2019 1:06 PM
[2019-03-31] MEDS: HUMULIN R SUBQ SCH ×3 (13:33→20:34)
[2019-03-31] MEDS ORDERED: KEFZOL 2 GM/D5W 2 GM/50 ML IVPB IV ONE (13:51)
[2019-03-31 15:58] LABS: URINE SOURCE CATH
[2019-03-31 16:04] LABS: BILIRUBIN URINE NEGATIVE (NEGATIVE); BLOOD URINE LARGE (NEGATIVE); COLOR BROWN; GLUCOSE URINE NEGATIVE (NEGATIVE); KETONE URINE NEGATIVE (NEGATIVE); LEUKOCYTES URINE LARGE (NEGATIVE); NITRITE URINE NEGATIVE (NEGATIVE); PH URINE 5.5; PROTEIN URINE 200 mg/dL (NEGATIVE); TURBIDITY URINE TURBID (CLEAR); UR EPITHELIAL CELLS <10 /HPF (<10); URINE BACTERIA NEGATIVE /HPF; URINE RBC TNTC /HPF (<10); URINE WBC TNTC /HPF (<10); UROBILINOGEN URINE NORMAL (NORMAL)
[2019-03-31 16:10] LABS: URINE CASTS NONE SEEN; URINE YEAST NONE SEEN
--- NOTE | 2019-03-31 16:21 | HISTORY AND PHYSICAL ---
PRIMARY CARE PROVIDER: Kandis Allen MD UROLOGIST: Yosef Russell MD TAPE RECORDING MACHINE OPERATOR: Francisco Walker MD CHIEF COMPLAINT: Abdominal pain on the left side all the way to the flank along with shortness of breath and abdominal distention. HISTORY OF PRESENT ILLNESS: Mr. Bob Olsen is a 53-year-old male with a medical history of COPD on continuous home oxygen 2 L, diabetes mellitus type 2, CKD stage 3, kidney stones with history of stents and severe pulmonary hypertension who now presents with complaints of at least 2 days worsening shortness of breath, coughing up dark hoang colored phlegm. He denies fever chills, nausea, vomiting, or constipation. He states he has had nausea since he developed left-sided abdominal pain a few hours ago. Imaging reveals that he has got anasarca along with left hydronephrosis and nephrolithiasis with a stone in the ureteropelvic junction. Dr. Russell has been consulted who plans on putting in a stent and getting the stone out. He is having significant pain in that left side of his abdomen upper lower and it radiates into the left flank area. Very tender to palpation. He does have edema in the abdomen, edema in the lower extremities. He has trace lower extremity pulses but they are warm. He has a foot ulcer between the right great toe and 2nd toe. He has got a foot ulcer on the bottom of his left foot. States he has been going to the wound clinic at [facility]. We will consult Cardiology, pulmonology as he is having some respiratory failure requiring higher oxygen and Neurology and Dr. Russell who has put in ureteral stents in the past. PAST MEDICAL HISTORY: 1. COPD on 2 L nasal cannula. 2. Diabetes mellitus type 2. 3. Hyperlipidemia. 4. Hypertension. 5. BPH. 6. Neuropathy. 7. Depression. 8. Chronic kidney disease stage 3. 9. Renal stones. 10. CVA. 11. Congestive heart failure with severe pulmonary hypertension. 12. Diabetic foot ulcers. 13. Peripheral vascular disease. SURGICAL HISTORY: 1. Lithotripsy. 2. Left knee surgery. 3. Left leg femoral bypass x2. 4. Bilateral nephroureteral stents. 5. Right 5th toe amputation. SOCIAL HISTORY: He has not smoked for about 3 days but he is a less than a half pack per day smoker and he has been smoking since age of 7. Denies alcohol or illicit drug use. Lives with his . Uses a cane to get around. FAMILY HISTORY: Father had hypertension and diabetes. ALLERGIES: No known drug allergies. HOME MEDICATIONS: 1. Aspirin 325 mg p.o. daily. 2. Catapres 0.1 mg p.o. daily. 3. Lasix 40 mg p.o. twice daily. 4. MiraLAX 17 g p.o. twice daily p.r.n. 5. Elavil 10 mg p.o. nightly. 6. Apresoline 100 mg p.o. every 8 hours. 7. Celexa 40 mg p.o. daily. 8. Flomax 0.4 mg p.o. daily. 9. Insulin 70/30, 15 units subcutaneous in the morning and 10 at night. 10. Movantik 12.5 mg p.o. before meals. 11. Multivitamin with iron p.o. daily. 12. [place] 10 1 tablet p.o. t.i.d. p.r.n. 13. Protonix 40 mg p.o. twice daily. 14. Labetalol 200 mg p.o. twice daily. 15. Trental 400 mg p.o. t.i.d. 16. Vitamin D 5000 units p.o. daily. REVIEW OF SYSTEMS: Fourteen point review of systems complete and all were negative except for those mentioned above in the HPI. PHYSICAL EXAMINATION: VITAL SIGNS: Temperature 97.5 degrees, heart rate 75, respiratory rate 18, blood pressure 216/103, O2 saturation 99% on 100% non-rebreather. GENERAL: Mr. Bob Olsen is a 53-year-old male. He is in mild distress secondary to the severe abdominal pain he is having on the left. He is able answer questions appropriately. HEENT: Atraumatic, normocephalic. Pupils equal, round, reactive to light. Extraocular movements intact. Mucous membranes are moist. Poor dentition. NECK: Trachea midline. CARDIOVASCULAR: S1, S2. Regular rate and rhythm. No rubs, gallops, or murmurs. One plus lower extremity edema. 2+ abdominal edema, 1+ bilateral dorsalis pedal pulses. The feet are warm, +2 radial pulses. Negative for carotid bruits. Positive JVD. PULMONARY: Clear to auscultate. Decreased in the bases. No accessory muscle use or work of breathing noted. He is requiring more oxygen. He is tolerating that well. GASTROINTESTINAL: Semifirm but is muscle guarding. He has 2+ pitting edema in the abdomen. ABDOMEN: Hypoactive bowel sounds. Tender primarily left upper and lower quadrants. EXTREMITIES: Decreased range of motion, 4/5 strength in all extremities. NEUROLOGIC: Alert and oriented x3. Follows commands. Decreased sensory in the lower extremities. SKIN: Warm, dry, intact except for between the right great toe and 2nd toe there is an ulcer and on the bottom of the left foot is also ulcer. LABORATORY DATA: White blood cells 7000, hemoglobin 8.6, hematocrit 26.1, platelet count 246,000. D-dimer is 2.74, ABGs on BiPAP pH 7.40, pCO2 38, PO2 426, bicarbonate 24, base excess -1.2. Saturation 96%. Lactate 0.6. Sodium 140, potassium 4.7, BUN 46, creatinine is 2.4. Glucose 179, calcium 8.8, bilirubin 0.40, AST 16, ALT 14, CK 141, troponin 1st set was 0.200, second set 0.1630. ProBNP greater than 35,000. Albumin 3.7. IMAGING: Chest x-ray, pulmonary edema, pleural effusions. Abdominal pelvic CT. Anasarca, bilateral pleural effusions. Ascites, pericardial effusion, left hydronephrosis and nephrolithiasis with stone at the ureteropelvic junction and mild constipation. EKG at 4:28, normal sinus rhythm, rate 72, QTc 460. EKG at 7:52 normal sinus rhythm, rate 76, QTc 481. ASSESSMENT/PLAN: 1. Acute pain secondary to left hydronephrosis and nephrolithiasis with a stone at the ureteropelvic junction. He is followed by Dr. Russell who has put in stents in the past. He has been consulted and plan is for stone extraction with possible stent once again later on today so he is made NPO. Dilaudid p.r.n. for pain during this time. 2. Severe pulmonary hypertension with congestive heart failure but the last echocardiogram was last month and his ejection fraction was 59%. There was no diastolic dysfunction but he does have a pulmonary pressure of 57 to 62 mmHg. He has got anasarca all over his body. It is primarily in the abdomen down. He has received 120 mg of IV Lasix. We will continue IV twice a day. Normally takes 40 twice a day p.o. but he is complaining of the abdomen band so swollen that makes it difficult for him to take a deep breath, so will consult Cardiology for any further recommendations. 3. Hypertensive urgency. Symptomatic in that it is causing him to have shortness of breath as well. All the oral medications that he takes at home have been resumed. He has had IV hydralazine, IV labetalol. If we need to we can start him on a drip. A lot of this could be from the severe pain he is in at the same time. 4. Aware diabetic foot ulcers on the right between the great toe and 2nd toe and on the left on the bottom of the foot. We will do a Wound Care consult. He states he goes to [facility]. 5. Acute hypoxemic respiratory failure. Required BiPAP temporarily. Still tachypneic but mostly this is pain related and we are able to get him weaned on his oxygen. He wears 2 L at home. 6. Chronic obstructive pulmonary disease wears 2 L of oxygen at home. It does not look like he is in an exacerbation but we could add some IV steroids. Continue nebulizers, albuterol, Atrovent and budesonide. Wean oxygen as tolerated. He was on 50% when we went in there and we consulted Pulmonary. 7. Diabetes mellitus type 2. We will do pattern blood glucoses and sliding scale insulin. Diabetic diet. 8. Chronic kidney disease stage 3, currently at baseline. He is going to get some hefty IV doses of Lasix so will need to monitor his kidney function. 9. Benign prostatic hypertrophy. Continue his Flomax. 10. Depression. Continue Elavil and Celexa. 11. Gastroesophageal reflux disease. Continue Protonix. 12. Peripheral vascular disease. Continue Trental. 13. Tobacco abuse. Cessation discussed. 14. Deep venous thrombosis prophylaxis. Heparin subcu every 12 hours. I will start tonight. Dictated by KAYLEE Bey for Wicho Loving MD Addendum: Patient seen and examined by myself. Agree with KAYLEE note. It reflects my assessment and plan. Patient is being admitted to hospital for acute congestive heart failure. Will start him on IV Lasix and will optimize blood pressure control. He also has left ureterohydronephrosis so will consult Urology. Will monitor patient closely in ICU today. cc: KAYLEE Bey MD Patrick Guthrie, MD Wilnelsia A. Awoniyi Ashish K. Basu, MD [facility]ST[facility]STERPoppy
[2019-03-31] MEDS ORDERED: INSULIN PEN NEEDLES ONE (17:41)
[2019-03-31] MEDS: PULMICORT INH SCH (19:28)
--- NOTE | 2019-03-31 19:36 | CONSULTATION ---
DATE OF CONSULTATION: 03/31/2019 CHIEF COMPLAINT: Left hydronephrosis and left ureteral stone. HISTORY OF PRESENT ILLNESS: Mr. Olsen is a 53-year-old with history of COPD, type 2 diabetes, hypertension, hyperlipidemia, chronic kidney disease, nephrolithiasis, peripheral vascular disease, history of depression, history of CVA x2 and peripheral neuropathy, who presents in consultation regarding left hydronephrosis and left ureteral stone. The patient is well known to Urology and has undergone several procedures previously for kidney stones. The patient had bilateral ureteral obstruction with [id number] kidney disease, creatinine elevated up to 9. The patient was treated with stent placement as well as subsequent treatment of his stones. The patient was improved from a stone standpoint and has intermittently had scrotal swelling due to systemic causes from congestive heart failure and acute on chronic kidney failure. The patient presents today complaining of back and abdominal pain. He describes pain all over his body, but concentrates it on his right back and into the left back. He denies any dysuria or hematuria. The patient denies any scrotal swelling. The patient states that his abdominal and lower extremity swelling has slightly worsened over the past 24-48 hours. The patient had a CT scan today which showed stones within the left kidney as well as the left ureter, with associated left hydronephrosis. Urology is consulted for further recommendations. He denies fevers, chills, nausea or vomiting. Patient describes increased work of breathing. PAST MEDICAL HISTORY: 1. Hypertension. 2. Hyperlipidemia. 3. Peripheral vascular disease. 4. Type 2 diabetes. 5. Depression. 6. History of CVA. 7. Peripheral neuropathy. 8. Peripheral arterial disease, status post bypass grafting. 9. Chronic foot ulcerations. 10. History of nephrolithiasis. 11. COPD. PAST SURGICAL HISTORY: 1. Removal of right 2nd phalanx. 2. Left femoral-popliteal bypass. 3. Arthroscopy of the knee. 4. External shockwave lithotripsy and ureteroscopy for stone removal. MEDICATIONS: 1. Elavil 100 mg p.o. daily. 2. Aspirin 325 mg p.o. daily. 3. Vitamin D 5000 International Units daily. 4. Celexa 40 mg p.o. daily. 5. Clonidine 0.1 mg p.o. daily. 6. Lasix 40 mg p.o. daily. 7. Hydralazine 100 mg p.o. q.8 hours. 8. [place] 10/325 mg take 1 tablet t.i.d. 9. Insulin 70/30, 15 units in the morning and 10 units at night. 10. Labetalol 200 mg p.o. b.i.d. 11. Protonix 40 mg p.o. b.i.d. 12. Pentoxifylline 400 mg 13. MiraLAX 17 g b.i.d. 14. Flomax 0.4 mg daily. ALLERGIES: No known drug allergies. FAMILY HISTORY: Denies family history of malignancy. SOCIAL HISTORY: Former smoker. Denies alcohol or illicit drug use. REVIEW OF SYSTEMS: A 12-point review of systems was performed, with all pertinent positives and negatives in HPI. PHYSICAL EXAMINATION: Vital signs: Temperature 97.5 degrees, heart rate 75, blood pressure 216/103, oxygen saturation 99% on room air. General: Mild distress with increased work of breathing. Alert and oriented x3. HEENT: Normocephalic, atraumatic. Pupils equal, round and reactive to light. Poor dentition. NECK: Trachea midline with no palpable masses or asymmetry. Respiratory: Increased work of breathing. The patient has evidence of open face mask. Able to carry on conversation. Cardiovascular: Slight murmur in the systolic. Increased lower extremity edema but less than prior evaluations. Abdomen: Anasarca. No tenderness to palpation. No palpable masses. Tenderness over left flank. : No suprapubic tenderness. No CVA tenderness. Minimal scrotal edema. Normal phallus with orthotopic meatus. Neurologic: Gross motor and sensory intact. Musculoskeletal: Moving all extremities. Evidence of wrapping of the lower extremities with chronic wounds and ulcerations. LABORATORY DATA: White blood cell count 7.9, hemoglobin 8.6, hematocrit 26.1, platelets 246,000. Sodium 140, potassium 4.7, chloride 104, bicarbonate 22, BUN 46, creatinine 2.4, glucose 179. Troponin T 0.165. Pro brain natriuretic peptide 35,000. Alkaline phosphatase 246. DIAGNOSTIC DATA: CT scan images reviewed, which showed obstructing stone in the proximal ureter on the left side as well as several stones present in the lower pole of the left kidney. No stones were seen on the right side. The patient has moderate to severe hydronephrosis on this side. The patient also has anasarca with bilateral pulmonary edema. ASSESSMENT AND PLAN: Mr. Olsen is a 53-year-old with past medical history of hypertension, hyperlipidemia, peripheral vascular disease, type 2 diabetes, depression, history of cerebrovascular accident, peripheral neuropathy, peripheral arterial disease, chronic foot ulceration, history of nephrolithiasis and chronic obstructive pulmonary disease. He presents in consultation regarding left hydronephrosis with obstructing left ureteral stone and left lower pole renal stones. The patient's renal function is relatively stable; however, he is having abdominal pain. Uncertain the etiology of this. The patient does have the stone in place, which could be leading to his symptoms. I recommended cystoscopy and ureteral stent placement. Risks, benefits and alternatives of the surgical procedure were discussed with the patient, and the patient elected to proceed. We will plan to do a cystoscopy and stent placement later today. Discussed with the patient and his at bedside. Continue n.p.o. at this time. cc: Yosef Russell MD MTDD
--- NOTE | 2019-03-31 20:05 | OPERATIVE NOTE ---
PROCEDURE DATE: 03/31/2019 PREOPERATIVE DIAGNOSES: 1. Left hydronephrosis. 2. Left ureteropelvic junction ureteral stone. 3. Left renal stone. POSTOPERATIVE DIAGNOSES: 1. Left hydronephrosis. 2. Left ureteropelvic junction ureteral stone. 3. Left renal stone. PROCEDURE PERFORMED: 1. Cystoscopy. 2. Left retrograde pyelogram. 3. Left ureteral stent placement. SURGEON: Yosef Russell MD. SURGICAL ELASTIC KNITTER HAND FRAME: None. COMPLICATIONS: None. BLOOD LOSS: Minimal. DRAINS: 1. A 6 x 26 cm left ureteral stent. 2. A 16-Austrian Hirsch catheter. SPECIMENS REMOVED: None. ANESTHESIA: General endotracheal intubation. INDICATIONS FOR PROCEDURE: Mr. Olsen is a 53-year-old with multiple comorbidities including hypertension, hyperlipidemia, diabetes, peripheral vascular disease, nonhealing lower extremity ulcers, history of recurrent nephrolithiasis, who presents in consultation regarding abdominal pain. The patient developed abdominal swelling and pain yesterday night, and his brought him in to the emergency room today. A CT of abdomen and pelvis was performed, which showed evidence of a left ureteropelvic junction stone as well as several stones present in the lower pole of the left kidney. The patient was having hydronephrosis and complaining of pain. He has had increased work of breathing, and has evidence of bilateral pleural effusions and anasarca. The patient's renal function is stable at 2.4, with stable white blood cell count. In talking with the patient, I recommended cystoscopy and left ureteral stent placement to assist in optimizing his management to ensure that he can be adequately diuresed due to his exacerbation of CHF. Risks, benefits, alternatives to surgical procedure discussed with patient, and the patient elected to proceed. DESCRIPTION OF PROCEDURE: After informed consent was obtained, the patient was brought to the operating room, placed on the operative table in supine position. The patient received preoperative antibiotics and underwent endotracheal intubation. He was then positioned to a dorsal lithotomy position, was prepped and draped in usual sterile fashion. A preoperative time- out was performed with all parties in agreement, including anesthesia, surgical, and nursing staff. At which point, I inserted a 21-Austrian cystourethroscope through the urethra and into the bladder. Patient had a normal urethra. No stricture disease or papillary lesions. There was no evidence of diverticula, cellules or papillary lesions seen throughout the bladder. Both ureteral orifices were visualized with efflux of clear yellow urine. On workers compensation claims examiner fluoroscopy, there was evidence of calcifications seen in the proximal left ureter as well as several renal calcifications. At which point, once inspection of the bladder was completed, open-ended catheter was passed through the scope, the left ureteral orifice was cannulized and injected with Omnipaque, which outlined a normal distal ureter with no filling defects. This was advanced higher up to ensure that we could get the contrast past the stones. A minimal amount of contrast was able to transverse past where the stone was positioned within the ureter. Ultimately, I was able to pass a wire through the open-ended catheter up into the kidney itself, which coiled in the upper pole. The open-ended catheter was removed and a 6 x 26 cm left ureteral stent was advanced with ease up into the kidney. Good curl was seen in the kidney and endoscopically visualized in the bladder. The patient's bladder was cycled multiple times with no significant bleeding. The patient's bladder was left full, and a 16-Austrian Hirsch catheter was inserted through the urethra and into the bladder, and inflated with 10 mL of sterile water and placed to gravity drainage. The patient was then awoken and was taken to Recovery in stable condition. The patient will be admitted to the hospitalist and monitoring from a volume overload standpoint. cc: MD DONNA Walker
[2019-03-31] MEDS: LASIX IV SCH (20:33)
[2019-03-31] MEDS: ELAVIL PO SCH (20:33)
[2019-03-31] MEDS: HEPARIN SUBQ SCH (20:34)
--- NOTE | 2019-03-31 22:11 | CARDIOLOGY CONSULTATION ---
DATE: 03/31/2019 IMPRESSION: 1. Congestive heart failure/volume overload. Probably largely related to renal dysfunction. 2. Possible pericardial effusion suggested on CT scan. 3. Echocardiography a few weeks ago, demonstrated normal left ventricular ejection fraction and small pericardial effusion. Moderate pulmonary hypertension was also demonstrated with mildly enlarged of right ventricle. 4. Nephrolithiasis. Patient manifests evidence of hydroureter on the left related to stone at UP junction. Patient now is status post ureteral stent today. 5. History of moderate coronary atherosclerosis by coronary angiography in October 2017. Patient continues without angina. 6. Peripheral vascular disease. 7. Type 2 diabetes mellitus with associated peripheral neuropathy. 8. Chronic, very mild, nonspecific elevation in troponin levels. RECOMMENDATIONS: 1. Diurese as you are doing with IV Lasix. 2. Limited followup echocardiography. 3. Conservative cardiovascular management overall. HISTORY: This 53-year-old, white male, with past history of moderate coronary atherosclerosis by coronary angiography last year, chronic kidney disease, type 2 diabetes mellitus with associated peripheral neuropathy, nephrolithiasis, hypertension, hyperlipidemia, and COPD, was admitted through the emergency room today, after he presented with increasing shortness of breath and some sense of abdominal distention. Shortness of breath had been coming on for about 3 days. He was found to have evidence of volume overload with edema and anasarca. There had been no chest pain. He was also found to have left hydroureter with associated stone at the ureteropelvic junction. He had cystoscopy with ureteral stent placement on the left. He was just recently hospitalized here a few weeks ago, with volume overload. Echocardiography demonstrated preserved left ventricular systolic function. It was felt that his volume overload was mostly related to renal dysfunction. He relates he was doing well initially since discharge, up until perhaps 3 days ago. He does not add salt to his food, but does not particularly restrict his diet otherwise. There has been no chest pain. PAST MEDICAL HISTORY: 1. Moderate coronary atherosclerosis by coronary angiography last year. 2. Type 2 diabetes mellitus with associated peripheral neuropathy. 3. Hypertension. 4. Hyperlipidemia. 5. Chronic kidney disease. 6. Nephrolithiasis. PAST SURGICAL HISTORY: Includes previous ureteral stent placement, unspecified left knee surgery, and left arterial bypass in left lower extremity. ALLERGIES: He has no known drug allergies. MEDICATIONS PRIOR TO ADMISSION: As listed. SOCIAL HISTORY: He has history of chronic cigarette use. He does not use alcohol. 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 FAMILY HISTORY: Positive for coronary disease. REVIEW OF SYSTEM: Pulmonary: Noteworthy for dyspnea, but negative for any significant cough. Gastrointestinal: Noteworthy for sense of abdominal distention, but otherwise negative. Constitutional: Negative for fever. Remainder of review of systems is negative/noncontributory with 14 total systems reviewed. PHYSICAL EXAMINATION: This is a middle-aged, white male who appears somewhat older than stated age, in no distress. He is somewhat groggy following recent urological procedure. Blood pressure 159/69, heart rate 58, oxygen saturation 97% on nasal cannula oxygen at 4 L/minute.HEENT: Extraocular movements appear intact. Mucous membranes moist. Neck: Supple. Jugular venous distention is present, consistent with elevated central venous pressure. Chest: Clear to auscultation bilaterally. Cardiac: Regular rate and rhythm without appreciable murmur or gallop. Abdomen: Soft. Bowel sounds normal. Extremities: Wxpu-yt-dryxhquh edema, which is somewhat woody edema bilaterally with chronic stasis changes. LABORATORY DATA: Includes a white blood cell count of 7.94, hematocrit 26.1, hemoglobin 8.6, platelet count 246,000. Sodium 140, potassium 4.7, chloride 104, carbon dioxide 22, BUN 46, creatinine 2.4, glucose 179. Troponin T 0.163. Albumin 3.7. cc: Yony Wakefield MD
[2019-04-01] MEDS: APRESOLINE PO SCH ×3 (00:27→17:45)
[2019-04-01] MEDS: DUONEB (A & A) INH SCH ×6 (03:30→23:31)
--- NOTE | 2019-04-01 03:31 | CONSULTATION ---
DATE OF CONSULTATION: 03/31/2019 REQUESTING PROVIDER: KAYLEE Bey. REASON FOR CONSULTATION: Respiratory failure. HISTORY OF PRESENT ILLNESS: This is a 53-year-old male with multiple medical history, including COPD, ongoing tobacco abuse, diabetes mellitus type 2, hypertension, hyperlipidemia, peripheral arterial disease, chronic kidney disease, and depression. He presented to the ER early this morning with acute shortness of breath which, apparently, woke the patient up from sleep, and stomach ache. Chest x-ray revealed pulmonary edema and pleural effusion. CT abdomen and pelvis without contrast revealed anasarca, bilateral pleural effusions, ascites, pericardial effusion, left hydronephrosis, and nephrolithiasis with stone at the ureteropelvic junction, and mild constipation. Further workup also revealed he has hypertensive urgency, severe pulmonary hypertension with congestive heart failure exacerbation. He has been admitted to the ICU for further evaluation and management. The patient currently is lying on bed on a Venturi mask with FiO2 of 40%. His face appears pale. He reports his tummy is hurting. He states his breathing is getting better. He reports no fever, chill, cough, chest pain, palpitation, nausea, vomiting, or diarrhea. He reports he has some constipation. When I just gently touch his stomach, he starts grimacing his face. He does report that he had a very small bowel movement yesterday morning. PAST MEDICAL HISTORY: 1. COPD on home oxygen. 2. Ongoing tobacco abuse. 3. Diabetes mellitus type 2. 4. Hypertension. 5. Hyperlipidemia. 6. Peripheral arterial disease. 7. Bilateral chronic ulcer to feet. 8. Depression. 9. History of cerebral vascular accident x2. 10. Chronic kidney disease, stage 3. 11. History of nephrolithiasis. 12. Peripheral neuropathy. PAST SURGICAL HISTORY: 1. Lithotripsy. 2. Left knee surgery. 3. Left femoropopliteal bypass x2. 4. Removal of right 2nd phalanges. 5. Bilateral ureteral stent placement by Dr. Russell on 12/03/2018. SOCIAL HISTORY: Currently patient is a light smoker, smoking less than half a pack per day. He has been smoking since age of 7. He has no history of alcohol or illicit drug use. FAMILY HISTORY: Positive for hypertension and diabetes. ALLERGIES: No known drug allergies. REVIEW OF SYSTEMS: A 10-point review of systems was conducted and the pertinent is listed within the HPI, otherwise noncontributory. PHYSICAL EXAMINATION: Vital Signs: Temperature 99.6 degrees, blood pressure 216/103, pulse 60, respiratory rate 17, oxygen saturation 98% on BiPAP with FiO2 of 100% and pressure 14/8. General: Pale face, chronically ill appealing, lying in bed on a Venturi mask. Appears he is in severe pain. HEENT: Atraumatic, normocephalic. Trachea midline. Mucosa pink and slightly dry. Respiratory: Even and unlabored. Symmetrical excursion. Auscultation revealed early inspiratory crackles bibasilarly with left side worse than the right side. Cardiovascular: Regular rate and rhythm. Gastrointestinal: Mildly distended with generalized tenderness. Normoactive bowel sounds in all 4 quadrants. Extremities: Bilateral lower extremity pitting edema, chest pitting edema noted. Bilateral lower legs pink, warm, and significantly firm to touch. Neurologic: Generalized weakness. Alert and oriented x3. Speech fluent. Follows commands. LAB DATA: White blood cells 7.94, hemoglobin 8.6, hematocrit 26.1, platelet 246,000. Sodium 140, potassium 4.7, chloride 104, carbon dioxide 22, BUN 46, creatinine 2.2. Glucose 179. ProBNP over 35,000. Troponin 0.163. ABG, pH 7.40, pCO2 of 38, PO2 of 426, HCO3 is 24.0, base excess -1.2, and oxyhemoglobin 96.3. IMAGING DATA: See HPI. ASSESSMENT: This is a 53-year-old male with a multiple medical history, including chronic obstructive pulmonary disease, ongoing tobacco abuse, diabetes mellitus type 2, hypertension, hyperlipidemia, peripheral arterial disease, chronic kidney disease, depression. He has been admitted to the ICU since early this morning with left hydronephrosis and nephrolithiasis with a stone at the ureteropelvic junction, congestive heart failure exacerbation, severe pulmonary hypertension, acute hypoxemic respiratory failure, and hypertensive urgency. 1. Acute hypoxemic respiratory failure. The patient did require BiPAP temporarily. Currently, he is on a Venturi mask with FiO2 of 40%. His oxygen saturation stayed around high 90s. His breathing is even and unlabored. So, generally he has improving. 2. Severe pulmonary hypertension with pulmonary edema and bilateral pleural effusions. 3. Congestive heart failure exacerbation with proBNP over 35,000. 4. Hydronephrosis and nephrolithiasis. 5. Chronic obstructive pulmonary disease with ongoing tobacco abuse, on continuous oxygen at home at 2 L. PLAN: 1. Continue supplemental oxygen. 2. BiPAP at bedtime and as needed. 3. Continue bronchodilators. Agree to continue diuretics. 4. Follow up with ABG, CBC, BMP, sputum culture, blood culture, urine culture, and chest x-ray. 5. Continue GI and DVT prophylaxis. 6. Continue daily smoking cessation education. 7. Further recommendations pending hospital course. Thank you for the courtesy of this consult. Dictated by KAYLEE Bradshaw for Henna Garay MD cc: KAYLEE Bradshaw MD [facility]
[2019-04-01] MEDS: DILAUDID IV PRN ×5 (04:35→22:29)
[2019-04-01 04:57] LABS: ALLEN TEST YES; BE -2.2 mmoll (-3.0-3.0); BLOOD TYPE ARTERIAL; HCO3-(ACT) 23.1 mmoll (20.0-26.0); METHB 0.3 % (0.0-1.5); O2(CT) 16.1 mL/dL (15.0-23.0); O2HB 93.5 % (95.0-99.0); PCO2(98.6) 37 mmHg (35-45); PO2(98.6) 81 mmHg (60-100); SAMPLE BLOOD; SAO2 93.8 % (95.0-100.0); THB 12.2 g/dL (11.5-17.4); pH(98.6) 7.39 (7.35-7.45)
[2019-04-01 04:58] LABS: MODALITY CANNULA
[2019-04-01] MEDS: HUMULIN R SUBQ SCH ×4 (06:21→21:05)
[2019-04-01 06:56] LABS: INR 1.21; PROTIME 15.4 Seconds (11.0-16.0); PTT 24.4 Seconds (22.3-41.8)
--- NOTE | 2019-04-01 08:17 | EKG Report ---
Test Performed on : 04/01/2019 07:20:56 AM Test Reason : chest pain Blood Pressure : / mmHG Vent. Rate : 064 BPM Atrial Rate : 064 BPM P-R Int : 174 ms QRS Dur : 100 ms QT Int : 432 ms P-R-T Axes : 014 007 054 degrees QTc Int : 445 ms Normal sinus rhythm. Normal ECG When compared with ECG of 31-MAR-2019 08:45, (Unconfirmed) No significant change was found Confirmed by Fer MOSS, Isra Jean Baptiste ([id number]) on 04/01/2019 9:18:38 AM
[2019-04-01] MEDS: LASIX IV SCH ×2 (08:23→21:05)
[2019-04-01] MEDS: HEPARIN SUBQ SCH ×2 (08:23→21:05)
[2019-04-01] MEDS: FLOMAX PO SCH (08:24)
[2019-04-01] MEDS: PROTONIX PO SCH ×2 (08:24→21:05)
[2019-04-01] MEDS: TRANDATE PO SCH ×2 (08:24→21:05)
[2019-04-01] MEDS: VITAMIN D PO SCH (08:24)
[2019-04-01] MEDS: CELEXA PO SCH (08:24)
[2019-04-01] MEDS: CENTRUM TABLET PO SCH (08:24)
[2019-04-01] MEDS: TRENTAL PO SCH ×3 (08:24→21:05)
[2019-04-01] MEDS: CATAPRES PO SCH (08:24)
[2019-04-01] MEDS: ASPIRIN PO SCH (08:24)
[2019-04-01] MEDS: HUMULIN 70/30 SUBQ SCH ×2 (08:25→17:40)
--- NOTE | 2019-04-01 08:33 | Diag Imaging Result Doc PS360 ---
EXAM: CHEST-1 VIEW INDICATION: SOB TECHNIQUE: One view COMPARISON: 03/31/2019 FINDINGS: Pulmonary edema and pulmonary venous congestion appears to have worsened somewhat, especially at the lung bases. There has been an increase in size of the pleural effusions bilaterally. No new consolidation is identified, otherwise. There is stable cardiomegaly. IMPRESSION: Interval worsening of pulmonary edema and pleural effusions as described. Electronically signed by Kyree Myers 04/01/2019 8:31 AM
[2019-04-01 08:35] LABS: ALBUMIN 3.1 g/dL (3.5-5.0); CALCIUM 8.3 mg/dL (8.8-10.2); CREATININE 2.6 mg/dL (0.7-1.2); MAGNESIUM 1.9 mg/dL (1.5-2.7); POTASSIUM 4.5 mmol/L (3.5-5.1); TOTAL BILIRUBIN 0.26 mg/dL (0.20-1.00); TOTAL PROTEIN 6.2 g/dL (6.3-8.3)
[2019-04-01 08:37] LABS: BASO# 0.01 X1000 (0.0-0.2); BASO% 0.1 % (0.0-0.8); EOS# 0.01 X1000 (0.0-0.7); EOS% 0.1 % (0.0-10.0); HEMATOCRIT 23.9 % (42.0-52.0); HEMOGLOBIN 7.7 g/dL (14.0-18.0); LYMPH% 17.7 % (20.5-51.1); MCH 29.7 PG (27-31); MCHC 32.2 g/dL (33-37); MCV 92.3 FL (81-99); MONO# 1.04 X1000 (0.11-0.59); MONO% 11.5 % (1.7-9.3); NEUT# 6.36 X1000 (1.4-6.5); NEUT% 70.6 % (42.2-75.2); PLT 211 X1000 (130-400); RBC 2.59 XMIL (4.7-6.1); WBC 9.02 X1000 (4.8-10.8)
[2019-04-01] MEDS: PULMICORT INH SCH ×2 (08:46→19:05)
--- NOTE | 2019-04-01 09:59 | PROGRESS NOTE ---
DATE: 04/01/2019 SUBJECTIVE: The patient reports breathing much better. Reports less abdominal pain. No nausea or vomiting. No chest pain. OBJECTIVE: Vital Signs: Temperature 98.9 degrees, heart rate 65, respiratory rate 12, blood pressure 164/79, O2 saturation 95% on 2 L nasal cannula. General Examination: This is a chronically ill-appearing, looking older than his stated age, 53-year-old male, lying in bed in no acute distress. HEENT: Head is normocephalic and atraumatic. Neck: No JVD noted. No carotid bruits. No lymphadenopathy. No thyromegaly. Cardiovascular exam: S1, S2 heard. No murmurs, gallops, or rubs. Regular rate and rhythm. Respiratory exam: Minimal crackles noted in both pulmonary bases. Patient is not using any accessory muscles or having work of breathing. Abdomen: Abdomen is firm with muscle guarding. It looks like there are some signs of abdominal wall edema. Bowel sounds present. No organomegaly. Extremities: No clubbing or cyanosis. 1+ lower extremity edema. Also pitting edema. Peripheral pulses present in both legs. Neurological exam: Patient is alert and oriented x3. Moves 4 extremities. LABORATORY DATA: White cell count 9.02, hemoglobin 7.7, hematocrit 23.9, platelets 211 with ABG that shows pH of 7.39, pCO2 37, PO2 81. Creatinine 2.6, glucose 112, troponin 0.160. ASSESSMENT: 1. Acute congestive heart failure/volume overload. The patient reports feeling better. He reports being compliant with his medication; in this case, his Lasix 40 mg oral every 12 hours. He denies any dietary indiscretion with sodium-rich products. The CT of the abdomen suggests possible pericardial effusion, so an echocardiogram with limited view has been ordered, but the result is not back yet. Cardiology has been consulted. We will follow recommendations. 2. Left hydronephrosis and nephrolithiasis, status post left ureteral stent placement. Procedure performed by Dr. Russell. The patient is not complaining of any flank pain. We will continue to monitor. 3. Anasarca. At this point, we will continue with Lasix 80 mg intravenous every 12 hours. 4. Hypertensive urgency. That was noted at admission, but blood pressures so far have been improving. We will continue to monitor. 5. Diabetic foot ulcers. Wound Care has been consulted. 6. Chronic obstructive pulmonary disease. The patient is not on any exacerbation. Patient requiring 2 liters of oxygen by nasal cannula at home. We will continue to monitor. 7. Diabetes mellitus type 2. We will continue with sliding scale insulin and Accu-Chek before meals and also at bedtime. 8. Depression. We will continue with Elavil and Celexa. 9. Gastroesophageal reflux disease. We will continue with Protonix. 10. Peripheral vascular disease. We will continue with Trental. DISPOSITION: I think this patient is much more stable today. Yesterday, he was somehow confused, short of breath. With the CHF and also nephrolithiasis, we decided to place him in intensive care unit. Now, he looks stable, so we can send this patient home to a normal room today. cc: Wicho Loving MD
[2019-04-01] MEDS: MOVANTIK PO SCH (10:51)
--- NOTE | 2019-04-01 11:43 | Extremity Venous Study ---
PROCEDURE NAME: Venous U/S Bilateral Legs - 03/31/2019 STUDY: Bilateral lower extremity venous imaging study. REFERRING PHYSICIAN: Irene PAGE. INTERPRETING PHYSICIAN: Hernando Lundberg MD SUPERVISOR AGENCY APPOINTMENTS: Ivan. REASON FOR STUDY: The patient has pitting edema bilaterally and increased CVP. FINDINGS: Bilateral lower extremity venous images accomplished. The common femoral, superficial femoral, deep femoral, popliteal, posterior tibial, peroneal, and greater saphenous vein are imaged bilaterally. Doppler is used to evaluate the veins for augmentation. All veins are compressible. No intraluminal clot is seen. Bilateral inguinal lymph nodes are noted. INTERPRETATION: No evidence of deep or superficial venous thrombosis in either lower extremity veins identified. cc: MD Shantel Rabago CRNP
[2019-04-01] MEDS: ELAVIL PO SCH (21:05)
[2019-04-02] MEDS: APRESOLINE PO SCH ×3 (00:35→17:53)
[2019-04-02] MEDS: DUONEB (A & A) INH SCH ×6 (03:49→23:27)
[2019-04-02] MEDS: DILAUDID IV PRN ×5 (04:14→23:02)
[2019-04-02 04:41] LABS: ALLEN TEST YES; BE -0.1 mmoll (-3.0-3.0); BLOOD TYPE ARTERIAL; HCO3-(ACT) 24.9 mmoll (20.0-26.0); O2(CT) 10.2 mL/dL (15.0-23.0); O2HB 96.2 % (95.0-99.0); PCO2(98.6) 45 mmHg (35-45); PO2(98.6) 100 mmHg (60-100); SAMPLE BLOOD; SAO2 96.9 % (95.0-100.0); THB 7.4 g/dL (11.5-17.4); pH(98.6) 7.36 (7.35-7.45)
[2019-04-02 04:42] LABS: MODALITY CANNULA
[2019-04-02] MEDS: MOVANTIK PO SCH (06:28)
[2019-04-02] MEDS: HUMULIN R SUBQ SCH ×4 (06:43→21:15)
[2019-04-02 06:47] LABS: WBC 5.94 X1000 (4.8-10.8)
[2019-04-02 06:48] LABS: BASO# 0.07 X1000 (0.0-0.2); BASO% 1.2 % (0.0-0.8); EOS# 0.11 X1000 (0.0-0.7); EOS% 1.9 % (0.0-10.0); HEMATOCRIT 23.4 % (42.0-52.0); HEMOGLOBIN 7.5 g/dL (14.0-18.0); LYMPH# 1.66 X1000 (1.2-3.4); LYMPH% 27.9 % (20.5-51.1); MCH 29.6 PG (27-31); MCHC 32.1 g/dL (33-37); MCV 92.5 FL (81-99); MONO# 0.71 X1000 (0.11-0.59); MPV 10.1 FL (7.4-10.4); NEUT# 3.39 X1000 (1.4-6.5); PLT 192 X1000 (130-400); RBC 2.53 XMIL (4.7-6.1); RDW 15.7 % (11.5-14.5)
[2019-04-02 07:13] LABS: ALBUMIN 2.9 g/dL (3.5-5.0); CALCIUM 7.7 mg/dL (8.8-10.2); CREATININE 2.7 mg/dL (0.7-1.2); PHOSPHORUS 5.8 mg/dL (2.7-4.5); POTASSIUM 4.2 mmol/L (3.5-5.1)
[2019-04-02] MEDS: PULMICORT INH SCH ×2 (07:36→19:42)
--- NOTE | 2019-04-02 08:47 | Diag Imaging Result Doc PS360 ---
EXAM: CHEST-1 VIEW INDICATION: SOB TECHNIQUE: One view COMPARISON: 04/01/2019 FINDINGS: Pulmonary edema and pulmonary venous congestion appear to have slightly improved. Bilateral pleural effusions are approximately stable. No new consolidation is identified. Cardiac silhouette is stable. IMPRESSION: Slight improvement as described. Electronically signed by Kyree Myers 04/02/2019 8:45 AM
[2019-04-02] MEDS ORDERED: INSULIN PEN NEEDLES ONE (09:07)
[2019-04-02] MEDS: CATAPRES PO SCH ×3 (09:37→17:45)
[2019-04-02] MEDS: HUMULIN 70/30 SUBQ SCH ×2 (09:37→17:45)
[2019-04-02] MEDS: TRANDATE PO SCH ×2 (09:37→22:56)
[2019-04-02] MEDS: CENTRUM TABLET PO SCH (09:37)
[2019-04-02] MEDS: PROTONIX PO SCH ×2 (09:37→22:56)
[2019-04-02] MEDS: HEPARIN SUBQ SCH ×2 (09:37→22:57)
[2019-04-02] MEDS: LASIX IV SCH ×2 (09:38→22:56)
[2019-04-02] MEDS: ASPIRIN PO SCH (09:38)
[2019-04-02] MEDS: FLOMAX PO SCH (09:38)
[2019-04-02] MEDS: TRENTAL PO SCH ×3 (09:38→22:56)
[2019-04-02] MEDS: CELEXA PO SCH (09:38)
[2019-04-02] MEDS: VITAMIN D PO SCH (09:38)
--- NOTE | 2019-04-02 12:21 | PROGRESS NOTE ---
DATE: 04/02/2019 SUBJECTIVE: The patient reports feeling much better today. Reports less abdominal distention and stiffness. No nausea or vomiting. OBJECTIVE: Vital Signs: Temperature 97.6 degrees, heart rate 58, respiratory rate 17, blood pressure 172/71, O2 saturation 100% on room air. General: This is a chronically ill-appearing, looking older than his stated age, 53-year-old, male, lying in bed in no acute distress. Cardiovascular: S1, S2 heard. No murmurs, gallops, or rubs. Regular rate and rhythm. Respiratory: Minimal crackles noted in both pulmonary bases. Patient not using any accessory muscles or having work of breathing. Abdomen: Firm, but no muscle guarding noted. There is some sort of abdominal wall edema. Bowel sounds present. No organomegaly. Extremities: No clubbing or cyanosis, but 1+ lower extremity edema. Peripheral pulses present in both legs. Neurological: The patient is alert and oriented x3. Moves all 4 extremities. LABORATORY DATA: White cell count 5.94, hemoglobin 7.5, hematocrit 23.4, platelets 192,000. BMP reveals creatinine 2.7, BUN 54. ASSESSMENT AND PLAN: 1. Acute congestive heart failure/volume overload. Will continue with Lasix intravenously every 12 hours. The patient, so far, has had 1.8 liters of urine. There is an echocardiogram with limited views that has not been done yet. Cardiology is following this patient. Will follow recommendations. 2. Left hydronephrosis and nephrolithiasis, status post left ureteral stent placement. Urology on board. Following recommendations. The patient is not complaining of any kind of flank pain. Urine culture returned negative. 3. Anasarca. Will continue with Lasix 80 mg intravenously every 12 hours. 4. Hypertensive urgency. Blood pressure is still high. The patient is on clonidine 1 mg by mouth daily and hydralazine 100 mg by mouth every 8 hours. I think at this point, we may need to change the clonidine to 3 times per day, and will go from there. 5. Diabetic foot ulcer. Wound Care has been consulted. Will follow recommendations. 6. Chronic obstructive pulmonary disease. The patient is not in exacerbation. Will continue to monitor this patient closely, and provide DuoNeb as needed. 7. Diabetes mellitus type 2. Will continue with sliding scale insulin and Accu-Cheks before meals and also at bedtime. 8. Depression. Will continue with Elavil and Celexa. 9. Gastroesophageal reflux disease. Will continue with Protonix. 10. Peripheral vascular disease. Will continue with Trental. 11. Disposition. Will continue to monitor this patient closely. Will continue following recommendations from Cardiology. cc: Wicho Loving MD
[2019-04-02] MEDS: ELAVIL PO SCH (22:54)
[2019-04-03] MEDS: APRESOLINE PO SCH ×3 (02:00→18:22)
[2019-04-03] MEDS: DUONEB (A & A) INH SCH ×6 (02:55→23:05)
[2019-04-03] MEDS: DILAUDID IV PRN ×6 (03:16→22:29)
[2019-04-03] MEDS: MOVANTIK PO SCH (06:35)
[2019-04-03] MEDS: HUMULIN R SUBQ SCH ×4 (06:36→20:53)
[2019-04-03 06:56] LABS: BASO# 0.05 X1000 (0.0-0.2); BASO% 0.9 % (0.0-0.8); EOS# 0.15 X1000 (0.0-0.7); EOS% 2.7 % (0.0-10.0); HEMOGLOBIN 7.4 g/dL (14.0-18.0); LYMPH# 1.39 X1000 (1.2-3.4); LYMPH% 25.3 % (20.5-51.1); MCH 29.6 PG (27-31); MCHC 32.2 g/dL (33-37); MONO# 0.69 X1000 (0.11-0.59); MONO% 12.6 % (1.7-9.3); MPV 10.5 FL (7.4-10.4); NEUT# 3.21 X1000 (1.4-6.5); NEUT% 58.5 % (42.2-75.2); PLT 204 X1000 (130-400); RDW 15.4 % (11.5-14.5); WBC 5.49 X1000 (4.8-10.8)
[2019-04-03 07:17] LABS: ALBUMIN 3.3 g/dL (3.5-5.0); CALCIUM 7.8 mg/dL (8.8-10.2); CREATININE 2.4 mg/dL (0.7-1.2); PHOSPHORUS 5.4 mg/dL (2.7-4.5); POTASSIUM 4.4 mmol/L (3.5-5.1)
[2019-04-03] MEDS: PULMICORT INH SCH ×2 (07:38→19:35)
--- NOTE | 2019-04-03 08:07 | PROGRESS NOTE ---
DATE: 04/03/2019 SUBJECTIVE: No acute events overnight. The patient is resting comfortably this morning. He has had good urinary output through his urethral catheter with 3.7 L recorded. Urine is clear yellow. No evidence of any clots. He denies any pain this morning. Denies any nausea or vomiting. The patient has been diuresed by the hospitalist with stable renal function. OBJECTIVE: Vital Signs: Temperature is 98.4 degrees, heart rate 65, blood pressure 148/51, oxygen saturation 97% on room air. General: No acute distress. Resting comfortably in bed. Alert and oriented x3. Abdomen: Soft, nontender, nondistended. No palpable masses. Respiratory: Good respiratory effort without audible wheezing or rales. : No suprapubic tenderness. No CVA tenderness. Urethral catheter in place, draining clear yellow urine. No evidence of scrotal edema. Phallus is normal. Lower extremities well healed. Minimal edema. Labs: White blood cell count 5.5, hemoglobin 7.4, hematocrit 23, platelets 204,000. Sodium 141, potassium 4.4, chloride 103, bicarb 24, BUN 56, creatinine 2.4, glucose 136. Urine culture, no evidence of growth. ASSESSMENT AND PLAN: Mr. Olsen is a 53-year-old with chronic obstructive pulmonary disease, type 2 diabetes, hypertension, hyperlipidemia, chronic kidney disease, nephrolithiasis, peripheral vascular disease, history of depression, history of cerebrovascular accidents x2, and peripheral neuropathy, who presented in consultation regarding left hydronephrosis with left obstructing ureteral stone. The patient has a history of nephrolithiasis and has undergone procedures for bilateral ureteral stones previously. The patient seemingly has passed the stone from his kidney and caused obstruction. The patient's renal function has always been stable. He was having pain before stenting on Wednesday. His pain seems to be better controlled. Renal function remains stable. Overall, he seems to be doing well. The patient has had a urethral catheter in place draining clear yellow urine. I think this can be removed at the discretion of the hospitalist. He only needs it for diuresis. The patient was having no issues with urination prior to this. We will continue with ureteral stent in place. We will discuss with him surgical planning. May consider ureteroscopy later this week to remove his stones. The patient has stones both in the ureter as well as the kidney. The patient has undergone prior extracorporeal shockwave lithotripsy. We will discuss with him ureteroscopy versus shockwave to treat his stones. We will continue to monitor from a urologic standpoint. Please call with questions or concerns. cc: Yosef Russell MD MTDD
[2019-04-03] MEDS: LASIX IV SCH ×2 (08:32→20:51)
[2019-04-03] MEDS: ASPIRIN PO SCH (08:33)
[2019-04-03] MEDS: FLOMAX PO SCH (08:33)
[2019-04-03] MEDS: VITAMIN D PO SCH (08:34)
[2019-04-03] MEDS: CELEXA PO SCH (08:34)
[2019-04-03] MEDS: HEPARIN SUBQ SCH ×2 (08:34→20:52)
[2019-04-03] MEDS: TRENTAL PO SCH ×3 (08:34→20:52)
[2019-04-03] MEDS: CATAPRES PO SCH ×3 (08:34→18:22)
[2019-04-03] MEDS: PROTONIX PO SCH ×2 (08:35→20:52)
[2019-04-03] MEDS: TRANDATE PO SCH ×2 (08:35→20:52)
[2019-04-03] MEDS: HUMULIN 70/30 SUBQ SCH ×3 (08:36→18:25)
[2019-04-03] MEDS: CENTRUM TABLET PO SCH (08:42)
--- NOTE | 2019-04-03 14:10 | PROGRESS NOTE ---
DATE: 04/03/2019 SUBJECTIVE: The patient reports feeling fine. Breathing better. He reports the abdominal distention is still present with no too much improvement from admission. No nausea or vomiting. OBJECTIVE: Vital Signs: Temperature 97.6 degrees, heart rate 66, respiratory rate is 18, blood pressure 194/66, O2 saturation 100% on room air. General Examination: This is a chronically ill- appearing and looking older than his stated age, 53-year-old, male, lying in bed, in no acute distress. Cardiovascular Examination: S1 and S2 heard. No murmurs, gallops, or rubs. Regular rate and rhythm. Respiratory Examination: Minimal crackles noted in both pulmonary bases. Patient not using any accessory muscles or having work of breathing. Abdomen: Firm but no muscle guarding noted. There is some sort of abdominal wall edema still noted there. Bowel sounds present. No organomegaly. Extremities: No clubbing or cyanosis but 1+ lower extremity edema. Peripheral pulses present in both legs. Neurological Examination: The patient is alert and oriented x3. Moves 4 extremities. Laboratory Data: White cell count 5.49, hemoglobin 7.4, hematocrit 23.0, platelets 204,000. Creatinine 2.4. ASSESSMENT AND PLAN: 1. Acute congestive heart failure/volume overload. Patient continues to be on Lasix 80 mg intravenously every 12 hours. Intakes and outputs indicate that this patient is making good urine and during the last 24 hours, he made 3.7 L of urine. On admission, there was an order for a lung V/Q scan that has been ordered. It has been 3 days since that was ordered. We are still waiting for the results of the echocardiogram. Cardiology is following this patient. We will follow recommendations. 2. Left hydronephrosis and nephrolithiasis, status post left ureteral stent placement. Urology is following this patient. We will follow recommendations. 3. Anasarca. We will continue with Lasix. 4. Hypertensive urgency. Blood pressure is under control. I have just seen one elevation of blood pressure of 190 but most of the time, it is around 150 blood pressure. At this point, we will continue to monitor. We are not going to make any changes to his current treatment yet. 5. Diabetic foot ulcer. Wound care is taking care of that. We will follow recommendations. 6. Chronic obstructive pulmonary disease. The patient is not in exacerbation. We will continue to monitor this patient closely and provide DuoNeb as needed. 7. Diabetes mellitus type 2. The patient is on sliding scale insulin. Accu-Chek before meals and also at bedtime. 8. Depression. The patient is on Celexa. We will continue with the same management. 9. Gastroesophageal reflux disease. We will continue with Protonix. 10. Peripheral vascular disease. We will continue with Trental. 11. Disposition. At this point, the patient is clinically doing better but he still has some abdominal wall edema. At this point, we will continue with current management and we are following the lead from cardiology. cc: Wicho Loving MD
[2019-04-03] MEDS: MIRALAX PO SCH (20:51)
[2019-04-03] MEDS: ELAVIL PO SCH (20:52)
[2019-04-04] MEDS: APRESOLINE PO SCH ×3 (01:05→17:28)
[2019-04-04] MEDS: DILAUDID IV PRN ×7 (02:21→22:16)
[2019-04-04] MEDS: DUONEB (A & A) INH SCH ×6 (03:28→23:41)
[2019-04-04] MEDS: MOVANTIK PO SCH (06:09)
[2019-04-04] MEDS: HUMULIN R SUBQ SCH ×4 (06:35→22:17)
[2019-04-04 06:48] LABS: BASO# 0.05 X1000 (0.0-0.2); EOS# 0.21 X1000 (0.0-0.7); EOS% 4.1 % (0.0-10.0); HEMATOCRIT 23.7 % (42.0-52.0); HEMOGLOBIN 7.6 g/dL (14.0-18.0); LYMPH# 1.64 X1000 (1.2-3.4); LYMPH% 31.8 % (20.5-51.1); MCH 29.2 PG (27-31); MCHC 32.1 g/dL (33-37); MCV 91.2 FL (81-99); MONO# 0.51 X1000 (0.11-0.59); MONO% 9.9 % (1.7-9.3); MPV 10.4 FL (7.4-10.4); NEUT# 2.75 X1000 (1.4-6.5); NEUT% 53.2 % (42.2-75.2); PLT 216 X1000 (130-400); RDW 15.2 % (11.5-14.5); WBC 5.16 X1000 (4.8-10.8)
[2019-04-04 07:08] LABS: ALBUMIN 3.2 g/dL (3.5-5.0); CALCIUM 8.1 mg/dL (8.8-10.2); CREATININE 2.5 mg/dL (0.7-1.2); PHOSPHORUS 4.6 mg/dL (2.7-4.5)
[2019-04-04] MEDS: PULMICORT INH SCH ×2 (07:37→20:15)
--- NOTE | 2019-04-04 08:23 | ECHO REPORT ---
ORDER DATE: 03/31/2019 MEASUREMENTS: 1. Left ventricular internal diameter diastole 5.3. 2. Septal thickness 1.2. 3. Left ventricular posterior wall thickness 0.9. 4. Left ventricular internal diameter systole 3.2. SUMMARY: 1. Limited 2-dimensional echocardiography study performed. Acoustic window quality is adequate. 2. Aortic valve was without evidence of structural abnormality and opens adequately on 2- dimensional images. Mitral and tricuspid valves are without evidence of structural abnormality. Aortic root is normal in size. 3. Normal left ventricular chamber size with borderline concentric left hypertrophy is demonstrated. Estimated left ventricular ejection fraction appears to be approximately 65%. No regional wall motion abnormalities are evident. Left atrium, right atrium, right ventricle are normal in size with grossly preserved right ventricular systolic performance. 4. Small circumferential pericardial effusion is demonstrated. 5. Left pleural effusion demonstrated. 6. Appearance of inferior vena cava suggests normal central venous pressure. cc: MD Jeanette Mcwilliams PA
[2019-04-04] MEDS: MIRALAX PO SCH ×2 (08:52→22:18)
[2019-04-04] MEDS: HUMULIN 70/30 SUBQ SCH ×2 (08:54→17:29)
[2019-04-04] MEDS: LASIX IV SCH ×2 (08:55→22:14)
[2019-04-04] MEDS: TRANDATE PO SCH ×2 (09:00→22:15)
[2019-04-04] MEDS: CATAPRES PO SCH ×3 (09:00→17:28)
[2019-04-04] MEDS: TRENTAL PO SCH ×3 (09:00→22:15)
[2019-04-04] MEDS: CELEXA PO SCH (09:00)
[2019-04-04] MEDS: ASPIRIN PO SCH (09:00)
[2019-04-04] MEDS: VITAMIN D PO SCH (09:00)
[2019-04-04] MEDS: CENTRUM TABLET PO SCH (09:01)
[2019-04-04] MEDS: FLOMAX PO SCH (09:01)
[2019-04-04] MEDS: PROTONIX PO SCH ×2 (09:01→22:15)
--- NOTE | 2019-04-04 09:38 | PROGRESS NOTE ---
DATE: 04/04/2019 SUBJECTIVE: No acute events overnight. The patient remains afebrile. He states that his abdominal pain has resolved. He states that he has minimal lower extremity edema. He still has some fluid on his abdomen he states. He denies any nausea or vomiting. Tolerating a diet. Denies any penile or scrotal pain. Denies any scrotal edema. OBJECTIVE: Vital Signs: Temperature 98.1 degrees, heart rate 61, blood pressure 157/58, oxygen saturation 90% on nasal cannula. General: No acute distress. Resting comfortably in bed. Alert and oriented x3. Respiratory: Good respiratory effort without audible wheezing or rales. Cardiovascular: Regular rate and rhythm. Abdomen: Soft, nontender, nondistended. No palpable masses. Slight anasarca present. : No suprapubic tenderness. Urethral catheter in place draining clear yellow urine. No evidence of any scrotal or penile swelling. Lower extremities: Moving all extremities with minimal lower extremity edema. LABS: White blood cell count 5.2, hemoglobin 7.6, hematocrit 23.7, platelets 216,000. Glucose 117. ASSESSMENT AND PLAN: Mr. Olsen is a 53-year-old with chronic obstructive pulmonary disease, type 2 diabetes, hypertension, hyperlipidemia, chronic kidney disease, nephrolithiasis, peripheral vascular disease, history of depression, history of cerebrovascular accidents, and peripheral neuropathy, who presented in consultation regarding left hydronephrosis and left obstructing ureteral stone. The patient has a history of stones in the past and has undergone procedures for bilateral ureteral stones, most recently back in November. The patient was having some pain on presentation which seemingly resolved after left ureteral stent. The patient's renal function has remained stable with a creatinine in the 2.3 to 2.7 range. He is making good urinary output. Will plan for his catheter to be removed today. I talked with him this morning regarding surgical intervention, likely would benefit from left ureteroscopy and removal of stones. Will plan to talk with hospitalist about the possibility of doing this week versus next week. I think clinically he is stable. His edema seems to be minimal. He denies any increased work of breathing or shortness of breath. Will continue to monitor clinically. Please call with questions or concerns. cc: Yosef Russell MD [facility]
[2019-04-04] MEDS: HEPARIN SUBQ SCH ×3 (11:00→22:15)
[2019-04-04] MEDS: NORVASC PO SCH (13:05)
[2019-04-04] MEDS: ELAVIL PO SCH (22:15)
[2019-04-05] MEDS: APRESOLINE PO SCH ×3 (01:16→16:46)
[2019-04-05] MEDS: DILAUDID IV PRN ×7 (01:16→23:06)
[2019-04-05] MEDS: DUONEB (A & A) INH SCH ×6 (03:32→22:37)
[2019-04-05 07:15] LABS: CALCIUM 8.3 mg/dL (8.8-10.2); CREATININE 2.5 mg/dL (0.7-1.2); POTASSIUM 4.4 mmol/L (3.5-5.1)
[2019-04-05] MEDS: PULMICORT INH SCH ×2 (07:23→19:19)
--- NOTE | 2019-04-05 07:23 | Diag Imaging Result Doc PS360 ---
EXAM: CHEST-1 VIEW HISTORY: SOB TECHNIQUE: Portable chest single view COMPARISON: 04/02/2019 FINDINGS: There are small bilateral pleural effusions with basilar atelectasis. There may be underlying infiltrates as well. The heart is prominent and there is mild central vascular distention. IMPRESSION: Stable chest. Electronically signed by Chris Allen 04/05/2019 7:20 AM
[2019-04-05] MEDS: MOVANTIK PO SCH (07:44)
[2019-04-05] MEDS: HUMULIN R SUBQ SCH ×4 (07:44→21:37)
[2019-04-05] MEDS: HUMULIN 70/30 SUBQ SCH ×2 (08:53→16:47)
[2019-04-05] MEDS: TRENTAL PO SCH ×3 (08:54→23:09)
[2019-04-05] MEDS: CENTRUM TABLET PO SCH (08:55)
[2019-04-05] MEDS: NORVASC PO SCH (08:55)
[2019-04-05] MEDS: HEPARIN SUBQ SCH ×2 (08:55→21:37)
[2019-04-05] MEDS: TRANDATE PO SCH ×2 (08:55→22:06)
[2019-04-05] MEDS: ASPIRIN PO SCH (08:56)
[2019-04-05] MEDS: LASIX IV SCH ×2 (08:56→22:06)
[2019-04-05] MEDS: MIRALAX PO SCH ×2 (08:56→23:09)
[2019-04-05] MEDS: FLOMAX PO SCH (08:56)
[2019-04-05] MEDS: CATAPRES PO SCH ×3 (08:56→16:46)
[2019-04-05] MEDS: VITAMIN D PO SCH (08:56)
[2019-04-05] MEDS: PROTONIX PO SCH ×2 (08:56→22:06)
[2019-04-05] MEDS: CELEXA PO SCH (08:56)
--- NOTE | 2019-04-05 11:34 | PROGRESS NOTE ---
DATE: 04/05/2019 SUBJECTIVE: Patient is doing well today. His Hirsch catheter was removed yesterday. He has had no issues with urination. He continues to have some abdominal swelling per his report. He denies any dysuria or hematuria. Denies any left flank pain. OBJECTIVE: Vital Signs: Temperature 97.5 degrees heart rate 56, blood pressure 160/70 and oxygen saturation 92% on room air General: No acute distress resting comfortably in bed. Alert and oriented x3. Respiratory: Good respiratory effort without audible wheezing or rales. Abdomen: Soft, nontender, and nondistended. Slight evidence of anasarca. : No suprapubic tenderness. No CVA tenderness. Extremities: Lower extremity 1+ lower extremity edema bilaterally. LABORATORY: White blood cell count 5.2, hemoglobin 7.6, hematocrit 27.7, and platelets 216,000. Sodium 141, potassium 4.4, chloride 100, bicarb 28, BUN 58, creatinine 2.5, and glucose 138. ASSESSMENT AND PLAN: Mr. Olsen is a 53-year-old with chronic obstructive pulmonary disease, type 2 diabetes, hypertension, hyperlipidemia, chronic kidney disease, nephrolithiasis, peripheral vascular disease, history of depression, history of cerebrovascular accidents, peripheral neuropathy, who presents in consultation regarding left hydronephrosis and a left obstructing ureteral stone. The patient has a history of stones in the past, and has undergone procedures for bilateral ureteral stones. Talked with him, I recommended proceeding with cystoscopy, left ureteroscopy, laser lithotripsy, and stone basket extraction tomorrow with stent exchange. The patient has done well after his catheter was removed yesterday. He seems to be clinically stable with a stable renal function. We will make him NPO at midnight in preparation for procedure tomorrow. We will continue to monitor from a urologic standpoint. Please call with questions or concerns. cc: Yosef Russell MD [facility]
--- NOTE | 2019-04-05 15:07 | PROGRESS NOTE ---
DATE: 04/05/2019 SUBJECTIVE: Patient denies shortness of breath. He reports reluctance to adhere to low-sodium diet. OBJECTIVE: Blood pressure 150/59, heart rate 55, and oxygen saturation 97% on room air.Neck: Jugular venous distention is present consistent with elevated central venous pressure. Chest: Auscultation of the chest reveals diminished breath sounds at the very bases bilaterally. Cardiac: Reveals a regular rate and rhythm without appreciable murmur or gallop. Extremities: Demonstrate very mild edema distally. LABORATORY DATA: White blood cell count with mild edema distally. Laboratory data includes a sodium 141, potassium 4.4, chloride 100, carbon dioxide 28, BUN 58, creatinine 2.5, glucose 138, and magnesium 2.0. IMPRESSION: 1. Volume overload/CHF. Largely related to impaired renal function as well as poor compliance with sodium restriction. 2. Recent echocardiography demonstrated normal left ventricular ejection fraction and very small pericardial effusion. 3. Nephrolithiasis. 4. Moderate coronary atherosclerosis by coronary angiography in October of 2017. The patient continues without angina. 5. Peripheral vascular disease. 6. Type 2 diabetes mellitus. RECOMMENDATIONS: 1. Continue efforts to diurese. 2. Sodium restriction. Importance of salt restriction discussed with the patient. 3. Conservative cardiovascular management overall. No further cardiovascular suggestions. I will see him further on an as needed basis. cc: Yony Wakefield MD
--- NOTE | 2019-04-05 20:26 | PROGRESS NOTE ---
DATE: 04/04/2019 SUBJECTIVE: The patient was very ill yesterday unhappy about multiple issues. OBJECTIVE: Vital Signs: Blood pressure yesterday was 168/68, heart rate 55, respiratory rate 18, temperature 98.2 degrees. Cardiovascular: Regular rate and rhythm. Pulmonary: Bilateral breath sounds. Clear to auscultation. Gastrointestinal: Abdomen was soft, nontender, nondistended. Bowel sounds are positive. LABORATORY DATA: White count 5, hemoglobin and hematocrit 7 and 23, platelets of 204,000. Basic: BUN 57, creatinine 2.5. PROBLEM LIST: 1. Acute congestive heart failure exacerbation. Seems to be doing okay. He is on diuretics. He is very upset about any discussion of him going home because he has had multiple readmissions for this. 2. Left hydronephrosis, nephrolithiasis, status post stents. Urology is following. 3. Hypertension. Still not quite controlled. We will continue to adjust medications. 4. Chronic obstructive pulmonary disease appears to be compensated. 5. Type 2 diabetes. We will continue to follow. DISPOSITION: We will continue to monitor and hopefully discharge in the next 1 to 2 days. cc: Valerio Esquivel MD
--- NOTE | 2019-04-05 21:03 | PROGRESS NOTE ---
DATE: 04/05/2019 SUBJECTIVE: The patient has no major complaints. OBJECTIVE: Vital Signs: Blood pressure is 158/69, heart rate of 56, respiratory rate of 18, temperature 97.6 degrees, 96% on room air. Cardiovascular: Regular rate and rhythm. Pulmonary: Bilateral breath sounds, clear to auscultation. Gastrointestinal: Soft, nontender, nondistended. Bowel sounds were positive. Extremity Exam: No clubbing or cyanosis. Lymphatic exam: He still has some 1 to 2+ pitting edema in his thighs and legs. LABORATORY DATA: I do not have any new data today except creatinine is 2.5. PROBLEM LIST: 1. Congestive heart failure exacerbation acute systolic. He is on Lasix. He continues to diurese. Since admission, he has put out over 12 L of urine, almost 13, so he is without a lot a urine. According to this, his output total is 16 L so he is diuresing pretty well. He does not want any salt restriction, so it is difficult to sympathize completely since he does not want to discharge him necessarily, continue Lasix but then he does not want any salt restriction at all and stated if he felt restricted he would order every meal out. 2. Left hydronephrosis, nephrolithiasis. Urology is planning for I guess lithotripsy tomorrow. 3. Chronic obstructive pulmonary disease appears compensated. 4. Anemia of chronic inflammation. That is stable. DISPOSITION: Hopefully discharge in the next 1 to 2 days pending workup. cc: Valerio Esquivel MD
[2019-04-05] MEDS: ELAVIL PO SCH (22:06)
[2019-04-05] MEDS: NORCO-10 PO PRN (23:07)
[2019-04-06] MEDS: APRESOLINE PO SCH ×3 (01:36→17:33)
[2019-04-06] MEDS: DILAUDID IV PRN ×6 (02:07→23:59)
[2019-04-06] MEDS: DUONEB (A & A) INH SCH ×6 (02:54→23:23)
[2019-04-06] MEDS: MOVANTIK PO SCH ×2 (05:43→07:37)
[2019-04-06 07:01] LABS: HEMATOCRIT 24.6 % (42.0-52.0); HEMOGLOBIN 7.9 g/dL (14.0-18.0); MCH 30.4 PG (27-31); MCHC 32.1 g/dL (33-37); MCV 94.6 FL (81-99); MPV 10.5 FL (7.4-10.4); RBC 2.6 XMIL (4.7-6.1); RDW 15.4 % (11.5-14.5); WBC 5.67 X1000 (4.8-10.8)
[2019-04-06 07:17] LABS: CALCIUM 8.5 mg/dL (8.8-10.2); CREATININE 2.8 mg/dL (0.7-1.2); POTASSIUM 4.4 mmol/L (3.5-5.1)
[2019-04-06] MEDS: HUMULIN R SUBQ SCH ×3 (07:37→18:12)
[2019-04-06] MEDS: PULMICORT INH SCH ×2 (07:48→19:25)
[2019-04-06] MEDS ORDERED: DIPRIVAN 1% ONE (08:11)
[2019-04-06] MEDS ORDERED: FENTANYL ONE ×2 (08:11→11:07)
[2019-04-06] MEDS ORDERED: VERSED ONE (08:11)
[2019-04-06] MEDS: HUMULIN 70/30 SUBQ SCH ×2 (08:17→17:34)
[2019-04-06] MEDS: MIRALAX PO SCH ×2 (08:18→21:06)
[2019-04-06] MEDS: VITAMIN D PO SCH (08:18)
[2019-04-06] MEDS: PROTONIX PO SCH ×2 (08:18→21:06)
[2019-04-06] MEDS: NORVASC PO SCH (08:19)
[2019-04-06] MEDS: ASPIRIN PO SCH (08:19)
[2019-04-06] MEDS: TRENTAL PO SCH ×3 (08:19→21:05)
[2019-04-06] MEDS: CELEXA PO SCH (08:20)
[2019-04-06] MEDS: CATAPRES PO SCH ×3 (08:20→17:32)
[2019-04-06] MEDS: CENTRUM TABLET PO SCH (08:20)
[2019-04-06] MEDS: FLOMAX PO SCH (08:21)
[2019-04-06] MEDS: HEPARIN SUBQ SCH ×2 (08:21→21:04)
[2019-04-06] MEDS: TRANDATE PO SCH ×2 (08:27→21:04)
[2019-04-06] MEDS ORDERED: KEFZOL 1 GM/D5W 1 GM/50 ML IVPB ONE (08:48)
[2019-04-06] MEDS: LASIX IV SCH (09:02)
[2019-04-06] MEDS ORDERED: QUELICIN (DOSE) ONE (09:28)
[2019-04-06] MEDS ORDERED: XYLOCAINE-MPF 2% ONE (09:28)
[2019-04-06] MEDS ORDERED: ZOFRAN ONE (09:28)
[2019-04-06] MEDS ORDERED: DECADRON ONE (09:28)
[2019-04-06] MEDS ORDERED: ZEMURON ONE (09:29)
--- NOTE | 2019-04-06 09:32 | PROGRESS NOTE ---
DATE: 04/06/2019 SUBJECTIVE: No acute events overnight. The patient is doing well. He denies any abdominal pain. He has been NPO at midnight in preparation for surgery today. Discussed with him his procedure as well as plan for stone removal. OBJECTIVE: Vital Signs: Temperature 98.1 degrees, heart rate 60, blood pressure 116/61, oxygen saturation is 96% on room air. General: No acute distress. Resting comfortably in bed. Respiratory: Good respiratory effort without audible wheezing or rales. Abdomen: Soft, nontender, nondistended. No palpable masses. : No suprapubic tenderness. No CVA tenderness. Musculoskeletal: Moving all extremities. The patient does have evidence of lower extremity edema, 1+ pitting edema bilaterally. LABS: White blood cell count 5.7, hemoglobin 7.9, hematocrit 24.6, platelets 197,000. Sodium 144, potassium 4.4, chloride 101, bicarb 30, BUN 57, creatinine 2.8, glucose 145, calcium 8.5. ASSESSMENT AND PLAN: Mr. Olsen is a 53-year-old with chronic obstructive pulmonary disease, type 2 diabetes, hypertension, hyperlipidemia, chronic kidney disease, nephrolithiasis, peripheral vascular disease, a history of depression, and cerebrovascular accident. The patient presented as a consult last week due to a stone in the left ureter and abdominal pain. The patient underwent left ureteral stenting at that time. Patient is admitted today for definitive stone management. The patient had approximately a 7 mm stone present in the ureter as well as several larger stones within the kidney itself. We will plan to perform a ureteroscopy with ureteral and renal stone removal. Risks, benefits, and alternatives to this were discussed with the patient and he elected to proceed. We will continue nothing per oral until his procedure. The patient will get a diet after the procedure. cc: Yosef Russell MD [facility]
[2019-04-06] MEDS ORDERED: DEMADEX PO SCH (13:15)
--- NOTE | 2019-04-06 13:51 | PROGRESS NOTE ---
DATE: 04/06/2019 SUBJECTIVE: The patient is a little bit sleepy because he is just back from a procedure, lithotripsy and stone removal. No complaints at this time. No acute issues noted as per nursing staff overnight. OBJECTIVE: Vital Signs: Temperature 98.1 degrees, heart rate 52, respiratory rate 16, blood pressure 169/61, O2 saturation 96% on room air. General Examination: This is a chronically ill- appearing, looking older than his stated age, 53-year-old, male, lying in bed, in no acute distress. Cardiovascular Examination: S1 and S2 heard. No murmurs, gallops, or rubs. Regular rate and rhythm. Respiratory Examination: Minimal crackles noted in both pulmonary bases. Patient is not using any accessory muscles or having work of breathing. Abdomen: Firm but no muscle guarding noted. Bowel sounds present. No organomegaly. Extremities: No clubbing or cyanosis. Mild 1+ pitting edema in both lower extremities, improved in comparing with previous days. Peripheral pulses present in both legs. Neurological Examination: The patient is sleepy. Moves 4 extremities spontaneously. Laboratory Data: Reviewed. ASSESSMENT AND PLAN: 1. Acute congestive heart failure/volume overload. The patient continues to be on Lasix 80 mg intravenous every 12 hours. The patient clinically is making good improvement. Cardiology has been following this patient but he is going to be followed as an-needed basis. I think, at this point, the patient is much more stable so will proceed to change Lasix to torsemide. Apparently, the patient was reporting that he was not having a good response to the Lasix. 2. Left hydronephrosis with nephrolithiasis. The patient has been taken to the operating room, had a lithotripsy and stent placement. Urology is following this patient. We will follow recommendations. 3. Anasarca. We will switch Lasix intravenous to torsemide orally. 4. Hypertensive urgency. Blood pressure is much better controlled. We will continue with the same management. 5. Diabetic foot ulcer. Wound care is on board, taking care of him. 6. Chronic obstructive pulmonary disease. The patient is not in any exacerbation. We will continue to monitor. 7. Diabetes mellitus type 2. Patient is on sliding scale insulin. Accu-Chek before meals and also at bedtime. 8. Chronic kidney disease stage 3. That is reason probably why this patient has become overloaded. At this point, we will start torsemide on this patient and we will go from there. 9. Depression. We will continue with Celexa. 10. Peripheral vascular disease. We will continue with Trental. 11. Disposition. I think this patient is doing fine. If he is feeling better and cleared from a urology standpoint, he can be discharged between tomorrow and the day after. cc: Wicho Loving MD
--- NOTE | 2019-04-06 16:47 | Diag Imaging Result Doc PS360 ---
EXAM: FLUOROSCOPY CYSTO INDICATION: LEFT STENT PLACEMENT, LEFT STONE LASER TECHNIQUE: COMPARISON: None. FINDINGS: 22 spot fluoroscopic images were provided, which were performed during left ureteral stent exchange and lithotripsy by Dr. Yosef Russell. There is hydronephrosis on the left and there are multiple filling defects seen in the left renal collecting system consistent with intrarenal stones. This was also seen on a recent CT. IMPRESSION: As above. Please correlate with live fluoroscopy. Electronically signed by Kyree Myers 04/06/2019 4:45 PM
[2019-04-06] MEDS: KEFZOL 1 GM/D5W 1 GM/50 ML IVPB IV SCH (17:32)
[2019-04-06] MEDS: ELAVIL PO SCH (21:05)
[2019-04-06] MEDS: DEMADEX PO SCH (21:05)
[2019-04-07] MEDS: APRESOLINE PO SCH ×3 (00:02→16:48)
[2019-04-07] MEDS: KEFZOL 1 GM/D5W 1 GM/50 ML IVPB IV SCH ×2 (00:03→09:27)
[2019-04-07] MEDS: HUMULIN R SUBQ SCH ×5 (00:20→20:11)
[2019-04-07] MEDS: DILAUDID IV PRN ×6 (03:05→22:52)
[2019-04-07] MEDS: NORCO-7.5 PO PRN ×2 (03:06→10:23)
[2019-04-07] MEDS: DUONEB (A & A) INH SCH ×6 (03:22→23:06)
--- NOTE | 2019-04-07 05:46 | OPERATIVE NOTE ---
PROCEDURE DATE: 04/06/2019 PREOPERATIVE DIAGNOSES: 1. Left ureteral stone. 2. Left renal stone. POSTOPERATIVE DIAGNOSES: 1. Left ureteral stone. 2. Left renal stone. PROCEDURES PERFORMED: 1. Cystoscopy. 2. Left ureteroscopy with laser lithotripsy. 3. Stone basket extraction. 4. Left ureteral stent exchange. 5. Left retrograde pyelogram. 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 COMPLICATIONS: None. BLOOD LOSS: 10 mL. DRAINS: 6 x 26 cm left ureteral stent. SPECIMENS REMOVED: 1. Left ureteral stone. 2. Left renal stones. INDICATIONS FOR PROCEDURE: Mr. Olsen is a 53-year-old with history of recurrent nephrolithiasis. Patient presented to the emergency room last Henry complaining of abdominal pain. He had a CT scan performed which showed stone in the left ureter as well as several stones within the left kidney. The patient was in a volume overloaded state from congestive heart failure, chronic kidney disease and concern arose that the stone was leading to worsening abdominal pain. I told the patient I recommended cystoscopy and left ureteral stent placement in preparation for later management of his stones after he became more stable. The patient underwent stent placement last Wednesday and presents today for definitive management of stones. Risks, benefits, and alternatives of the surgical procedure discussed with the patient and the patient elected to proceed. DESCRIPTION OF PROCEDURE: After informed consent was obtained, patient was brought to the operating room, and placed on the operating room table in supine position. The patient received preoperative antibiotics, and underwent endotracheal intubation. The patient was then positioned into a dorsal supine position. He was prepped and draped in usual sterile fashion. A preoperative time-out was performed with all parties in agreement including anesthesia, surgical and nursing staff. At which point I inserted a 21-Finnish cystourethroscope through the urethra showing normal caliber urethra. No evidence of stricture disease. The patient's prostate was quite small with a small median lobe. Once inside at the bladder, extruding from the left ureteral orifice, was the coil of the ureteral stent. A flexible grasper was then passed through the scope, the stent was grasped and pulled out through the meatus. A ZIPwire was then passed through and up into the kidney itself. The stent was completely removed. The patient's bladder was drained at which point a semi-rigid ureteroscope was advanced through the urethra and up into the bladder. The left ureteral orifice cannulized, was able to advance the rigid ureteroscope all the way up to the site of the stone in the mid to proximal ureter at which point using a 200 micron fiber, the stone was then fragmented into several pieces. It was quite hard and difficult to fragment due to it's position. Ultimately, the stone fragmented well, and was able to retrieve it's pieces and dropped in the bladder for later retrieval. We were able to advance the ureteroscope pass the previous impaction of the stone with no residual debris seen within the ureter. There was some edema present at the previous stone site. The decision was made to then pass a PTFE wire through the scope and up into the kidney itself. This was left in place. The semi-rigid ureteroscope was completely removed. The ureter appeared to be normal except for the edema at the previous stone passage site. The decision was made to place a ureteral access sheath, obtain a 10 x 12-Finnish 45 cm ureteral access sheath, and advanced it over the PTFE wire and into the proximal ureter just distal to the site of the impaction. This was left in place, and a flexible ureteroscope was advanced through the sheath and up into the kidney. Once in the kidney, a large amount of stone was seen in the lower pole and interpolar area. Some of these stones were quite large and required multiple fragmentation to get them small enough to be removed. These were systematically removed. However, patient had a large amount of sediment within the kidney which was constantly being irrigated. However, it made it difficult to visualize all of the stones. Some of the stones in the lower pole were difficult to extract and ultimately required dusting just to try to remove stones and debris. Multiple clots were extracted using a Harry basket, and a Zero tip basket. Once all of these were all removed, all visible stone fragments were obtained and removed. A larger stone was seen in the lower pole of the kidney. The patient had been undergo anesthesia for 3 hours, and was in the dorsal lithotomy position. The decision was made to abort the procedure at this time as greater than 2 cm stones were removed from the kidney. Retrograde pyelogram was then shot through the scope. The calyx was evaluated and only the larger stone fragment was seen with dusted material seen in the lower pole as well. Once the calyx was evaluated, the flexible ureteroscope was slowly withdrawn along with the sheath, which showed a normal ureter with no evidence of significant trauma. The ZIPwire was left in place, and then was backloaded through the cystourethroscope, and a 6 x 26 cm left ureteral stent was advanced over the wire and a coil was seen in the kidney and endoscopically visualized in the bladder. At which point, the patient's bladder was drained multiple times and all stone fragments were retrieved. The patient was then awoken, and was taken to recovery in stable condition. The patient to be transferred back to the floor, and will monitor there. cc: Yosef Russell MD [facility]
[2019-04-07] MEDS: MOVANTIK PO SCH (06:10)
[2019-04-07 07:20] LABS: POTASSIUM 4.9 mmol/L (3.5-5.1)
[2019-04-07 07:21] LABS: CALCIUM 8.6 mg/dL (8.8-10.2); CREATININE 2.6 mg/dL (0.7-1.2)
--- NOTE | 2019-04-07 07:26 | Diag Imaging Result Doc PS360 ---
EXAM: CHEST-1 VIEW INDICATION: SOB TECHNIQUE: One view COMPARISON: 04/05/2019 FINDINGS: Bilateral pleural effusions with adjacent atelectasis and/or infiltrate are stable. There is suggestion of pulmonary edema and pulmonary venous congestion. This is approximately stable. No new consolidation is identified. Cardiac silhouette is stable. IMPRESSION: Essentially stable chest. Electronically signed by Kyree Myers 04/07/2019 7:23 AM
[2019-04-07 07:28] LABS: BASO# 0.02 X1000 (0.0-0.2); BASO% 0.3 % (0.0-0.8); EOS# 0.09 X1000 (0.0-0.7); EOS% 1.2 % (0.0-10.0); HEMOGLOBIN 7.7 g/dL (14.0-18.0); LYMPH# 1.54 X1000 (1.2-3.4); LYMPH% 20.9 % (20.5-51.1); MCH 28.8 PG (27-31); MCHC 30.8 g/dL (33-37); MCV 93.6 FL (81-99); MONO# 0.84 X1000 (0.11-0.59); MONO% 11.4 % (1.7-9.3); MPV 10.7 FL (7.4-10.4); NEUT# 4.89 X1000 (1.4-6.5); NEUT% 66.2 % (42.2-75.2); PLT 192 X1000 (130-400); RBC 2.67 XMIL (4.7-6.1); RDW 15.4 % (11.5-14.5); WBC 7.38 X1000 (4.8-10.8)
[2019-04-07] MEDS: PULMICORT INH SCH ×2 (07:46→19:02)
[2019-04-07] MEDS: NORVASC PO SCH (09:21)
[2019-04-07] MEDS: VITAMIN D PO SCH (09:21)
[2019-04-07] MEDS: FLOMAX PO SCH (09:23)
[2019-04-07] MEDS: PROTONIX PO SCH ×2 (09:23→20:08)
[2019-04-07] MEDS: DEMADEX PO SCH ×2 (09:23→20:07)
[2019-04-07] MEDS: ASPIRIN PO SCH (09:23)
[2019-04-07] MEDS: CATAPRES PO SCH ×3 (09:23→16:53)
[2019-04-07] MEDS: CENTRUM TABLET PO SCH (09:23)
[2019-04-07] MEDS: TRANDATE PO SCH ×2 (09:23→20:06)
[2019-04-07] MEDS: CELEXA PO SCH (09:24)
[2019-04-07] MEDS: HEPARIN SUBQ SCH ×2 (09:24→20:09)
[2019-04-07] MEDS: HUMULIN 70/30 SUBQ SCH ×2 (09:37→16:50)
[2019-04-07] MEDS: MIRALAX PO SCH ×2 (09:41→20:17)
[2019-04-07] MEDS: TRENTAL PO SCH ×3 (09:46→20:08)
--- NOTE | 2019-04-07 09:59 | PROGRESS NOTE ---
DATE: 04/07/2019 SUBJECTIVE: Postoperative day 1 from cystoscopy, left ureteroscopy, laser lithotripsy, stone basket extraction and left ureteral stent exchange for ureteral and renal stones. The patient did well after the surgery. However, he states he was having some pain in his left lower pelvis as well as some darkened urine. The patient's case was difficult due to bleeding within the kidney itself and a large amount of stone was removed. However, I think there is still some stone left. The patient denies any fevers or chills. Denies any nausea or vomiting. He is tolerating a diet. OBJECTIVE: Vital signs: Temperature 97.8 degrees, heart rate 58, blood pressure 174/61, oxygen saturation 90% on nasal cannula. General: No acute distress. Resting comfortably in bed. Alert and oriented x3. Abdomen: Soft, nontender, nondistended. Genitourinary: Slight left lower quadrant tenderness to palpation. No CVA tenderness. No evidence of penile or scrotal edema. Extremities: The patient has 1+ lower extremity edema. LABORATORY DATA: White blood cell count 7.4, hemoglobin 7.7, hematocrit 25, platelets 192,000. Sodium 141, potassium 4.9, chloride 98, bicarb 29, BUN 61, creatinine 2.6, glucose 131, calcium 8.6. ASSESSMENT AND PLAN: Mr. Olsen is a 53-year-old with chronic obstructive pulmonary disease, type 2 diabetes, hypertension, hyperlipidemia, chronic kidney disease, nephrolithiasis, peripheral vascular disease, history of depression and cerebrovascular accident, who is postop day 1 from cystoscopy, left ureteroscopy, lithotripsy and stone basket extraction. The patient was having some pain in his lower abdomen this morning, which seems to be better controlled. The patient was given [place] yesterday. Continues to have some discomfort of what seems like spasms of the bladder and is very sensitive to having stents in place. The patient has been having some dark urine per his report, likely related to bleeding from the kidney. The patient had a difficult case yesterday, but was I able to remove a large portion of his stone, roughly 2 cm of stone were seen within the kidney with multiple stone fragments removed as well as several dusted. In talking with him this morning, I recommended a repeat ureteroscopy in a couple weeks to allow him to heal some from his current surgery. Gave prescriptions for antibiotics and stent discomfort. The patient likely will need repeat surgery in several weeks, which the patient agrees to. We will plan to schedule this from the office. cc: Yosef Russell MD [facility]
[2019-04-07] MEDS ORDERED: DILAUDID IV PRN (11:33)
[2019-04-07] MEDS ORDERED: GOLYTELY PO ONE (11:33)
--- NOTE | 2019-04-07 12:51 | PROGRESS NOTE ---
DATE: 04/07/2019 SUBJECTIVE: Patient is lying in bed complaining of pain in the back from procedure done yesterday. He requests a stronger pain medication. OBJECTIVE: Vital Signs: Temperature 97.6 degrees, heart rate 58, respiratory rate 18, blood pressure 174/61, O2 saturation 98% on 2 L nasal cannula. General Examination: This is a chronically ill-appearing, looking older than his stated age, 53-year-old male, lying in bed in no acute distress. Cardiovascular exam: S1, S2 heard. No murmurs, gallops, or rubs. Regular rate and rhythm. Respiratory exam: Minimal crackles noted in both pulmonary bases. Patient not using any accessory muscles or having work of breathing. Abdomen: Soft, nontender to palpation. No signs of peritoneal irritation. Bowel sounds present. No organomegaly. Extremities: No clubbing, cyanosis. There is 1+ pitting edema in both lower extremities, improved in comparing with previous days. Peripheral pulses present in both legs. Neurological exam: Patient is awake, moves 4 extremities. LABORATORY DATA: Reviewed. ASSESSMENT AND PLAN: 1. Acute congestive heart failure following overload. The patient is much better from that standpoint. Yesterday, we switched intravenous Lasix to torsemide 40 mg oral every 12 hours. I think this patient is doing much better. His physical examination disclosed clear lungs. The lower extremity edema is getting better. At this point, we will continue with the same management. 2. Left hydronephrosis with nephrolithiasis, status post stent placement. Patient is complaining of pain and looks like he has spasms of the bladder and, according to Urology, is very sensitive to have stents in place. In any case, what we are going to do is optimize his pain medications. We will change [place] for Percocet. We will follow recommendations from Urology. 3. Anasarca. Getting much better. We will continue torsemide orally. 4. Hypertensive urgency. Blood pressure has been better controlled than yesterday, but today he has been having some readings of 170s because of the pain. I think at this point we will monitor this patient closely. 5. Diabetes mellitus type 2. We will continue with sliding scale insulin. Accu-Chek before meals and also at bedtime. 6. Chronic kidney disease stage III, stable. We will continue with torsemide. 7. Severe constipation. Patient is on Movantik and also MiraLAX for chronic opiate treatment. Considering that we have changed his medications to something stronger like Percocet, I think I will proceed with GoLYTELY that he is supposed to take until he starts having bowel movements. At this point, we will continue to monitor. 8. Depression we will continue with Celexa. 9. Peripheral vascular disease. We will continue with Trental. 10. Disposition: At this point, patient is stable from a medical standpoint. Urology is following. I think if this patient is feeling better tomorrow and cleared by Urology, the patient can be discharged tomorrow morning. cc: Wicho Loving MD
[2019-04-07] MEDS: PERCOCET-5 PO PRN ×2 (17:23→21:26)
[2019-04-07] MEDS: ELAVIL PO SCH (20:09)
--- NOTE | 2019-04-07 22:21 | PULMONOLOGY PROGRESS NOTE ---
DATE: 04/07/2019 SUBJECTIVE: The patient is awake, alert, and conversant. He feels better. He denies shortness of breath at rest. OBJECTIVE: Vital Signs: The patient has been afebrile for the last 24 hours. Blood pressure 143/55. HEENT: Pupils are equal and reactive. Oropharynx appears clear. Neck: Supple. Chest: Reveals bibasilar crackles with prolonged expiratory phase. Cardiac: S1, S2. Abdomen: Soft. Extremities: Reveal 1+ peripheral edema. LABORATORIES: Chest x-ray reveals cardiomegaly with bilateral effusions and pulmonary venous congestion. IMPRESSION: 53-year-old with 1. Chronic obstructive pulmonary disease with ongoing tobacco use. 2. Pulmonary edema. 3. Pleural effusions. 4. Hydronephrosis with chronic kidney disease. PLAN: 1. Continue oxygen for hypoxemic respiratory failure. 2. Continue diuretics for fluid overload. 3. Encourage smoking cessation. The patient became irritated with this practitioner when I suggested he would have to commit to smoking cessation. He indicated that he was "done with that conversation." cc: Lamberto Poe MD
[2019-04-08] MEDS: PERCOCET-5 PO PRN ×3 (01:20→10:26)
[2019-04-08] MEDS: APRESOLINE PO SCH ×2 (01:20→10:31)
[2019-04-08] MEDS: DILAUDID IV PRN ×4 (02:16→12:22)
[2019-04-08] MEDS: DUONEB (A & A) INH SCH ×3 (03:02→10:49)
[2019-04-08] MEDS ORDERED: LASIX IV ONE (05:00)
[2019-04-08] MEDS: MOVANTIK PO SCH (06:24)
[2019-04-08] MEDS: HUMULIN R SUBQ SCH ×2 (06:27→11:45)
--- NOTE | 2019-04-08 07:32 | Diag Imaging Result Doc PS360 ---
EXAM: CHEST-1 VIEW 04/08/2019 HISTORY: SOB TECHNIQUE: AP portable at 0609 COMMENT: There are bilateral pleural effusions. There are diffuse interstitial opacities. The heart size is enlarged. Compared to 04/07/2019 there has been no significant change. IMPRESSION: Cardiomegaly, pulmonary edema and pleural effusions. Electronically signed by Waqar Jolly 04/08/2019 7:29 AM
[2019-04-08] MEDS: PULMICORT INH SCH (07:40)
[2019-04-08 07:50] LABS: BASO# 0.04 X1000 (0.0-0.2); BASO% 0.6 % (0.0-0.8); EOS# 0.23 X1000 (0.0-0.7); EOS% 3.5 % (0.0-10.0); HEMATOCRIT 25.2 % (42.0-52.0); HEMOGLOBIN 7.8 g/dL (14.0-18.0); LYMPH# 1.88 X1000 (1.2-3.4); LYMPH% 28.7 % (20.5-51.1); MCH 29.4 PG (27-31); MCV 95.1 FL (81-99); MONO# 0.61 X1000 (0.11-0.59); MONO% 9.3 % (1.7-9.3); MPV 10.8 FL (7.4-10.4); NEUT% 57.9 % (42.2-75.2); PLT 181 X1000 (130-400); RBC 2.65 XMIL (4.7-6.1); RDW 15.2 % (11.5-14.5); WBC 6.56 X1000 (4.8-10.8)
[2019-04-08 08:33] LABS: CALCIUM 8.4 mg/dL (8.8-10.2); CREATININE 2.7 mg/dL (0.7-1.2); POTASSIUM 4.5 mmol/L (3.5-5.1)
[2019-04-08] MEDS: HUMULIN 70/30 SUBQ SCH (08:33)
--- NOTE | 2019-04-08 10:21 | PROGRESS NOTE ---
DATE: 04/08/2019 SUBJECTIVE: No acute events overnight. The patient is postop day 2 from left ureteroscopy with laser lithotripsy, stone basket extraction and replacement of left ureteral stent for a ureteral stone and left renal stones. The patient has better control of his pain today. He states that his pain is resolved this morning. The patient has been ambulatory with physical therapy. He received GoLYTELY yesterday and was able to have a bowel movement, which I think has helped significantly per his report. He denies any fevers or chills. PHYSICAL EXAMINATION: Vital Signs: Temperature 98.4 degrees, heart rate 56, blood pressure 149/51, oxygen 91% on room air. General: No acute distress. Resting comfortably in bed. Alert and oriented x3. Respiratory: Good respiratory effort without audible wheezing or rales. Abdomen: Soft, nontender, nondistended. No palpable masses or hepatosplenomegaly. Genitourinary: No suprapubic tenderness. No CVA tenderness. Skin: No obvious skin lesions or rashes. The patient does have 1+ lower extremity edema which seems to be stable. LABORATORY DATA: White blood cell count 6.6, hemoglobin 7.8, hematocrit 25.2, platelets 181,000. Sodium 138, potassium 4.5, chloride 96, bicarb 29, BUN 64, creatinine 2.7, glucose 179. ASSESSMENT AND PLAN: Mr. Olsen is a 53-year-old with chronic obstructive pulmonary disease, type 2 diabetes, hypertension, hyperlipidemia, chronic kidney disease, nephrolithiasis, peripheral vascular disease, history of depression and cerebrovascular accident, who is postoperative day 2 from cystoscopy, left ureteroscopy, lithotripsy, and stone basket extraction. The patient was having pain in his lower abdomen yesterday, which has subsequently resolved. He denies any pain today. The patient has been up and ambulatory with physical therapy this morning already. His labs are all within normal limits with a stable creatinine and stable vital signs. Encouraged him to continue to remain ambulatory. Encouraged diet as tolerated. The patient will need 2nd look ureteroscopy in several weeks to remove residual stone. I talked about this with him and his previously. We will continue to monitor while inpatient from a urologic standpoint, but likely can be discharged later today. cc: MD DONNA Walker
[2019-04-08] MEDS: ASPIRIN PO SCH (10:29)
[2019-04-08] MEDS: DEMADEX PO SCH (10:29)
[2019-04-08] MEDS: NORVASC PO SCH (10:30)
[2019-04-08] MEDS: VITAMIN D PO SCH (10:30)
[2019-04-08] MEDS: FLOMAX PO SCH (10:31)
[2019-04-08] MEDS: CATAPRES PO SCH (10:31)
[2019-04-08] MEDS: CELEXA PO SCH (10:31)
[2019-04-08] MEDS: TRENTAL PO SCH (10:32)
[2019-04-08] MEDS: CENTRUM TABLET PO SCH (10:32)
[2019-04-08] MEDS: TRANDATE PO SCH (10:32)
[2019-04-08] MEDS: PROTONIX PO SCH (10:32)
[2019-04-08] MEDS: HEPARIN SUBQ SCH (10:33)
[2019-04-08] MEDS ORDERED: PNEUMOVAX 23 IM ONE (10:38)
[2019-04-08 11:35] VITALS: BP 151/57
[2019-04-08] MEDS: MIRALAX PO SCH (13:40)
--- NOTE | 2019-04-08 14:20 | DISCHARGE SUMMARY ---
ADMISSION DATE: 03/31/2019 DISCHARGE DATE: 04/08/2019 PERTINENT PROCEDURES: 1. Abdomen and pelvis CT: Anasarca, bilateral pleural effusions, ascites, pericardial effusion, left hydronephrosis and nephrolithiasis with stone at the ureteropelvic junction mild constipation. 2. Bilateral lower extremity Doppler: Negative for DVT. 3. Echocardiogram showed an EF of 65%. Small circumferential pericardial effusion demonstrated left pleural effusion. 4. Cystoscopy, left ureteroscopy with laser lithotripsy, stone basket extraction, left urethral stent exchange, and a left retrograde pyelogram performed by Dr. Russell. CONSULTATIONS: 1. Dr. Russell with Urology. 2. Dr. Yony Wakefield with Cardiology. 3. Dr. Lamberto Poe with Pulmonology. DISCHARGE DIAGNOSES: 1. Acute congestive heart failure following overload. The patient has improved with IV Lasix. 2. Left hydronephrosis with nephrolithiasis status post stent placement, followed by Dr. Russell. 3. Anasarca improved with diuresis. 4. Hypertensive urgency. Blood pressure is better controlled. 5. Diabetes mellitus type 2. Continue home regimen diabetic diet. 6. Chronic kidney disease stage 3 stable. Continue with torsemide. 7. Severe constipation. The patient is on Movantik and MiraLAX for chronic opiate treatment improved. 8. Depression. Continue Celexa. 9. Peripheral vascular disease. Continue Trental. 10. Chronic obstructive pulmonary disease with ongoing tobacco use. Pulmonology did try to discuss with him smoking cessation. The patient became irritated and indicated he was done with those conversations. HOSPITAL COURSE: Briefly, Mr. Olsen is a 53-year-old male with a past medical history of COPD, continued tobacco abuse, diabetes mellitus type 2, hypertension, hyperlipidemia, peripheral artery disease, chronic kidney disease, and depression, presented to the ED with acute shortness of breath that awoken him from his sleep. He complained of some abdominal pain. Chest x-ray revealed pulmonary edema with pleural effusions. CT of the abdomen and pelvis showed anasarca, bilateral pleural effusions, ascites, pericardial effusion, a left hydronephrosis and nephrolithiasis with stone at the ureteropelvic junction and mild constipation. Further workup revealed a hypertensive urgency , severe pulmonary hypertension, congestive heart failure exacerbation. He was admitted to the ICU, continued on a Ventimask. IV diuresis for his volume overload. Did a follow-up echocardiogram that showed a very small pericardial effusion. Urology was brought on board as well. He was diuresed with IV Lasix throughout his admission and he underwent a cystoscopic exam with left ureteroscopy with laser lithotripsy, stone basket extraction, left urethral stent exchange with a left retrograde pyelogram with Dr. Russell after aggressive diuresis. He was saturating well on room air and he will be discharged home today to continue his [facility]. VITAL SIGNS: Temperature is 98.4 degrees, heart rate 56, respirations 16, blood pressure 149/52. O2 is 91% on room air. DISCHARGE DIET: Diabetic. DISCHARGE MEDICATIONS: 1. Aspirin 325 mg p.o. daily. 2. Catapres 0.1 mg tablet p.o. daily. MiraLAX 17 g p.o. b.i.d. 1. Amitriptyline 10 mg p.o. at bedtime. 2. Apresoline 100 mg p.o. q.8 hours. 3. Ceftin 250 mg p.o. b.i.d. 4. Celexa 40 mg p.o. daily. 5. Torsemide 40 mg p.o. b.i.d. 6. Flomax 0.4 mg p.o. b.i.d. 7. Humulin 70/30 15 units subcutaneous q.a.m. 8. Humulin 30 10 units subcutaneous p.m. 9. Movantik 12.5 mg p.o. a.c.b. 10. Multivitamin 1 each p.o. daily. 11. Norvasc 10 mg p.o. daily. 12. Percocet 5, 1 to 2 tablets p.o. q.4 hours p.r.n., 30 tablets. 13. Protonix 40 mg p.o. b.i.d. 14. Labetalol 200 mg p.o. b.i.d. 15. Trental cough 400 mg p.o. t.i.d. 16. Vitamin D 5000 units p.o. daily. FOLLOWUP: Mr. Olsen is being discharged back home with [facility]. He is take all medications as prescribed. He has been educated on smoking cessation as well as the means to quit. However, he was not receptive to teaching. He is to monitor strict intake and output, daily weights. He can return to the ED or call 911 for any worsening of symptoms. Dictated by KAYLEE Bustamante for Wicho Loving MD Addendum: Patient seen and examined by myself. Agree with KAYLEE note. It reflects my assessment and plan. Patient is being discharged in stable condition. Will be seen by Cardiology in 4 weeks. cc: Wicho Loving MD [facility]
== END 2019-04-08 13:30 | disposition home health service (06) | DRG 659 ==
LOC: ED 04:25 → SUATTDRO 09:12 → EDIPHOLD 09:12 → ICU 12:36 → 4N 04-01 15:50
PROVIDERS: ATTEND Internal Medicine

== ENCOUNTER 2019-09-21 16:32 | Inpatient (IN) ==
[2019-09-21] MEDS ORDERED: LASIX IV ONE (17:28)
[2019-09-21] MEDS ORDERED: NITROGLYCERIN TOP ONE (17:28)
[2019-09-21] MEDS ORDERED: MORPHINE IV ONE ×2 (17:28→22:44)
[2019-09-21] MEDS ORDERED: ZOFRAN IV ONE (17:28)
[2019-09-21] MEDS ORDERED: DUONEB (A & A) INH ONE (17:31)
[2019-09-21 17:32] LABS: INR 1.19; PROTIME 15.3 Seconds (11.0-16.0)
[2019-09-21 17:33] LABS: PTT 31.3 Seconds (22.3-41.8)
[2019-09-21 17:42] LABS: BASO# 0.08 X1000 (0.0-0.2); BASO% 1.6 % (0.0-0.8); EOS# 0.28 X1000 (0.0-0.7); EOS% 5.6 % (0.0-10.0); HEMATOCRIT 23.6 % (42.0-52.0); HEMOGLOBIN 7.3 g/dL (14.0-18.0); LYMPH# 1.05 X1000 (1.2-3.4); MCHC 30.9 g/dL (33-37); MCV 87.4 FL (81-99); MONO# 0.64 X1000 (0.11-0.59); MONO% 12.8 % (1.7-9.3); MPV 9.9 FL (7.4-10.4); NEUT# 2.95 X1000 (1.4-6.5); PLT 274 X1000 (130-400); RDW 16.2 % (11.5-14.5)
--- NOTE | 2019-09-21 17:56 | Diag Imaging Result Doc PS360 ---
EXAM: CHEST-1 VIEW - 09/21/2019 HISTORY: SOB TECHNIQUE: Portable chest one view COMPARISON: 09/08/2018 FINDINGS: Heart size appears borderline enlarged. There are vascular congestion, basilar edema, and small bilateral pleural effusions. There is no evidence of pneumothorax. IMPRESSION: Pulmonary edema. Electronically signed by Royce Guy 09/21/2019 5:53 PM
[2019-09-21 18:00] LABS: ALLEN TEST YES; BE -0.5 mmoll (-3.0-3.0); BLOOD TYPE ARTERIAL; HCO3-(ACT) 24.5 mmoll (20.0-26.0); METHB 0.5 % (0.0-1.5); O2(CT) 9.7 mL/dL (15.0-23.0); O2HB 91.8 % (95.0-99.0); PCO2(98.6) 39 mmHg (35-45); PO2(98.6) 91 mmHg (60-100); SAMPLE BLOOD; SAO2 95.8 % (95.0-100.0); THB 7.4 g/dL (11.5-17.4)
[2019-09-21 18:01] LABS: MODALITY CANNULA
--- NOTE | 2019-09-21 18:18 | EKG Report ---
Test Performed on : 09/21/2019 5:04:25 PM Test Reason : SOB Blood Pressure : / mmHG Vent. Rate : 055 BPM Atrial Rate : 061 BPM P-R Int : 000 ms QRS Dur : 090 ms QT Int : 498 ms P-R-T Axes : 000 037 077 degrees QTc Int : [address] & T wave abnormality, consider lateral ischemia Abnormal ECG When compared with ECG of 01-APR-2019 07:20, Junctional rhythm. has replaced Sinus rhythm. ST now depressed in Anterior leads Unconfirmed Result
[2019-09-21 18:24] LABS: ALB/GLOB RATIO 0.7; ALBUMIN 2.8 g/dL (3.5-5.0); CALCIUM 8.2 mg/dL (8.8-10.2); PHOSPHORUS 5.9 mg/dL (2.7-4.5); TOTAL BILIRUBIN 0.3 mg/dL (0.20-1.00)
[2019-09-21] MEDS ORDERED: TYLENOL PO ONE (18:28)
--- NOTE | 2019-09-21 19:02 | PROVIDER DOCUMENTATION ---
This chart was entered by Mayda Marlow Scribe, acting as scribe for Terrell Zamorano MD. HPI-Respiratory General - General Source: patient - History of Present Illness-Resp Quality of Pain: reports: aching, fullness, pressure, tightness Severity in ED: reports: moderate, severe Onset/Duration: reports: 3 days ago Timing: reports: still present Cough Quality/Degree: reports: moderate Current Respiratory Medication Therapy: Initiated see nurses note Modifying Factors: worse with: exertion, coughing, deep breath Associated Symptoms: reports: cough, muscle/bodyaches, shortness of breath, short of breath Similar Symptoms Previously?: Yes Recently seen or treated by another doctor?: Yes (saw Dr. Drew gonzales) <Terrell Zamorano - Last Filed: 09/21/19 19:01> <Jaxon Abdul - Last Filed: 09/21/19 20:05> - General Chief Complaint: Shortness of Breath Stated Complaint: SOB,FLUID BUILD UP Time Seen by Provider: 09/21/19 17:01 Allergies/Adverse Reactions: Patient Allergies Allergy/AdvReac Type Severity Reaction Status Date / Time No Known Allergies Allergy Verified 09/21/19 18:14 Home Medications: Home Medication List Medication Instructions Recorded Confirmed Last Taken Type Cholecalciferol (Vit D3) [Vitamin 5,000 unit PO DAILY #120 cap 12/19/18 04/20/19 04/19/19 10:00 Rx D] Citalopram [Celexa] 40 mg PO DAILY #120 tab 12/19/18 04/20/19 04/19/19 10:00 Rx Labetalol [Trandate] 200 mg PO BID #120 tab 12/19/18 04/20/19 04/20/19 04:30 Rx Multivitamin/Iron/Folic Acid 1 ea PO DAILY #30 tab 12/19/18 04/20/19 04/19/19 10:00 Rx [Multi-Day Plus Iron Tablet] Naloxegol Oxalate [Movantik] 12.5 mg PO ACB #30 tab 12/19/18 04/20/19 04/19/19 10:00 Rx Pentoxifylline E.r. [Trental] 400 mg PO TID #240 tab 12/19/18 04/20/19 04/17/19 Rx Polyethylene Glycol 3350 [Miralax] 17 gm PO BID PRN 02/25/19 04/20/19 Unknown History Aspirin 325 mg PO DAILY 03/31/19 04/20/19 04/17/19 History Clonidine [Catapres] 0.1 mg PO BID 03/31/19 04/20/19 04/19/19 21:00 History Amlodipine [Norvasc] 10 mg PO DAILY #90 tab 04/08/19 04/20/19 04/19/19 10:00 Rx Hum Insulin NPH/Reg Insulin Hm 1 dose SUBQ PRN PRN 04/18/19 04/20/19 04/18/19 History [Novolin 70-30 100 Unit/ml Vial] Hydralazine [Apresoline] 100 mg PO TID 04/18/19 04/20/19 04/19/19 21:00 History Hydrocodone/Acetaminophen [[place] 1 tab PO 4XDAY PRN 04/18/19 04/20/19 04/19/19 14:00 History 10-325 Tablet] Tamsulosin [Flomax] 0.4 mg PO DAILY 04/18/19 04/20/19 04/19/19 10:00 History CefUROXIME [Ceftin] 250 mg PO BID #6 tab 04/20/19 Unknown Rx Hydrocodone/Acetaminophen [[place] 1 ea PO Q6H PRN PRN #12 tab 04/20/19 Unknown Rx 7.5-325 Tablet] Oxybutynin [Ditropan] 5 mg PO TID PRN PRN #15 tab 04/20/19 Unknown Rx Tamsulosin [Flomax] 0.4 mg PO DAILY #10 cap 04/20/19 Unknown Rx Amitriptyline [Elavil] 10 mg PO HS 09/21/19 09/21/19 Unknown History Cholecalciferol (Vitamin D3) 5,000 units PO DAILY 09/21/19 09/21/19 Unknown History [Vitamin D3] Insulin NPH Hum/Reg Insulin Hm 15 unit SQ AC + HS 09/21/19 09/21/19 Unknown History [Novolin 70-30 100 Unit/ml Vial] Pantoprazole [Protonix] 40 mg PO DAILY 09/21/19 Unknown History Polyethylene Glycol 3350 [Miralax] 17 gm PO DAILY PRN 09/21/19 09/21/19 Unknown History Torsemide [Demadex] 20 mg PO BID 09/21/19 Unknown History - History of Present Illness-Resp Nature of Presenting Problem: 53yom presents to ED cc SOB, fatigue, orthopnea, dyspnea, decreased urine, cough, abdominal pain and weight gain for last few days that is getting worse. 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 Pt reports he is on Torsemide, hasn't missed any doses, is on home o2 and recently went from 2-3liters. Pt has hx of COPD/CHF/CVA/Renal Insufficiency. Pt is in Moderate respiratory distress, has anasarca and tachypneic upon exam. (Terrell Zamorano) Review of Systems - Adult - REVIEW OF SYSTEMS - ADULT Constitutional: reports: see HPI, fatique, weight gain. denies: chills, fever Eyes: reports: no symptoms reported Ears, Nose, Mouth & Throat: reports: no symptoms reported Cardiovascular: reports: see HPI, orthopnea. denies: chest pain Respiratory: reports: see HPI, cough, dyspnea on exertion, shortness of breath Gastrointestinal: reports: see HPI, abdominal pain. denies: diarrhea, nausea, v omiting Genitourinary: reports: see HPI, urinary retention. denies: hematuria Musculoskeletal: reports: no symptoms reported Integumentary: reports: no symptoms reported Neurological: reports: no symptoms reported Psychiatric: reports: no symptoms reported Endocrine: reports: no symptoms reported Hematologic/Lymphatic: reports: no symptoms reported Allergic/Immunologic: reports: no symptoms reported All Other Systems: Reviewed and Negative <Terrell Zamorano - Last Filed: 09/21/19 19:01> Past History - Adult - PAST MEDICAL HISTORY-ADULT Review of Records: reports: Old Records Reviewed, Nursing Assessment Review, Medications Reviewed, Social history reviewed & non-contributory. Major Childhood Illnesses: reports: denies history Cardiovascular: reports: HTN, hyperlipidemia, PVD Respiratory: reports: COPD Gastrointestinal: reports: GERD Obstetrical/Gynecological: reports: denies history Genitourinary: reports: denies history Musculoskeletal: reports: denies history Neurological: reports: CVA, TIA, other (neuropathy) Psychiatric: reports: depression Endocrine/Immune: reports: Diabetes Other Conditions: reports: other (ulcers to feet) - PRIOR SURGERIES/PROCEDURES Surgical/Procedure History: reports: orthopedic (extremity), other (fem-bop) - IMMUNIZATION STATUS Childhood Immunizations: See Nurse Assessment Flu Vaccine: See Nurse Assessment - FAMILY HISTORY Family History: reviewed, not pertinent <Terrell Zamorano - Last Filed: 09/21/19 19:01> Physical Exam-General - PHYSICAL EXAM-ADULT Initial Vital Signs Reviewed: Yes - CONSTITUTIONAL General Appearance: alert, moderate distress, obese. negative: anxious, combative - EYES Eyes: PERRL/EOMI, pink conjunctivae. negative: photophobia - HEAD, EARS, NOSE, MOUTH & THROAT HENMT: normocephalic/atraumatic - RESPIRATORY Respiratory: respiratory distress (moderate), crackles (bases,bilateral), rhonchi (bilateral), wheezing (expiratory,bilateral), other (tachypneic) - CARDIOVASCULAR Cardiovascular: normal peripheral pulses, regular rate, rhythm, JVD (3-4cm bilateral), bradycardia, gallop/S3. negative: tachycardia - GASTROINTESTINAL (ABDOMEN) Abdominal Exam: normal bowel sounds, distended, rigid, tenderness (generalized), other (anasarca; abdominal wall edema) - GENITOURINARY Male Genitalia: other (weaver in place, minimal amount of urine in bag) - MUSCULOSKELETAL Extremity: pedal edema, swelling (4+ edema, BLE). negative: erythema - SKIN Integumentary: other (chronic skin changes with areas of thickening to BLE). negative: diaphoresis, erythema (no oozing) - PSYCHIATRIC Psych/Mental Status: normal mood/affect, oriented x 3. negative: anxious, disheveled <Terrell Zamorano - Last Filed: 09/21/19 19:01> - HEART Score HEART Score: History: Moderately Suspicious HEART Score: ECG: Non-Specific Repolarization Disturbance/LBBB/PM HEART Score: Age: 45-65 Years HEART Score: Risk Factors for Atherosclerotic Disease: > or = 3 Risk Factors or History of Atherosclerotic Disease <Terrell Zamorano - Last Filed: 09/21/19 19:01> Progress - PLAN OF CARE/RESULTS Result Diagrams: 09/21/19 17:03 09/21/19 17:03 - REASSESSMENT Reassessment #1 Time Reassessed: 18:10 Status: improving (Given IV lasix, morphine, zofran and nitropaste TD) - EKG 1 Time of EKG reading by physician:: 17:30 EKG Read and Signed by:: Terrell Zamorano Rate: 55 Rhythm: Junctional Cristi QRS: normal ST Wave: non-specific ST changes Prior EKG Comparison: changes noted (from 03/31/19) - CONSULTS/PCP/HOSPITALIST Notification #1 *Consult/PCP/Hospitalist*: Hospitalist paged at 1830, 1845, 1900 Consult Disposition: Will see in ED, Admit #2 Consult: Process Manager paged at 1830 Time Discussed: 18:42 (Dr. Nicolas will see here, does not need trasnfer at this time.) Consult Disposition: Will see in ED - CHANGE OF SHIFT REPORT (ED Provider) 1 Report Given and Care Transferred to:: Franko Time of Transfer: 19:00 Items Pending: Physician Consult/Arrival (Hospitalist to return call) <Terrell Zamorano - Last Filed: 09/21/19 19:01> - PLAN OF CARE/RESULTS Result Diagrams: 09/21/19 17:03 09/21/19 17:03 - REASSESSMENT Reassessment #2 Time Reassessed: 19:30 Status: improving Reassessment Comment: page hospitalist resident assistant cna, Marian, at 1925, unable to reach Dr. Camara - CONSULTS/PCP/HOSPITALIST Notification #3 Consult: Dr. Camara, hospitalist Time Discussed: 20:00 Consult Disposition: Admit <Jaxon Abdul - Last Filed: 09/21/19 20:05> - PLAN OF CARE/RESULTS Progress/Plan/Lab Results: Vital Signs - 8 hr 09/21/19 16:48 09/21/19 17:37 09/21/19 18:14 Temperature 97.5 F L Pulse Rate 56 L 56 L 56 L Respiratory Rate 26 H 28 H 22 Blood Pressure 112/57 150/78 O2 Sat by Pulse Oximetry 95 95 96 Laboratory Results - last 24 hr 09/21/19 09/21/19 09/21/19 17:03 17:03 17:03 WBC RBC Hgb Hct MCV MCH MCHC RDW Std Deviation Plt Count MPV Immature Gran % (Auto) Neut % (Auto) Lymph % (Auto) Becker % (Auto) Eos % (Auto) Baso % (Auto) Immature Gran # (Auto) Neut # (Auto) Lymph # (Auto) Becker # (Auto) Eos # (Auto) Baso # (Auto) PT INR PTT (Actin FS) Specimen Type Sample Site pH pCO2 pO2 HCO3 Base Excess Oxyhemoglobin ABG O2 Sat (Calculated) ABG O2 Saturation ABG Carboxyhemoglobin ABG Methemoglobin Wilfredo Test A-a O2 Difference Total Hemoglobin Lactate Liter Flow Blood Gas Modality FiO2 % Sodium 142 Potassium 5.0 Chloride 105 Carbon Dioxide 22 L Anion Gap 15 BUN 62 H Creatinine 4.0 H Estimated GFR/1.73 m2 16 BUN/Creatinine Ratio 16 Glucose 124 H Calculated Osmolality 302 Calcium 8.2 L Phosphorus 5.9 H Magnesium 2.0 Total Bilirubin 0.30 AST 13 ALT 9 L Alkaline Phosphatase 146 H Creatine Kinase 286 H Creatine Kinase Index 5.7 H CK-MB (CK-2) 16.19 H Troponin T High Sens 270 H* [id number] Pept Total Protein 7.0 Albumin 2.8 L Globulin 4.2 Albumin/Globulin Ratio 0.7 Plasma Lactate 1.3 09/21/19 09/21/19 09/21/19 17:03 17:03 17:03 WBC 5.00 RBC 2.70 L Hgb 7.3 L Hct 23.6 L MCV 87.4 MCH 27.0 MCHC 30.9 L RDW Std Deviation 16.2 H Plt Count 274 MPV 9.9 Immature Gran % (Auto) 0.0 Neut % (Auto) 59.0 Lymph % (Auto) 21.0 Becker % (Auto) 12.8 H Eos % (Auto) 5.6 Baso % (Auto) 1.6 H Immature Gran # (Auto) 0.00 Neut # (Auto) 2.95 Lymph # (Auto) 1.05 L Becker # (Auto) 0.64 H Eos # (Auto) 0.28 Baso # (Auto) 0.08 PT 15.3 INR 1.19 PTT (Actin FS) 31.3 Specimen Type Sample Site pH pCO2 pO2 HCO3 Base Excess Oxyhemoglobin ABG O2 Sat (Calculated) ABG O2 Saturation ABG Carboxyhemoglobin ABG Methemoglobin Wilfredo Test A-a O2 Difference Total Hemoglobin Lactate Liter Flow Blood Gas Modality FiO2 % Sodium Potassium Chloride Carbon Dioxide Anion Gap BUN Creatinine Estimated GFR/1.73 m2 BUN/Creatinine Ratio Glucose Calculated Osmolality Calcium Phosphorus Magnesium Total Bilirubin AST ALT Alkaline Phosphatase Creatine Kinase Creatine Kinase Index CK-MB (CK-2) Troponin T High Sens Cdk-W-Popbicwneky Pept > 50747 H Total Protein Albumin Globulin Albumin/Globulin Ratio Plasma Lactate 09/21/19 17:55 WBC RBC Hgb Hct MCV MCH MCHC RDW Std Deviation Plt Count MPV Immature Gran % (Auto) Neut % (Auto) Lymph % (Auto) Becker % (Auto) Eos % (Auto) Baso % (Auto) Immature Gran # (Auto) Neut # (Auto) Lymph # (Auto) Becker # (Auto) Eos # (Auto) Baso # (Auto) PT INR PTT (Actin FS) Specimen Type ARTERIAL Sample Site L RADIAL pH 7.40 pCO2 39 pO2 91 HCO3 24.5 Base Excess -0.5 Oxyhemoglobin 91.8 L ABG O2 Sat (Calculated) 9.7 L ABG O2 Saturation 95.8 ABG Carboxyhemoglobin 3.80 H ABG Methemoglobin 0.5 Wilfredo Test YES A-a O2 Difference 60.0 Total Hemoglobin 7.4 L Lactate 0.60 Liter Flow 2.0 Blood Gas Modality CANNULA FiO2 % 28.0 Sodium Potassium Chloride Carbon Dioxide Anion Gap BUN Creatinine Estimated GFR/1.73 m2 BUN/Creatinine Ratio Glucose Calculated Osmolality Calcium Phosphorus Magnesium Total Bilirubin AST ALT Alkaline Phosphatase Creatine Kinase Creatine Kinase Index CK-MB (CK-2) Troponin T High Sens [id number]-M-[id number] Pept Total Protein Albumin Globulin Albumin/Globulin Ratio Plasma Lactate Orders Category Date Time Status Cardiac Monitoring NOW Care 09/21/19 16:53 Active IV Insertion NOW Care 09/21/19 16:53 Completed NEWS Score >or=5:Order NEWS Bundle S.O. NOW Care 09/21/19 16:52 Active Notify Provider of NEWS Score NOW Care 09/21/19 16:53 Active CHEST-1 VIEW [RAD] Stat Exams 09/21/19 16:53 Completed ABG [RESP] Routine Lab 09/21/19 17:55 Completed BLOOD CULTURE [BLDCUL] Stat Lab 09/21/19 17:03 Results CBC WITH DIFF [HEME] Stat Lab 09/21/19 17:03 Completed CK PROFILE [SP CHEM] Stat Lab 09/21/19 17:03 Completed COMPREHENSIVE METABOLIC PANEL [CHEM] Stat Lab 09/21/19 17:03 Completed LACTATE, PLASMA [CHEM] Lab 09/21/19 20:00 Uncollected LACTATE, PLASMA [CHEM] Lab 09/21/19 23:00 Uncollected LACTATE, PLASMA [CHEM] Q3H Lab 09/21/19 17:03 Completed MAGNESIUM [CHEM] Stat Lab 09/21/19 17:03 Completed PRO B-NATRIURETIC PEPTIDE Stat Lab 09/21/19 17:03 Completed PROTIME WITH INR [COAG] Stat Lab 09/21/19 17:03 Completed PTT [COAG] Stat Lab 09/21/19 17:03 Completed TROPONIN T HIGH SENSITIVITY Stat Lab 09/21/19 17:03 Completed URINALYSIS W/POSS RFLX CULT [URINALYSIS] Stat Lab 09/21/19 16:53 Uncollected phos [PHOSPHORUS] [CHEM] Stat Lab 09/21/19 17:03 Completed Acetaminophen [Tylenol] Med 09/21/19 18:28 Discontinued 650 mg PO NOW ONE Albuterol 2.5MG/Ipratrop 0.5MG [Duoneb (A & A)] Med 09/21/19 17:31 Discontinued 3 ml INH NOW ONE Furosemide [Lasix] Med 09/21/19 17:28 Discontinued 80 mg IV NOW ONE Morphine Med 09/21/19 17:28 Discontinued 4 mg IV NOW ONE Nitroglycerin Med 09/21/19 17:28 Discontinued 1 inch TOP NOW ONE Ondansetron [Zofran] Med 09/21/19 17:28 Discontinued 4 mg IV NOW ONE Aerosol Treatments Routine Oth 09/21/19 17:31 Completed Aerosol Treatments Stat Oth 09/21/19 17:31 Completed O2 Per Protocol Stat Oth 09/21/19 16:53 Completed EKG [EKG] Stat Ther 09/21/19 16:54 Draft Departure - Departure Date of Disposition Decision: 09/21/19 Time of Disposition Decision: 18:31 Certified Medical Emergency: Emergent - Critical Care Note This patient required my direct & personal management of CC.: Yes Total Time (mins): 45 Critical Care Statement: This patient required my direct personal management to treat or rule out processes, the absence of which, could potentiallly result in sudden, clinically significant life or limb threatening deterioration. <Terrell Zamorano - Last Filed: 09/21/19 19:01> - Departure Certified Medical Emergency: Emergent <Jaxon Abdul - Last Filed: 09/21/19 20:05> - Departure DIAGNOSIS: Elevated troponin, Pulmonary edema with congestive heart failure, NYHA class 4 Acute exacerbation of congestive heart failure Qualifiers: Heart failure type: combined systolic and diastolic Qualified Code(s): I50.43 - Acute on chronic combined systolic (congestive) and diastolic (congestive) heart failure Renal failure (ARF), acute on chronic Qualifiers: Acute renal failure type: with acute renal cortical necrosis Chronic kidney disease stage: stage 4 (severe) Qualified Code(s): N17.1 - Acute kidney failure with acute cortical necrosis; N18.4 - Chronic kidney disease, stage 4 (severe) COPD (chronic obstructive pulmonary disease) Qualifiers: COPD type: COPD with acute exacerbation Qualified Code(s): J44.1 - Chronic obstructive pulmonary disease with (acute) exacerbation Disposition: ADMITTED INPATIENT 09 Condition: Serious Referrals and Follow-Ups: Rodrigo Allen MD [Primary Care Provider] - Attestation - Physician/ MIRZA Attestation Patient care was provided by Advanced Practice Provider:: No The physician spent face to face time with patient:: Yes Advanced Practice Provider documentation review:: Supervising physician onsite and consulted in the evaluation and care of this patient. The physician did have a face to face encounter with the patient. <Terrell Zamorano - Last Filed: 09/21/19 19:01> This chart was documented by the indicated scribe, (Mayda Marlow Scribe) and accurately reflects the services I performed and decisions made by md, Terrell Zamorano MD, as attested by the provider's signature.
[2019-09-21 19:23] LABS: CK INDEX 5.7 (0.0-2.5); CK-MB 16.19 ng/mL (0.0-5.0)
[2019-09-21 21:49] LABS: URINE SOURCE CATH
[2019-09-21 22:13] LABS: BILIRUBIN URINE NEGATIVE (NEGATIVE); BLOOD URINE SMALL (NEGATIVE); COLOR YELLOW; GLUCOSE URINE NEGATIVE (NEGATIVE); KETONE URINE NEGATIVE (NEGATIVE); LEUKOCYTES URINE NEGATIVE (NEGATIVE); NITRITE URINE NEGATIVE (NEGATIVE); PROTEIN URINE 200 mg/dL (NEGATIVE); SP GRAVITY URINE 1.012; TURBIDITY URINE CLEAR (CLEAR); UROBILINOGEN URINE NORMAL (NORMAL)
[2019-09-21 22:14] LABS: UR EPITHELIAL CELLS <10 /HPF (<10); URINE BACTERIA NEGATIVE /HPF; URINE RBC 20-40 /HPF (<10); URINE WBC <10 /HPF (<10)
[2019-09-21 22:48] LABS: URINE CASTS NONE SEEN; URINE CRYSTALS NONE SEEN; URINE SMALL ROUND CELLS NONE SEEN; URINE YEAST PRESENT
[2019-09-21] MEDS ORDERED: ZOFRAN IV PRN (23:21)
[2019-09-21] MEDS ORDERED: TYLENOL PO PRN (23:21)
--- NOTE | 2019-09-21 23:26 | EKG Report ---
Test Performed on : 09/21/2019 11:13:19 PM Test Reason : Elevated Troponin Blood Pressure : / mmHG Vent. Rate : 052 BPM Atrial Rate : 052 BPM P-R Int : 174 ms QRS Dur : 102 ms QT Int : 498 ms P-R-T Axes : 015 008 029 degrees QTc Int : 463 ms Sinus bradycardia. Otherwise normal ECG When compared with ECG of 21-SEP-2019 17:04, (Unconfirmed) No significant change was found Confirmed by Marek Garcia MD ([id number]) on 09/23/2019 10:47:01 AM
[2019-09-22] MEDS: COLACE PO SCH ×3 (00:20→22:06)
[2019-09-22 01:04] LABS: CK INDEX 6.3 (0.0-2.5); CK-MB 15.13 ng/mL (0.0-5.0)
--- NOTE | 2019-09-22 01:39 | HISTORY AND PHYSICAL ---
PRIMARY CARE PROVIDER: Rodrigo Allen MD. FAMILY COURT JUSTICE: Francisco Walker MD. UROLOGIST: Yosef Russell MD. TRAIN CALLER: Zachary Morris MD. DATE AND TIME: 09/21/2019 at 2130. CHIEF COMPLAINT: Shortness of breath. HISTORY OF PRESENT ILLNESS: Mr. Olsen is a 53-year-old male with multiple medical problems, which most notably include congestive heart failure with severe pulmonary hypertension, COPD, on continuous oxygen per nasal cannula at 2 L, chronic kidney disease, hypertension, diabetes mellitus type 2, and BPH. The patient states that for approximately 1 week now, though his symptoms have gotten much worse over the past few days, he has been having initially dyspnea upon exertion, though he is having distant dyspnea at rest now. He also reports orthopnea. The patient states that he usually does have to prop up to sleep, though he has had to increase this over the last few nights. He also is reporting proximal nocturnal dyspnea, increased oxygen demand, fatigue, abdominal swelling and edema as well as bilateral lower extremity edema, decreased urine output, weight gain and abdominal pain. The patient also has been reporting a headache for the past 4 days. He also reports an occasional cough, though states this is normal for him, this has not worsened. It is nonproductive. He has reported some intermittent chills and is complaining of being stiff and having aches and pains all over. Though he states he has not checked to see if he has a fever. He has reported dry nose and throat, though he believes this is secondary to his oxygen and that he had to increase his oxygen from 2 to 4 L due to his shortness of breath. He has denied any chest pain, though has reported abdominal pain, for which he states is a squeezing, pressure-type pain that is all across his abdomen. He denies any nausea, vomiting, or diarrhea. The patient states he does have chronic problems with intermittent constipation and has not had a bowel movement for 3 days. He denies any hematochezia or melena. He has reported some dysuria. He states that he has noticed that he has been having some increase in the frequency of urination and has noticed that with each urination the amount he normally urinates has been less. He also reports increased swelling and edema in his bilateral lower extremities. He also complains of both of his legs weeping and does report that he has a diabetic foot wound on his plantar surface of his left great toe that has gotten worse and has now opened back up. He also does have development of another small lateral plantar surface left diabetic foot wound. The patient states that he did previously go to the wound clinic at [place] and was treated by Dr. Sylvester. The patient states earlier in the day today that he did present to his primary care physician, Dr. Allen, informed him of the symptoms that he had been experiencing. Dr. Allen did contact reportedly Dr. Morris and Dr. Russell. The patient was sent to Dr. Russell's office and Dr. Russell did place a Hirsch catheter in his office and was instructed to come to the ER for further evaluation. The patient does have a Hirsch catheter in place at this time with a leg bag in place. Upon evaluation in the ER, the patient was noted to have 2+ pitting edema noted in bilateral lower extremities as well as abdominal edema as well, this is 1 to 2+. The patient does not have any respiratory distress noted, though is reporting dyspnea. He has had to have his oxygen increased and is at 3 L at this time with an oxygen saturation of 94%. He does have diminished lung sounds throughout and does have some crackles noted in bilateral bases. BUN and creatinine are elevated above his baseline, BUN 62, creatinine 4.0, with a GFR 16. Cardiac enzymes were elevated as well, with his troponin T high sensitivity at 270 and proBNP is greater than 35,000. The patient does have a slightly bradycardic rate that is in the low to mid 50s. Though looking back, his heart rate is frequently in the 50s, even upon previous admissions. Initial EKG in the ER showed junctional rhythm at a rate of 55, though upon repeat EKG it did show sinus bradycardia at a rate of 52, with a QTc of 463. The patient is denying any chest pain. In the ER, he was given 80 mg of Lasix IV, 1 inch of nitroglycerin topically and duo neb treatment. At this time, the patient will be admitted for further treatment and evaluation of CHF exacerbation and acute on chronic kidney disease. REVIEW OF SYSTEMS: A 14-point review of systems was conducted with the patient and all were negative, except for pertinent positives mentioned above in the HPI. PAST MEDICAL HISTORY: 1. COPD, on home oxygen with nasal cannula at 2 L. 2. Diabetes mellitus type 2. 3. Hyperlipidemia. 4. Hypertension. 5. BPH. 6. History of nephrolithiasis. 7. Neuropathy. 8. Depression. 9. Chronic kidney disease. 10. CVA with report of some residual weakness on the left. 11. Congestive heart failure with severe pulmonary hypertension. 12. Diabetic foot ulcer. 13. Peripheral vascular disease. PAST SURGICAL HISTORY: 1. Lithotripsy. 2. Left knee surgery. 3. Left leg femoral bypass x2. 4. Bilateral nephroureteral stents. 5. Right 5th toe amputation. SOCIAL HISTORY: The patient has been smoking since a very young age. He previously did smoke 3 packs of cigarettes per day, though states at this time he does have this down to approximately 4 cigarettes per week. He denies any alcohol or illicit drug use. He does live with his , his was present at bedside during my examination. The patient does use ambulatory assistance of a cane and walker, though does have a wheelchair that he can use if needed. FAMILY HISTORY: Positive for his father having history of hypertension and diabetes. He does not have any past medical history for his mother. He does have a sister with a history of epilepsy. HOME MEDICATIONS: 1. Elavil 10 mg p.o. at bedtime. 2. Norvasc 10 mg p.o. daily. 3. Aspirin 325 mg p.o. daily. 4. Vitamin D3 5000 units p.o. daily. 5. Celexa 40 mg p.o. daily. 6. Clonidine 0.1 mg p.o. daily. 7. Novolin 70/30, 15 units subcutaneous before meals and at bedtime. 8. Labetalol 200 mg p.o. b.i.d. 9. Multivitamin plus iron tablet, 1 p.o. daily. 10. Protonix 40 mg p.o. b.i.d. 11. Trental 400 mg p.o. t.i.d. 12. MiraLAX 17 g p.o. daily p.r.n. 13. Flomax 0.4 mg p.o. daily. 14. Torsemide 40 mg p.o. b.i.d. ALLERGIES: The patient has no known drug allergies. DIAGNOSTIC DATA: White blood cell count is 5000, hemoglobin 7.3, hematocrit 23.6, platelet count is 274,000. PT 15.3, INR 1.19, PTT is 31.3. Sodium 142, potassium 5, chloride 105, serum bicarb 22, BUN 62, creatinine 4, GFR 16. Glucose 124, calcium 8.2, phosphorus 5.9, magnesium 2. Liver function tests within normal limits, except for alkaline phosphatase is elevated at 146. CK 286, CK index 5.7, CK-MB 16.19. Troponin T high sensitivity is 270. ProBNP is greater than 35,000. Urinalysis was positive for protein, small amount of blood, though was negative for glucose, ketones, nitrites, leukocytes, white blood cells, or bacteria. EKG, initial showed junctional rhythm at a rate of 55, though repeat EKG did show sinus bradycardia at a rate of 52 with a QTc of 463. Chest x-ray 1-view showed pulmonary edema. The heart size did appear to be borderline enlarged. This is per Radiology. PHYSICAL EXAMINATION: VITAL SIGNS: Temperature 97.5 degrees, heart rate 53, respirations 22, blood pressure is 124/45, oxygen saturation is 94% per nasal cannula at 3 L. GENERAL: Mr. Olsen is a pleasant 53-year-old male, he was resting in the ER stretcher. He was in no acute distress. He was awake, alert, and able to answer questions appropriately. HEENT: Head is atraumatic, normocephalic. Pupils are equal, round, reactive to light, were 3 mm bilaterally. Oral mucosa was slightly dry. NECK: Supple. Trachea midline. CARDIOVASCULAR: Patient has S1, S2 present. He did have a systolic murmur noted, but no rubs or gallops present. He does have a bradycardic rate with a regular rhythm. PULMONARY: Patient has symmetrical chest expansion bilaterally. Lung sounds were slightly diminished throughout. He did have crackles noted in bilateral bases. He is requiring increased oxygen at this time, from his normal of 2 L up to 3 to 4 L at times, though he is not in any respiratory distress at this time. ABDOMEN: Semifirm. He does have 1 to 2+ abdominal edema noted. His have hypoactive bowel sounds. He did report a little left lower quadrant tenderness upon palpation. EXTREMITIES: No cyanosis noted. The patient does have 2+ pitting edema noted to bilateral lower extremities. He does have dry scaly skin noted to bilateral lower extremities from his knees down. He does have an area noted to the anterior midportion of both bilateral shins where it does appear that he has had some weeping present. Though, he does have an approximately quarter to half dollar size wound noted to the plantar surface of his left great toe and another approximately nickel sized wound to the lateral plantar surface as well. Though, capillary refill is less than 3. The patient does report some decreased sensation in bilateral lower extremities from neuropathy, though states this has not worsened. The patient is able to move all extremities. INTEGUMENTARY: The patient's skin is pink, warm, and dry, except for above abnormalities mentioned in the extremity exam. NEUROLOGICAL: Patient is alert and oriented to person, place, time, and situation. He is able move all extremities. The patient does report some neuropathy in his bilateral lower extremities as well as some residual left-sided weakness from a previous stroke, though states this has not worsened. Other than this, there are no focal neurological deficits noted. ASSESSMENT/PLAN: 1. Congestive heart failure exacerbation. The patient was given initial dose of 80 mg of Lasix IV in the ER. We will continue with 40 mg of Lasix IV q.12 hours. The patient's most recent echocardiogram was performed in March 2019, showed an ejection fraction of 65%. His cardiac enzymes are elevated at this time, though the patient does not report any chest pain. He does not appear to have any acute EKG changes either. He does have an acute kidney injury as well. We will continue with a series of cardiac enzymes. We will repeat an EKG in the morning. We have placed a consult with Cardiology with Dr. Nicolas. We will await their evaluation and further recommendations for management. 2. Acute on chronic kidney disease. The patient does appear to have a baseline creatinine of 2.5 to 2.9. Though, at this time, his creatinine is 4, GFR 16. He has reported decreased urine output as well as abdominal and bilateral lower extremity edema. We will continue with diuresis, as mentioned above, though we will monitor this closely given his acute kidney injury. We have also placed a consult with Dr. Morris for his assistance with management and treatment. We will await his evaluation and further recommendations as well. We are performing strict intake and output and daily weights. We will avoid nephrotoxic medications and renally dose medicines as necessary. 3. Left diabetic foot wound. We have placed a consult with the wound care nurse. The patient has previously been seen by Dr. Sylvester at the [facility] at [place], though he states that his left plantar medial diabetic foot wound has worsened and has now opened back up. He does have development of a new plantar lateral diabetic foot wound as well. We will leave further management of this and possible surgical consultation to the discretion of the patient's attending physician. 4. Diabetes mellitus type 2. Continue with sliding scale regular insulin. We will do pattern fingerstick blood sugars. He will be on a diabetic and heart healthy diet. 5. Chronic obstructive pulmonary disease. We have referred the patient to have duo neb treatment. We will continue with his oxygen therapy per nasal cannula and incentive spirometry. 6. Benign prostatic hypertrophy. We will continue the patient's Flomax. The patient was seen by Dr. Russell in his office today and they did place a Hirsch catheter. Though the patient states initially when they placed the Hirsch catheter, he did not have any immediate urine return. Though upon my examination, the patient did have urine noted in his Hirsch drainage bag. We will continue to monitor this closely. 7. Hypertension. We have continued the patient's antihypertensive medications. We have held some of these and made dosage adjustments given the patient's acute kidney injury and bradycardia. 8. Anemia. The patient does appear to be right at his baseline. We will order anemia profile. We will continue to monitor. 9. Depression. We have continued the patient's Elavil, though we have held his Celexa due to his current renal function. He has been placed in the PVC unit with continuous cardiac telemetry for close monitoring. We will do frequent vital signs. We will repeat a CBC, CMP in the morning. The patient does have problems with frequent constipation as well and did report he has not had a bowel movement in [address] him with Colace and MiraLAX. Given the patient's abdominal pain, abdominal distention, SHAWN, history of renal stones and stents, and his decreased urine output we will order a CT abdomen/pelvis for further evaluation. Further orders and recommendations pending hospital course, diagnostic studies, and physician evaluation. Dictated by KAYLEE Martinez for Jj Howard MD cc: Jj Howard MD [facility]
[2019-09-22] MEDS ORDERED: NORCO-7.5 PO PRN (03:00)
[2019-09-22] MEDS: DUONEB (A & A) INH SCH ×5 (03:42→23:20)
[2019-09-22] MEDS ORDERED: LASIX IV SCH ×3 (06:00→21:00)
[2019-09-22 06:27] LABS: BASO# 0.06 X1000 (0.0-0.2); BASO% 1.4 % (0.0-0.8); EOS% 4.6 % (0.0-10.0); HEMATOCRIT 23.6 % (42.0-52.0); LYMPH# 1.07 X1000 (1.2-3.4); LYMPH% 24.4 % (20.5-51.1); MCH 26.7 PG (27-31); MCHC 29.7 g/dL (33-37); MCV 90.1 FL (81-99); MONO% 13.7 % (1.7-9.3); MPV 9.9 FL (7.4-10.4); NEUT# 2.46 X1000 (1.4-6.5); NEUT% 55.9 % (42.2-75.2); PLT 259 X1000 (130-400); RBC 2.62 XMIL (4.7-6.1); RDW 16.5 % (11.5-14.5); WBC 4.39 X1000 (4.8-10.8)
[2019-09-22] MEDS: HUMULIN R SUBQ SCH ×4 (06:30→21:49)
[2019-09-22 06:57] LABS: IRON SATURATION 14 %; TIBC 183 ug/dL; TOTAL IRON 26 ug/dL (53-167); UNBOUND IRON 157 ug/dL (112-346)
[2019-09-22] MEDS ORDERED: NS 500 ML IV ONE (06:59)
[2019-09-22 07:04] LABS: ALB/GLOB RATIO 0.7; ALBUMIN 2.6 g/dL (3.5-5.0); CALCIUM 8.1 mg/dL (8.8-10.2); CREATININE 3.9 mg/dL (0.7-1.2); MAGNESIUM 1.8 mg/dL (1.5-2.7); POTASSIUM 5.3 mmol/L (3.5-5.1); TOTAL BILIRUBIN 0.27 mg/dL (0.20-1.00); TOTAL PROTEIN 6.2 g/dL (6.3-8.3)
[2019-09-22 07:12] LABS: FERRITIN 73 ng/mL (30-400)
[2019-09-22] MEDS ORDERED: LASIX IV ONE (07:31)
--- NOTE | 2019-09-22 07:38 | EKG Report ---
Test Performed on : 09/22/2019 07:13:13 AM Test Reason : CHF,Elevated Troponin Blood Pressure : / mmHG Vent. Rate : 052 BPM Atrial Rate : 054 BPM P-R Int : 000 ms QRS Dur : 092 ms QT Int : 498 ms P-R-T Axes : 000 005 028 degrees QTc Int : 463 ms Normal sinus rhythm. Low voltage QRS Cannot rule out Anterior infarct , age undetermined Abnormal ECG When compared with ECG of 21-SEP-2019 23:13, (Unconfirmed) No significant change was found Confirmed by Marek Garcia MD ([id number]) on 09/23/2019 10:51:45 AM
[2019-09-22 07:47] LABS: CK INDEX 6.3 (0.0-2.5); CK-MB 14.2 ng/mL (0.0-5.0)
--- NOTE | 2019-09-22 08:24 | PROGRESS NOTE ---
DATE: 09/22/2019 SUBJECTIVE: Patient is a little bit lethargic this morning, but answered to verbal stimuli. He is not reporting chest pain, but he acknowledged mild shortness of breath. OBJECTIVE: Vital Signs: Temperature 97.6 degrees, heart rate 53, respiratory rate 21, blood pressure 129/56, O2 saturation 94% on 2 L nasal cannula. General examination: This is a chronically ill-appearing, 53-year-old male, lying in bed in no acute distress. HEENT: Head is normocephalic, atraumatic. Mucous membranes dry. Neck: No JVD noted. No carotid bruits. No lymphadenopathy. No thyromegaly. Cardiovascular Exam: S1 and S2 heard. He has a systolic murmur noted in the mitral area, but no rubs or gallops present. Respiratory Exam: Crackles noted in both pulmonary bases. Patient is not using any accessory muscles or having work of breathing. Abdomen: The patient has abdominal wall edema noted. Bowel sounds present, but hypoactive. No signs of peritoneal irritation. Mild left lower quadrant tenderness noted. Extremities: Patient has 2+ pitting edema in both lower extremities. The patient has dry scaly skin noted to bilateral lower extremities from his knees down. Some weeping present. Sensation in both lower extremities decreased. Neurological Exam: Patient is a little bit sleepy, but answers to verbal stimuli. The patient has some residual left-sided weakness or a previous stroke. No other focal neurological deficits noted. LABORATORY DATA: White cell count 4.39, hemoglobin 7.0, hematocrit 23.6, platelets 259. BMP that reveals potassium 5.3 with creatinine 3.9 and calcium 8.1, magnesium 1.8. Troponin has been checked and that has been 264 and 285. ASSESSMENT AND PLAN: 1. Congestive heart failure exacerbation. The patient is admitted to the hospital because of this condition. He looks to be on Anasarca. So, the patient has received 1 dose of Lasix yesterday 80 mg in the emergency room; today we are going to continue with 80 mg intravenous every 12 hours. The patient has received already 40 mg of Lasix in the morning, so we will provide 40 more to complete 80, and will continue with that twice daily. We are going to check an echocardiogram. We know that on March 2019 he had an ejection fraction of 65%. We will continue to monitor. 2. Elevated troponins. At this point, I do not know if that is related to acute on chronic kidney disease or from mismatch demand supply. At this point, patient is not complaining of any chest pain. Electrocardiogram done this morning did not reveal any electrocardiogram changes, not ST-segment elevation or depression or T-wave inversion. I think at this point we will continue to monitor. Cardiology has been consulted. We will follow recommendations. 3. Acute on chronic kidney disease. The patient has a creatinine of 2.4 to 2.9, and here the creatinine has been elevated to 4.0 and 3.9, which is basically the same. We will continue to monitor this patient closely. 4. Left diabetic foot wound. Wound Care will be consulted. 5. Diabetes mellitus type 2. We will continue with sliding scale insulin and Accu-Chek before meals and also at bedtime. Glucose has been slightly elevated here at admission. 6. Chronic obstructive pulmonary disease. I do not think this patient is in exacerbation. We will provide breathing treatments as needed only. 7. Benign prostatic hypertrophy. Patient will continue with Flomax. Patient actually, because of urinary retention, has been placed with the Hirsch catheter. Apparently, there has not been too much return, so a CT of the abdomen and pelvis has been ordered at admission, so we will see if that Hirsch is well placed and helping move urine out or not. 8. Hypertension. At this point, we checked carefully her vitals in order to restart home medications or make any changes. 9. Anemia of chronic disease. Hemoglobin is 7.0, so considering her history of heart disease I prefer to go ahead and provide 2 units of blood to this patient. 10. Depression. We will continue with Celexa for this patient. 11. Disposition: We will continue to monitor this patient closely. Awaiting further input from Cardiology and Nephrology. cc: Wicho Loving MD
--- NOTE | 2019-09-22 08:50 | Diag Imaging Result Doc PS360 ---
EXAM: CT ABDOMEN/PELVIS W/O CONTRAST 09/22/2019 HISTORY: Abd. Pain/Distention,Hx Renal Stones/Stents,SHAWN TECHNIQUE: This exam was performed using automated exposure control, adjustment of mA or kV according to patient size, and/or use of iterative reconstruction technique. COMMENT: The current examination is compared with 03/31/2019. There is bilateral lower lobe atelectasis versus pneumonia. This is worse than on the previous study. There are bilateral pleural effusions which were present previously. There is ascites. There is generalized subcutaneous edema consistent with anasarca. This appears worse than on the previous study. There is beam hardening artifact from the patient's arms being in the field. The liver remains somewhat nodular in contour. The spleen is slightly enlarged measuring over 14 cm in AP dimension. There is a moderate amount of stool present in the colon. There are atherosclerotic calcifications in the aorta and its branches including the iliac arteries and the renal arteries. There are several lobar branches in the left kidney which are calcified. There is no evidence of hydronephrosis. There may be stones present in the lower pole of the left kidney measuring up to 5 mm in diameter. Several smaller calculi are present in the lower and mid collecting systems. There is still some edema in the anterior left pararenal space but this is actually slightly less evident than on the previous study. The small bowel is not distended. There is no evidence of abdominal aortic aneurysm or significant abdominal adenopathy. There are enlarged external iliac and inguinal nodes bilaterally. There is no evidence of appendicitis. The urinary bladder contains a Hirsch catheter and there is no evidence of dilatation. There are some bone islands and there is degenerative change in both hips. There are degenerative disc changes in the lumbar spine. No acute bony abnormalities are present. IMPRESSION: Worsened anasarca and ascites. Bilateral pleural effusions with worsening basilar atelectasis. Left nephrolithiasis. No evidence of obstructive uropathy. Constipation. Electronically signed by Waqar Jolly 09/22/2019 8:47 AM
[2019-09-22] MEDS: LASIX IV SCH ×2 (10:24→18:10)
[2019-09-22] MEDS: TRENTAL PO SCH (10:26)
[2019-09-22] MEDS: ASPIRIN PO SCH (10:26)
[2019-09-22] MEDS: APRESOLINE PO SCH ×5 (10:26→22:06)
[2019-09-22] MEDS: FLOMAX PO SCH (10:27)
[2019-09-22] MEDS: NORVASC PO SCH (10:27)
[2019-09-22] MEDS: CATAPRES PO SCH (10:27)
[2019-09-22] MEDS: MIRALAX PO SCH (10:28)
[2019-09-22] MEDS: PROTONIX PO SCH ×2 (10:29→22:06)
[2019-09-22] MEDS: CENTRUM TABLET PO SCH (10:29)
[2019-09-22] MEDS: ALBUMIN 25% IV SCH (10:40)
[2019-09-22] MEDS ORDERED: NS 500 ML ONE (14:06)
--- NOTE | 2019-09-22 14:59 | CARDIOLOGY CONSULTATION ---
DATE: 09/22/2019 REQUESTING PHYSICIAN: Hospitalist. REASON FOR CONSULTATION: Patient with swelling, congestive heart failure suspected. HISTORY: Mr. Olsen is an unfortunate 53-year-old male who normally follows with Dr. Walker and Dr. Allen. He presented to the emergency room on 09/21/2019, brought by the family because he was having increasing swelling of the legs, dyspnea and cough as well as abdominal pain from the epigastric area all the way down. He also noted decreased urinary output. He was referred to the urologist who put a catheter, but no significant amount of urine output was obtained. He was advised to come into the hospital. Upon presentation, they did a chest x-ray that showed pulmonary edema. CT of the abdomen showed worsened anasarca with ascites, bilateral pleural effusions, worsening basilar atelectasis. They also recorded a BUN of 62, creatinine of 4.0 on admission. Albumin is down to 2.8, and they checked CPKs and troponins. His CPKs were 286, 242 and 226. CK-MB fraction was 1615 and 14. The troponin levels high sensitivity are 270, 264, and 25 nanograms/L. ProBNP greater than 35,000. The patient has been admitted for management of fluid overload. The patient has a history of chronic kidney disease. He was recently admitted to the hospital back in March 2019 and at that time, the Cardiology team was called in consultation. Dr. Wakefield saw the patient and he felt that his fluid overload was probably related to kidney dysfunction. They have done echocardiograms on him, including one on 03/31/2019 that shows ejection fraction of 65% with a small circumferential pericardial effusion. That is really consistent with advanced renal failure and not with congestive heart failure from primary myocardial disease. I had seen this patient previously also on 02/25/2019, almost for similar reasons. We had already shown at that time that his creatinine clearance was 22 mL/minute and his protein output was 4.4 g in 24 hours, which basically falls within the nephrotic range. The patient has a long-term history of diabetes mellitus type 2. He also suffers from polyneuropathy. He has peripheral vascular disease. Apparently, he has had previous vascular surgery to the lower extremities in the past. Stress test in October 2017 showed a low-grade reversible perfusion defect in the basal inferior wall of the left ventricle. Of note, at the time of his presentation to the ER, one salient feature was that he was bradycardic, which is really unusual for somebody who is in respiratory distress, so that bradycardia is probably a clear sign of either drug effect from the multiple drugs or failure of the conduction system. Additional history on this patient, hyperlipidemia, hypertension. He has had arthroscopic knee surgery, foot surgery and amputation. There is a question of a stroke in the past. SOCIAL HISTORY: He is disabled. is with him. He is not a current smoker nor a drinker. HOME MEDICATIONS: At the time of the present admission included 1. Amitriptyline 10 mg at bedtime. 2. Amlodipine 10 mg daily. 3. Aspirin 325 daily. 4. Ceftin 250 mg twice a day. 5. Vitamin D3 5000 units daily. 6. Celexa 40 mg daily. 7. Clonidine 0.1 mg daily. 8. Hydralazine 100 mg 3 times a day. 9. Hydrocodone every 4 hours. 10. Insulin NPH 15 units 4 times a day. 11. Labetalol 200 twice a day. 12. Oxybutynin 5 mg 3 times a day. 13. Protonix 40 mg twice a day. 14. Pentoxifylline 400 mg 3 times a day. 15. Tamsulosin 0.4 mg daily. 16. Torsemide 20 mg twice a day. REVIEW OF SYSTEMS: Positive for very poor functional status, barely walks progressive swelling of the legs. He has chronic skin changes in both lower extremities. He has been treated by the wound center before. He does not have angina pectoris. PHYSICAL EXAMINATION: Vital signs: Blood pressure is 109/39, temperature is 97.5 degrees, respirations 16, pulse 54. General: Awake, alert. The patient is arousable. However, he drifts into sleep very quickly. Neck: His jugular veins are distended. He looks chronically ill. Chest: Reveals diminished breath sounds at the bases. Heart: Heart sounds are regular and rhythmic. I do not hear a gallop or murmur. Abdomen: Distended with anasarca. There is abdominal wall edema. Extremities: Both lower extremities are swollen all the way up to the hips. He has extensive hyperkeratotic changes in both lower extremities with very dry skin, markedly diminished pulses bilaterally. Neurological: He is really very lethargic. It takes a little bit to arouse him. He barely moves extremities. ADDITIONAL DIAGNOSIS: Chronic opiate usage. IMPRESSION: 1. Patient who presents with state of fluid overload. This is likely related to advanced renal insufficiency. We have already found several months ago that he had nephrotic syndrome with low creatinine clearance 22 mL/minute in February 2019. 2. Abnormal cardiac enzymes, question of type 2 myocardial infarction. The patient is known to have extensive atherosclerotic changes in the aorta and lower extremities with a previous femoral bypass in the left lower extremity. At this time, he is not having ongoing angina or ischemia. 3. Long-term hypertension. 4. Long-term opiate usage for chronic neuropathy type of pain. 5. Diffuse anasarca edema with low albumin, question of cirrhosis of the liver, question of significant malnutrition with multiple vitamin deficiencies. 6. Diabetes mellitus type 2 with end-organ damage. 7. Symptomatic bradycardia. This is probably secondary to medication effect including the opiates, labetalol and clonidine. RECOMMENDATIONS: At this time from the cardiac viewpoint, I will stop the beta blockers and the clonidine, and we will use only vasodilators until his renal status is stabilized by means of dialysis. At this time, he has been given maximal doses of diuretics to promote diuresis. More than likely, this is not going to work because of his low albumin and his poor general status. Then we will consider putting him on a low dose of metoprolol if needed. At this time, I would just refrain from using any drugs that can cause bradycardia, because it is going to make the fluid overload state worse. cc: Teofilo Mary MD [facility]
[2019-09-22 15:31] LABS: CK INDEX 6.1 (0.0-2.5); CK-MB 14.75 ng/mL (0.0-5.0)
--- NOTE | 2019-09-22 20:17 | NEPHROLOGY CONSULTATION ---
DATE: 09/22/2019 REASON FOR CONSULTATION: Chronic kidney disease. HISTORY OF PRESENT ILLNESS: Mr. Olsen is a 53-year-old man who is known to us from previous admissions to the hospital. He has known obstructive uropathy with baseline creatinine of approximately 3. Labs have been somewhat worse in the last 2 months. He came to the hospital because of worsening shortness of breath, orthopnea, and PND. At the time of my exam, he is sleeping and his is doing all answering of questions. He has general malaise, weakness, fatigue. Significant fluid retention over the last several months such that his weight is up around 30 pounds, by her report. No nausea, vomiting, or diarrhea. Because of his worsening symptoms, he sought attention with his PMD and then ultimately came to the hospital where he was admitted. His initial evaluation found blood pressure 112/57, heart rate 56, respirations 26, and he was afebrile. Thus far, total output 500 mL after low dose of Lasix. PAST MEDICAL HISTORY: As above. He also has diabetes, hypertension. HOME MEDICATIONS: Include Movantik, vitamin D, citalopram, multivitamin, pentoxifylline, clonidine, aspirin, amlodipine, insulin, hydralazine, tamsulosin, Ceftin, oxybutynin, amitriptyline, hydralazine, labetalol, cholecalciferol, MiraLAX, pantoprazole, torsemide, hydrocodone. ALLERGIES: None. SOCIAL HISTORY: , lives with his . Ongoing tobacco use. FAMILY HISTORY: Noncontributory. REVIEW OF SYSTEMS: Noncontributory. PHYSICAL EXAMINATION: Vital Signs: Blood pressure 129/55, heart rate 54, respirations 16, afebrile. General: He is a chronically ill man, lying at 45 degrees. Asleep, but arousable. No acute distress. Skin: Pale and dry. Conjunctivae are pink. Pupils are equal. Oropharynx is dry. Neck: Neck veins are distended with hepatojugular reflux. Trachea is midline. Heart: PMI is not palpable. Regular rate and rhythm. No rubs. No gallops. Lungs: Equal excursion and equal breath sounds. Diminished overall. Abdomen: Distended and soft. Bowel sounds present. No palpable organomegaly. Extremities: With 3 to 4+ edema. No clubbing or cyanosis. IMPRESSION: Exogenous fluid overload. Likely related to cardiac and renal disease. He has significant ascites on his CT, but he does not have ongoing obstruction. He has significant hypoalbuminemia as well as proteinuria. I will give intravenous albumin and high dose furosemide. I reviewed his history with his and once again discussed dialysis. We have discussed this in the past. If he fails diuretic therapy, we will initiate hemodialysis. cc: Zachary Morris MD [facility]
[2019-09-22] MEDS ORDERED: BUMEX IV ONE (20:20)
[2019-09-22] MEDS ORDERED: MORPHINE IV ONE (20:34)
[2019-09-22 20:45] LABS: HEMATOCRIT 25.4 % (42.0-52.0); HEMOGLOBIN 7.6 g/dL (14.0-18.0)
[2019-09-22] MEDS: ELAVIL PO SCH (22:06)
[2019-09-23] MEDS: LASIX IV SCH ×3 (01:44→17:44)
[2019-09-23] MEDS ORDERED: MORPHINE IV ONE (02:41)
[2019-09-23] MEDS: DUONEB (A & A) INH SCH ×4 (06:12→22:30)
[2019-09-23 06:46] LABS: BASO# 0.04 X1000 (0.0-0.2); BASO% 0.6 % (0.0-0.8); EOS# 0.21 X1000 (0.0-0.7); EOS% 3.3 % (0.0-10.0); HEMATOCRIT 25.1 % (42.0-52.0); HEMOGLOBIN 7.6 g/dL (14.0-18.0); IMM GRAN# 0.04 X1000 (0.0-0.04); IMM GRAN% 0.6 % (0.0-0.5); LYMPH% 15.8 % (20.5-51.1); MCHC 30.3 g/dL (33-37); MCV 89.3 FL (81-99); MONO# 0.93 X1000 (0.11-0.59); MONO% 14.7 % (1.7-9.3); MPV 10.3 FL (7.4-10.4); NEUT# 4.09 X1000 (1.4-6.5); PLT 222 X1000 (130-400); RBC 2.81 XMIL (4.7-6.1); RDW 16.3 % (11.5-14.5); WBC 6.31 X1000 (4.8-10.8)
[2019-09-23] MEDS: HUMULIN R SUBQ SCH ×4 (06:48→20:48)
[2019-09-23 07:27] LABS: ALBUMIN 2.9 g/dL (3.5-5.0); CALCIUM 8.1 mg/dL (8.8-10.2); CREATININE 4.5 mg/dL (0.7-1.2); PHOSPHORUS 7.1 mg/dL (2.7-4.5); POTASSIUM 4.8 mmol/L (3.5-5.1)
[2019-09-23] MEDS: MORPHINE IV PRN ×3 (08:33→20:45)
[2019-09-23] MEDS: ALBUMIN 25% IV SCH (08:33)
[2019-09-23] MEDS: MIRALAX PO SCH (08:38)
[2019-09-23] MEDS: CENTRUM TABLET PO SCH (08:39)
[2019-09-23] MEDS: PROTONIX PO SCH ×2 (08:39→20:45)
[2019-09-23] MEDS: ASPIRIN PO SCH (08:39)
[2019-09-23] MEDS: APRESOLINE PO SCH ×3 (08:39→20:45)
[2019-09-23] MEDS: FLOMAX PO SCH (08:39)
[2019-09-23] MEDS: COLACE PO SCH ×2 (08:39→20:45)
[2019-09-23] MEDS: TRENTAL PO SCH (08:39)
[2019-09-23] MEDS: CATAPRES PO SCH (08:39)
[2019-09-23] MEDS: NORVASC PO SCH (08:39)
--- NOTE | 2019-09-23 09:56 | PROGRESS NOTE ---
DATE: 09/23/2019 SUBJECTIVE: The patient definitely is more alert and awake. He is not reporting any chest pain. He is not short of breath. OBJECTIVE: Vital Signs: Temperature 97.9 degrees, heart rate 52, respiratory 17, blood pressure 127/60, O2 saturation 96% on 3 L nasal cannula. General Examination: This is a chronically ill- appearing, 53-year-old, male, lying in bed, in no acute distress. HEENT: Head is normocephalic, atraumatic. Mucous membranes dry. Neck: No JVD noted. No carotid bruits. Cardiovascular Exam: S1, S2 heard. No murmurs, gallops, or rubs. Regular rate and rhythm. Respiratory Exam: Decreased breath sounds globally mostly noted in both bases with minimal crackles noted. Abdomen: Soft. Anasarca noted with abdominal wall edema. No signs of peritoneal irritation. No organomegaly. Extremities: Edema in both lower extremities up to both hips. Also, he has some extensive hyperkeratotic lesions and also scaly with very dry skin. Peripheral pulses present but markedly diminished bilaterally. Neurological Exam: The patient is alert and oriented x3. Moves 4 extremities. LABORATORY DATA: White cell count 6.31 hemoglobin 7.6, hematocrit 25.1, platelets 222,000 with creatinine 4.5, phosphorus 7.1. ASSESSMENT AND PLAN: 1. Fluid overload. There was a concern for congestive heart failure but the last echocardiogram on March 2019 showed ejection fraction 65%, that has some pericardial effusion. Cardiology thinks that this is more related to advanced renal failure and not with congestive heart failure with primary myocardial disease. So at this point, Nephrology has been consulted. They decided to increase the doses of Lasix to 200 mg IV hours and see how this patient does. The patient has been advised that he may need dialysis if diuretic treatment fails. So at this point, we will continue to monitor in's and out's closely. Renal function is getting worse. We will continue to monitor. 2. Elevated troponins. The patient has arteriosclerotic disease. He has a femoral bypass in the left lower extremity but he is not complaining of any chest pain. So at this point, Cardiology is not planning to do any ischemia workup. We did not see any changes in the electrocardiogram like ST-segment elevation or depression or T-wave inversion. We will continue to monitor. 3. Vuybd-ct-lzijerl kidney disease stage 4. I think at this point we will see what Nephrology has to say. Dialysis has been discussed and patient is okay if he needs to. 4. Left diabetic foot wound. Wound Care is going to take care of this patient. 5. Diabetes mellitus type 2. We will continue with sliding scale insulin and Accu-Chek before meals and also at bedtime. 6. Chronic obstructive pulmonary disease. I think this condition is stable. I do not think this patient is on any exacerbation. Will continue with breathing treatments as needed only. 7. Benign prostatic hypertrophy. We will continue with Flomax. The patient has a Hirsch catheter. 8. Hypertension. Blood pressure has been in the range 120s and 130s so I do not think we need to restart any blood pressure medication. 9. Anemia of chronic disease. Hemoglobin has been 7.0, so we ordered 2 units of blood. So far, he has received one and the hemoglobin is 7.6. 10. Depression. Will continue with Celexa. 11. Disposition. Will continue to monitor this patient closely. We will see if over the weekend he produces more urine. Nephrology following this patient. cc: Wicho Loving MD
[2019-09-23] MEDS ORDERED: AYR NASAL SPRAY NAS PRN (15:30)
--- NOTE | 2019-09-23 16:03 | ECHO REPORT ---
ORDER DATE: 09/22/2019 EXAM: 2D echocardiogram. ECHOCARDIOGRAPHIC MEASUREMENTS: 1. Interventricular septum 1.5 cm. 2. Left ventricular posterior wall 1.5 cm. 3. Left ventricular diastolic diameter 4.8 cm. 4. Aorta 3.2 cm. SUMMARY: 1. Tricuspid valve was normal. 2. Aortic valve leaflets trileaflet. 3. Pulmonic valve was normal. 4. There is trace pulmonary regurgitation. 5. Technically suboptimal study. Poor apical windows. 6. There is mild mitral regurgitation. 7. Trace pulmonary regurgitation. 8. Mild tricuspid regurgitation. Peak velocity across the tricuspid valve was 2.6 m/sec. 9. There is mitral annular calcification. 10. Peak velocity across the aortic valve less than 2 m/sec. There is no aortic stenosis or regurgitation. 11. Right ventricle is dilated with reduced right ventricular systolic function. 12. IVC was measured at 2.4 cm. 13. Normal left ventricular cavity size. 14. Optison was used to assess left ventricular systolic function. There is concentric left ventricular hypertrophy with an estimated ejection fraction of 65 to 70 percent. 15. Hyperdynamic left ventricular systolic function with concentric left ventricular hypertrophy. 16. Right ventricle is dilated with reduced right ventricular systolic function. 17. There is no pericardial effusion. cc: MD Wicho Navarro MD
[2019-09-23] MEDS: ELAVIL PO SCH (20:45)
[2019-09-24] MEDS: LASIX IV SCH ×3 (01:39→18:21)
--- NOTE | 2019-09-24 04:56 | EKG Report ---
Test Performed on : 09/24/2019 03:11:52 AM Test Reason : tele showed afib 0105 Blood Pressure : / mmHG Vent. Rate : 061 BPM Atrial Rate : 061 BPM P-R Int : 000 ms QRS Dur : 098 ms QT Int : 450 ms P-R-T Axes : 000 -04 049 degrees QTc Int : 453 ms Normal sinus rhythm. Cannot rule out Anterior infarct Abnormal ECG When compared with ECG of 22-SEP-2019 07:13, No significant change was found Confirmed by Marek Garcia MD ([id number]) on 09/26/2019 8:44:58 PM
[2019-09-24] MEDS: DUONEB (A & A) INH SCH ×5 (05:09→23:25)
[2019-09-24] MEDS: HUMULIN R SUBQ SCH ×4 (06:40→23:04)
[2019-09-24 06:46] LABS: BASO# 0.04 X1000 (0.0-0.2); BASO% 0.6 % (0.0-0.8); EOS# 0.21 X1000 (0.0-0.7); EOS% 3.1 % (0.0-10.0); HEMATOCRIT 25.6 % (42.0-52.0); HEMOGLOBIN 7.7 g/dL (14.0-18.0); LYMPH# 1.18 X1000 (1.2-3.4); LYMPH% 17.6 % (20.5-51.1); MCH 26.7 PG (27-31); MCHC 30.1 g/dL (33-37); MCV 88.9 FL (81-99); MONO# 0.83 X1000 (0.11-0.59); MONO% 12.4 % (1.7-9.3); MPV 10.2 FL (7.4-10.4); NEUT# 4.46 X1000 (1.4-6.5); NEUT% 66.3 % (42.2-75.2); PLT 212 X1000 (130-400); RBC 2.88 XMIL (4.7-6.1); RDW 16.3 % (11.5-14.5); WBC 6.72 X1000 (4.8-10.8)
[2019-09-24 07:31] LABS: ALBUMIN 3.1 g/dL (3.5-5.0); CALCIUM 8.4 mg/dL (8.8-10.2); CREATININE 4.6 mg/dL (0.7-1.2); PHOSPHORUS 7.2 mg/dL (2.7-4.5); POTASSIUM 4.6 mmol/L (3.5-5.1)
--- NOTE | 2019-09-24 08:18 | PROGRESS NOTE ---
DATE: 09/24/2019 SUBJECTIVE: The patient reports feeling fine. Denies any fever or chills. He reports his nose is clogged up, and that is causing difficulty for him to breathe. Denies any other complaint. No other issues noted as per nursing staff overnight. OBJECTIVE: Vital Signs: Temperature 97.9 degrees, heart rate 58, respiratory rate 23, blood pressure 154/70, O2 saturation 98% on Venturi mask 15%. General: This is a chronically ill- appearing, 53-year-old, male, lying in bed in no acute distress. Cardiovascular: S1, S2 heard. No murmurs, gallops, or rubs. Regular rate and rhythm. Neck: JVD noted. No carotid bruits. No lymphadenopathy. Respiratory: Decreased breath sounds globally with minimal crackles noted in both pulmonary bases. The patient is not using any accessory muscles or having work of breathing. Abdomen: Soft. Anasarca noted with still abdominal wall edema. No signs of peritoneal irritation. No organomegaly. Extremities: Edema in both lower extremities up to both hip. The patient also has extensive hyperkeratotic lesions and also scaly lesions and very dry skin to both lower extremities. Peripheral pulses present, but markedly diminished bilaterally. Neurological: The patient is alert and oriented x3. Moves all 4 extremities. LABORATORY DATA: White count 6.72, hemoglobin 7.5, hematocrit 25.6, platelets 212,000. Creatinine 4.6. ASSESSMENT AND PLAN: 1. Volume overload. Definitely, this is related to advance renal failure. Unfortunately, even though he has been 2 days on Lasix 200 mg intravenously every 8 hours, according to ins and outs documented in the chart, the patient has made only 1.2 liters of urine in the last 24 hours. The patient has been advised that he may need dialysis if diuretic treatment fails. Will continue to monitor renal profile daily. Will see what Dr. Morris has to say tomorrow. 2. Elevated troponins. That is most likely related to atherosclerotic disease. The patient has had femoral bypass in the left lower extremity, but the patient is not complaining of any chest pain. At this point, Cardiology is following, but not planning to do any ischemia workup. Electrocardiogram also did not show any ST-segment elevation or depression or T-wave inversion. Will continue to monitor. 3. Acute on chronic kidney disease stage 4. As we mentioned before, Nephrology is following this patient. The patient may need to have dialysis. Will continue to monitor intake and output outs strictly. 4. Left diabetic foot wound. Will continue with wound care for this patient. 5. Diabetes mellitus type 2. Will continue with sliding scale insulin and Accu-Cheks before meals and also at bedtime formula. 6. Chronic obstructive pulmonary disease. The patient is not in any exacerbation. Will continue with breathing treatments as needed only. 7. Benign prostatic hypertrophy. Will continue with Flomax. 8. Hypertension. Blood pressure is under control, so I do not think we need to restart any antihypertensive medication. 9. Anemia of chronic disease. Hemoglobin continues to be stable at 7.7. 10. Depression. Will continue with Celexa. 11. Disposition. Will continue to monitor this patient closely. Renal function is the main issue with him, so if we are not able to diurese him well, we may need to start dialysis in the near future. cc: Wicho Loving MD
[2019-09-24] MEDS: MORPHINE IV PRN ×2 (08:20→18:22)
[2019-09-24] MEDS: PROTONIX PO SCH ×2 (08:29→21:46)
[2019-09-24] MEDS: COLACE PO SCH ×2 (08:29→21:46)
[2019-09-24] MEDS: FLOMAX PO SCH (08:29)
[2019-09-24] MEDS: MIRALAX PO SCH (08:29)
[2019-09-24] MEDS: ASPIRIN PO SCH (08:29)
[2019-09-24] MEDS: NORVASC PO SCH (08:29)
[2019-09-24] MEDS: CENTRUM TABLET PO SCH (08:29)
[2019-09-24] MEDS: TRENTAL PO SCH (08:30)
[2019-09-24] MEDS: APRESOLINE PO SCH ×3 (08:30→21:46)
[2019-09-24] MEDS: CATAPRES PO SCH (08:30)
[2019-09-24] MEDS: ALBUMIN 25% IV SCH (08:41)
--- NOTE | 2019-09-24 08:50 | NEPHROLOGY PROGRESS NOTE ---
DATE: 09/24/2019 SUBJECTIVE: He is much more alert today. Recognizes me and is able to answer my questions. Shortness of breath and swelling are unchanged. OBJECTIVE: Vital Signs: Blood pressure 139/63, heart rate 62, respirations 18, afebrile. Intake 1.3 L. Output 600 mL. General: No acute distress. Skin is warm and dry. Conjunctivae are pink. Neck: Neck veins are distended. Heart: Regular. Lungs: Equal. No crackles. Abdomen: Soft, nontender. Distended. However, bowel sounds are present. Extremities with 4+ edema. IMPRESSION: Chronic kidney disease secondary to obstructive uropathy. He has 50 pounds of weight gain and his labs are not improving. Urine output is not particularly improved despite high dose Lasix. I will add metolazone today but I also discussed the case with the patient in terms of his severe fluid gain and lack of responsiveness, and overall likelihood for recovery. I offered dialysis options and he is willing to accept that so we will have Dr. Lundberg place a tunneled dialysis catheter on Wednesday to initiate care. cc: Zachary Morris MD
[2019-09-24] MEDS: ZAROXOLYN PO SCH (09:26)
[2019-09-24] MEDS: ELAVIL PO SCH (21:46)
[2019-09-25] MEDS: LASIX IV SCH ×3 (01:06→17:53)
[2019-09-25] MEDS: DUONEB (A & A) INH SCH ×4 (03:55→22:40)
[2019-09-25 06:01] LABS: BASO# 0.04 X1000 (0.0-0.2); BASO% 0.7 % (0.0-0.8); EOS# 0.16 X1000 (0.0-0.7); EOS% 2.8 % (0.0-10.0); HEMOGLOBIN 7.7 g/dL (14.0-18.0); IMM GRAN# 0.03 X1000 (0.0-0.04); IMM GRAN% 0.5 % (0.0-0.5); LYMPH# 1.05 X1000 (1.2-3.4); LYMPH% 18.2 % (20.5-51.1); MCH 26.8 PG (27-31); MCHC 29.6 g/dL (33-37); MCV 90.6 FL (81-99); MONO# 0.91 X1000 (0.11-0.59); MONO% 15.8 % (1.7-9.3); MPV 10.2 FL (7.4-10.4); NEUT# 3.57 X1000 (1.4-6.5); PLT 210 X1000 (130-400); RBC 2.87 XMIL (4.7-6.1); RDW 16.7 % (11.5-14.5); WBC 5.76 X1000 (4.8-10.8)
[2019-09-25] MEDS ORDERED: D50W SYRINGE IV ONE (06:08)
[2019-09-25 06:37] LABS: ALBUMIN 3.5 g/dL (3.5-5.0); CALCIUM 8.6 mg/dL (8.8-10.2); CREATININE 4.7 mg/dL (0.7-1.2); PHOSPHORUS 7.7 mg/dL (2.7-4.5); POTASSIUM 4.9 mmol/L (3.5-5.1)
[2019-09-25] MEDS: HUMULIN R SUBQ SCH ×4 (07:11→22:05)
--- NOTE | 2019-09-25 07:22 | PROGRESS NOTE ---
DATE: 09/25/2019 SUBJECTIVE: Patient reports feeling fine. Requiring oxygen by Venturi mask. Denies any other complaints. OBJECTIVE: Vital Signs: Temperature 99.2 degrees, heart rate 59, respiratory rate 12, blood pressure 141/57, O2 saturation 100% on nonrebreather mask at 100%. General Examination: This is a chronically ill-appearing and disheveled, 53-year-old, male, lying in bed, in no acute distress. HEENT: Head is normocephalic and atraumatic. Mucous membranes are dry. Neck: JVD noted. No carotid bruits. No lymphadenopathy. Cardiovascular Examination: S1 and S2 heard. No murmurs, gallops, or rubs. Regular rate and rhythm. Respiratory Examination: Decreased breath sounds globally with minimal crackles noted in both pulmonary bases. The patient is not using any accessory muscles or having work of breathing. Abdomen: Soft. Anasarca noted with still abdominal wall edema. No signs of peritoneal irritation. No organomegaly. Extremities: Edema in both lower extremities up to both hips, basically the same in comparing with admission. Patient also has extensive hyperkeratotic lesions and scaly lesions, and very dry skin to both lower extremities up to both knees. Peripheral pulses present but markedly diminished bilaterally. Neurological Examination: The patient is alert and oriented x3. Moves 4 extremities. Laboratory Data: BMP shows creatinine 4.7. Hemoglobin 7.7, hematocrit 26.0. ASSESSMENT AND PLAN: 1. Chronic kidney disease stage 5 with volume overload. Unfortunately, this patient has not responded to medical treatment. He has been 3 days on Lasix 200 mg intravenously every 8 hours. So far, he has produced 1 L of urine during the last 24 hours. At this point, Dr. Morris from nephrology has talked to the patient and he agreed to start dialysis. At this point, awaiting for placement of Vas-Cath from general surgery in order to start dialysis. We will continue to monitor. 2. Elevated troponins. As we mentioned before, that is most likely secondary to very diffuse atherosclerotic disease. Cardiology is following this patient but they are not planning to do any ischemia workup on this patient. The electrocardiogram also did not show any ischemic changes. 3. Left diabetic foot wound. We will continue following this patient. We will follow recommendations. 4. Diabetes mellitus type 2. We will continue with sliding scale insulin, and Accu-Chek before meals and also at bedtime. 5. Chronic obstructive pulmonary disease. Patient is not in any exacerbation. We will continue to monitor. 6. Benign prostatic hypertrophy. We will continue with Flomax. 7. Hypertension. Blood pressure is borderline, in the range of 100-110 systolic blood pressures so I do not think we need to restart any blood pressure medication. 8. Anemia of chronic disease. After transfusion of 1 unit of blood 3 days ago, hemoglobin has risen to 7.7. We will continue to monitor. 9. Disposition. At this point, awaiting surgery to place a Vas-Cath for this patient, to start emergent dialysis on him. cc: Wicho Loving MD
[2019-09-25] MEDS: ASPIRIN PO SCH (10:53)
[2019-09-25] MEDS: APRESOLINE PO SCH ×3 (10:53→20:46)
[2019-09-25] MEDS: COLACE PO SCH ×2 (10:54→20:46)
[2019-09-25] MEDS: CATAPRES PO SCH (10:54)
[2019-09-25] MEDS: FLOMAX PO SCH (10:54)
[2019-09-25] MEDS: NASONEX NASAL SPRAY NAS SCH (10:54)
[2019-09-25] MEDS: CENTRUM TABLET PO SCH (10:54)
[2019-09-25] MEDS: MIRALAX PO SCH (10:54)
[2019-09-25] MEDS: NORVASC PO SCH (10:55)
[2019-09-25] MEDS: TRENTAL PO SCH (10:55)
[2019-09-25] MEDS: PROTONIX PO SCH ×2 (10:55→20:46)
[2019-09-25] MEDS: ZAROXOLYN PO SCH (10:55)
[2019-09-25] MEDS ORDERED: TIGHT: 0.2 ML/HR FOR DIALYSIS MISC PRN (11:07)
[2019-09-25] MEDS ORDERED: NS 2,000 ML MISC PRN (11:07)
[2019-09-25] MEDS ORDERED: HEPARIN IV PRN (11:07)
[2019-09-25] MEDS ORDERED: NITROGLYCERIN TOP ONE (11:51)
--- NOTE | 2019-09-25 13:19 | Diag Imaging Result Doc PS360 ---
EXAM: CHEST-PORTABLE HISTORY: TRALYSIS CATH PLACEMENT TECHNIQUE: Single view COMPARISON: 09/21/2019 FINDINGS: There is a left jugular line on the current exam. The tip overlies the upper to mid superior vena cava. No pneumothorax. There are moderate-sized bilateral pleural effusions with basilar atelectasis and underlying infiltrates. The heart is enlarged. There is pulmonary edema. IMPRESSION: No postprocedural pneumothorax Electronically signed by Chris Allen 09/25/2019 1:16 PM
--- NOTE | 2019-09-25 14:07 | OPERATIVE NOTE ---
PROCEDURE DATE: 09/25/2019 PROCEDURE: Asked to place a Vas-Cath for urgent dialysis. PREOPERATIVE DIAGNOSIS: Chronic kidney disease with acute exacerbation and shortness. POSTOPERATIVE DIAGNOSIS: Chronic kidney disease with acute exacerbation and shortness. PROCEDURE IN DETAIL: The patient could not be laid flat because of his shortness of breath. We did image the left internal jugular vein and found it to be patent. We then prepared the skin with ChloraPrep. After sterile prep and drape, we put a sterile sheath on the ultrasound probe. We imaged the probe. We anesthetized the skin and made a stab incision and then accessed the left internal jugular vein. Under direct visualization, passed the guidewire through the needle into the vein. We then dilated the tract sequentially and passed the Trialysis catheter to 18 cm. Blood came back in each lumen spontaneously. We then flushed each lumen with saline. We secured the flange to the skin with nylon. Sterile OpSite was applied. A chest x-ray was ordered. He was then sent for dialysis. cc: Hernando Lundberg MD
--- NOTE | 2019-09-25 18:42 | PROVIDER PROGRESS NOTE ---
Progress Note Subjective: He denies any increased shortness of breath or nausea and vomiting. He does not have a good appetite. Objective: temperature 98.7, pulse 60, respiration 16, low pressure 141/63, 02 sat 100% on non-rebreather General: Obese, White male lying in bed in no acute distress. HEENT: normocephalic, atraumatic, pupils equal and reactive, mucous membranes dry. Skin: warm and dry. BLE dry skin Neck: supple, engorged Neck veins Cardiovascular: S1S2. Regular rate and rhythm. No murmur or gallop. Respiratory: Lungs clear to auscultation anteriorly. Abdomen: soft, obese, nontender, protuberance. Bowel sounds present. : not inspected, weaver in place Extremities: Pitting edema noted up to hips. Neurological: Drowsy, oriented to person place and time. Labs: WBC 5.76, hemoglobin 7.7, hematocrit 26, platelet count 210, sodium 141, potassium 4.9, chloride 103, carbon dioxide 23, BUN 76, creatinine 4.7. Intake 220, output 1125. Impression: Chronic kidney disease secondary to obstructive uropathy. His BUN and creatinine continue to trend up. His urine output has not picked up with the added Metolazone. Dr. Lundberg will place a bedside vas-cath and after that we will start his urgent renal replacement therapy. 2.5 hours today then daily. Blood pressure. Stable. Fluid volume. Expanded. Manage with hemodialysis. Anemia. Low, stable. Does not meet criteria for transfusion. Electrolytes and acid base balance. Stable. Nutrition. Adequate. Physical deconditioning. Not ready for PT. Medication review. No change.
[2019-09-25] MEDS: MORPHINE IV PRN (20:45)
[2019-09-25] MEDS: ELAVIL PO SCH (20:46)
[2019-09-26] MEDS: MORPHINE IV PRN ×3 (00:45→16:44)
[2019-09-26] MEDS: DUONEB (A & A) INH SCH ×4 (03:35→23:40)
[2019-09-26 06:02] LABS: BASO# 0.04 X1000 (0.0-0.2); BASO% 0.6 % (0.0-0.8); EOS# 0.19 X1000 (0.0-0.7); EOS% 2.9 % (0.0-10.0); HEMATOCRIT 25.5 % (42.0-52.0); HEMOGLOBIN 7.5 g/dL (14.0-18.0); IMM GRAN# 0.03 X1000 (0.0-0.04); IMM GRAN% 0.5 % (0.0-0.5); LYMPH# 1.13 X1000 (1.2-3.4); LYMPH% 17.2 % (20.5-51.1); MCH 26.7 PG (27-31); MCHC 29.4 g/dL (33-37); MCV 90.7 FL (81-99); MONO# 0.98 X1000 (0.11-0.59); MONO% 14.9 % (1.7-9.3); MPV 10.1 FL (7.4-10.4); NEUT% 63.9 % (42.2-75.2); PLT 202 X1000 (130-400); RBC 2.81 XMIL (4.7-6.1); RDW 16.5 % (11.5-14.5); WBC 6.57 X1000 (4.8-10.8)
[2019-09-26] MEDS: HUMULIN R SUBQ SCH ×4 (06:11→20:54)
[2019-09-26] MEDS ORDERED: TIGHT: 0.2 ML/HR FOR DIALYSIS MISC PRN (06:22)
[2019-09-26] MEDS ORDERED: HEPARIN IV PRN (06:22)
[2019-09-26] MEDS ORDERED: NS 2,000 ML MISC PRN (06:22)
[2019-09-26 06:39] LABS: ALBUMIN 3.2 g/dL (3.5-5.0); CALCIUM 8.3 mg/dL (8.8-10.2); CREATININE 3.8 mg/dL (0.7-1.2); PHOSPHORUS 6.2 mg/dL (2.7-4.5); POTASSIUM 4.5 mmol/L (3.5-5.1)
[2019-09-26] MEDS: D50W SYRINGE IV PRN (07:39)
--- NOTE | 2019-09-26 10:32 | PROGRESS NOTE ---
DATE: 09/26/2019 SUBJECTIVE: The patient reports feeling fine after starting dialysis. Denies any fever, chills, or any shortness of breath. He continues to require oxygen by Venturi mask. OBJECTIVE: Vital Signs: Temperature 98.3 degrees, heart rate 68, respiratory rate 18, blood pressure 134/58, O2 saturation 98% on Venturi mask. General Examination: This is a chronically ill-appearing, 53-year-old, male, lying in bed, in no acute distress. HEENT: Head is normocephalic and atraumatic. Mucous membranes dry. Neck: No JVD noted. No carotid bruits. No lymphadenopathy. Cardiovascular Examination: S1 and S2 heard. No murmurs, gallops, or rubs. Regular rate and rhythm. Respiratory Examination: Decreased breath sounds globally with minimal crackles noted in both pulmonary bases. Patient is not using any accessory muscles or having work of breathing. Abdomen: Soft. Anasarca noted still with abdominal wall edema. There are no signs of peritoneal irritation. No organomegaly. Extremities: Edema in both extremities up to both hips. Same in comparing with admission. Patient has also hyperkeratotic lesions and a scaly lesion, and very dry skin in both lower extremities up to both knees. Peripheral pulses present but markedly diminished. Neurological Examination: The patient is alert and oriented x3. Moves 4 extremities. Laboratory Data: Reviewed. ASSESSMENT AND PLAN: 1. Chronic kidney disease stage 5 with volume overload. The patient had been started on dialysis yesterday. Today, he is undergoing his second dialysis session. Yesterday, had removed so far 2.2 L of fluids so at this point, we will continue to monitor. 2. Elevated troponins. Aware. Not needing any ischemia workup as of now. 3. Left diabetic foot wound. Aware. Wound care following this patient. 4. Diabetes mellitus type 2. We will continue with sliding scale insulin, and Accu-Cheks before meals and also at bedtime. 5. Chronic obstructive pulmonary disease. Patient is not in any exacerbation. We will provide breathing treatments as needed only. 6. Benign prostatic hypertrophy. We will continue with Flomax. 7. Hypertension. We will continue to monitor. The patient does not need to have any blood pressure medication at this point. 8. Anemia of chronic disease. Hemoglobin is a little bit low so we will provide 1 unit of blood while he is on dialysis and we will go from there. 9. Disposition. At this point, we will continue following leads from nephrology. cc: Wicho Loving MD
[2019-09-26 12:39] LABS: HEPATITIS PROFILE ACUTE SEE COMMENTS
--- NOTE | 2019-09-26 15:49 | GENERAL SURGERY PROGRESS NOTE ---
DATE: 09/26/2019 SUBJECTIVE: He is on dialysis, tolerating it satisfactorily. His breathing is improved. Stable hemodynamics. PLAN: A right-sided tunnel catheter tomorrow and we will remove his Vas-Cath at that time. I have discussed this with him and he agrees to proceed. cc: Hernando Lundberg MD
[2019-09-26] MEDS: PROTONIX PO SCH ×2 (16:00→20:51)
[2019-09-26] MEDS: APRESOLINE PO SCH ×3 (16:00→20:51)
[2019-09-26] MEDS: ASPIRIN PO SCH (16:00)
[2019-09-26] MEDS: ZAROXOLYN PO SCH (16:00)
[2019-09-26] MEDS: COLACE PO SCH ×2 (16:00→20:51)
[2019-09-26] MEDS: FLOMAX PO SCH (16:01)
[2019-09-26] MEDS: NASONEX NASAL SPRAY NAS SCH (16:01)
[2019-09-26] MEDS: CATAPRES PO SCH (16:01)
[2019-09-26] MEDS: MIRALAX PO SCH (16:01)
[2019-09-26] MEDS: NORVASC PO SCH (16:01)
[2019-09-26] MEDS: CENTRUM TABLET PO SCH (16:01)
[2019-09-26] MEDS: TRENTAL PO SCH (16:01)
--- NOTE | 2019-09-26 16:21 | PROVIDER PROGRESS NOTE ---
Progress Note Subjective: He voices a continued low appetite. He denies all other complaints. Objective: temperature 98.3, pulse 68, respirations 13, blood pressure 134/58, 02 sat 98% on 40% Venturi mask. General: Obese, White male lying in bed in no acute distress. HEENT: normocephalic, atraumatic, pupils equal and reactive, mucous membranes dry. Skin: warm and dry. BLE dry skin with venous stasis. Neck: supple, JVd with hepatojugular reflux Cardiovascular: S1S2. Regular rate and rhythm. No murmur or gallop. Respiratory: Lungs clear to auscultation anteriorly. Abdomen: soft, obese, nontender, protuberance. Bowel sounds present. : not inspected, weaver in place Extremities: Pitting edema noted up to the abdominal wall. Neurological: Drowsy, oriented to person place and time. Labs: WBC 6.57, hemoglobin 7.5, hematocrit 25.5, platelet count 202, sodium 141, potassium 4.5, chloride 102, carbon dioxide 23, BUN 38, creatinine 3.8. Phosphorus 6.2. Intake 190, output 2886. Impression: Chronic kidney disease secondary to obstructive uropathy. His BUN and creatinine continue improved with renal replacement therapy yesterday. 2086ml ultrafiltr ation achieved. He remains volume overloaded. We will attempt slow low efficiency dialysis with a 4K bath, 6-8L ultrafiltration, for 6 hours today. Blood pressure. Stable. Fluid volume. Expanded. Manage with dialysis. Anemia. Low, stable. Does not meet criteria for transfusion. Electrolytes and acid base balance. Stable. Nutrition. Inadequate. No appetite. Physical deconditioning. Defer to primary Medication review. No change.
[2019-09-26] MEDS: ELAVIL PO SCH (20:51)
[2019-09-26] MEDS: ZOSYN 2.25 GM in NS 50 ML IV SCH (20:52)
[2019-09-27] MEDS: ZOSYN 2.25 GM in NS 50 ML IV SCH ×4 (01:11→20:16)
[2019-09-27] MEDS: DUONEB (A & A) INH SCH ×4 (03:35→22:29)
--- NOTE | 2019-09-27 04:27 | EKG Report ---
Test Performed on : 09/27/2019 04:18:31 AM Test Reason : AFib Blood Pressure : / mmHG Vent. Rate : 102 BPM Atrial Rate : 144 BPM P-R Int : 000 ms QRS Dur : 086 ms QT Int : 354 ms P-R-T Axes : 000 013 111 degrees QTc Int : 461 ms Atrial fibrillation. with rapid ventricular response. Nonspecific T wave abnormality Inferolateral leads Abnormal ECG When compared with ECG of 27-SEP-2019 04:17, (Unconfirmed) Non-specific change in ST segment in Inferior leads Non-specific change in ST segment in Lateral leads Confirmed by Marek Garcia MD ([id number]) on 09/28/2019 9:10:40 PM
[2019-09-27 04:56] LABS: BASO# 0.04 X1000 (0.0-0.2); BASO% 0.6 % (0.0-0.8); EOS# 0.23 X1000 (0.0-0.7); EOS% 3.5 % (0.0-10.0); HEMATOCRIT 29.3 % (42.0-52.0); HEMOGLOBIN 8.8 g/dL (14.0-18.0); LYMPH# 1.06 X1000 (1.2-3.4); LYMPH% 16.2 % (20.5-51.1); MCH 26.9 PG (27-31); MCV 89.6 FL (81-99); MONO# 0.95 X1000 (0.11-0.59); MONO% 14.5 % (1.7-9.3); MPV 9.8 FL (7.4-10.4); NEUT# 4.27 X1000 (1.4-6.5); NEUT% 65.2 % (42.2-75.2); PLT 198 X1000 (130-400); RBC 3.27 XMIL (4.7-6.1); RDW 16.1 % (11.5-14.5); WBC 6.55 X1000 (4.8-10.8)
[2019-09-27 05:14] LABS: ALBUMIN 3.5 g/dL (3.5-5.0); CALCIUM 8.2 mg/dL (8.8-10.2); CREATININE 2.8 mg/dL (0.7-1.2); PHOSPHORUS 4.1 mg/dL (2.7-4.5); POTASSIUM 4.5 mmol/L (3.5-5.1)
[2019-09-27] MEDS ORDERED: HEPARIN IV PRN (06:18)
[2019-09-27] MEDS ORDERED: TIGHT: 0.2 ML/HR FOR DIALYSIS MISC PRN (06:18)
[2019-09-27] MEDS ORDERED: NS 2,000 ML MISC PRN (06:18)
[2019-09-27] MEDS: D50W SYRINGE IV PRN (07:02)
[2019-09-27] MEDS: HUMULIN R SUBQ SCH ×4 (07:41→21:51)
[2019-09-27] MEDS ORDERED: XYLOCAINE-MPF 2% ONE (07:51)
[2019-09-27] MEDS ORDERED: DIPRIVAN 1% ONE (07:51)
--- NOTE | 2019-09-27 08:06 | PROGRESS NOTE ---
DATE: 09/27/2019 SUBJECTIVE: Patient reports feeling fine. Reports his abdomen is more soft. Denies any fever or chills. He is using oxygen via Venturi mask because his nose is clogged, and it more comfortable for him to use Ventimask. OBJECTIVE: Vital Signs: Temperature 97.5 degrees, heart rate 92, respiratory rate 21, blood pressure 143/88, O2 saturation 100% on Venturi mask. General Examination: This is a chronically ill-looking, 53-year-old male, lying in bed in no acute distress. HEENT: Head is normocephalic, atraumatic. Mucous membranes dry. Neck: No JVD noted. No carotid bruits. No lymphadenopathy. Cardiovascular exam: S1, S2 heard. No murmurs, gallops, or rubs. Regular rate and rhythm. Respiratory exam: Decreased breath sounds globally with very minimal crackles noted in both pulmonary bases. Patient not using any accessory muscles or having work of breathing. Abdomen: Soft. Anasarca noted, but definitely abdominal wall edema is much better today. The abdomen is definitely softer. There are no signs of peritoneal irritation. No organomegaly. Extremities: Edema in both lower extremities up to both hips, slightly improved. The patient also has hyperkeratotic lesions and scaly lesions. Very dry skin on both lower extremities up to both knees. Peripheral pulses present, but markedly diminished. Neurological exam: Patient is alert and oriented x3. Moves 4 extremities. LABORATORY DATA: White cell count 6.55, hemoglobin 8.8, hematocrit 29.3, platelets 198 with creatinine 2.8. GFR 24. ASSESSMENT AND PLAN: 1. Chronic kidney disease stage V. Wound volume overload. The patient has been started on hemodialysis, and actually yesterday he had slow, low efficiency dialysis. They were able to remove 7.2 L of fluid. So at this point we will continue with the same management. Dr. Morris helping us in management of this patient. We are planning to remove the Vas-Cath and place a right catheter today. 2. Elevated troponins at presentation, aware. Patient has been evaluated by Cardiology, and no need for any ischemia workup as of now. 3. New-onset atrial fibrillation with ventricular response. At this point, the heart rate is well controlled. The highest heart rate was 120, so we will add probably beta-owen. Yesterday night, Cardiology has been re-consulted. We will follow recommendations. 4. Diabetes mellitus type 2. We will continue with sliding scale insulin. Accu-Chek before meals and also at bedtime. 5. Chronic obstructive pulmonary disease. The patient is not on exacerbation. We will provide breathing treatments as needed only. 6. Benign prostatic hypertrophy. We will continue with Flomax. 7. Hypertension. Blood pressure is under control. We will continue with the same management. 8. Anemia of chronic disease. Hemoglobin had been low yesterday, so we decided to provide 1 unit of blood, and then today hemoglobin is 8.8. We will continue to monitor. 9. Disposition: Currently receiving dialysis for advanced renal disease, and awaiting recommendations from Cardiology regarding this new-onset atrial fibrillation with rapid ventricular response. cc: Wicho Loving MD
[2019-09-27] MEDS: APRESOLINE PO SCH ×3 (08:20→20:16)
[2019-09-27] MEDS: CATAPRES PO SCH (08:21)
[2019-09-27] MEDS: NORVASC PO SCH (08:21)
[2019-09-27] MEDS ORDERED: XYLOCAINE 1%/EPI 1:100,000 ONE (08:49)
[2019-09-27] MEDS ORDERED: HEPARIN ONE ×2 (08:50)
[2019-09-27] MEDS ORDERED: NS 250 ML ONE (08:50)
--- NOTE | 2019-09-27 09:12 | PROGRESS NOTE ---
DATE: 09/27/2019 TIME SEEN: 0645. SUBJECTIVE: He states he feels better. He is more alert and talkative today. His only complaint is mild constipation. OBJECTIVE: Vital signs: Temperature 98.3 degrees, pulse 114, respirations 18, blood pressure 139/77, O2 saturation 100% on Venturi mask. General: Obese, white male lying in bed in no acute distress. HEENT: Normocephalic, atraumatic, pupils equal and reactive, mucous membranes dry. Skin: Warm and dry, bilateral lower extremities noted to have venous stasis and dry skin. Neck: Supple, JVD with hepatojugular reflux noted. Cardiovascular: S1, S2, irregular rate and rhythm. Tachycardic. Respiratory: Lungs clear to auscultation anteriorly. Abdomen: Soft, nontender, protuberance. Bowel sounds present but hypoactive. : Not inspected, Hirsch in place. Extremities: Pitting edema to bilateral lower extremities, improved from yesterday. Neurological: Alert, oriented to person, place, and time. LABORATORY: WBC 6.55, hemoglobin 8.8, hematocrit 29.3, platelet count 198,000. Sodium 136, potassium 4.5, chloride 98, carbon dioxide 25, anion gap 13, BUN 29, creatinine 2.8. Intake 400, output 8240. IMPRESSION: 1. Chronic kidney disease secondary to obstructive uropathy. His BUN and creatinine have improved with renal replacement therapy. He had an ultrafiltration of almost 8 L yesterday. He is still showing 11 L net positive. We will plan on hemodialysis with a 4K bath and attempt 4 L ultrafiltration. For 3.5 hours. 2. Blood pressure. In target. 3. Fluid volume. Expanded. Managed with hemodialysis. 4. Anemia. Low, stable. He does not meet transfusion criteria. 5. Electrolytes and acid-base balance. Stable. 6. Nutrition. Appetite improving. 7. Physical deconditioning. Defer to Primary. 8. Medication review. Zosyn initiated. 9. Discontinue Hirsch I would like to thank you for allowing us to follow with this patient. Dictated by KAYLEE Sexton for Zachary Morris MD Face to face encounter, data reviewed, discussed with Janes Moore on 09/26/18. I agree with the above assessment and plan of care. cc: Zachary Morris MD MTDD
[2019-09-27] MEDS ORDERED: VENTOLIN HFA ONE (09:14)
--- NOTE | 2019-09-27 10:06 | OPERATIVE NOTE ---
PROCEDURE DATE: 09/27/2019 PROCEDURE PERFORMED: Right-sided tunnel dialysis catheter placement (24 cm) with ultrasound and fluoroscopic guidance. SURGEON: Hernando Lundberg M.D. SUPERVISOR DUMPING: Leisa. PREOPERATIVE DIAGNOSIS: Chronic kidney disease 5. POSTOPERATIVE DIAGNOSIS: Chronic kidney disease 5. DESCRIPTION OF PROCEDURE: Satisfactory monitored anesthesia care was established. IV sedation was accomplished. The patient was placed in a gentle Trendelenburg position. The right side of the neck and upper anterior chest were prepped and draped in a sterile fashion. We anesthetized the skin in the neck after identifying the location of the internal jugular vein with ultrasound. We then made a small stab incision. We then accessed the internal jugular vein under ultrasound guidance, and passed the guidewire into the superior vena cava under fluoroscopic guidance. We then anesthetized the skin below the clavicle, and chose a 24 cm precurved catheter. We made a stab incision below the clavicle at the exit site, and then tunneled the precurved catheter from the subclavicular incision up to the neck incision. We then dilated the tract sequentially, passed the dilator and introducer sheath over the guidewire under fluoroscopic guidance into the superior vena cava. We then removed the dilator and guidewire, and introduced the GlidePath catheter through the sheath, into the superior vena cava. We then were able to aspirate easily from each lumen, and flushed each lumen with Hep-Lock solution. We secured the flange to the skin with 3-0 nylon. We then closed the skin of the neck incision with a 4-0 Polysorb subcuticular stitch. We then flushed each lumen of the catheter with strong heparin at 5000 units/mL. This was simply to indwell the catheter only. Sterile caps were applied. Sterile Telfa and OpSites were applied at both incisions. He tolerated it well, and was sent to the recovery room in satisfactory condition. cc: Hernando Lundberg MD
[2019-09-27] MEDS: PROTONIX PO SCH ×2 (11:22→20:17)
[2019-09-27] MEDS: ASPIRIN PO SCH (11:22)
[2019-09-27] MEDS: ZAROXOLYN PO SCH (11:22)
[2019-09-27] MEDS: TRENTAL PO SCH (11:23)
[2019-09-27] MEDS: CENTRUM TABLET PO SCH (11:23)
[2019-09-27] MEDS: COLACE PO SCH ×2 (11:23→20:16)
[2019-09-27] MEDS: MIRALAX PO SCH (11:23)
[2019-09-27] MEDS: FLOMAX PO SCH (11:23)
[2019-09-27] MEDS: NASONEX NASAL SPRAY NAS SCH (11:24)
[2019-09-27] MEDS ORDERED: CARDIZEM IV ONE (12:23)
[2019-09-27] MEDS ORDERED: CARDIZEM 100 MG/NS 100 MG/100 ML IVPB IV SCH (12:30)
[2019-09-27] MEDS ORDERED: LOPRESSOR IV SCH (12:45)
[2019-09-27] MEDS ORDERED: LOPRESSOR IV PRN (15:23)
[2019-09-27] MEDS: CARDIZEM PO SCH ×2 (16:57→20:16)
[2019-09-27] MEDS: MORPHINE IV PRN ×2 (17:06→21:06)
[2019-09-27] MEDS: ELAVIL PO SCH (20:17)
[2019-09-28] MEDS: MORPHINE IV PRN ×3 (02:50→18:47)
[2019-09-28] MEDS: CARDIZEM PO SCH ×4 (02:55→20:38)
[2019-09-28] MEDS: ZOSYN 2.25 GM in NS 50 ML IV SCH ×3 (02:56→14:37)
[2019-09-28] MEDS: DUONEB (A & A) INH SCH ×4 (03:44→22:23)
[2019-09-28] MEDS ORDERED: TIGHT: 0.2 ML/HR FOR DIALYSIS MISC PRN (06:20)
[2019-09-28] MEDS ORDERED: HEPARIN IV PRN (06:20)
[2019-09-28] MEDS ORDERED: NS 2,000 ML MISC PRN (06:20)
[2019-09-28] MEDS: HUMULIN R SUBQ SCH ×4 (06:37→20:59)
[2019-09-28 06:42] LABS: HEMATOCRIT 26.4 % (42.0-52.0); HEMOGLOBIN 8.2 g/dL (14.0-18.0); MCH 28.2 PG (27-31); MCHC 31.1 g/dL (33-37); MCV 90.7 FL (81-99); MPV 10.2 FL (7.4-10.4); RBC 2.91 XMIL (4.7-6.1); RDW 16.3 % (11.5-14.5); WBC 6.42 X1000 (4.8-10.8)
[2019-09-28 07:12] LABS: ALBUMIN 3.1 g/dL (3.5-5.0); CALCIUM 8.4 mg/dL (8.8-10.2); CREATININE 2.8 mg/dL (0.7-1.2); PHOSPHORUS 3.7 mg/dL (2.7-4.5); POTASSIUM 4.4 mmol/L (3.5-5.1)
--- NOTE | 2019-09-28 07:43 | EKG Report ---
Test Performed on : 09/28/2019 07:08:16 AM Test Reason : afib Blood Pressure : / mmHG Vent. Rate : 068 BPM Atrial Rate : 068 BPM P-R Int : 174 ms QRS Dur : 102 ms QT Int : 438 ms P-R-T Axes : 000 003 060 degrees QTc Int : 465 ms Normal sinus rhythm. Normal ECG When compared with ECG of 27-SEP-2019 04:18, (Unconfirmed) Sinus rhythm. has replaced Atrial fibrillation. Vent. rate has decreased BY 34 BPM Confirmed by Marek Garcia MD ([id number]) on 09/28/2019 9:32:39 PM
--- NOTE | 2019-09-28 10:18 | NEPHROLOGY PROGRESS NOTE ---
DATE: 09/28/2019 TIME SEEN: 0715. SUBJECTIVE: The patient was awake in bed. He had nursing staff at bedside. The dressing to his new tunneled catheter on his right chest wall had bloody drainage. This was removed at bedside and a new dressing was placed. Mr. Olsen's only complaint is mild constipation. OBJECTIVE: Vital Signs: Temperature 97.5 degrees, pulse 73, respirations 20, blood pressure 162/64, O2 saturation 99% on a Venturi mask. General: Chronically ill- appearing, white male lying in bed, in no acute distress. HEENT: Normocephalic, atraumatic. Pupils equal and reactive. Mucous membranes dry. Skin warm and dry with erythema and dry flaky skin to bilateral lower extremities. This appears to be venous stasis. Neck is supple, 8 cm JVD with hepatojugular reflux noted. Cardiovascular: S1, S2. Regular rate and rhythm. Respiratory: Lungs clear to auscultation anteriorly. Abdomen: Soft, nontender, protuberant. Bowel sounds hypoactive. : Not inspected. Extremities: There is 1+ pitting edema to bilateral lower extremities. It has improved over the past few days. Neurological: Alert and oriented to person, place, and time. Labs: WBCs 6.42, hemoglobin 8.2, hematocrit 26.4, platelet count 186,000. Sodium 137, potassium 4.4, chloride 99, carbon dioxide 27, anion gap 11, BUN 21, creatinine 2.8. Intake 492, output 4102. IMPRESSION: 1. Chronic kidney disease secondary to obstructive uropathy. His BUN and creatinine are stable. He had hemodialysis yesterday with a 4 L ultrafiltration. We will plan for hemodialysis again today with a 4 L ultrafiltration for 3.5 hours. We will continue to monitor. 2. Constipation. We will order sorbitol. 3. Blood pressure, variable. Metoprolol as needed in place. 4. Fluid volume. He remains expanded. We will plan for hemodialysis again today. 5. Anemia. Low but stable. He does not meet transfusion criteria. 6. Electrolytes and acid-base balance. These are stable. 7. Nutrition. Adequate. 8. Medication review. Cardizem by mouth and metoprolol intravenously as needed. 9. Physical deconditioning. We will order physical therapy. I would like to thank you for allowing us to follow with this patient. Dictated by KAYLEE Sexton for Zachary Morris MD Face to face encounter, data reviewed, discussed with Janes Moore on 09/28/19. I agree with the above assessment and plan of care. cc: Zachary Morris MD [facility]
[2019-09-28] MEDS: APRESOLINE PO SCH ×3 (12:06→20:59)
[2019-09-28] MEDS: PROTONIX PO SCH ×2 (12:12→20:59)
[2019-09-28] MEDS: ZAROXOLYN PO SCH (12:12)
[2019-09-28] MEDS: NORVASC PO SCH (12:12)
[2019-09-28] MEDS: COLACE PO SCH ×2 (12:13→20:59)
[2019-09-28] MEDS: CATAPRES PO SCH (12:13)
[2019-09-28] MEDS: ASPIRIN PO SCH (12:13)
[2019-09-28] MEDS: CENTRUM TABLET PO SCH (12:13)
[2019-09-28] MEDS: FLOMAX PO SCH (12:13)
[2019-09-28] MEDS: TRENTAL PO SCH (12:13)
[2019-09-28] MEDS: NASONEX NASAL SPRAY NAS SCH (12:14)
[2019-09-28] MEDS: MIRALAX PO SCH (12:14)
[2019-09-28] MEDS: SORBITOL PO SCH (12:15)
[2019-09-28] MEDS ORDERED: XYLOCAINE 1%/EPI 1:100,000 INJ ONE ×2 (15:56→16:00)
--- NOTE | 2019-09-28 17:29 | PROGRESS NOTE ---
DATE: 09/28/2019 INTERVAL HISTORY: Patient is seen on dialysis, doing well. Denies current dyspnea. States that his cough is less. No acute events overnight. REVIEW OF SYSTEMS: Twelve point review of systems negative except as per interval history. LABS: WBC 6.4, hemoglobin 8.2, hematocrit 26.4, platelets 186,000. Sodium 137, potassium 4.4, BUN 21, creatinine 2.8, glucose at 668 to 132. VITAL SIGNS: T-max 99.1 degrees, pulse 70, respirations 18, blood pressure 155/63, O2 saturation 100% on Venturi mask.. PHYSICAL EXAMINATION: General: No acute distress. Chronically ill-appearing on dialysis. HEENT: Normocephalic, atraumatic. Moist mucous membranes. No cervical adenopathy. Cardiac: Regular rate and rhythm. Currently no murmurs noted. Pulmonary: Globally mildly decreased breath sounds. Slight bibasilar crackles but otherwise clear to auscultation. No increased work of breathing or accessory muscle use. Abdomen: Soft, nontender, nondistended. Bowel sounds positive. Extremities: Peripheral pulses intact. There is 1 to 2+ edema improved from previous descriptions. Bilateral feet with some thickening of the skin. Area on the left great toe which is likely a healing ulcer. No sign of infection. Neurologic: Cranial nerves grossly intact. No focal deficits. Psychiatric: Normal mood and affect. Awake, alert, oriented x3. ASSESSMENT AND PLAN: 1. Chronic kidney disease 5, volume overload. The patient on dialysis with significant amount of fluid taken off. Symptoms much improved. Still requiring a fair amount of oxygen, but we have some room to wean down. Nephrology on board and we will see what they say about further dialysis. 2. Atrial fibrillation, regular rate and rhythm at the time of my exam. Rate has been good. Continue diltiazem and metoprolol and monitor. 3. Anemia. Likely anemia of chronic disease. Hemoglobin and hematocrit essentially stable, monitor. 4. Diabetes with diabetic foot ulcer. The ulcer looks to be doing well. I think she had some mild hypoglycemia overnight. The patient did not receive any insulin yesterday. Diabetes appears to be diet controlled at this point. Continue monitoring sugar. 5. Benign prostatic hypertrophy. Continue Flomax. 6. Hypertension. Acceptable control currently. Continue to monitor. 7. Elevated troponin, likely demand ischemia/type 2 myocardial infarction related to kidney dysfunction and volume overload on admission. Over 4 checks troponin was essentially flat. 8. The patient started on empiric antibiotics initially, but no evidence of infection has been identified so we will discontinue antibiotics and monitor.
--- NOTE | 2019-09-28 18:20 | GENERAL SURGERY PROGRESS NOTE ---
DATE: 09/28/2019 Mr. Olsen has been oozing around his dialysis catheter. We removed the bandage, cleaned it with alcohol and injected 1% lidocaine with epinephrine around the catheter exit site to help stop the small subcutaneous bleeding. A new sterile OpSite dressing was applied. The Vas-Cath was then removed and then pressure dressing was applied on his left side of his neck as well. cc: Hernando Lundberg MD
[2019-09-28] MEDS: ELAVIL PO SCH (20:59)
[2019-09-29] MEDS: MORPHINE IV PRN ×5 (01:26→21:24)
[2019-09-29] MEDS: CARDIZEM PO SCH ×3 (01:58→20:37)
[2019-09-29] MEDS: DUONEB (A & A) INH SCH ×4 (03:33→21:48)
[2019-09-29] MEDS: HUMULIN R SUBQ SCH ×4 (06:32→21:24)
[2019-09-29] MEDS ORDERED: HEPARIN IV PRN (06:40)
[2019-09-29] MEDS ORDERED: NS 2,000 ML MISC PRN (06:40)
[2019-09-29] MEDS ORDERED: TIGHT: 0.2 ML/HR FOR DIALYSIS MISC PRN (06:40)
[2019-09-29 07:03] LABS: HEMATOCRIT 24.8 % (42.0-52.0); HEMOGLOBIN 7.8 g/dL (14.0-18.0); MCH 28.2 PG (27-31); MCHC 31.5 g/dL (33-37); MCV 89.5 FL (81-99); MPV 10.2 FL (7.4-10.4); RBC 2.77 XMIL (4.7-6.1); RDW 16.2 % (11.5-14.5); WBC 5.92 X1000 (4.8-10.8)
[2019-09-29 07:35] LABS: ALBUMIN 3.2 g/dL (3.5-5.0); CALCIUM 8.6 mg/dL (8.8-10.2); CREATININE 2.6 mg/dL (0.7-1.2); PHOSPHORUS 3.2 mg/dL (2.7-4.5); POTASSIUM 4.5 mmol/L (3.5-5.1)
[2019-09-29] MEDS: SORBITOL PO SCH (08:06)
[2019-09-29] MEDS: MIRALAX PO SCH (08:06)
[2019-09-29] MEDS: COLACE PO SCH ×2 (08:07→20:39)
[2019-09-29] MEDS: ZAROXOLYN PO SCH (08:07)
[2019-09-29] MEDS: TRENTAL PO SCH (08:07)
[2019-09-29] MEDS: ASPIRIN PO SCH (08:07)
[2019-09-29] MEDS: CENTRUM TABLET PO SCH (08:07)
[2019-09-29] MEDS: CATAPRES PO SCH (08:07)
--- NOTE | 2019-09-29 08:09 | CARDIOLOGY PROGRESS NOTE ---
DATE: 09/29/2019 CHIEF COMPLAINT: Swelling. Irregular heartbeat. SUBJECTIVE: Mr. Olsen went onto have episode of paroxysmal atrial fibrillation on 09/26. He converted to sinus rhythm shortly after dialysis was started. He has maintained sinus rhythm. We recommended to keep him on diltiazem, however, somehow the order was also compounded by the fact that they did not cancel the amlodipine. At this time, he does not need to be on 2 calcium blockers. He needs stay on only diltiazem to control his heart rate. OBJECTIVE: Vital signs: His blood pressure 150/62, temperature 98 degrees, pulse 61, respirations 18. General: He is awake, he feels better. Dialysis has been initiated and he is less swollen. HEENT: Unremarkable. Chest: Diminished breath sounds at bases. Heart: Sounds are regular and rhythmic at this time. Last chest x-ray from 09/24 showed no evidence of pneumothorax with evidence of bibasilar atelectasis, bilateral pleural effusions. Abdomen: Obese. Extremities: Showed extensive skin changes with hyperkeratosis, discoloration of the skin suggesting chronic vascular disease with some sort of underlying skin condition. Neurologic exam: Normal. BLOOD WORK: His blood work yesterday, sodium 137, potassium 4.4, BUN 21, creatinine 2.8. IMPRESSION: 1. Patient who presented with swelling. This is secondary to advanced chronic kidney disease, nephrotic syndrome. 2. Abnormal cardiac enzymes that is due to his decompensated fluid overload. We have done previous echocardiogram in March 2019 that showed normal Left ventricular EF. So he does not have systolic heart failure. At best, he may have diastolic heart failure from fluid overload. 3. Diabetes mellitus type 2 with end-organ damage. 4. Symptomatic bradycardia that has resolved. RECOMMENDATIONS: At this time, we will continue present therapy. I am going to stop amlodipine. We will keep him on diltiazem 60 every 8 hours for the time being and then we will see how he does. He is also on a backup dose of metoprolol as needed. I do not believe this patient is going to benefit from long-term anticoagulation. His hemoglobin is low 7.8 g. Given his normal ejection fraction, probably his overall risk for cardiac thromboembolic events would be somewhat lower. Will follow him. cc: Teofilo Mary MD [facility]PITALPoppy
[2019-09-29] MEDS: FLOMAX PO SCH (08:10)
[2019-09-29] MEDS: APRESOLINE PO SCH ×3 (08:10→20:37)
[2019-09-29] MEDS: PROTONIX PO SCH ×2 (08:10→21:24)
--- NOTE | 2019-09-29 09:10 | Diag Imaging Result Doc PS360 ---
CHEST-PORTABLE - 09/29/2019 INDICATION: volume overload/kidney failure. COMPARISON: 09/25/2019 FINDINGS: There is a right-sided dialysis catheter in good position with the tip in the lower SVC. Lung volumes remain severely low. There is cardiomegaly and diffuse pulmonary vascular congestion. There are small bilateral pleural effusions. There is some hazy pulmonary edema. IMPRESSION: Congestive heart failure versus volume overload. Electronically signed by Tho Tran 09/29/2019 9:07 AM
--- NOTE | 2019-09-29 10:28 | NEPHROLOGY PROGRESS NOTE ---
DATE: 09/29/2019 SUBJECTIVE: Patient is sitting up in the bed. He states his breathing is much better than previous and he has been able to transition to a nasal cannula for oxygen supplementation. OBJECTIVE: Vital Signs: Temperature 98 degrees, pulse 61, respiratory rate 18, blood pressure 150/62. Intake 840 mL, output 4 L. General: This is a chronically ill-appearing middle-aged gentleman sitting up in bed. He is awake and alert. He is in no distress. HEENT: Normocephalic, atraumatic. His conjunctivae are pale. Oral mucosa is moist. Neck: Supple with positive JVD. Cardiovascular: Regular rate and rhythm. Pulmonary: He is clear bilaterally. He is on nasal cannula. Abdomen: Soft. Positive bowel sounds. Genitourinary: He is voiding. Extremities: He has trace edema. Integumentary: Skin is warm and dry. Neurologic: Nonfocal. LABORATORY DATA: WBC of 6.4, hemoglobin 8.2. No new chemistries. ASSESSMENT AND PLAN: 1. Chronic kidney disease secondary to obstructive uropathy. The patient has dialyzed twice this week. We are obtaining his outpatient plan. If he is to go to a Wednesday, Wednesday, Wednesday schedule, we will plan to dialyze him today to keep him to that schedule. If he is to go to a Wednesday, , Wednesday schedule, we will plan to dialyze him tomorrow. He does not have any absolute emergent need for dialysis this morning. The patient has improved significantly and has been able to transition to a lower rate of oxygen delivery. 2. Electrolytes, acid-base balance, anemia. See above for plan. 3. Fluid volume. See above for plan. MEDICATION REVIEW: No changes. Once he is discharged, we would hope that he can stop the Protonix. Dictated by KAYLEE Munguia for Zachary Morris MD cc: Zachary Morris MD
[2019-09-29] MEDS: NASONEX NASAL SPRAY NAS SCH (11:35)
--- NOTE | 2019-09-29 11:35 | GENERAL SURGERY PROGRESS NOTE ---
DATE: 09/29/2019 SUBJECTIVE: Mr. Olsen's catheter site no longer is bleeding. His puncture site on the left side of his neck where we removed the Vas-Cath is not bleeding either. I think he is progressing satisfactorily. No new recommendations. cc: Hernando Lundberg MD
--- NOTE | 2019-09-29 14:59 | PROGRESS NOTE ---
DATE: 09/29/2019 INTERVAL HISTORY: The patient is complaining of some constipation, but otherwise doing well. Still some dyspnea on exertion, but significantly decreased. No new complaints. No acute events overnight. REVIEW OF SYSTEMS: Twelve point review of systems negative, except as per interval history. LABS: WBC 5.9, hemoglobin 7.8, hematocrit 24.8, platelets 197. Sodium 140, potassium 4.5, BUN 20, creatinine 2.6, glucose 94 to 145. IMAGING: Chest x-ray still with some diffuse pulmonary vascular congestion. VITALS: T-max 98.2 degrees, pulse 61, respirations 12, blood pressure 143/44, O2 saturation 98% on 3 L by nasal cannula. PHYSICAL EXAMINATION: General: No acute distress. Vitals: As above. HEENT: Normocephalic, atraumatic. Moist mucous membranes. Neck: No cervical adenopathy. Cardiovascular: Regular rate and rhythm. No murmurs noted. Dialysis catheter on the right upper chest, central line in left neck. Pulmonary: Globally mildly decreased breath sounds. Slight bibasilar crackles remain, but otherwise clear to auscultation. Abdomen: Soft, nontender. Slightly distended. Bowel sounds decreased, but present. Extremities: Peripheral pulses intact. There is 1+ to 2+ edema, essentially unchanged. Some scabbing of bilateral legs, but no induration, fluctuance or drainage. No clear sign of infection. Thickening of the skin in bilateral feet with healing left great toe ulcer, stable. Neurologic: Cranial nerves grossly intact. No focal deficits. Psychiatric: Normal mood and affect. Awake, alert and oriented x3. ASSESSMENT AND PLAN: 1. Chronic kidney disease V, volume overload. Patient on dialysis for the last couple days with significant amount of fluid taken off. Symptoms much improved. Oxygen requirements decreasing. Still some fluid on his x-ray, so I suspect that he will be dialyzed again tomorrow. Hopefully with one more round of dialysis, we will be able to get him off oxygen entirely, and he may be able to go home after that. 2. Paroxysmal atrial fibrillation. Patient with regular rhythm at the time of my exam. Rate has been doing well. Continue diltiazem and metoprolol and monitor. 3. Anemia, likely anemia of chronic disease. Labs slightly up and down, but overall essentially stable. 4. Diabetic with diabetic foot ulcer. Ulcer looks okay. Diabetes appears to be diet-controlled at this point. We will continue monitoring sugar 1 more day, but if it remains good without any insulin, then can likely stop sugar checks at that point. 5. Benign prostatic hypertrophy. Continue Flomax. 6. Hypertension. Acceptable control currently. Continue to monitor. 7. Elevated troponin, likely demand ischemia/type 2 myocardial infarction related to kidney dysfunction and volume overload. Troponins times 4 were essentially flat. 8. Patient was started on empiric antibiotics initially, but no evidence of infection was found. Antibiotics were discontinued yesterday. He seems to be doing well so far.
[2019-09-29] MEDS: ELAVIL PO SCH (20:37)
[2019-09-30] MEDS: MORPHINE IV PRN ×4 (01:34→14:48)
[2019-09-30] MEDS: CARDIZEM PO SCH ×2 (05:13→14:48)
[2019-09-30] MEDS: DUONEB (A & A) INH SCH ×2 (06:27→10:00)
[2019-09-30 06:29] LABS: HEMATOCRIT 26.6 % (42.0-52.0); HEMOGLOBIN 8.2 g/dL (14.0-18.0); MCH 27.7 PG (27-31); MCHC 30.8 g/dL (33-37); MCV 89.9 FL (81-99); MPV 10.1 FL (7.4-10.4); RBC 2.96 XMIL (4.7-6.1); WBC 5.54 X1000 (4.8-10.8)
[2019-09-30] MEDS: HUMULIN R SUBQ SCH ×2 (06:38→14:19)
[2019-09-30 06:47] LABS: ALBUMIN 3.4 g/dL (3.5-5.0); CALCIUM 9.1 mg/dL (8.8-10.2); CREATININE 2.7 mg/dL (0.7-1.2); PHOSPHORUS 3.3 mg/dL (2.7-4.5); POTASSIUM 4.4 mmol/L (3.5-5.1)
[2019-09-30] MEDS: CENTRUM TABLET PO SCH (09:16)
[2019-09-30] MEDS: FLOMAX PO SCH (09:16)
[2019-09-30] MEDS: COLACE PO SCH (09:16)
[2019-09-30] MEDS: PROTONIX PO SCH (09:16)
[2019-09-30] MEDS: APRESOLINE PO SCH (09:16)
[2019-09-30] MEDS: CATAPRES PO SCH (09:16)
[2019-09-30] MEDS: TRENTAL PO SCH (09:16)
[2019-09-30] MEDS: NASONEX NASAL SPRAY NAS SCH (09:16)
[2019-09-30] MEDS: ASPIRIN PO SCH (09:16)
[2019-09-30] MEDS: ZAROXOLYN PO SCH (09:16)
--- NOTE | 2019-09-30 10:12 | NEPHROLOGY PROGRESS NOTE ---
DATE: 09/30/2019 TIME SEEN: 07:20. SUBJECTIVE: The patient is up to chair at the side of the bed. He states he feels better than he has in a long time. He denies any complaints. OBJECTIVE: Vital signs: Temperature 97.3 degrees, pulse 64, respirations 19, blood pressure 146/57, O2 saturation 99% on 2 L nasal cannula. General: Chronically ill-appearing white male, sitting up to chair outside at the side of the bed. HEENT: Normocephalic, atraumatic. Pupils equal and reactive. Mucous membranes moist. Skin: Warm and dry with erythema and dry, flaky skin to the bilateral lower extremities. Neck: Supple, 6 cm JVD in upright position with hepatojugular reflux. Cardiovascular: S1, S2. Regular rate and rhythm. No murmurs or gallops noted. Respiratory: Lungs clear to auscultation with diminished bases posteriorly. Abdomen: Soft, nontender, nondistended. Bowel sounds active. Genitourinary: Not inspected. Extremities: 1+ pitting edema to the bilateral lower extremities. Neurological: Alert and oriented to person, place, and time. LABORATORY DATA: WBC 5.54, hemoglobin 8.2, hematocrit 26.6, platelet count 215,000. Sodium 138, potassium 4.4, chloride 98, carbon dioxide 29, anion gap 11, BUN 17, creatinine 2.7. Intake 550, output 3989 per dialysis assist. IMPRESSION: 1. Chronic kidney disease secondary to obstructive uropathy. His BUN and creatinine remain stable. He had hemodialysis yesterday with an almost 4 L ultrafiltration. We will hold on hemodialysis today and evaluate again tomorrow. Continue to monitor. 2. Blood pressure. This is stable. 3. Fluid volume. Slightly expanded, but improved. Hemodialysis in place. 4. Anemia. Low but stable. He does not meet transfusion criteria. 5. Electrolytes and acid-base balance. These are stable. We manage these with hemodialysis. 6. Nutrition. Adequate per documentation. 7. Physical deconditioning. Patient has physical therapy in place. MEDICATION REVIEW: Cardizem 60 mg p.o. q.8 hours. I would like to thank you for allowing us to follow with this patient. This is Jolene Moore, nurse- practitioner, dictating a progress note for Dr. Zachary Morris. Dictated by KAYLEE Sexton for Zachary Morris MD cc: Zachary Morris MD
[2019-09-30] MEDS: SORBITOL PO SCH (10:34)
[2019-09-30] MEDS: MIRALAX PO SCH (10:34)
[2019-09-30 11:14] VITALS: BP 151/55
--- NOTE | 2019-09-30 20:41 | DISCHARGE SUMMARY ---
ADMISSION DATE: 09/21/2019 DISCHARGE DATE: 09/30/2019 DISCHARGE DIAGNOSES: 1. Fluid overload in a patient with chronic kidney disease stage 5. 2. Paroxysmal atrial fibrillation. 3. Anemia, likely anemia of chronic disease. 4. Diabetes with diabetic foot ulcer. 5. Benign prostatic hypertrophy. 6. Hypertension. 7. Elevated troponin. 8. Symptomatic bradycardia, resolved. 9. History of chronic obstructive pulmonary disease, on home oxygen. 10. Hyperlipidemia. 11. History of cerebrovascular accident, with some weakness of the left side. 12. Peripheral vascular disease. PROCEDURES PERFORMED: 1. Chest x-ray dated 09/21/2019 impression: Pulmonary edema. 2. Abdomen and pelvis CT scan dated 09/22/2019 impression: Worsened anasarca and ascites; bilateral pleural effusion with worsening basilar atelectasis; left nephrolithiasis, no evidence of obstructive uropathy; constipation. 3. Chest x-ray dated 09/25/2019 impression: No postprocedural pneumothorax. 4. Chest x-ray dated 09/29/2019 impression: Congestive heart failure versus volume overload. HOSPITAL COURSE: A 53-year-old male with multiple comorbidities including CHF; pulmonary hypertension; COPD, on home O2; CKD, advanced; hypertension; diabetes; BPH. Admitted on 09/21/2019 due to shortness of breath for at least 1 week, orthopnea that has been getting worse, bilateral lower extremity edema, decreased urine output, weight gain and abdominal pain. In the emergency department he was found to be overloaded. He was not in respiratory distress, but he was reporting shortness of breath. He was basically hypoxemic. Physical exam showed decreased breath sounds with crackles bilaterally as well, and elevated BUN and creatinine as well as cardiac enzymes. He was bradycardic in the low 50s, but that resolved. He was symptomatic. He was evaluated by multiple subspecialties including Cardiology Department, Dr. Mary, and Surgery Department, Dr. Lundberg, as well as Nephrology Department, Dr. Morris. He also had an episode of atrial fibrillation that was basically resolved. He is not a good candidate for anticoagulation based on Cardiology report, he had a tunneled catheter placed and he was started on dialysis. We were able to remove more than 20 L. The patient has been feeling better on a daily basis. He is not complaining of chest pain or shortness of breath. He will be discharged today, with strict followup by Cardiology Department, Nephrology Department and primary care doctor. He seems to understand and he needs to continue with oxygen. Basically we removed a lot of fluid through dialysis and that helped him a lot. PHYSICAL EXAMINATION: Vital signs: Temperature 97.3 degrees, pulse 65, respiratory rate 16, blood pressure 151/55, oxygen saturation 99% on 2 L of nasal cannula. HEENT: Head normocephalic. No trauma. PERRLA. Neck is supple. No JVD. No masses. Central trachea. Chest: Decreased breath sounds at the bases with some crackles. Abdomen is soft, nontender, nondistended. No hepatosplenomegaly. Extremities: Lower extremity edema 1+. No clubbing. No cyanosis. Neurological: The patient is awake and alert. He is oriented x3. No focal deficits. LABORATORY DATA: WBC 5.5, hemoglobin 8.2, hematocrit 26.6, platelets 215,000. Sodium 138, potassium 4.4, chloride 98, bicarbonate 29, BUN 17, creatinine 2.7, glucose 149, calcium 9.1, albumin 3.4. DISCHARGE MEDICATIONS: Amitriptyline 10 mg p.o. at bedtime; aspirin 325 mg p.o. daily; vitamin D3, 5000 units p.o. daily; citalopram 40 mg p.o. every other day; clonidine 0.1 mg p.o. daily; Cardizem 60 mg p.o. every 8 hours; Colace 100 mg p.o. b.i.d.; insulin NPH as needed; hydralazine 100 mg p.o. t.i.d.;, Addison 7.5 one tablet p.o. q.4 hours as needed; insulin 70/30, 15 units subcutaneously AC plus nightly; metolazone 10 mg p.o. daily; Nasonex nasal spray daily; multivitamin 1 tablet p.o. daily; pantoprazole 40 mg p.o. b.i.d.; Trental 400 mg p.o. t.i.d.; MiraLAX 17 g p.o. daily as needed; sorbitol 30 mL p.o. daily; tamsulosin 0.4 mg p.o. daily. Time discharging this patient was 35 minutes. cc: Fabian Grider MD
== END 2019-09-30 15:30 | disposition home health service (06) | DRG 641 ==
LOC: ED 16:32 → SUATTDRO 22:17 → 2N 22:17
PROVIDERS: ATTEND Internal Medicine